=== PATIENT | female | born 1940 | race Caucasian/White ===

== ENCOUNTER 2017-04-02 08:47 | Inpatient (IN) ==
--- NOTE | 2017-04-02 08:55 | Emergency Department Report ---
Medical Clearance HPI - General Stated complaint: generations eval Time Seen by Provider: 04/02/17 08:55 Source: family, RN notes reviewed, old records reviewed Limitations: other - History of Present Illness HPI Narrative: Patient is a 76-year-old female sent to the emergency department for "medical clearance". Patient resident to the detention elsewhere, apparently has been having multiple behavioral disturbances anger with staff. Medication changes been attempted but have been unsuccessful. Patient was screening except generations, however patient has not been evaluated medically by physician in greater than 2 weeks so patient was sent to the emergency room for evaluation. On arrival patient is without complaint MD complaint: medical clearance requested Reason for Medical Clearance: psychiatric condition Home medications: Home Medications Medication Instructions Recorded Confirmed Acetaminophen [Acetaminophen Extra 1,000 mg PO Q4H PRN 04/02/17 04/02/17 Strength] Bisacodyl Supp [Dulcolax] 10 mg RECTALLY DAILY PRN 04/02/17 04/02/17 Cholecalciferol (Vitamin D3) 5,000 unit PO DAILY 04/02/17 04/02/17 [Vitamin D3] Divalproex Sprinkle [Depakote 500 mg PO BID 04/02/17 04/02/17 Sprinkle] Docosanol [Abreva] 1 applicatio TP 5XD 04/02/17 04/02/17 Docusate Sodium [Colace] 100 mg PO BID 04/02/17 04/02/17 Fluvoxamine [Luvox] 100 mg PO TID 04/02/17 04/02/17 Folic Acid [Folate] 1 mg PO DAILY 04/02/17 04/02/17 Ibuprofen 400 mg PO Q4H PRN 04/02/17 04/02/17 Levothyroxine Tab [Synthroid] 137 mcg PO ACB 04/02/17 04/02/17 Mag Hydrox/Aluminum Hyd/Simeth 30 ml PO Q4H PRN 04/02/17 04/02/17 [Maalox Advanced Suspension] Magnesium Hydroxide [Milk of 30 ml PO DAILY PRN 04/02/17 04/02/17 Magnesia] Mirtazapine [Remeron] 45 mg PO HS 04/02/17 04/02/17 Multivitamin [One Daily] 1 tab PO DAILY 04/02/17 04/02/17 Ondansetron HCl [Zofran] 4 mg PO Q6H PRN 04/02/17 04/02/17 Peg 3350 238 G Bottle [Miralax] 17 gm PO DAILY 04/02/17 04/02/17 Potassium Chloride [K-DUR 20 mEq 20 meq PO DAILY 04/02/17 04/02/17 Tablet] Tamsulosin [Flomax] 0.4 mg PO DAILY 04/02/17 04/02/17 Tramadol [Ultram] 50 - 100 mg PO Q4-6HR PRN 04/02/17 04/02/17 Ziprasidone HCl [Geodon] 80 mg PO BID 04/02/17 04/02/17 Ziprasidone [Geodon] 20 mg IM PRN PRN 04/02/17 04/02/17 Allergies/Adverse reactions: Allergies Allergy/AdvReac Type Severity Reaction Status Date / Time No Known Allergies Allergy Verified 04/02/17 09:53 Review of Systems Limitations: ROS unobtainable due to patient's medical condition (patient denies , however due to dementia review of suspect) Constitutional: Denies: fever, chills ENT: Denies: ear pain, throat pain Cardiovascular: Denies: chest pain, palpitations, dyspnea on exertion Respiratory: Denies: cough, dyspnea, wheezes Gastrointestinal: Denies: abdominal pain, nausea, vomiting Genitourinary: Reports: frequency (chronic) Neurological: Denies: headache, weakness, numbness Psychiatric: Reports: depression. Denies: anxiety PFSH Patient Stated Medical History Alzheimer's Disease Yes Dementia Yes Seizures Yes Cardiac Arrhythmia Yes: AFIB Gastroesophageal Reflux Yes Disease Hx Urinary Tract Infection Yes Osteoarthritis Yes Other Musculoskeletal Yes: CHRONIC PAIN Depression Yes Other Behavioral Health Yes: PSYCHOSIS Physical Exam - General General appearance: alert, in no apparent distress - Eye Eye exam: Present: PERRL - ENT ENT exam: Present: normal oropharynx, mucous membranes moist - Neck Neck exam: Present: full ROM, trachea midline - Chest Chest inspection: Present: symmetric chest wall rise. Absent: tenderness - Respiratory Respiratory exam: Present: normal lung sounds bilaterally. Absent: respiratory distress, wheezes, stridor - Cardiovascular Cardiovascular exam: Present: regular rate, normal rhythm, normal heart sounds - Abdominal Exam Abdominal exam: Present: soft, normal bowel sounds. Absent: distention, tenderness - Back Exam Back exam: Present: full ROM. Absent: tenderness, CVA tenderness (R), CVA tenderness (L), muscle spasm, paraspinal tenderness - Skin Skin exam: Present: warm, dry - Neurological Exam Neurological exam: Present: alert - Psychiatric Psychiatric exam: Present: flat affect Course Vital Signs Temperature 97.6 F 04/02/17 08:50 Pulse Rate 73 04/02/17 08:50 Respiratory Rate 18 04/02/17 08:50 Blood Pressure 99/57 04/02/17 08:50 Pulse Oximetry 94 04/02/17 08:50 Temperature 97.6 F 04/02/17 08:50 Pulse Rate 67 04/02/17 10:04 Respiratory Rate 18 04/02/17 08:50 Blood Pressure 116/84 04/02/17 10:04 Pulse Oximetry 93 04/02/17 10:04 Medical Clearance - [facility] Narrative Medical decision making narrative: Discussed with Dr. Scruggs hospitalist, patient laboratories are within defined limits, oxygen saturations 94% on room air blood pressure 116/84, patient having no respiratory symptoms. Despite chest x-ray showing atelectasis versus infiltrate, he and I both agree that this is atelectasis no antibiotics needed no acute admission criteria. Discuss case with generations unit - Differential Diagnosis Likely: urinary tract infection - Medical Records Attestation: I reviewed the patient's medical records. - Lab Data Attestation: I reviewed the patient's lab results. Result diagrams: 04/02/17 09:17 04/02/17 09:17 Lab Results 04/02/17 04/02/17 04/02/17 Range/Units 09:17 09:17 09:40 WBC 8.2 (4.5-11.0) T/MM3 RBC 4.46 (4.00-5.20) M/MM3 Hgb 12.5 (12-16) GM/DL Hct 40.3 (36-46) % MCV 90.4 (80-100) UM3 MCH 28.0 (26-34) UUG MCHC 31.0 (31-37) GM/DL RDW Std Deviation 56.6 H (36.9-50.2) FL Plt Count 306 (130-400) T/MM3 MPV 9.2 L (9.4-12.4) UM3 Immature Gran % (Auto) 0.2 (0.0-0.5) % Neut % (Auto) 59.2 (33-66) % Lymph % (Auto) 27.3 (23-45) % [place] % (Auto) 9.2 H (0-9.0) % Eos % (Auto) 3.1 (0-4) % Baso % (Auto) 1.0 (0-2) % Neut # (Auto) 4.8 (1.8-7.7) T/MM3 Lymph # (Auto) 2.2 (1-4.8) T/MM3 [place] # (Auto) 0.8 (0-0.8) T/MM3 Eos # (Auto) 0.3 (0-0.5) T/MM3 Baso # (Auto) 0.1 (0-0.2) T/MM3 Abs Immat Gran (auto) 0.02 (0.00-0.03) T/MM3 Turbidity < 20 (0-20) Sodium 144 (134-144) MEQ/L Potassium 4.4 (3.6-5) MEQ/L Chloride 107 (98-107) MEQ/L Carbon Dioxide 27 (22-30) MEQ/L Anion Gap 10 (5-15) MEQ/L BUN 26.0 H (7-17) MG/DL Creatinine 0.8 (0.7-1.2) MG/DL GFR Calculation 70 BUN/Creatinine Ratio 33 H (6-26) RATIO Glucose 111 H (65-110) MG/DL Calculated Osmolality 283 H (261-280) MOSM/KG Calcium 9.3 (8.4-10.2) MG/DL Total Bilirubin 0.20 (0.20-1.30) MG/DL Conjugated Bilirubin 0.00 (0.00-0.30) MG/DL Unconjugated Bilirubin 0.10 (0.00-1.1) MG/DL Icterus Index < 2 (0-7) AST 23 (14-36) U/L ALT 36 (9-52) U/L Alkaline Phosphatase 79 (38-126) U/L B-Natriuretic Peptide 350 H (0-175) pg/mL Total Protein 7.4 (6.3-8.2) G/DL Albumin 3.9 (3.5-5.0) G/DL Globulin 3.5 (2.4-3.6) G/DL Albumin/Globulin Ratio 1.1 (1.1-2.2) RATIO TSH 8.11 H (0.47-4.68) MIU/L Specimen Hemolysis < 15 (0-25) Ur Collection Type Urine, void-cc/notcc Urine Color Yellow (YELLOW) Urine Clarity Clear Urine pH 6.0 (5.0-8.0) Ur Specific [place] 1.020 (1.015-1.025) Urine Protein Negative (NEGATIVE) Urine Glucose (UA) Negative (NEGATIVE) Urine Ketones Trace A (NEGATIVE) Urine Occult Blood Negative (NEGATIVE) Urine Nitrate Negative (NEGATIVE) Urine Bilirubin Negative (NEGATIVE) Urine Urobilinogen 0.2 (NORMAL) EU/DL Ur Leukocyte Esterase Negative (NEGATIVE) Urinalysis Comment Microscopic not ind. Valproic Acid 35.3 L (50-120) UG/ML - Radiology Data Attestation: I reviewed the patient's radiology results. Patient with increased markings in the left lower lobe concerning for atelectasis versus infiltrate - EKG Data EKG #1 EKG attestation: Yes: I reviewed and interpreted this EKG. Rate: normal Rhythm: NSR Interpretation: no acute changes, normal EKG Disposition Clinical Impression: Dementia with behavioral disturbance Qualifiers: Dementia type: unspecified type Qualified Code(s): F03.91 - Unspecified dementia with behavioral disturbance Disposition: [address] [facility] Condition: Stable Prescriptions: No Action Ondansetron HCl [Zofran] 4 mg PO Q6H PRN PRN Reason: Nausea &/Or Vomiting Ibuprofen 400 mg PO Q4H PRN PRN Reason: Pain Bisacodyl Supp [Dulcolax] 10 mg RECTALLY DAILY PRN PRN Reason: Constipation Tramadol [Ultram] 50 - 100 mg PO Q4-6HR PRN PRN Reason: Pain Ziprasidone [Geodon] 20 mg IM PRN PRN PRN Reason: Prn Orders Magnesium Hydroxide [Milk of Magnesia] 30 ml PO DAILY PRN PRN Reason: Constipation Mirtazapine [Remeron] 45 mg PO HS Potassium Chloride [K-DUR 20 mEq Tablet] 20 meq PO DAILY Divalproex Sprinkle [Depakote Sprinkle] 500 mg PO BID Folic Acid [Folate] 1 mg PO DAILY Cholecalciferol (Vitamin D3) [Vitamin D3] 5,000 unit PO DAILY Tamsulosin [Flomax] 0.4 mg PO DAILY Multivitamin [One Daily] 1 tab PO DAILY Peg 3350 238 G Bottle [Miralax] 17 gm PO DAILY Levothyroxine Tab [Synthroid] 137 mcg PO ACB Ziprasidone HCl [Geodon] 80 mg PO BID Fluvoxamine [Luvox] 100 mg PO TID Docosanol [Abreva] 1 applicatio TP 5XD Acetaminophen [Acetaminophen Extra Strength] 1,000 mg PO Q4H PRN PRN Reason: Pain Mag Hydrox/Aluminum Hyd/Simeth [Maalox Advanced Suspension] 30 ml PO Q4H PRN PRN Reason: Epigastric Distress Docusate Sodium [Colace] 100 mg PO BID Time of Disposition: 10:12 - Seen By: physician
--- OUTSIDE RECORDS SUMMARY | 2017-04-02 09:05 | External Medical Summary ---
:1940 Author Organization [facility] Summary purpose CCDA Sent to [facility] Chief Complaint and Reason for Visit No authorized Reason for Visit (Admitting Diagnosis) is available for this visit. Problem list No authorized problems tracked for continuity of care are available for this visit. Encounters No authorized problems tracked for encounter diagnoses are available for this visit. Medications No medications recorded for this patient visit Allergies, adverse reactions, alerts No allergy information is available for this patient. Immunizations No immunizations recorded for this patient visit Relevant diagnostic tests and/or laboratory data No authorized results are available for this patient visit History of procedures Procedure Code Code Type Description Date Performed Performing Physician 03851 CPT-4 CHEST X-RAY 11-08-2016 SUSAN FERNANDEZ Functional status No functional or cognitive status observations are available for this visit. Vital signs No authorized vital signs are available for this visit. Social history No Social History or smoking status observations were recorded for this visit. ( Unknown if ever smoked.) Treatment Plan No treatment plan text is available for this visit. Hospital discharge instructions No discharge instruction text is available for this visit.
--- OUTSIDE RECORDS SUMMARY | 2017-04-02 09:05 | External Medical Summary ---
:1940 Author Organization [facility] Summary purpose CCDA Sent to [facility] Chief Complaint and Reason for Visit No authorized Reason for Visit (Admitting Diagnosis) is available for this visit. Problem list No authorized problems tracked for continuity of care are available for this visit. Encounters No authorized problems tracked for encounter diagnoses are available for this visit. Medications No medications recorded for this patient visit Allergies, adverse reactions, alerts Allergen Category Ingredient Status Reaction Severity Onset Tylenol Drug Tylenol Active Tylenol Drug acetaminophen Active Lortab Drug Lortab Active Lortab Drug acetaminophen Active Lortab Drug hydrocodone Active tuberculin,purif.pro Drug tuberculin,purif.prot.lonnie Active t.deriv. iv. Immunizations No immunizations recorded for this patient visit Relevant diagnostic tests and/or laboratory data No authorized results are available for this patient visit History of procedures Procedure Code Code Type Description Date Performed Performing Physician 91103 CPT-4 THER/PROPH/DIAG IV INF, 07-18-2015 [facility] INIT 98168 CPT-4 INSERT PICC CATH 07-18-2015 [facility] 71038 CPT-4 CHEST X-RAY 07-18-2015 [facility] Functional status No functional or cognitive status [...]
--- OUTSIDE RECORDS SUMMARY | 2017-04-02 09:05 | External Medical Summary ---
:1940 Author Organization [facility] Summary purpose CCDA Sent to [facility] Chief Complaint and Reason for Visit No [...] visit Relevant diagnostic tests and/or laboratory data RESULTS Chemistry Group [id number] Result Normal Range Units TSH H 6.603 0.35-3.74 uIU/mL History of procedures Procedure Code Code Type Description Date Performed Performing Physician 58348 CPT-4 ASSAY THYROID STIM 05-03-2016 STEPHANIE CASTANEDA HORMONE Functional status No functional or cognitive status [...]
--- OUTSIDE RECORDS SUMMARY | 2017-04-02 09:05 | External Medical Summary ---
:1940 Author Organization [facility] Summary purpose CCDA Sent to [facility] Chief Complaint and Reason for Visit [...] tests and/or laboratory data RESULTS Chemistry Group [id number] Result Normal Range Units TSH L 0.333 0.35-3.74 uIU/mL History of procedures Procedure Code Code Type Description Date Performed Performing Physician 13603 CPT-4 ASSAY THYROID STIM 03-08-2016 STEPHANIE CASTANEDA HORMONE Functional status No functional [...]
--- OUTSIDE RECORDS SUMMARY | 2017-04-02 09:05 | External Medical Summary ---
:1940 Author Organization [facility] Summary purpose CCDA Sent to [facility] Chief Complaint and Reason for Visit No authorized Reason for Visit (Admitting Diagnosis) is available for this visit. Problem list No authorized problems tracked for continuity of care are available for this visit. Encounters No authorized problems tracked for encounter diagnoses are available for this visit. Medications No home medications recorded for this patient visit Allergies, adverse reactions, alerts Allergen Category Ingredient Status Reaction Severity Onset Tylenol Drug Tylenol Active Tylenol Drug acetaminophen Active Lortab Drug Lortab Active Lortab Drug acetaminophen Active Lortab Drug hydrocodone Active tb serum Drug tb serum Active Immunizations No immunizations recorded for this patient visit Relevant diagnostic tests and/or laboratory data RESULTS Chemistry Group [id number] Result Normal Range Units Glucose 81 74-106 mg/dl Urea Nitrogen (BUN) H 20 7-18 mg/dl Creatinine 0.80 0.55-1.02 mg/dl Bun/Creatinine Ratio 25 7.5-25.0 Ratio EGFR Unable to Calculate eGFR.Patient is not within the defined age range. Osmolality Calculation 296 280-300 mOsm/kg Sodium 142 136-145 mmol/L Potassium 4.0 3.5-5.1 mmol/L Chloride 107 98-107 mmol/L CO2 27.8 21-32 mmol/L Calcium 8.6 8.5-10.1 mg/dl Alkaline Phosphatase 56 46-116 U/L ALT 24 14-59 U/L AST L 12 15-37 U/L Bilirubin Total 0.3 0.2-1.0 mg/dl Protein Total L 6.3 6.4-8.2 g/dl Albumin L 3.0 3.4-5.0 g/dl Globulin 3.3 1.0-4.5 g/dl A/G Ratio L 0.9 1.0-2.3 Ratio History of procedures Procedure Code Code Type Description Date Performed Performing Physician P9604 CPT-4 TRAVEL ALLOWANCE 02-09-2015 STEPHANIE CASTANEDA 39006 CPT-4 COMPREHEN METABOLIC 02-09-2015 STEPHANIE CASTANEDA PANEL 03576 CPT-4 ROUTINE VENIPUNCTURE 02-09-2015 STEPHANIE CASTANEDA Functional status No functional or cognitive status [...]
--- OUTSIDE RECORDS SUMMARY | 2017-04-02 09:05 | External Medical Summary ---
:1940 Author Organization [facility] Summary purpose CCDA Sent to [facility] Chief Complaint and Reason for Visit [...] Relevant diagnostic tests and/or laboratory data RESULTS Urinalysis [id number] Result Normal Range Units Site Voided Urine Color Yellow Yellow Urine Appearance AB Cloudy Clear UA Glucose Negative Negative UA Bili Negative Negative UA SG 1.020 1.005-1.030 UA Blood Negative Negative UA Ph 6.5 4.5-8.0 UA Protein Negative Negative UA Urobilinogen 0.2 0.2-1.0 EU/dL UA Nitrite AB Positive Negative UA Leukocyte AB 1+ Negative Urine RBC AB 0-2 None Seen /hpf Urine WBC AB 21-30 None Seen /hpf Urine Bacteria AB 2+ None Seen UA Ketone Negative Negative Culture Indicated Yes Reference Lab [id number] Result Normal Range Units Culture Urine A SEE NOTE CULTURE, URINE, ROUTINE MICRO NUMBER:[id number] TEST STATUS: FINAL SPECIMEN SOURCE: URINE SPECIMEN QUALITY:ADEQUATE RESULT:Greater than 100,000 CFU/mL of Escherichia coli (ESBL) E.coli (ESBL) INT SAMREEN AMOX/CLAVULANATE S 4 AMPICILLIN S 8 1 AMP/SULBACTAMS 4 CEFAZOLINNR<=4 2 CEFEPIME S <=1 CEFTRIAXONES <=1 CIPROFLOXACINR >=4 ERTAPENEMS <=0.5 GENTAMICIN S <=1 IMIPENEM S <=0.25 LEVOFLOXACIN R >=8 NITROFURANTOIN S <=16 PIP/TAZOBACTAM S <=4 TOBRAMYCIN S <=1 TRIMETHOPRIM/SULFA R >=320 ESBL RESULT: * 3 S=SusceptibleI=Intermediate R=Resistant*=Not Tested NR=Not ReportedNN=See Therapy Comments THERAPY COMMENTS Note 1: Extended spectrum beta-lactamase (ESBL) producing organisms demonstrate decreased activity with penicillins, cephalosporins and aztreonam. Note 2: ORAL therapy: A cefazolin SAMREEN of < 32 predicts susceptibility to the oral agents cefaclor, cefdinir, cefpodoxime, cefprozil, cefuroxime, cephalexin, and loracarbef when used for therapy of uncomplicated UTIs due to E. coli, K. pneumoniae, and P. mirabilis. PARENTERAL therapy: A cefazolin SAMREEN of > 8 indicates resistance to parenteral cefazolin. An alternate test method must be performed to to confirm susceptibility to parenteral cefazolin. 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 TEST PERFORMED AT: [facility] [address] [address] LINO PEREZ DO,MPH History of procedures Procedure Code Code Type Description Date Performed Performing Physician 72423 CPT-4 URINALYSIS, AUTO, W/O 03-06-2016 STEPHANIE CASTANEDA SCOPE 95201 CPT-4 URINE CULTURE/COLONY 03-06-2016 STEPHANIE CASTANEDA COUNT 85791 CPT-4 URINE BACTERIA CULTURE 03-06-2016 STEPHANIE CASTANEDA 54393 CPT-4 CULTURE AEROBIC 03-06-2016 STEPHANIE CASTANEDA IDENTIFY 30931 CPT-4 MICROBE SUSCEPTIBLE, 03-06-2016 STEPHANIE CASTANEDA SAMREEN Functional status No functional or cognitive status [...]
--- OUTSIDE RECORDS SUMMARY | 2017-04-02 09:05 | External Medical Summary ---
:1940 Author Organization [facility] Summary purpose CCDA Sent to [facility] Chief Complaint and Reason for Visit No [...] diagnostic tests and/or laboratory data RESULTS Urinalysis [id number]:00 Result Normal Range Units Site Voided Urine Color Yellow Yellow Urine Appearance AB Slightly cloudy UA Glucose Negative Negative UA Bili Negative Negative UA SG 1.015 1.005-1.030 UA Blood Negative Negative UA Ph 6.5 4.5-8.0 UA Protein Negative Negative UA Urobilinogen 0.2 0.2-1.0 EU/dL UA Nitrite AB Positive Negative UA Leukocyte AB 2+ Negative Urine RBC AB 0-2 None Seen /hpf Urine WBC AB 6-10 None Seen /hpf Urine Bacteria AB 3+ None Seen Urine Mucus AB Trace None Seen Urine Squamous Eps 0-2 UA Ketone Negative Negative Culture Indicated Yes Reference Lab [id number] Result Normal Range Units Culture Urine A SEE NOTE Result Amended on 2016-02-18 at 16:14:33. Previous status was FR. Comment deleted 02/17/2016 12:43 by [employer] : CULTURE, URINE, ROUTINE MICRO NUMBER:[id number] TEST STATUS: PRELIMINARY SPECIMEN SOURCE: URINE SPECIMEN QUALITY:ADEQUATE RESULT:Culture in progress TEST PERFORMED AT: [facility] [address] [place] [address] LINO PEREZ DO,MPH Test Culture Urine with result ofSEE NOTE was originally reported asSEE NOTE and was changed on 02/17/2016 12:43 by [facility] Comment deleted 02/18/2016 16:13 by [facility]ST : CULTURE, URINE, ROUTINE MICRO NUMBER:[id number] TEST STATUS: PRELIMINARY SPECIMEN SOURCE: URINE SPECIMEN QUALITY:ADEQUATE RESULT:Greater than 100,000 CFU/mL of Escherichia coli , susceptibility test report to follow. Culture in progress TEST PERFORMED AT: [employer] [address] [place] [address] LINO PEREZ DO,MPH CULTURE, URINE, ROUTINE MICRO NUMBER:[id number] TEST STATUS: FINAL SPECIMEN SOURCE: URINE SPECIMEN QUALITY:ADEQUATE RESULT:Greater than 100,000 CFU/mL of Escherichia coli E.coli INT SAMREEN AMOX/CLAVULANATE S 4 AMPICILLIN R 16 AMP/SULBACTAMS 4 CEFAZOLINNR<=4 1 CEFEPIME S <=1 CEFTRIAXONES <=1 CIPROFLOXACINR >=4 ERTAPENEMS <=0.5 GENTAMICIN S <=1 IMIPENEM S <=0.25 LEVOFLOXACIN R >=8 NITROFURANTOIN S <=16 PIP/TAZOBACTAM S <=4 TOBRAMYCIN S <=1 TRIMETHOPRIM/SULFA R >=320 S=SusceptibleI=Intermediate R=Resistant*=Not Tested NR=Not ReportedNN=See Therapy Comments THERAPY COMMENTS Note 1: ORAL therapy: A cefazolin SAMREEN of < [...] to to confirm susceptibility to parenteral cefazolin. TEST PERFORMED AT: [employer] [address] [place] [address] LINO PEREZ DO,MPH Test Culture Urine with result ofSEE NOTE was originally reported asSEE NOTE and was changed on 02/18/2016 16:13 by [facility] History of procedures Procedure Code Code Type Description Date Performed Performing Physician 85950 CPT-4 URINALYSIS, AUTO 02-16-2016 STEPHANIE CASTANEDA W/SCOPE 99701 CPT-4 URINE CULTURE/COLONY 02-16-2016 STEPHANIE CASTANEDA COUNT 32462 CPT-4 URINE BACTERIA CULTURE 02-16-2016 STEPHANIE CASTANEDA 14762 CPT-4 CULTURE AEROBIC 02-16-2016 STEPHANIE CASTANEDA IDENTIFY [id number] CPT-4 MICROBE SUSCEPTIBLE, 02-16-2016 STEPHANIE CASTANEDA SAMREEN Functional status No functional [...]
--- OUTSIDE RECORDS SUMMARY | 2017-04-02 09:05 | External Medical Summary ---
:1940 Author Organization [facility] Summary purpose CCDA Sent to [facility] Chief Complaint and Reason for Visit Admit Diagnosis 1 URIN TRACT INFECTION NOS Problem list No authorized problems tracked for [...] tests and/or laboratory data RESULTS Chemistry Group [id number] Result Normal Range Units Glucose 105 74-106 mg/dl Urea Nitrogen (BUN) 18 7-18 mg/dl Creatinine 0.82 0.55-1.02 mg/dl Bun/Creatinine Ratio 22 7.5-25.0 Ratio EGFR Unable to Calculate eGFR.Patient is not within the defined age range. Osmolality Calculation 294 280-300 mOsm/kg Sodium 141 136-145 mmol/L Potassium 4.1 3.5-5.1 mmol/L Chloride 105 98-107 mmol/L CO2 28.7 21-32 mmol/L Calcium 8.6 8.5-10.1 mg/dl Alkaline Phosphatase 77 46-116 U/L ALT 17 14-59 U/L AST L 12 15-37 U/L Bilirubin Total 0.3 0.2-1.0 mg/dl Protein Total 7.4 6.4-8.2 g/dl Albumin L 2.9 3.4-5.0 g/dl Globulin 4.5 1.0-4.5 g/dl A/G Ratio L 0.6 1.0-2.3 Ratio Urinalysis [id number] Result Normal Range Units Urine Color Yellow Yellow Urine Appearance Clear Clear UA Glucose Negative Negative UA Bili Negative Negative UA SG 1.015 1.005-1.030 UA Blood Negative Negative UA Ph 7.0 4.5-8.0 UA Protein Negative Negative UA Urobilinogen 0.2 0.2-1.0 EU/dL UA Nitrite Negative Negative UA Leukocyte AB Trace Negative Urine RBC None Seen None Seen /hpf Urine WBC AB 6-10 None Seen /hpf Urine Bacteria AB 1+ None Seen Urine Squamous Eps 3-5 UA Ketone Negative Negative Culture Indicated Yes The WBC result has been corrected for the presence of NRBCs. Reference Lab [id number] Result Normal Range Units Culture Urine SEE NOTE CULTURE, URINE, ROUTINE MICRO NUMBER:[id number] TEST STATUS: FINAL SPECIMEN SOURCE: URINE SPECIMEN QUALITY:ADEQUATE RESULT:No Growth TEST PERFORMED AT: [facility] [address] [place] [address] LINO PEREZ DO,MPH History of procedures Procedure Code Code Type Description Date Performed Performing Physician P9604 CPT-4 ONE-WAY ALLOW PRORATED 11-10-2014 STEPHANIE CASTANEDA TRIP 38711 CPT-4 URINALYSIS AUTO W/O 11-10-2014 STEPHANIE CASTANEDA SCOPE 39654 CPT-4 URINE CULTURE/COLONY 11-10-2014 STEPHANIE CASTANEDA COUNT 42535 CPT-4 COMPREHEN METABOLIC 11-10-2014 STEPHANIE CASTANEDA PANEL 83001 CPT-4 ROUTINE VENIPUNCTURE 11-10-2014 STEPHANIE CASTANEDA Functional status No functional or [...]
--- OUTSIDE RECORDS SUMMARY | 2017-04-02 09:05 | External Medical Summary ---
:1939 Author Organization [facility] Summary purpose CCDA Sent to [facility] Chief Complaint and Reason for Visit Admit Diagnosis 1 ANXIETY STATE NOS Problem list No authorized problems tracked [...] tests and/or laboratory data RESULTS Chemistry Group [id number]:00 Result Normal Range Units Glucose 79 74-106 mg/dl Urea Nitrogen (BUN) 13 7-18 mg/dl Creatinine 0.55 0.55-1.02 mg/dl Bun/Creatinine Ratio 24 7.5-25.0 Ratio EGFR Unable to Calculate eGFR.Patient is not within the defined age range. Osmolality Calculation 293 280-300 mOsm/kg Sodium 142 136-145 mmol/L Potassium 3.5 3.5-5.1 mmol/L Chloride H 109 98-107 mmol/L CO2 25.2 21-32 mmol/L Calcium L 8.2 8.5-10.1 mg/dl Alkaline Phosphatase 60 46-116 U/L ALT 21 14-59 U/L AST 16 15-37 U/L Bilirubin Total 0.4 0.2-1.0 mg/dl Protein Total L 5.9 6.4-8.2 g/dl Albumin L 2.5 3.4-5.0 g/dl Globulin 3.4 1.0-4.5 g/dl A/G Ratio L 0.7 1.0-2.3 Ratio History of procedures Procedure Code Code Type Description Date Performed Performing Physician 84707 CPT-4 ROUTINE VENIPUNCTURE 08-11-2014 STEPHANIE CASTANEDA P9604 CPT-4 ONE-WAY ALLOW PRORATED 08-11-2014 STEPHANIE CASTANEDA TRIP 66184 CPT-4 COMPREHEN METABOLIC 08-11-2014 [facility] PANEL Functional status No functional or cognitive status [...]
--- OUTSIDE RECORDS SUMMARY | 2017-04-02 09:05 | External Medical Summary ---
:1939 Author Organization [facility] Summary purpose CCDA Sent to [facility] Chief Complaint and Reason for Visit Admit Diagnosis 1 CHF NOS Problem list No authorized problems tracked [...] tests and/or laboratory data RESULTS Chemistry Group [id number]:00 Result Normal Range Units Glucose 86 70-99 mg/dl Urea Nitrogen (BUN) 18 7-18 mg/dl Creatinine L 0.47 0.6-1.3 mg/dl Bun/Creatinine Ratio H 38 7.5-25.0 Ratio EGFR Unable to Calculate eGFR.Patient is not within the defined age range. Osmolality Calculation 293 280-300 mOsm/kg Sodium 141 136-145 mmol/L Potassium 3.9 3.5-5.1 mmol/L Chloride H 109 98-107 mmol/L CO2 26.4 21.0-32.0 mmol/L Calcium L 8.4 8.5-10.5 mg/dl Alkaline Phosphatase L 48 50-136 U/L ALT L 9 30-65 U/L AST 13 0-32 U/L Bilirubin Total L 0.4 0.5-1.4 mg/dl Protein Total L 5.7 6.4-8.2 g/dl Albumin L 3.3 3.4-5.0 g/dl Globulin 2.4 1.0-4.5 g/dl A/G Ratio 1.4 1.0-2.3 Ratio History of procedures Procedure Code Code Type Description Date Performed Performing Physician 52716 CPT-4 ROUTINE VENIPUNCTURE 05-12-2014 STEPHANIE CASTANEDA P9604 CPT-4 ONE-WAY ALLOW PRORATED 05-12-2014 STEPHANIE CASTANEDA TRIP 56642 CPT-4 COMPREHEN METABOLIC 05-12-2014 STEPHANIE CASTANEDA PANEL Functional status No functional or cognitive [...]
--- OUTSIDE RECORDS SUMMARY | 2017-04-02 09:05 | External Medical Summary ---
:1939 Author Organization [facility] Summary purpose CCDA Sent to [facility] Chief Complaint and Reason for Visit No authorized Reason for Visit (Admitting Diagnosis) is available for this visit. Problem list Condition Status Certainty Chronicity Onset .Hypoxia Active Encounters The following conditions tracked for encounter diagnoses were recorded for this visit: Finding or Diagnosis Status Certainty Chronicity Onset .Hypoxia Active Medications Discharge Medications Status Medication Directions Current albuterol sulfate (ALBUTEROL) 2.5 mg /3 2.5 MG inhalation Give INHL FOUR mL (0.083 %): NEBULE TIMES A DAY NEEDED for WHEEZING Current alendronate (FOSAMAX): TABLET 70 MG oral SATURDAY Current bifidobacterium infantis (ALIGN): 4 MG oral ONE TIME A DAY capsule Current bisacodyl (DULCOLAX): Tab DR 5 MG oral ONE TIME A DAY NEEDED for CONSTIPATION Current clonazePAM (KLONOPIN): TABLET 0.5 MG oral THREE TIMES A DAY Current clotrimazole-betamethasone (LOTRISONE) 1 APPLIC topical Give TOP TWO TIMES 1-0.05 %: CREAM A DAY Current cyanocobalamin (vitamin B-12) (VITAMIN 1000 MCG injection Give IM MONTHLY B-12): VIAL Current digoxin (LANOXIN) 125 mcg: TABLET 125 MCG oral ONE TIME A DAY Current enoxaparin (LOVENOX): DISP SYRIN 40 MG subcutaneous Give SUBQ ONE TIME A DAY Current FOLIC ACID: TABLET 1 MG oral ONE TIME A DAY Current ibuprofen (MOTRIN) 200 mg: TABLET 400 MG oral EVERY FOUR HOURS NEEDED for PAIN Current LEVOTHYROXINE 175 MCG oral ONE TIME A DAY Current magnesium hydroxide (MILK OF MAGNESIA): 30 milliliter(s) oral NEEDED for SUSPENSION CONSTIPATION Current mirtazapine (REMERON): TABLET 30 MG oral BEDTIME Current MULTIVITAMIN: TABLET 1 TAB oral ONE TIME A DAY Current OLANZapine (ZYPREXA) 2.5 mg: TABLET 2.5 MG oral ONE TIME A DAY Current ondansetron HCl (PF) (ZOFRAN): VIAL 8 MG injection Give IV EVERY SIX HOURS NEEDED for NAUSEA AND VOMITING Current oxybutynin chloride (DITROPAN) 5 m MG oral ONE TIME A DAY TABLET Current OXYCODONE 5 mg: TABLET 5 MG oral THREE TIMES A DAY NEEDED for PAIN Current PIPERACILLIN-TAZOBACTAM (ZOSYN) 3.375 GM Intravenous Give IV EVERY SIX HOURS Current risperiDONE (RISPERDAL) 0.25 mg: TABLET 1 MG oral DAILY AT 8 PM Current risperiDONE (RISPERDAL) 0.25 mg: TABLET 2 MG oral ONE TIME A DAY Current sertraline (ZOLOFT): TABLET 75 MG oral ONE TIME A DAY Current tamsulosin (FLOMAX): ER 24HR Cap 0.4 MG oral ONE TIME A DAY Current traMADol (ULTRAM): TABLET 50 MG oral TWO TIMES A DAY Current traZODone (DESYREL): TABLET 50 MG oral BEDTIME Current VANCOMYCIN 1 GM Intravenous Give IV ONE TIME A DAY Stopped Align 4 mg capsule 1 capsule(s) oral ONE TIME A DAY Stopped bisacodyl 5 mg tablet 1 tab(s) oral ONE TIME A DAY NEEDED Stopped clonazePAM 0.5 mg tablet 1 tab(s) oral THREE TIMES A DAY at 0800, 1200, 1800 Stopped cyanocobalamin (vit B-12) 1,000 mcg/mL 1000 microgram(s) injection MONTHLY injection solution on Stopped digoxin 125 mcg tablet 1 tab(s) oral ONE TIME A DAY Stopped Ditropan 5 mg tablet 1 tab(s) oral ONE TIME A DAY Stopped Flomax 0.4 mg capsule 1 capsule(s) oral ONE TIME A DAY Stopped folic acid 1 mg tablet 1 miligram(s) oral ONE TIME A DAY Stopped Fosamax 70 mg tablet 1 tab(s) oral SATURDAY Give every Saturday at 0700 Stopped ibuprofen 200 mg capsule 2 capsule(s) oral EVERY FOUR HOURS NEEDED Stopped levothyroxine 175 mcg tablet 175 microgram(s) oral ONE TIME A DAY Stopped Milk of Magnesia 800 mg/5 mL oral 30 milliliter(s) oral NEEDED suspension Stopped mirtazapine 30 mg tablet 1 tab(s) oral BEDTIME Stopped multivitamin tablet 1 tab(s) oral ONE TIME A DAY Stopped oxyCODONE 5 mg tablet 1 tab(s) oral THREE TIMES A DAY NEEDED Stopped Risperdal 1 mg tablet 1 miligram(s) oral DAILY AT 6 PM Stopped Risperdal 1 mg tablet 2 miligram(s) oral ONE TIME A DAY Stopped traMADol 50 mg tablet 1 tab(s) oral TWO TIMES A DAY takes at 0800 and 1800 Stopped traZODone 50 mg tablet 1 tab(s) oral BEDTIME Stopped Zoloft 50 mg tablet 75 miligram(s) oral ONE TIME A DAY Stopped Zyprexa 2.5 mg tablet 2.5 miligram(s) oral ONE TIME A DAY Allergies, adverse reactions, alerts Allergen Category Ingredient Status Reaction Severity Onset Tylenol Drug Tylenol Active Tylenol Drug acetaminophen Active Lortab Drug Lortab Active Lortab Drug acetaminophen Active Lortab Drug hydrocodone Active tuberculin,purif.pro Drug tuberculin,purif.prot.lonnie Active t.deriv. iv. Immunizations No immunizations recorded for this patient visit Relevant diagnostic tests and/or laboratory data RESULTS CBC :20:00 Result Normal Range Units White Blood Count 9.8 3.8-10.8 x 10*3/uL Red Blood Cells 4.01 3.80-5.10 x 10*6/uL Hemoglobin L 10.4 11.70-15.50 g/dl Hematocrit L 34.2 35.00-45.00 % Mean Jose Miguel Volume 85.3 80-100 fL Mean Jose Miguel Hemoglobin L 25.9 27.0-33.0 pg Mean Jose Miguel Hemoglobin Conc L 30.4 32.0-36.0 g/dl RDW - CV 14.9 11.0-15.0 % RDW - SD H 45.3 35.1-43.9 FL Platelet Count 333 140-400 x 10*3/uL Mean Platelet Volume L 9.3 9.4-12.4 fL Segmented Neutrophil 59.0 37-80 % Bands 1.0 0-5 % Lymphocyte 25.0 10-50 % Monocyte 7.0 0-8.0 % Eosinophil H 6.0 0.2-1.0 % Basophil H 2.0 0.2-1.0 % Hypersegmented Neutrophils Present RBC Morphology Essentially Normal Platelet Estimate Platelets Adequate :40:00 Result Normal Range Units White Blood Count 8.3 3.8-10.8 x 10*3/uL Red Blood Cells L 3.66 3.80-5.10 x 10*6/uL Hemoglobin L 9.7 11.70-15.50 g/dl Hematocrit L 32.1 35.00-45.00 % Mean Jose Miguel Volume 87.7 80-100 fL Mean Jose Miguel Hemoglobin L 26.5 27.0-33.0 pg Mean Jose Miguel Hemoglobin Conc L 30.2 32.0-36.0 g/dl RDW - CV H 15.2 11.0-15.0 % RDW - SD H 47.6 35.1-43.9 FL Platelet Count 335 140-400 x 10*3/uL Mean Platelet Volume 10.0 9.4-12.4 fL Neutrophil % 56.7 36.0-78.0 % Lymphocyte% 24.3 13.0-49.0 % Monocyte % 9.2 4.0-12.0 % Eosinophil % 8.6 0-9.0 % Basophil % H 1.2 0-1.0 % Neutrophil # 4.7 1.50-7.80 x 10*3/uL Lymphocyte # 2.0 0.8-3.9 x 10*3/uL Monocyte# 0.8 0.20-0.95 x 10*3/uL Eosinophil # 0.7 0.0-1.0 x 10*3/uL Basophil # 0.1 0.0-1.0 x 10*3/uL Segmented Neutrophil 63.0 37-80 % Bands 2.0 0-5 % Lymphocyte 19.0 10-50 % Monocyte 7.0 0-8.0 % Eosinophil H 8.0 0.2-1.0 % Basophil 1.0 0.2-1.0 % WBC Morphology Essentially Normal RBC Morphology Essentially Normal Platelet Estimate Platelets [facility] 80-00-131325:08:00 Result Normal Range Units White Blood Count H 12.5 3.8-10.8 x 10*3/uL Red Blood Cells 3.96 3.80-5.10 x 10*6/uL Hemoglobin L 10.5 11.70-15.50 g/dl Hematocrit L 34.4 35.00-45.00 % Mean Jose Miguel Volume 86.9 80-100 fL Mean Jose Miguel Hemoglobin L 26.5 27.0-33.0 pg Mean Jose Miguel Hemoglobin Conc L 30.5 32.0-36.0 g/dl RDW - CV H 15.1 11.0-15.0 % RDW - SD H 47.4 35.1-43.9 FL Platelet Count 300 140-400 x 10*3/uL Mean Platelet Volume L 9.3 9.4-12.4 fL Neutrophil % 73.0 36.0-78.0 % Lymphocyte% 14.7 13.0-49.0 % Monocyte % 7.8 4.0-12.0 % Eosinophil % 3.9 0-9.0 % Basophil % 0.6 0-1.0 % Neutrophil # H 9.1 1.50-7.80 x 10*3/uL Lymphocyte # 1.8 0.8-3.9 x 10*3/uL Monocyte# H 1.0 0.20-0.95 x 10*3/uL Eosinophil # 0.5 0.0-1.0 x 10*3/uL Basophil # 0.1 0.0-1.0 x 10*3/uL Chemistry Group :20:00 Result Normal Range Units Glucose 91 74-106 mg/dl Urea Nitrogen (BUN) 10 7-18 mg/dl Creatinine 0.84 0.55-1.30 mg/dl Bun/Creatinine Ratio 12 7.5-25.0 Ratio EGFR Unable to Calculate eGFR.Patient is not within the defined age range. Osmolality Calculation 285 280-300 mOsm/kg Sodium 138 136-145 mmol/L Potassium 3.8 3.5-5.1 mmol/L Chloride 106 98-107 mmol/L CO2 25.5 21-32 mmol/L Calcium L 8.0 8.5-10.1 mg/dl Alkaline Phosphatase 97 46-116 U/L ALT 29 14-59 U/L AST 20 15-37 U/L Bilirubin Total 0.4 0.2-1.0 mg/dl Protein Total 7.4 6.4-8.2 g/dl Albumin L 2.6 3.4-5.0 g/dl Globulin H 4.8 1.0-4.5 g/dl A/G Ratio L 0.5 1.0-2.3 Ratio Vancomycin Trough H 12.2 5.0-10.0 ug/ml Pro-BNP H 456 0-450 pg/ml :40:00 Result Normal Range Units Glucose 88 74-106 mg/dl Urea Nitrogen (BUN) 14 7-18 mg/dl Creatinine 0.81 0.55-1.30 mg/dl Bun/Creatinine Ratio 17 7.5-25.0 Ratio EGFR Unable to Calculate eGFR.Patient is not within the defined age range. Osmolality Calculation 292 280-300 mOsm/kg Sodium 141 136-145 mmol/L Potassium 4.0 3.5-5.1 mmol/L Chloride H 109 98-107 mmol/L CO2 27.5 21-32 mmol/L Calcium L 7.8 8.5-10.1 mg/dl Alkaline Phosphatase 86 46-116 U/L ALT 28 14-59 U/L AST 22 15-37 U/L Bilirubin Total 0.3 0.2-1.0 mg/dl Protein Total 6.6 6.4-8.2 g/dl Albumin L 2.3 3.4-5.0 g/dl Globulin 4.3 1.0-4.5 g/dl A/G Ratio L 0.5 1.0-2.3 Ratio C-Reactive Protein H 1.2 <=0.9 mg/dl :28:00 Result Normal Range Units Glucose H 151 74-106 mg/dl Urea Nitrogen (BUN) H 21 7-18 mg/dl Creatinine 1.04 0.55-1.30 mg/dl Bun/Creatinine Ratio 20 7.5-25.0 Ratio EGFR Unable to Calculate eGFR.Patient is not within the defined age range. Osmolality Calculation 296 280-300 mOsm/kg Sodium 140 136-145 mmol/L Potassium 4.5 3.5-5.1 mmol/L Chloride 105 98-107 mmol/L CO2 29.5 21-32 mmol/L Calcium L 8.4 8.5-10.1 mg/dl Alkaline Phosphatase 102 46-116 U/L ALT 31 14-59 U/L AST 22 15-37 U/L Bilirubin Total 0.3 0.2-1.0 mg/dl Protein Total 7.5 6.4-8.2 g/dl Albumin L 2.8 3.4-5.0 g/dl Globulin H 4.7 1.0-4.5 g/dl A/G Ratio L 0.6 1.0-2.3 Ratio Hematology Group :40:00 Result Normal Range Units Sed Rate (ESR) H 44 0-30 MM/hr. Reference Lab :40:00 Result Normal Range Units C-Reactive Protein H 1.2 <=0.9 mg/dl :32:00 Result Normal Range Units Culture Blood SEE NOTE Result Amended on 2016-01-18 at 16:20:18. Previous status was FR. Comment deleted 01/18/2016 16:19 by [facility] : CULTURE, BLOOD MICRO NUMBER:[id number] TEST STATUS: PRELIMINARY SPECIMEN SOURCE: BLOOD LT HAND SPECIMEN QUALITY:ADEQUATE RESULT:No growth to date. Culture is continuously monitored for a total of 120 hours incubation. A change in status will result in a phone report followed by an updated printed culture report. TRANSPORT MEDIA: Pediatric bottle received TEST PERFORMED AT: [facility] [address] LINO PEREZ DO,MPH CULTURE, BLOOD MICRO NUMBER:[id number] TEST STATUS: FINAL SPECIMEN SOURCE: BLOOD LT HAND SPECIMEN QUALITY:ADEQUATE RESULT:No growth after 5 days TRANSPORT MEDIA: Pediatric bottle received TEST PERFORMED AT: [facility], [place] [address] LINO PEREZ DO,MPH Test Culture Blood with result ofSEE NOTE was originally reported asSEE NOTE and was changed on 01/18/2016 16:19 by [facility] Culture Blood Source LEFT HAND Result Amended on 2016-01-18 at 16:20:18. Previous status was FR. :28:00 Result Normal Range Units Culture Blood SEE NOTE Result Amended on 2016-01-18 at 16:20:18. Previous status was FR. Comment deleted 01/18/2016 16:19 by [facility] : CULTURE, BLOOD MICRO NUMBER:[id number] TEST STATUS: PRELIMINARY SPECIMEN SOURCE: BLOOD, LEFT ARM SPECIMEN QUALITY:ADEQUATE RESULT:No growth to date. Culture is continuously monitored for a total of 120 hours incubation. A change in status will result in a phone report followed by an updated printed culture report. TRANSPORT MEDIA: Aerobic and anaerobic bottle received. TEST PERFORMED AT: [place] [address] LINO PEREZ DO,MPH CULTURE, BLOOD MICRO NUMBER:[id number] TEST STATUS: FINAL SPECIMEN SOURCE: BLOOD, LEFT ARM SPECIMEN QUALITY:ADEQUATE RESULT:No growth after 5 days TRANSPORT MEDIA: Aerobic and anaerobic bottle received. TEST PERFORMED AT: [facility] [address] [place] [address] LINO PEREZ DO,MPH Test Culture Blood with result ofSEE NOTE was originally reported asSEE NOTE and was changed on 01/18/2016 16:19 by [facility] Culture Blood Source LEFT AC Result Amended on 2016-01-18 at 16:20:18. Previous status was FR. History of procedures No procedures recorded for this patient visit. Functional status Functional Status Finding Observation Time Dexterity Right-handed :30 Weight Bearing Statu Full [id number]:00 Transferring/Ambulat Needs Assistance :30 Bathing Needs Assistance :30 Dressing Needs Assistance :30 Eating Needs Assistance : Drinking Needs Assistance : Toileting Needs Assistance : Able to Turn Self in Needs Assistance :30 Stairs Not Done :30 Wheelchair Yes :30 Cognitive Status Finding Observation Time Level of Consciousne Alert :53 Oriented to Person Yes :[address] No :53 Oriented to Time No :53 Eyes - LORENZO Yes :40 Vital signs Type Value Date Respirations 20 :17 Pulse 82 :48 O2 Saturation 91% :17 Systolic Blood Press 133mm/HG :17 Diastolic Blood Pres 82mm/HG :17 Temperature (Fahr) See CommentsDegrees :17 Height 63in :54 Weight 163.4LB :54 Social history Type Value Smoking Status FORMER SMOKER Treatment Plan Treatment Plan at Di Continue with iv medications and strengthening Hospital discharge instructions No discharge instruction text is available for this visit.
--- OUTSIDE RECORDS SUMMARY | 2017-04-02 09:05 | External Medical Summary ---
:1939 Author Organization [facility] Summary purpose CCDA Sent to [facility] Chief Complaint and Reason for Visit No [...] tests and/or laboratory data RESULTS Chemistry Group [id number]:28:00 Result Normal Range Units TSH 3.573 0.35-3.74 uIU/mL History of procedures Procedure Code Code Type Description Date Performed Performing Physician 32908 CPT-4 ASSAY THYROID STIM 07-03-2016 STEPHANIE CASTANEDA HORMONE Functional status No functional [...]
--- OUTSIDE RECORDS SUMMARY | 2017-04-02 09:06 | External Medical Summary ---
:1939 Author Organization [facility] Summary purpose CCDA Sent to [facility] Chief Complaint and Reason for [...] diagnostic tests and/or laboratory data RESULTS Urinalysis [id number]:07:00 Result Normal Range Units Site Catheter Urine Color Yellow Yellow Urine Appearance Clear Clear UA Glucose Negative Negative UA Bili Negative Negative UA SG 1.015 1.005-1.030 UA Blood Negative Negative UA Ph 5.0 4.5-8.0 UA Protein Negative Negative UA Urobilinogen 0.2 0.2-1.0 EU/dL UA Nitrite Negative Negative UA Leukocyte AB Trace Negative Urine RBC None Seen None Seen /hpf Urine WBC AB 21-30 None Seen /hpf Urine Bacteria AB 1+ None Seen UA Ketone Negative Negative Culture Indicated Yes Reference Lab [id number]:00 Result Normal Range Units Culture Urine SEE NOTE CULTURE, URINE, ROUTINE MICRO NUMBER:[id number] TEST STATUS: FINAL SPECIMEN SOURCE: URINE SPECIMEN QUALITY:ADEQUATE RESULT:No Growth TEST PERFORMED AT: [facility] [address] [place] [address] LINO PEREZ DO,MPH History of procedures Procedure Code Code Type Description Date Performed Performing Physician 42737 CPT-4 URINALYSIS, AUTO 03-30-2015 W/SCOPE 50425 CPT-4 URINE CULTURE/COLONY 03-30-2015 COUNT Functional status No functional or cognitive status [...]
--- OUTSIDE RECORDS SUMMARY | 2017-04-02 09:06 | External Medical Summary ---
:1939 Author Organization [facility] Summary purpose CCDA Sent to [facility] Chief Complaint and Reason for Visit [...] diagnostic tests and/or laboratory data RESULTS Urinalysis [id number]:45:00 Result Normal Range Units Site Catheter Urine Color Yellow Yellow Urine Appearance Clear Clear UA Glucose Negative Negative UA Bili Negative Negative UA SG 1.025 1.005-1.030 UA Blood AB Trace Negative UA Ph 6.0 4.5-8.0 UA Protein Negative Negative UA Urobilinogen 0.2 0.2-1.0 EU/dL UA Nitrite AB Positive Negative UA Leukocyte AB Trace Negative Urine WBC AB 6-10 None Seen /hpf Urine Bacteria AB Trace None Seen Calcium Oxalate Crystals 3-5 UA Ketone Negative Negative Reference Lab [id number]:00 Result Normal Range Units Culture Urine A SEE NOTE CULTURE, URINE, ROUTINE MICRO NUMBER:[id number] TEST STATUS: FINAL SPECIMEN SOURCE: URINE SPECIMEN QUALITY:ADEQUATE RESULT:Greater than 100,000 CFU/mL of Escherichia coli E.coli INT SAMREEN AMOX/CLAVULANATE I 16 AMPICILLIN R >=32 1 AMP/SULBACTAMR >=32 CEFAZOLINR >=64 2 CEFEPIME R >=64 CEFTRIAXONER >=64 CIPROFLOXACINR >=4 ERTAPENEMS <=0.5 GENTAMICIN S <=1 IMIPENEM S <=0.25 LEVOFLOXACIN R >=8 NITROFURANTOIN S <=16 PIP/TAZOBACTAM I 64 TOBRAMYCIN S <=1 TRIMETHOPRIM/SULFA S <=20 ESBL RESULT: * 3 S=SusceptibleI=Intermediate R=Resistant*=Not Tested [...] 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 TEST PERFORMED AT: [employer] [facility] [id number] [place] [phone] LINO PEREZ DO,MPH History of procedures Procedure Code Code Type Description Date Performed Performing Physician 27443 CPT-4 URINALYSIS AUTO W/O 06-13-2014 STEPHANIE CASTANEDA SCOPE 09451 CPT-4 URINE CULTURE/COLONY 06-13-2014 STEPHANIE CASTANEDA COUNT 53529 CPT-4 URINE BACTERIA CULTURE 06-13-2014 STEPHANIE CASTANEDA 77225 CPT-4 CULTURE AEROBIC 06-13-2014 STEPHANIE CASTANEDA IDENTIFY 27311 CPT-4 MICROBE SUSCEPTIBLE 06-13-2014 STEPHANIE CASTANEDA SAMREEN Functional status No functional [...]
--- OUTSIDE RECORDS SUMMARY | 2017-04-02 09:06 | External Medical Summary ---
:1939 Author Organization [facility] Summary purpose CCDA Sent to [facility] Chief Complaint and Reason for Visit [...] Code Type Description Date Performed Performing Physician 70225 CPT-4 CHEST X-RAY 01-31-2016 STEPHANIE CASTANEDA 31508 CPT-4 COMPLETE CBC W/AUTO DIFF 01-31-2016 STEPHANIE CASTANEDA WBC 26817 CPT-4 COMPREHEN METABOLIC 01-31-2016 STEPHANIE CASTANEDA PANEL Functional status No functional [...]
--- OUTSIDE RECORDS SUMMARY | 2017-04-02 09:06 | External Medical Summary ---
:1939 Author Organization [facility] Summary purpose CCDA Sent to [facility] Chief Complaint and Reason for Visit [...] diagnostic tests and/or laboratory data RESULTS Urinalysis [id number]:47:00 Result Normal Range Units Site Voided Urine Color Yellow Yellow Urine Appearance AB Slightly cloudy UA Glucose Negative Negative UA Bili Negative Negative UA SG 1.020 1.005-1.030 UA Blood AB Trace Negative UA Ph 7.0 4.5-8.0 UA Protein Negative Negative UA Urobilinogen 0.2 0.2-1.0 EU/dL UA Nitrite AB Positive Negative UA Leukocyte AB 3+ Negative Urine RBC AB 3-5 None Seen /hpf Urine WBC AB 31-50 None Seen /hpf Urine Bacteria AB 1+ None Seen Urine Mucus AB 1+ None Seen Urine Squamous Eps 3-5 UA Ketone Negative Negative Culture Indicated Yes Reference Lab [id number] Result Normal Range Units Culture Urine A SEE NOTE CULTURE, URINE, ROUTINE MICRO NUMBER:[id number] TEST STATUS: FINAL SPECIMEN SOURCE: URINE SPECIMEN QUALITY:ADEQUATE RESULT:Greater than 100,000 CFU/mL of Proteus mirabilis This organism may show imipenem resistance by mechanisms other than a carbapenemase. P.mirabilis INT SAMREEN AMOX/CLAVULANATE S 8 AMPICILLIN R >=32 AMP/SULBACTAMI 16 CEFAZOLINR 8 1 CEFEPIME S <=1 CEFTRIAXONES <=1 CIPROFLOXACINR >=4 ERTAPENEMS <=0.5 GENTAMICIN R >=16 IMIPENEM I 2 LEVOFLOXACIN R >=8 NITROFURANTOIN R 128 PIP/TAZOBACTAM S <=4 TOBRAMYCIN R >=16 TRIMETHOPRIM/SULFA R >=320 S=SusceptibleI=Intermediate R=Resistant*=Not Tested NR=Not [...] susceptibility to parenteral cefazolin. TEST PERFORMED AT: [facility] [address] [place] [address] LINO PEREZ DO,MPH History of procedures Procedure Code Code Type Description Date Performed Performing Physician 72316 CPT-4 URINALYSIS, AUTO, W/O 10-26-2015 [facility] SCOPE 56324 CPT-4 URINE CULTURE/COLONY 10-26-2015 [facility] COUNT 31538 CPT-4 URINE BACTERIA CULTURE 10-26-2015 DAY 68636 CPT-4 CULTURE AEROBIC 10-26-2015 [facility] IDENTIFY 01223 CPT-4 MICROBE SUSCEPTIBLE, 10-26-2015 [facility] SAMREEN Functional status No functional or cognitive [...]
--- OUTSIDE RECORDS SUMMARY | 2017-04-02 09:06 | External Medical Summary ---
:1940 Author Organization [facility] Summary purpose CCDA Sent to [facility] Chief Complaint and Reason for Visit No [...] diagnostic tests and/or laboratory data RESULTS Urinalysis [id number]:00 Result Normal Range Units Site Voided Urine Color Yellow Yellow Urine Appearance AB Cloudy Clear UA Glucose Negative Negative UA Bili Negative Negative UA SG 1.020 1.005-1.030 UA Blood AB Trace Negative UA Ph 7.0 4.5-8.0 UA Protein Negative Negative UA Urobilinogen 0.2 0.2-1.0 EU/dL UA Nitrite Negative Negative UA Leukocyte AB 3+ Negative Urine RBC AB 0-2 None Seen /hpf Urine WBC AB Too Numerous To Count Urine Bacteria AB 4+ None Seen Urine Squamous Eps 3-5 UA Ketone Negative Negative Culture Indicated Yes Reference Lab [id number]:00 Result Normal Range Units Culture Urine A SEE NOTE Result Amended on 2015-01-17 at 11:59:35. Previous status was FR. Comment deleted 01/13/2015 16:39 by Panizon : CULTURE, URINE, ROUTINE MICRO NUMBER:[id number] TEST STATUS: PRELIMINARY SPECIMEN SOURCE: URINE SPECIMEN QUALITY:ADEQUATE RESULT:Culture in progress TEST PERFORMED AT: [facility] [address] [place] [address] LINO PEREZ DO,MPH Test Culture Urine with result ofSEE NOTE was originally reported asSEE NOTE and was changed on 01/13/2015 16:39 by QUEST Comment deleted 01/14/2015 14:06 by QUEST : CULTURE, URINE, ROUTINE MICRO NUMBER:[id number] TEST STATUS: PRELIMINARY SPECIMEN SOURCE: URINE SPECIMEN QUALITY:ADEQUATE RESULT:Greater than 100,000 CFU/mL of Proteus mirabilis , susceptibility test report to follow. TEST PERFORMED AT: [facility] [address] [place] [address] LINO PEREZ DO,MPH Test Culture Urine with result rommelUlysses NOTE was originally reported asSTANIYA ESTEVEZ and was changed on 01/14/2015 14:06 by QUEST Comment deleted 01/16/2015 09:22 by QUEST : CULTURE, URINE, ROUTINE MICRO NUMBER:[id number] TEST STATUS: PRELIMINARY SPECIMEN SOURCE: URINE SPECIMEN QUALITY:ADEQUATE RESULT:Greater than 100,000 CFU/mL of Proteus mirabilis This organism may show imipenem resistance by mechanisms other than a carbapenemase. P.mirabilis INT SAMREEN AMOX/CLAVULANATE S 8 AMPICILLIN R >=32 AMP/SULBACTAMI 16 CEFAZOLINR 16 1 CEFEPIME S <=1 CEFTRIAXONES <=1 CIPROFLOXACINR >=4 ERTAPENEMS <=0.5 GENTAMICIN R >=16 IMIPENEM R 4 LEVOFLOXACIN I 4 NITROFURANTOIN R 128 PIP/TAZOBACTAM S <=4 TOBRAMYCIN [...] susceptibility to parenteral cefazolin. TEST PERFORMED AT: [facility] [address] [facility] [place] [address] LINO PEREZ DO,MPH Test Culture Urine with result ofSEE NOTE was originally reported asSEE NOTE and was changed on 01/16/2015 09:22 by QUEST Comment deleted 01/17/2015 11:57 by QUEST : CULTURE, URINE, ROUTINE MICRO NUMBER:[id number] TEST STATUS: PRELIMINARY SPECIMEN SOURCE: URINE SPECIMEN QUALITY:ADEQUATE RESULT:Greater than 100,000 CFU/mL of Proteus mirabilis This organism may show imipenem resistance by mechanisms other than a carbapenemase. 10,000-50,000 CFU/mL of Enterococcus species , susceptibility test report to follow. P.mirabilis Enterococcus sp. INT SAMREEN INT SAMREEN AMOX/CLAVULANATE S 8 * AMPICILLIN R >=32 *Pending* AMP/SULBACTAMI 16 * CEFAZOLINR 16 1 * CEFEPIME S <=1 * CEFTRIAXONES <=1 * CIPROFLOXACINR >=4 * ERTAPENEMS <=0.5 * GENTAMICIN R >=16 * IMIPENEM R 4 * LEVOFLOXACIN I 4 * NITROFURANTOIN R 128 *Pending* PIP/TAZOBACTAM S <=4 * TOBRAMYCIN R >=16 * TRIMETHOPRIM/SULFA R >=320 * VANCOMYCIN * *Pending* S=SusceptibleI=Intermediate R=Resistant*=Not Tested NR=Not ReportedNN=See Therapy Comments [...] susceptibility to parenteral cefazolin. TEST PERFORMED AT: [facility] [address] [address] [place] [address] LINO PEREZ DO,MPH CULTURE, URINE, ROUTINE MICRO NUMBER:[id number] TEST STATUS: FINAL SPECIMEN SOURCE: URINE SPECIMEN QUALITY:ADEQUATE RESULT:Greater than 100,000 CFU/mL of Proteus mirabilis This organism may show imipenem resistance by mechanisms other than a carbapenemase. 10,000-50,000 CFU/mL of Enterococcus species P.mirabilis Enterococcus sp. INT SAMREEN INT SAMREEN AMOX/CLAVULANATE S 8 * AMPICILLIN R >=32 S <=2 AMP/SULBACTAMI 16 * CEFAZOLINR 16 1 * CEFEPIME S <=1 * CEFTRIAXONES <=1 * CIPROFLOXACINR >=4 * ERTAPENEMS <=0.5 * GENTAMICIN R >=16 * IMIPENEM R 4 * LEVOFLOXACIN I 4 * NITROFURANTOIN R 128 S <=16 PIP/TAZOBACTAM S <=4 * TOBRAMYCIN R >=16 * TRIMETHOPRIM/SULFA R >=320 * VANCOMYCIN * S 1 S=SusceptibleI=Intermediate R=Resistant*=Not Tested NR=Not ReportedNN=See Therapy Comments [...] susceptibility to parenteral cefazolin. TEST PERFORMED AT: [facility] [address] [place] [address] LINO PEREZ DO,MPH Test Culture Urine with result ofE NOTE was originally reported asSEE NOTE and was changed on 01/17/2015 11:57 by Panizon History of procedures No procedures recorded for this patient visit. Functional status No functional or cognitive status [...]
--- OUTSIDE RECORDS SUMMARY | 2017-04-02 09:06 | External Medical Summary ---
:1940 Author Organization [facility] Summary purpose CCDA Sent to [facility] Chief Complaint and Reason for Visit No authorized Reason for Visit (Admitting Diagnosis) is available for this visit. Problem list Condition Status Certainty Chronicity Onset .UTI acute; unresponsive to OP IV antibiotics Active .Altered mental status Active Encounters The following conditions tracked for encounter diagnoses were recorded for this visit: Finding or Diagnosis Status Certainty Chronicity Onset .UTI acute; unresponsive to OP IV antibiotics Active .Altered mental status Active Medications No medications recorded for this patient visit Allergies, adverse reactions, alerts Allergen Category Ingredient Status Reaction Severity Onset Tylenol Drug Tylenol Active Tylenol Drug acetaminophen Active Lortab Drug Lortab Active Lortab Drug acetaminophen Active Lortab Drug hydrocodone Active tuberculin,purif.pro Drug tuberculin,purif.prot.lonnie Active t.deriv. iv. Immunizations No immunizations recorded for this patient visit Relevant diagnostic tests and/or laboratory data RESULTS CBC [id number]:10:00 Result Normal Range Units White Blood Count 8.8 3.8-10.8 x 10*3/uL Red Blood Cells 4.26 3.80-5.10 x 10*6/uL Hemoglobin 12.4 11.70-15.50 g/dl Hematocrit 39.8 35.00-45.00 % Mean Jose Miguel Volume 93.4 80-100 fL Mean Jose Miguel Hemoglobin 29.1 27.0-33.0 pg Mean Jose Miguel Hemoglobin Conc L 31.2 32.0-36.0 g/dl RDW - CV 14.7 11.0-15.0 % RDW - SD H 48.4 35.1-43.9 FL Platelet Count 284 140-400 x 10*3/uL Mean Platelet Volume 9.6 9.4-12.4 fL Neutrophil % 59.5 36.0-78.0 % Lymphocyte% 25.1 13.0-49.0 % Monocyte % 9.3 4.0-12.0 % Eosinophil % 5.3 0-9.0 % Basophil % 0.8 0-1.0 % Neutrophil # 5.3 1.50-7.80 x 10*3/uL Lymphocyte # 2.2 0.8-3.9 x 10*3/uL Monocyte# 0.8 0.20-0.95 x 10*3/uL Eosinophil # 0.5 0.0-1.0 x 10*3/uL Basophil # 0.1 0.0-1.0 x 10*3/uL :15:00 Result Normal Range Units White Blood Count 10.0 3.8-10.8 x 10*3/uL Red Blood Cells 4.23 3.80-5.10 x 10*6/uL Hemoglobin 12.5 11.70-15.50 g/dl Hematocrit 39.8 35.00-45.00 % Mean Jose Miguel Volume 94.1 80-100 fL Mean Jose Miguel Hemoglobin 29.6 27.0-33.0 pg Mean Jose Miguel Hemoglobin Conc L 31.4 32.0-36.0 g/dl RDW - CV 14.9 11.0-15.0 % RDW - SD H 49.0 35.1-43.9 FL Platelet Count 301 140-400 x 10*3/uL Mean Platelet Volume 9.8 9.4-12.4 fL Neutrophil % 58.8 36.0-78.0 % Lymphocyte% 26.9 13.0-49.0 % Monocyte % 8.2 4.0-12.0 % Eosinophil % 5.5 0-9.0 % Basophil % 0.6 0-1.0 % Neutrophil # 5.9 1.50-7.80 x 10*3/uL Lymphocyte # 2.7 0.8-3.9 x 10*3/uL Monocyte# 0.8 0.20-0.95 x 10*3/uL Eosinophil # 0.6 0.0-1.0 x 10*3/uL Basophil # 0.1 0.0-1.0 x 10*3/uL :17:00 Result Normal Range Units White Blood Count 10.8 3.8-10.8 x 10*3/uL Red Blood Cells 4.28 3.80-5.10 x 10*6/uL Hemoglobin 12.6 11.70-15.50 g/dl Hematocrit 40.2 35.00-45.00 % Mean Jose Miguel Volume 93.9 80-100 fL Mean Jose Miguel Hemoglobin 29.4 27.0-33.0 pg Mean Jose Miguel Hemoglobin Conc L 31.3 32.0-36.0 g/dl RDW - CV 14.9 11.0-15.0 % RDW - SD H 49.7 35.1-43.9 FL Platelet Count 296 140-400 x 10*3/uL Mean Platelet Volume L 8.9 9.4-12.4 fL Neutrophil % 66.7 36.0-78.0 % Lymphocyte% 21.2 13.0-49.0 % Monocyte % 8.2 4.0-12.0 % Eosinophil % 3.3 0-9.0 % Basophil % 0.6 0-1.0 % Neutrophil # 7.2 1.50-7.80 x 10*3/uL Lymphocyte # 2.3 0.8-3.9 x 10*3/uL Monocyte# 0.9 0.20-0.95 x 10*3/uL Eosinophil # 0.4 0.0-1.0 x 10*3/uL Basophil # 0.1 0.0-1.0 x 10*3/uL Chemistry Group :10:00 Result Normal Range Units Glucose 89 74-106 mg/dl Urea Nitrogen (BUN) 16 7-18 mg/dl Creatinine 0.78 0.55-1.30 mg/dl Bun/Creatinine Ratio 21 7.5-25.0 Ratio EGFR Unable to Calculate eGFR.Patient is not within the defined age range. Osmolality Calculation 291 280-300 mOsm/kg Sodium 140 136-145 mmol/L Potassium 3.9 3.5-5.1 mmol/L Chloride 107 98-107 mmol/L CO2 27.4 21-32 mmol/L Calcium L 8.0 8.5-10.1 mg/dl Alkaline Phosphatase 64 46-116 U/L ALT 39 14-59 U/L AST 26 15-37 U/L Bilirubin Total 0.3 0.2-1.0 mg/dl Protein Total 6.7 6.4-8.2 g/dl Albumin L 3.1 3.4-5.0 g/dl Globulin 3.6 1.0-4.5 g/dl A/G Ratio L 0.9 1.0-2.3 Ratio :15:00 Result Normal Range Units Glucose 82 74-106 mg/dl Urea Nitrogen (BUN) H 21 7-18 mg/dl Creatinine 0.85 0.55-1.30 mg/dl Bun/Creatinine Ratio 25 7.5-25.0 Ratio EGFR Unable to Calculate eGFR.Patient is not within the defined age range. Osmolality Calculation 294 280-300 mOsm/kg Sodium 141 136-145 mmol/L Potassium 4.2 3.5-5.1 mmol/L Chloride 105 98-107 mmol/L CO2 26.2 21-32 mmol/L Calcium 9.0 8.5-10.1 mg/dl Alkaline Phosphatase 67 46-116 U/L ALT 36 14-59 U/L AST 16 15-37 U/L Bilirubin Total 0.3 0.2-1.0 mg/dl Protein Total 7.0 6.4-8.2 g/dl Albumin L 3.2 3.4-5.0 g/dl Globulin 3.8 1.0-4.5 g/dl A/G Ratio L 0.8 1.0-2.3 Ratio C-Reactive Protein 0.9 <=0.9 mg/dl Pro-BNP H 146 0-125 pg/ml :17:00 Result Normal Range Units Glucose 95 74-106 mg/dl Urea Nitrogen (BUN) H 26 7-18 mg/dl Creatinine 1.19 0.55-1.30 mg/dl Bun/Creatinine Ratio 22 7.5-25.0 Ratio EGFR Unable to Calculate eGFR.Patient is not within the defined age range. Osmolality Calculation 293 280-300 mOsm/kg Sodium 139 136-145 mmol/L Potassium 4.6 3.5-5.1 mmol/L Chloride 105 98-107 mmol/L CO2 26.6 21-32 mmol/L Calcium 9.3 8.5-10.1 mg/dl Alkaline Phosphatase 71 46-116 U/L ALT 31 14-59 U/L AST 16 15-37 U/L Bilirubin Total 0.2 0.2-1.0 mg/dl Protein Total 7.3 6.4-8.2 g/dl Albumin 3.5 3.4-5.0 g/dl Globulin 3.8 1.0-4.5 g/dl A/G Ratio L 0.9 1.0-2.3 Ratio C-Reactive Protein 0.8 <=0.9 mg/dl Lactic Acid < 2.0 0.4-2.0 mmol/L Hematology Group :15:00 Result Normal Range Units Sed Rate (ESR) 13 0-30 MM/hr. Urinalysis :25:00 Result Normal Range Units Site Catheter Urine Color Yellow Yellow Urine Appearance AB Slightly cloudy UA Glucose Negative Negative UA Bili Negative Negative UA SG 1.025 1.005-1.030 UA Blood AB 2+ Negative UA Ph 5.5 4.5-8.0 UA Protein Negative Negative UA Urobilinogen 0.2 0.2-1.0 EU/dL UA Nitrite Negative Negative UA Leukocyte AB 2+ Negative Urine RBC AB 11-15 None Seen /hpf Urine WBC AB 31-50 None Seen /hpf Urine Bacteria AB 2+ None Seen Urine Mucus AB 1+ None Seen Urine Squamous Eps 0-2 Urine Hyaline Casts 0-2 UA Ketone Negative Negative Coagulation Group :17:00 Result Normal Range Units Protime 10.1 9.0-11.0 Sec INR 1.02 0.9-1.1 APTT 23.6 20.0-32.0 Sec Reference Lab :15:00 Result Normal Range Units C-Reactive Protein 0.9 <=0.9 mg/dl [id number]:00:00 Result Normal Range Units Culture Urine SEE NOTE CULTURE, URINE, ROUTINE MICRO NUMBER:[id number] TEST STATUS: FINAL SPECIMEN SOURCE: URINE SPECIMEN QUALITY:ADEQUATE RESULT:No Growth COMMENT: The preferred specimen for urine culture is preserved and shipped in a BD urine transport tube that may be obtained from your [employer] supplier. Culture of unpreserved urine may produce falsely elevated bacterial counts. TEST PERFORMED AT: [facility] [address] [place] [address] LINO PEREZ DO,MPH :17:00 Result Normal Range Units Culture Blood SEE NOTE Result Amended on 2015-07-26 at 13:57:53. Previous status was FR. Comment deleted 07/26/2015 13:57 by QUEST : CULTURE, BLOOD MICRO NUMBER:[id number] TEST STATUS: PRELIMINARY SPECIMEN SOURCE: BLOOD, LEFT ARM SPECIMEN QUALITY:ADEQUATE RESULT:No growth to date. Culture is continuously monitored for a total of 120 hours incubation. A change in status will result in a phone report followed by an updated printed culture report. TRANSPORT MEDIA: Aerobic and anaerobic bottle received. TEST PERFORMED AT: [facility] [facility] [address] LINO PEREZ DO,MPH CULTURE, BLOOD MICRO NUMBER:[id number] TEST STATUS: FINAL SPECIMEN SOURCE: BLOOD, LEFT ARM SPECIMEN QUALITY:ADEQUATE RESULT:No growth after 5 days TRANSPORT MEDIA: Aerobic and anaerobic bottle received. TEST PERFORMED AT: [facility] [address] [address] LINO PEREZ DO,MPH Test Culture Blood with result ofSEE NOTE was originally reported asSEE NOTE and was changed on 07/26/2015 13:57 by [employer] Culture Blood SEE NOTE Result Amended on 2015-07-26 at 13:57:53. Previous status was FR. Comment deleted 07/26/2015 13:57 by QUEST : CULTURE, BLOOD MICRO NUMBER:[id number] TEST STATUS: PRELIMINARY SPECIMEN SOURCE: BLOOD, RIGHT ARM SPECIMEN QUALITY:ADEQUATE RESULT:No growth to date. Culture is continuously monitored for a total of 120 hours incubation. A change in status will result in a phone report followed by an updated printed culture report. TRANSPORT MEDIA: Aerobic and anaerobic bottle received. TEST PERFORMED AT: [facility] [address] [address] LINO PEREZ DO,MPH CULTURE, BLOOD MICRO NUMBER:[id number] TEST STATUS: FINAL SPECIMEN SOURCE: BLOOD, RIGHT ARM SPECIMEN QUALITY:ADEQUATE RESULT:No growth after 5 days TRANSPORT MEDIA: Aerobic and anaerobic bottle received. TEST PERFORMED AT: [email or web address] [address] LINO PEREZ DO,MPH Test Culture Blood with result ofSEE NOTE was originally reported asSEE NOTE and was changed on 07/26/2015 13:57 by [employer] Culture Blood Source BLOOD, LEFT ARM Culture Blood Source BLOOD, RIGHT ARM C-Reactive Protein 0.8 <=0.9 mg/dl History of procedures No procedures recorded for this patient visit. Functional status Functional Status Finding Observation Time Dexterity Right-handed 59-43-705305:35 Weight Bearing Statu Full 51-91-087006:30 Transferring/Ambulat Needs Assistance :35 Bathing Needs Assistance : Dressing Needs Assistance : Eating Needs Assistance : Drinking Needs Assistance : Toileting Needs Assistance : Able to Turn Self in Needs Assistance : Stairs Not Done : Wheelchair Yes : Cognitive Status Finding Observation Time Level of Consciousne Anxious :50 Comment: Worried about it raining on her. Nurse instructed to keep blinds closed. This reduces fear of the rain in pt. Pt repeats phrases over and over about the rain and her parents. Pt sits in bed si de chair with tabs unit on. Pt is covered with 2 blankets. Oriented to Person Yes :[address] No :50 Oriented to Time No :50 Combative Mild :50 Comment: Pt grabs at nurses arms during SQ inj and Picc line flush. "Don't touch me. Leave me alone!" states pt. She repeats this phrase over and over. Eyes - LORENZO :00 Comment: Patient refused to open eyes for pupil check. Right Pupil Reaction Brisk Constriction :00 Left Pupil Reaction Brisk Constriction :00 Vital signs Type Value Date Respirations 18 94-23-178850:08 Pulse 69 :08 O2 Saturation 92% 76-58-524245:08 Systolic Blood Press 98mm/HG :08 Diastolic Blood Pres 64mm/HG 63-17-093247:08 Temperature (Fahr) 97.9Degrees :08 Height 63in :27 Weight 170.0LB :27 Social history Type Value Smoking Status FORMER SMOKER Treatment Plan Treatment Plan at [facility] care of altered mental status, UTI, urinary retention. Hospital discharge instructions No discharge instruction text is available for this visit.
--- OUTSIDE RECORDS SUMMARY | 2017-04-02 09:06 | External Medical Summary ---
:1940 Author Organization [facility] Summary purpose CCDA Sent to [facility] Chief Complaint and Reason for Visit [...] diagnostic tests and/or laboratory data RESULTS CBC [id number]:35:00 Result Normal Range Units White Blood Count H 11.7 3.8-10.8 x 10*3/uL Red Blood Cells 4.13 3.80-5.10 x 10*6/uL Hemoglobin L 10.5 11.70-15.50 g/dl Hematocrit L 34.2 35.00-45.00 % Mean Jose Miguel Volume 82.8 80-100 fL Mean Jose Miguel Hemoglobin L 25.4 27.0-33.0 pg Mean Jose Miguel Hemoglobin Conc L 30.7 32.0-36.0 g/dl RDW - CV H 15.9 11.0-15.0 % RDW - SD H 47.7 35.1-43.9 FL Platelet Count 335 140-400 x 10*3/uL Mean Platelet Volume 10.1 9.4-12.4 fL Neutrophil % 60.9 36.0-78.0 % Lymphocyte% 24.3 13.0-49.0 % Monocyte % 8.4 4.0-12.0 % Eosinophil % 5.5 0-9.0 % Basophil % 0.9 0-1.0 % Neutrophil # 7.1 1.50-7.80 x 10*3/uL Lymphocyte # 2.9 0.8-3.9 x 10*3/uL Monocyte# H 1.0 0.20-0.95 x 10*3/uL Eosinophil # 0.6 0.0-1.0 x 10*3/uL Basophil # 0.1 0.0-1.0 x 10*3/uL Chemistry Group [id number]:35:00 Result Normal Range Units Glucose 85 74-106 mg/dl Urea Nitrogen (BUN) H 29 7-18 mg/dl Creatinine 1.22 0.55-1.30 mg/dl Bun/Creatinine Ratio 24 7.5-25.0 Ratio EGFR Unable to Calculate eGFR.Patient is not within the defined age range. Osmolality Calculation 295 280-300 mOsm/kg Sodium 140 136-145 mmol/L Potassium 4.6 3.5-5.1 mmol/L Chloride 107 98-107 mmol/L CO2 25.9 21-32 mmol/L Calcium 9.1 8.5-10.1 mg/dl Alkaline Phosphatase 64 46-116 U/L ALT 19 14-59 U/L AST 16 15-37 U/L Bilirubin Total 0.2 0.2-1.0 mg/dl Protein Total 6.9 6.4-8.2 g/dl Albumin L 2.7 3.4-5.0 g/dl Globulin 4.2 1.0-4.5 g/dl A/G Ratio L 0.6 1.0-2.3 Ratio History of procedures No procedures recorded for [...]
--- OUTSIDE RECORDS SUMMARY | 2017-04-02 09:06 | External Medical Summary ---
:1940 Author Organization [facility] Summary purpose CCDA Sent to [facility] Chief Complaint and Reason for Visit Admit Diagnosis 1 urinary frequency Problem list No authorized problems tracked for [...] Code Type Description Date Performed Performing Physician 88195 CPT-4 URINE CULTURE/COLONY 02-17-2017 SUSAN FERNANDEZ COUNT 54785 CPT-4 URINALYSIS, AUTO 02-17-2017 SUSAN FERNANDEZ W/SCOPE 81157 CPT-4 URINE BACTERIA CULTURE 02-17-2017 SUSAN FERNANDEZ 22690 CPT-4 CULTURE AEROBIC 02-17-2017 SUSAN FERNANDEZ IDENTIFY 99290 CPT-4 MICROBE SUSCEPTIBLE, 02-17-2017 SUSAN FERNANDEZ SAMREEN Functional status No functional or cognitive [...]
--- OUTSIDE RECORDS SUMMARY | 2017-04-02 09:06 | External Medical Summary ---
:1940 Author Organization [facility] Summary purpose [facility] diagnostic tests and/or laboratory data RESULTS CBC [id number]:18:00 Result Normal Range Units White Blood Count 7.5 3.8-10.8 x 10*3/uL Red Blood Cells 4.41 3.80-5.10 x 10*6/uL Hemoglobin 13.0 11.70-15.50 g/dl Hematocrit 40.9 35.00-45.00 % Mean Jose Miguel Volume 92.7 80-100 fL Mean Jose Miguel Hemoglobin 29.5 27.0-33.0 pg Mean Jose Migeul Hemoglobin Conc L 31.8 32.0-36.0 g/dl RDW - CV 14.5 11.0-15.0 % RDW - SD H 47.5 35.1-43.9 FL Platelet Count 342 140-400 x 10*3/uL Mean Platelet Volume 9.9 9.4-12.4 fL Neutrophil % L 35.2 36.0-78.0 % Lymphocyte% 45.3 13.0-49.0 % Monocyte % 12.0 4.0-12.0 % Eosinophil % 6.4 0-9.0 % Basophil % H 1.1 0-1.0 % Neutrophil # 2.6 1.50-7.80 x 10*3/uL Lymphocyte # 3.4 0.8-3.9 x 10*3/uL Monocyte# 0.9 0.20-0.95 x 10*3/uL Eosinophil # 0.5 0.0-1.0 x 10*3/uL Basophil # 0.1 0.0-1.0 x 10*3/uL History of procedures Procedure Code Code Type Description Date Performed Performing Physician [id number] CPT-4 ONE-WAY ALLOW PRORATED 07-14-2014 STEPHANIE CASTANEDA TRIP 75095 CPT-4 COMPLETE CBC W/AUTO DIFF 07-14-2014 STEPHANIE CASTANEDA WBC 25162 CPT-4 ROUTINE VENIPUNCTURE 07-14-2014 STEPHANIE CASTANEDA Functional status No functional or [...]
--- OUTSIDE RECORDS SUMMARY | 2017-04-02 09:06 | External Medical Summary ---
:1940 Author Organization [facility] Summary purpose CCDA Sent to [facility] Chief Complaint and Reason for Visit Admit Diagnosis 1 PYELONEPHRITIS NOS Problem list No authorized problems tracked [...] diagnostic tests and/or laboratory data RESULTS CBC 38-00-070875:18:00 Result Normal Range Units White Blood Count H 18.3 3.8-10.8 x 10*3/uL Red Blood Cells 4.11 3.80-5.10 x 10*6/uL Hemoglobin 12.3 11.70-15.50 g/dl Hematocrit 38.5 35.00-45.00 % Mean Jose Miguel Volume 93.7 80-100 fL Mean Jose Miguel Hemoglobin 29.9 27.0-33.0 pg Mean Jose Miguel Hemoglobin Conc L 31.9 32.0-36.0 g/dl RDW - CV 14.9 11.0-15.0 % RDW - SD H 49.3 35.1-43.9 FL Platelet Count 242 140-400 x 10*3/uL Mean Platelet Volume L 9.0 9.4-12.4 fL Neutrophil % H 93.0 36.0-78.0 % Lymphocyte% L 3.4 13.0-49.0 % Monocyte % L 3.3 4.0-12.0 % Eosinophil % 0.1 0-9.0 % Basophil % 0.2 0-1.0 % Neutrophil # H 17.0 1.50-7.80 x 10*3/uL Lymphocyte # L 0.6 0.8-3.9 x 10*3/uL Monocyte# 0.6 0.20-0.95 x 10*3/uL Eosinophil # 0.0 0.0-1.0 x 10*3/uL Basophil # 0.0 0.0-1.0 x 10*3/uL Chemistry Group :18:00 Result Normal Range Units Glucose H 148 74-106 mg/dl Urea Nitrogen (BUN) H 35 7-18 mg/dl Creatinine H 1.32 0.55-1.02 mg/dl Bun/Creatinine Ratio H 27 7.5-25.0 Ratio EGFR Unable to Calculate eGFR.Patient is not within the defined age range. Osmolality Calculation H 305 280-300 mOsm/kg Sodium 142 136-145 mmol/L Potassium L 3.4 3.5-5.1 mmol/L Chloride H 108 98-107 mmol/L CO2 23.1 21-32 mmol/L Calcium 8.7 8.5-10.1 mg/dl Alkaline Phosphatase 62 46-116 U/L ALT 21 14-59 U/L AST 20 15-37 U/L Bilirubin Total 0.7 0.2-1.0 mg/dl Protein Total 6.4 6.4-8.2 g/dl Albumin L 2.7 3.4-5.0 g/dl Globulin 3.7 1.0-4.5 g/dl A/G Ratio L 0.7 1.0-2.3 Ratio Troponin I HC 0.152 0.000-0.070 ng/ml GAVE RESULT TO DR. JAMES MENDOZA CPK 80 26-192 U/L CKMB 1.6 0-3.6 ng/ml LDH 157 81-234 U/L Lactic Acid < 2.0 0.4-2.0 mmol/L TSH 2.050 0.35-3.74 uIU/mL Urinalysis [id number]:31:00 Result Normal Range Units Site Catheter Urine Color Yellow Yellow Urine Appearance AB Slightly cloudy UA Glucose Negative Negative UA Bili Negative Negative UA SG 1.020 1.005-1.030 UA Blood AB 3+ Negative UA Ph 5.5 4.5-8.0 UA Protein AB 1+ Negative UA Urobilinogen 0.2 0.2-1.0 EU/dL UA Nitrite Negative Negative UA Leukocyte AB 2+ Negative Urine RBC AB 11-15 None Seen /hpf Urine WBC AB 21-30 None Seen /hpf Urine Bacteria AB 3+ None Seen Urine Yeast 2+ UA Ketone Negative Negative Reference Lab [id number]:31:00 Result Normal Range Units Culture Urine SEE NOTE CULTURE, URINE, ROUTINE MICRO NUMBER:[id number] TEST STATUS: FINAL SPECIMEN SOURCE: URINE SPECIMEN QUALITY:ADEQUATE RESULT:Multiple organisms present, each less than 10,000 CFU/mL. These organisms, commonly found on external and internal genitalia, are considered to be colonizers. No further testing performed. TEST PERFORMED AT: [email or web address] [address] [place] [address] LINO PEREZ DO,MPH [id number]:25:00 Result Normal Range Units Culture Blood SEE NOTE CULTURE, BLOOD MICRO NUMBER:[id number] TEST STATUS: FINAL SPECIMEN SOURCE: BLOOD SPECIMEN QUALITY:ADEQUATE RESULT:No growth after 5 days TRANSPORT MEDIA: Pediatric bottle received TEST PERFORMED AT: [facility] [employer],[facility] [email or web address] [address] [place] [id number] SAM LOWRY MD Culture Blood Source RIGHT HAND Result Amended on 2014-08-04 at 09:41:42. Previous status was NE. [id number]:18:00 Result Normal Range Units Culture Blood A SEE NOTE Result Amended on 2014-08-04 at 11:10:13. Previous status was FR. Comment deleted 08/04/2014 11:08 by [employer] : CULTURE, BLOOD MICRO NUMBER:[id number] TEST STATUS: FINAL SPECIMEN SOURCE: BLOOD SPECIMEN QUALITY:ADEQUATE RESULT:Gram positive bacilli isolated , from anaerobic bottle only , identification and susceptibility results to follow on a separate report. No growth after 5 days TRANSPORT MEDIA: Anaerobic bottle only received. TEST PERFORMED AT: [facility] [email or web address] [facility] [place] [address] SAM LOWRY MD CULTURE, BLOOD MICRO NUMBER:[id number] =>TEST STATUS: REVISED - FINAL SPECIMEN SOURCE: BLOOD SPECIMEN QUALITY:ADEQUATE RESULT:Gram positive bacilli isolated , from anaerobic bottle only , identification and susceptibility results to follow on a separate report. No growth after 5 days =>TRANSPORT MEDIA: Aerobic and anaerobic bottle received. PLEASE DISREGARD PREVIOUSLY REPORTED INFORMATION BELOW: ORDERED TEST:CULTURE, BLOOD (The information below was originally reported on 08/02/2014,2:24 PM) RESULT:Gram positive bacilli isolated , from anaerobic bottle only , identification and susceptibility results to follow on a separate report. No growth after 5 days TRANSPORT MEDIA: Anaerobic bottle only received. TEST PERFORMED AT: [facility] [employer] [facility] [address] [place] [address] SAM LOWRY MD Test Culture Blood with result ofSEE NOTE was originally reported asSEE NOTE and was changed on 08/04/2014 11:08 by [facility] Culture Blood Source LEFT AC Result Amended on 2014-08-04 at 11:10:14. Previous status was FR. History of procedures Procedure Code Code Type Description Date Performed Performing Physician 75725 CPT-4 ROUTINE VENIPUNCTURE 07-26-2014 JAMES MENDOZA 99628 CPT-4 EMERGENCY DEPT VISIT 07-26-2014 JAMES MENDOZA 40458 CPT-4 THER/PROPH/DIAG INJ IV 07-26-2014 JAMES MENDOZA PUSH 37188 CPT-4 TX/PRO/DX INJ NEW DRUG 07-26-2014 JAMES MENDOZA ADDON 33334 CPT-4 ASSAY OF TROPONIN QUANT 07-27-2014 JAMES MENDOZA 69499 CPT-4 ASSAY OF CK (CPK) 07-27-2014 JAMES MENDOZA 72501 CPT-4 CREATINE MB FRACTION 07-27-2014 JAMES MENDOZA 36033 CPT-4 LACTATE (LD) (LDH) 07-27-2014 JAMES MENDOZA ENZYME 44708 CPT-4 COMPLETE CBC W/AUTO DIFF 07-27-2014 JAMES MENDOZA WBC 70589 CPT-4 COMPREHEN METABOLIC 07-27-2014 JAMES MENDOZA PANEL 20371 CPT-4 ASSAY OF LACTIC ACID 07-27-2014 JAMES MENDOZA 01700 CPT-4 URINALYSIS AUTO W/SCOPE 07-27-2014 JAMES MENDOZA 36711 CPT-4 URINE CULTURE/COLONY 07-27-2014 JAMES MENDOZA COUNT 01576 CPT-4 BLOOD CULTURE FOR 07-27-2014 JAMES MENDOZA BACTERIA 20863 CPT-4 BLOOD CULTURE FOR 07-27-2014 JAMES MENDOZA BACTERIA 25576 CPT-4 ASSAY THYROID STIM 07-27-2014 JAMES MENDOZA HORMONE 81880 CPT-4 ELECTROCARDIOGRAM 07-27-2014 JAMES MENDOZA TRACING 04966 CPT-4 ELECTROCARDIOGRAM REPORT 07-26-2014 STEPHANIE CASTANEDA J7050 CPT-4 NORMAL SALINE SOLUTION 07-27-2014 JAMES MENDOZA INFUS J7030 CPT-4 NORMAL SALINE SOLUTION 07-27-2014 JAMES MENDOZA INFUS J1335 CPT-4 ERTAPENEM INJECTION 07-27-2014 JAMES MENDOZA J7050 CPT-4 NORMAL SALINE SOLUTION 07-27-2014 JAMES MENDOZA INFUS J3370 CPT-4 VANCOMYCIN HCL INJECTION 07-27-2014 JAMES MENDOZA J7050 CPT-4 NORMAL SALINE SOLUTION 07-27-2014 JAMES MENDOZA INFUS 46323 CPT-4 URINE BACTERIA CULTURE 07-27-2014 JAMES MENDOZA 87270 CPT-4 CULTURE AEROBIC IDENTIFY 07-27-2014 JAMES MENDOZA Functional status Cognitive Status Finding Observation Time Level of Consciousne Confused 11-84-962797:30 Oriented to Person Yes 62-46-937768:[address] Yes 52-81-490401:30 Oriented to Time Yes 95-58-460126:30 Eyes - LORENZO Yes 98-80-983865:42 Vital signs Type Value Date Respirations 22 77-45-389168:40 Pulse 66 30-78-021838:40 O2 Saturation 92% 55-56-880533:40 Systolic Blood Press 74mm/HG 06-88-087407:40 Diastolic Blood Pres 46mm/HG 98-90-524037:40 Temperature (Fahr) 99.8Degrees 19-31-419865:40 Height 63in 49-36-921710:45 Weight 172.4LB 37-97-329262:45 Social history Type Value Smoking Status UNKNOWN IF EVER SMOKED Treatment Plan No treatment plan text is available for this visit. Hospital discharge instructions No discharge instruction text is available for this visit.
--- OUTSIDE RECORDS SUMMARY | 2017-04-02 09:06 | External Medical Summary ---
:1940 Author Organization [facility] Summary purpose CCDA Sent to [facility] Chief Complaint and Reason for Visit [...] Code Type Description Date Performed Performing Physician 54854 CPT-4 THER/PROPH/DIAG INJ 11-11-2014 STEPHANIE LANG SC/IM J1335 CPT-4 ERTAPENEM INJECTION 11-11-2014 STEPHANIE CASTANEDA J1335 CPT-4 ERTAPENEM INJECTION 11-12-2014 STEPHANIE CASTANEDA J1335 CPT-4 ERTAPENEM INJECTION 11-13-2014 STEPHANIE CASTANEDA 94228 CPT-4 THER/PROPH/DIAG INJ 11-12-2014 STEPHANIE LANG SC/IM 38063 CPT-4 THER/PROPH/DIAG INJ 11-13-2014 STEPHANIE LANG SC/IM J1335 CPT-4 ERTAPENEM INJECTION 11-14-2014 STEPHANIE CASTANEDA J1335 CPT-4 ERTAPENEM INJECTION 11-15-2014 STEPHANIE CASTANEDA 64451 CPT-4 THER/PROPH/DIAG INJ 11-14-2014 STEPHANIE LANG SC/IM 66087 CPT-4 THER/PROPH/DIAG INJ 11-15-2014 STEPHANIE LANG SC/IM Functional status No functional or cognitive status observations are available for this visit. Vital signs Type Value Date Respirations 18 92-24-802290:00 Pulse 81 73-92-495742:00 O2 Saturation 91% 02-83-256656:00 Systolic Blood Press 106mm/HG 83-02-786478:00 Diastolic Blood Pres 74mm/HG : Temperature (Fahr) 98.3Degrees Social history No Social History or smoking status observations were recorded for this visit. ( Unknown if ever smoked.) Treatment Plan No treatment plan text is available for this visit. Hospital discharge instructions No discharge instruction text is available for this visit.
--- OUTSIDE RECORDS SUMMARY | 2017-04-02 09:07 | External Medical Summary ---
:1940 Author Organization [facility] Summary purpose CCDA Sent to [facility] Chief Complaint and Reason for [...] Code Type Description Date Performed Performing Physician 79848 CPT-4 COMPLETE CBC W/AUTO DIFF 12-31-2016 REINA PICKETT WBC 54516 CPT-4 ROUTINE VENIPUNCTURE 12-31-2016 REINA PICKETT Functional status No functional or cognitive status [...]
--- OUTSIDE RECORDS SUMMARY | 2017-04-02 09:07 | External Medical Summary ---
:1940 Author Organization [facility] Summary purpose CCDA Sent to [facility] Chief Complaint and Reason for Visit [...] diagnostic tests and/or laboratory data RESULTS Urinalysis 56-85-420367:20:00 Result Normal Range Units Site Unknown Urine Color Yellow Yellow Urine Appearance AB Cloudy Clear UA Glucose Negative Negative UA Bili Negative Negative UA SG 1.025 1.005-1.030 UA Blood AB Trace Negative UA Ph 5.5 4.5-8.0 UA Protein Negative Negative UA Urobilinogen 0.2 0.2-1.0 EU/dL UA Nitrite AB Positive Negative UA Leukocyte AB 1+ Negative Urine WBC AB 6-10 None Seen /hpf Urine Bacteria AB 4+ None Seen Urine Renal Tubular Eps 0-2 Calcium Oxalate Crystals RARE UA Ketone Negative Negative Reference Lab [id number]:20:00 Result Normal Range Units Culture Urine A SEE NOTE CULTURE, URINE, ROUTINE MICRO NUMBER:[id number] TEST STATUS: FINAL SPECIMEN SOURCE: URINE SPECIMEN QUALITY:ADEQUATE RESULT:Greater than 100,000 CFU/mL of Escherichia coli E.coli INT SAMREEN AMOX/CLAVULANATE I 16 AMPICILLIN R >=32 1 AMP/SULBACTAMR >=32 CEFAZOLINR >=64 2 CEFEPIME R >=64 CEFTRIAXONER >=64 CIPROFLOXACINR >=4 ERTAPENEMS <=0.5 GENTAMICIN S <=1 IMIPENEM S <=0.25 LEVOFLOXACIN R >=8 NITROFURANTOIN S <=16 PIP/TAZOBACTAM S <=4 TOBRAMYCIN S <=1 TRIMETHOPRIM/SULFA S <=20 ESBL [...] organism has been confirmed as an ESBL egg producer. TEST PERFORMED AT: [employer] [address] [address] LINO PEREZ DO,MPH History of procedures Procedure Code Code Type Description Date Performed Performing Physician 95747 CPT-4 URINALYSIS AUTO W/O 07-01-2014 STEPHANIE CASTANEDA SCOPE 58020 CPT-4 URINE CULTURE/COLONY 07-01-2014 STEPHANIE CASTANEDA COUNT 89286 CPT-4 URINE BACTERIA CULTURE 07-01-2014 STEPHANIE CASTANEDA 89517 CPT-4 CULTURE AEROBIC 07-01-2014 STEPHANIE CASTANEDA IDENTIFY 78725 CPT-4 MICROBE SUSCEPTIBLE 07-01-2014 STEPHANIE CASTANEDA SAMREEN Functional status No functional [...]
--- OUTSIDE RECORDS SUMMARY | 2017-04-02 09:07 | External Medical Summary ---
:1940 Author Organization [facility] Summary purpose CCDA Sent to [facility] Chief Complaint and Reason for Visit [...] diagnostic tests and/or laboratory data RESULTS CBC 53-07-829482:03:00 Result Normal Range Units White Blood Count 8.4 3.8-10.8 x 10*3/uL Red Blood Cells 4.23 3.80-5.10 x 10*6/uL Hemoglobin 12.3 11.70-15.50 g/dl Hematocrit 39.6 35.00-45.00 % Mean Jose Miguel Volume 93.6 80-100 fL Mean Jose Miguel Hemoglobin 29.1 27.0-33.0 pg Mean Jose Miguel Hemoglobin Conc L 31.1 32.0-36.0 g/dl RDW - CV H 16.1 11.0-15.0 % RDW - SD H 53.4 35.1-43.9 FL Platelet Count 334 140-400 x 10*3/uL Mean Platelet Volume L 9.1 9.4-12.4 fL Neutrophil % 51.3 36.0-78.0 % Lymphocyte% 30.6 13.0-49.0 % Monocyte % 8.2 4.0-12.0 % Eosinophil % 8.2 0-9.0 % Basophil % H 1.7 0-1.0 % Neutrophil # 4.3 1.50-7.80 x 10*3/uL Lymphocyte # 2.6 0.8-3.9 x 10*3/uL Monocyte# 0.7 0.20-0.95 x 10*3/uL Eosinophil # 0.7 0.0-1.0 x 10*3/uL Basophil # 0.1 0.0-1.0 x 10*3/uL Chemistry Group [id number]:03:00 Result Normal Range Units Glucose H 186 74-106 mg/dl Urea Nitrogen (BUN) 10 7-18 mg/dl Creatinine 0.89 0.55-1.30 mg/dl Bun/Creatinine Ratio 11 7.5-25.0 Ratio EGFR Unable to Calculate eGFR.Patient is not within the defined age range. Osmolality Calculation 292 280-300 mOsm/kg Sodium 139 136-145 mmol/L Potassium 3.7 3.5-5.1 mmol/L Chloride 104 98-107 mmol/L CO2 25.3 21-32 mmol/L Calcium 8.9 8.5-10.1 mg/dl Alkaline Phosphatase 83 46-116 U/L ALT 22 14-59 U/L AST L 14 15-37 U/L Bilirubin Total 0.3 0.2-1.0 mg/dl Protein Total 7.3 6.4-8.2 g/dl Albumin L 2.9 3.4-5.0 g/dl Globulin 4.4 1.0-4.5 g/dl A/G Ratio L 0.7 1.0-2.3 Ratio History of procedures Procedure Code Code Type Description Date Performed Performing Physician 49650 CPT-4 COMPLETE CBC W/AUTO DIFF 05-19-2015 STEPHANIE CASTANEDA WBC 12460 CPT-4 COMPREHEN METABOLIC 05-19-2015 STEPHANIE CASTANEDA PANEL 41978 CPT-4 URINALYSIS, AUTO, W/O 05-19-2015 STEPHANIE CASTANEDA SCOPE 93048 CPT-4 URINE CULTURE/COLONY 05-19-2015 STEPHANIE CASTANEDA COUNT 90103 CPT-4 ROUTINE VENIPUNCTURE 05-19-2015 STEPHANIE CASTANEDA Functional status No functional or [...]
--- OUTSIDE RECORDS SUMMARY | 2017-04-02 09:07 | External Medical Summary ---
:1940 Author Organization [facility] Summary purpose CCDA Sent to [facility] Chief Complaint and Reason for Visit No authorized Reason for Visit (Admitting Diagnosis) is available for this visit. Problem list Condition Status Certainty Chronicity Onset .UTI acute Active .Sepsis; Septicemia Active .Dehydration Active Encounters The following conditions tracked for encounter diagnoses were recorded for this visit: Finding or Diagnosis Status Certainty Chronicity Onset .UTI acute Active .Sepsis; Septicemia Active .Dehydration Active Medications No medications recorded for this patient visit Allergies, adverse reactions, alerts Allergen Category Ingredient Status Reaction Severity Onset Tylenol Drug Tylenol Active Tylenol Drug acetaminophen Active Lortab Drug Lortab Active Lortab Drug acetaminophen Active Lortab Drug hydrocodone Active tuberculin,purif.pro Drug tuberculin,purif.prot.lonnie Active t.deriv. iv. Immunizations No immunizations recorded for this patient visit Relevant diagnostic tests and/or laboratory data RESULTS CBC [id number]:00:00 Result Normal Range Units White Blood Count H 11.9 3.8-10.8 x 10*3/uL Red Blood Cells L 3.78 3.80-5.10 x 10*6/uL Hemoglobin L 10.9 11.70-15.50 g/dl Hematocrit 35.2 35.00-45.00 % Mean Jose Miguel Volume 93.1 80-100 fL Mean Jose Miguel Hemoglobin 28.8 27.0-33.0 pg Mean Jose Miguel Hemoglobin Conc L 31.0 32.0-36.0 g/dl RDW - CV H 16.5 11.0-15.0 % RDW - SD H 54.3 35.1-43.9 FL Platelet Count 155 140-400 x 10*3/uL Mean Platelet Volume 10.3 9.4-12.4 fL Neutrophil % 67.3 36.0-78.0 % Lymphocyte% 17.5 13.0-49.0 % Monocyte % 9.9 4.0-12.0 % Eosinophil % 4.5 0-9.0 % Basophil % 0.8 0-1.0 % Neutrophil # H 8.0 1.50-7.80 x 10*3/uL Lymphocyte # 2.1 0.8-3.9 x 10*3/uL Monocyte# H 1.2 0.20-0.95 x 10*3/uL Eosinophil # 0.5 0.0-1.0 x 10*3/uL Basophil # 0.1 0.0-1.0 x 10*3/uL Segmented Neutrophil 68.0 37-80 % PRO 2.0 Lymphocyte 19.0 10-50 % Monocyte 7.0 0-8.0 % Eosinophil H 4.0 0.2-1.0 % Anisocytosis 1+ Platelet Estimate Platelets Adequate [id number]:18:00 Result Normal Range Units White Blood Count 9.6 3.8-10.8 x 10*3/uL Red Blood Cells L 3.78 3.80-5.10 x 10*6/uL Hemoglobin L 11.0 11.70-15.50 g/dl Hematocrit 35.2 35.00-45.00 % Mean Jose Miguel Volume 93.1 80-100 fL Mean Jose Miguel Hemoglobin 29.1 27.0-33.0 pg Mean Jose Miguel Hemoglobin Conc L 31.3 32.0-36.0 g/dl RDW - CV H 16.8 11.0-15.0 % RDW - SD H 55.0 35.1-43.9 FL Platelet Count L 134 140-400 x 10*3/uL Mean Platelet Volume 10.9 9.4-12.4 fL Neutrophil % 67.0 36.0-78.0 % Lymphocyte% 14.7 13.0-49.0 % Monocyte % H 12.6 4.0-12.0 % Eosinophil % 5.5 0-9.0 % Basophil % 0.2 0-1.0 % Neutrophil # 6.5 1.50-7.80 x 10*3/uL Lymphocyte # 1.4 0.8-3.9 x 10*3/uL Monocyte# H 1.2 0.20-0.95 x 10*3/uL Eosinophil # 0.5 0.0-1.0 x 10*3/uL Basophil # 0.0 0.0-1.0 x 10*3/uL Segmented Neutrophil 73.0 37-80 % Lymphocyte 17.0 10-50 % Monocyte 6.0 0-8.0 % Eosinophil H 4.0 0.2-1.0 % RBC Morphology Essentially Normal Platelet Estimate Platelets Adequate :36:00 Result Normal Range Units White Blood Count H 16.1 3.8-10.8 x 10*3/uL Red Blood Cells 4.06 3.80-5.10 x 10*6/uL Hemoglobin L 11.6 11.70-15.50 g/dl Hematocrit 37.5 35.00-45.00 % Mean Jose Miguel Volume 92.4 80-100 fL Mean Jose Miguel Hemoglobin 28.6 27.0-33.0 pg Mean Jose Miguel Hemoglobin Conc L 30.9 32.0-36.0 g/dl RDW - CV H 17.1 11.0-15.0 % RDW - SD H 56.2 35.1-43.9 FL Platelet Count 149 140-400 x 10*3/uL Mean Platelet Volume 11.2 9.4-12.4 fL Segmented Neutrophil 74.0 37-80 % Bands 3.0 0-5 % Lymphocyte 17.0 10-50 % Monocyte 2.0 0-8.0 % Eosinophil H 4.0 0.2-1.0 % RBC Morphology Essentially Normal Platelet Estimate Platelets Adequate :35:00 Result Normal Range Units White Blood Count H 16.6 3.8-10.8 x 10*3/uL Red Blood Cells 4.36 3.80-5.10 x 10*6/uL Hemoglobin 12.6 11.70-15.50 g/dl Hematocrit 39.5 35.00-45.00 % Mean Jose Miguel Volume 90.6 80-100 fL Mean Jose Miguel Hemoglobin 28.9 27.0-33.0 pg Mean Jose Miguel Hemoglobin Conc L 31.9 32.0-36.0 g/dl RDW - CV H 16.9 11.0-15.0 % RDW - SD H 54.7 35.1-43.9 FL Platelet Count 156 140-400 x 10*3/uL Mean Platelet Volume 11.6 9.4-12.4 fL Neutrophil % H 88.9 36.0-78.0 % Lymphocyte% L 6.6 13.0-49.0 % Monocyte % 4.0 4.0-12.0 % Eosinophil % 0.4 0-9.0 % Basophil % 0.1 0-1.0 % Neutrophil # H 14.8 1.50-7.80 x 10*3/uL Lymphocyte # 1.1 0.8-3.9 x 10*3/uL Monocyte# 0.7 0.20-0.95 x 10*3/uL Eosinophil # 0.1 0.0-1.0 x 10*3/uL Basophil # 0.0 0.0-1.0 x 10*3/uL Chemistry Group :00:00 Result Normal Range Units Glucose 90 74-106 mg/dl Urea Nitrogen (BUN) H 20 7-18 mg/dl Creatinine 0.78 0.55-1.30 mg/dl Bun/Creatinine Ratio H 26 7.5-25.0 Ratio EGFR Unable to Calculate eGFR.Patient is not within the defined age range. Osmolality Calculation H 302 280-300 mOsm/kg Sodium 145 136-145 mmol/L Potassium 3.7 3.5-5.1 mmol/L Chloride H 112 98-107 mmol/L CO2 25.9 21-32 mmol/L Calcium L 7.8 8.5-10.1 mg/dl Alkaline Phosphatase 88 46-116 U/L ALT 36 14-59 U/L AST L 12 15-37 U/L Bilirubin Total 0.6 0.2-1.0 mg/dl Protein Total L 5.5 6.4-8.2 g/dl Albumin L 2.0 3.4-5.0 g/dl Globulin 3.5 1.0-4.5 g/dl A/G Ratio L 0.6 1.0-2.3 Ratio C-Reactive Protein H 6.1 <=0.9 mg/dl Pro-BNP H 1457 0-125 pg/ml [id number]:40:00 Result Normal Range Units Vancomycin Trough 5.7 5.0-10.0 ug/ml :18:00 Result Normal Range Units Glucose 106 74-106 mg/dl Urea Nitrogen (BUN) H 30 7-18 mg/dl Creatinine 0.87 0.55-1.30 mg/dl Bun/Creatinine Ratio H 34 7.5-25.0 Ratio EGFR Unable to Calculate eGFR.Patient is not within the defined age range. Osmolality Calculation H 303 280-300 mOsm/kg Sodium 143 136-145 mmol/L Potassium 3.6 3.5-5.1 mmol/L Chloride H 112 98-107 mmol/L CO2 25.4 21-32 mmol/L Calcium L 8.1 8.5-10.1 mg/dl Alkaline Phosphatase 86 46-116 U/L ALT 42 14-59 U/L AST 22 15-37 U/L Bilirubin Total 0.6 0.2-1.0 mg/dl Protein Total L 5.7 6.4-8.2 g/dl Albumin L 2.1 3.4-5.0 g/dl Globulin 3.6 1.0-4.5 g/dl A/G Ratio L 0.6 1.0-2.3 Ratio Troponin I 0.014 0.000-0.070 ng/ml Pro-BNP H 1495 0-125 pg/ml :36:00 Result Normal Range Units Glucose H 125 74-106 mg/dl Urea Nitrogen (BUN) H 56 7-18 mg/dl Creatinine H 1.46 0.55-1.30 mg/dl Bun/Creatinine Ratio H 38 7.5-25.0 Ratio EGFR Unable to Calculate eGFR.Patient is not within the defined age range. Osmolality Calculation H 309 280-300 mOsm/kg Sodium 141 136-145 mmol/L Potassium 4.2 3.5-5.1 mmol/L Chloride H 110 98-107 mmol/L CO2 22.5 21-32 mmol/L Calcium 8.6 8.5-10.1 mg/dl Alkaline Phosphatase 93 46-116 U/L ALT 42 14-59 U/L AST 22 15-37 U/L Bilirubin Total 0.6 0.2-1.0 mg/dl Protein Total L 6.3 6.4-8.2 g/dl Albumin L 2.3 3.4-5.0 g/dl Globulin 4.0 1.0-4.5 g/dl A/G Ratio L 0.6 1.0-2.3 Ratio C-Reactive Protein H 37.4 <=0.9 mg/dl Digoxin 1.89 0.9-2.0 ng/ml Pro-BNP H 4544 0-125 pg/ml :55:00 Result Normal Range Units TSH H 4.886 0.35-3.74 uIU/mL :35:00 Result Normal Range Units Glucose H 122 74-106 mg/dl Urea Nitrogen (BUN) H 75 7-18 mg/dl Creatinine H 1.80 0.55-1.30 mg/dl Bun/Creatinine Ratio H 42 7.5-25.0 Ratio EGFR Unable to Calculate eGFR.Patient is not within the defined age range. Osmolality Calculation H 316 280-300 mOsm/kg Sodium 141 136-145 mmol/L Potassium 4.2 3.5-5.1 mmol/L Chloride H 109 98-107 mmol/L CO2 23.6 21-32 mmol/L Calcium 9.2 8.5-10.1 mg/dl Alkaline Phosphatase 102 46-116 U/L ALT 53 14-59 U/L AST H 50 15-37 U/L Bilirubin Total 0.8 0.2-1.0 mg/dl Protein Total 7.2 6.4-8.2 g/dl Albumin L 2.8 3.4-5.0 g/dl Globulin 4.4 1.0-4.5 g/dl A/G Ratio L 0.6 1.0-2.3 Ratio C-Reactive Protein H 31.3 <=0.9 mg/dl Troponin I 0.000 0.000-0.070 ng/ml CPK H 526 26-192 U/L CKMB H 16.2 0-3.6 ng/ml LDH H 273 81-234 U/L Lactic Acid < 2.0 0.4-2.0 mmol/L Reference Lab :00:00 Result Normal Range Units C-Reactive Protein H 6.1 <=0.9 mg/dl :36:00 Result Normal Range Units C-Reactive Protein H 37.4 <=0.9 mg/dl :36:00 Result Normal Range Units Culture Blood A SEE NOTE CULTURE, BLOOD MICRO NUMBER:[id number] TEST STATUS: FINAL SPECIMEN SOURCE: BLOOD LT AC SPECIMEN QUALITY:ADEQUATE RESULT:Escherichia coli , from aerobic and anaerobic bottles E.coli INT SAMREEN AMOX/CLAVULANATE S <8/4 AMPICILLIN S <8 AMP/SULBACTAMS <8/4 CEFAZOLINS <2 CEFEPIME S <4 CEFTRIAXONES <1 CEFUROXIME, SODIUM I 16 CIPROFLOXACINR >2 GENTAMICIN S <2 IMIPENEM S <1 LEVOFLOXACIN R >4 MEROPENEMS <1 PIP/TAZOBACTAM S <16 TOBRAMYCIN S <4 TRIMETHOPRIM/SULFA R >2/38 S=SusceptibleI=Intermediate R=Resistant*=Not Tested NR=Not ReportedNN=See Therapy Comments TRANSPORT MEDIA: Aerobic and anaerobic bottle received. TEST PERFORMED AT: [facility] [address] [phone] LINO PEREZ DO,MPH Culture Blood Source LEFT AC Result Amended on 2015-05-02 at 07:16:04. Previous status was CT. [id number]:08:00 Result Normal Range Units Culture Blood A SEE NOTE CULTURE, BLOOD MICRO NUMBER:[id number] TEST STATUS: FINAL SPECIMEN SOURCE: BLOOD SPECIMEN QUALITY:ADEQUATE RESULT:Escherichia coli , from aerobic and anaerobic bottles E.coli INT SAMREEN AMOX/CLAVULANATE S <8/4 AMPICILLIN S <8 AMP/SULBACTAMS <8/4 CEFAZOLINI 4 CEFEPIME S <4 CEFTRIAXONES <1 CEFUROXIME, SODIUM S 8 CIPROFLOXACINR >2 GENTAMICIN S <2 IMIPENEM S <1 LEVOFLOXACIN R >4 MEROPENEMS <1 PIP/TAZOBACTAM S <16 TOBRAMYCIN S <4 TRIMETHOPRIM/SULFA R >2/38 S=SusceptibleI=Intermediate R=Resistant*=Not Tested NR=Not ReportedNN=See Therapy Comments TRANSPORT MEDIA: Aerobic and anaerobic bottle received. TEST PERFORMED AT: [facility] [address] [phone] LINO PEREZ DO,MPH Culture Blood Source LEFT AC Result Amended on 2015-05-02 at 07:16:03. Previous status was CT. [id number]:35:00 Result Normal Range Units C-Reactive Protein H 31.3 <=0.9 mg/dl History of procedures No procedures recorded for this patient visit. Functional status Functional Status Finding Observation Time Dexterity Right-handed :38 Weight Bearing Statu Full 02-35-416691:23 Transferring/Ambulat Needs Assistance :38 Bathing Needs Assistance :38 Dressing Needs Assistance :38 Eating Needs Assistance :38 Drinking Needs Assistance : Toileting Needs Assistance : Able to Turn Self in Needs Assistance :38 Stairs Not Done :38 Wheelchair Yes :38 Comment: w/c since last Saturday Cognitive Status Finding Observation Time Level of Consciousne Alert :00 Oriented to Person Yes :[address] No :00 Oriented to Time No :00 Eyes - LORENZO Yes :00 Vital signs Type Value Date Respirations 20 11-43-817868:31 Pulse 88 71-63-907809:31 O2 Saturation 93% 58-94-191779:31 Systolic Blood Press 113mm/HG 18-61-086563:31 Diastolic Blood Pres 74mm/HG 56-03-906366:31 Temperature (Fahr) 98.3Degrees 75-01-438053:31 Height 63in :19 Weight 185.7LB :19 Social history Type Value Smoking Status FORMER SMOKER Treatment Plan Treatment Plan at [facility] care of sepsis, UTI, dehydration. Hospital discharge instructions No discharge instruction text is available for this visit.
--- OUTSIDE RECORDS SUMMARY | 2017-04-02 09:07 | External Medical Summary ---
:1940 Author Organization [facility] Summary purpose CCDA Sent to [facility] Chief Complaint and Reason for [...] diagnostic tests and/or laboratory data RESULTS Urinalysis [id number]:35:00 Result Normal Range Units Site Voided Urine Color Yellow Yellow Urine Appearance Clear Clear UA Glucose Negative Negative UA Bili Negative Negative UA SG 1.025 1.005-1.030 UA Blood AB Trace Negative UA Ph 5.5 4.5-8.0 UA Protein AB Trace Negative UA Urobilinogen 0.2 0.2-1.0 EU/dL UA Nitrite AB Positive Negative UA Leukocyte AB 3+ Negative Urine RBC AB 3-5 None Seen /hpf Urine WBC AB 51-100 None Seen /hpf Urine Bacteria AB 4+ None Seen Calcium Oxalate Crystals 0-2 UA Ketone Negative Negative Culture Indicated Yes Reference Lab [id number]:35:00 Result Normal Range Units Culture Urine A SEE NOTE CULTURE, URINE, ROUTINE MICRO NUMBER:[id number] TEST STATUS: FINAL SPECIMEN SOURCE: URINE SPECIMEN QUALITY:ADEQUATE RESULT:Greater than 100,000 CFU/mL of Escherichia coli COMMENT: Additional organism(s) less than 10,000 CFU/mL isolated. These organisms, commonly found on external and internal genitalia, are considered colonizers. No further testing performed. E.coli INT SAMREEN AMOX/CLAVULANATE S 4 AMPICILLIN R >=32 AMP/SULBACTAMS 8 CEFAZOLINNR<=4 1 CEFEPIME S <=1 CEFTRIAXONES <=1 [...] susceptibility to parenteral cefazolin. TEST PERFORMED AT: [facility] [id number] [place] [phone] LINO PEREZ DO,MPH History of procedures Procedure Code Code Type Description Date Performed Performing Physician 68385 CPT-4 URINALYSIS, AUTO, W/O 07-14-2015 COLE GUTIERREZ JAIMES SCOPE 52606 CPT-4 URINE CULTURE/COLONY 07-14-2015 [facility]LE MTZ COUNT 83740 CPT-4 URINE BACTERIA CULTURE 07-14-2015 COLE GUTIERREZ JAIMES 82427 CPT-4 CULTURE AEROBIC 07-14-2015 [facility]LE MTZ IDENTIFY [id number] CPT-4 MICROBE SUSCEPTIBLE, 07-14-2015 COLE BRENDA JAIMES SAMREEN Functional status No functional or cognitive [...]
--- OUTSIDE RECORDS SUMMARY | 2017-04-02 09:07 | External Medical Summary ---
:1940 Author Organization [facility] Summary purpose CCDA Sent to [facility] Chief Complaint and Reason for [...] diagnostic tests and/or laboratory data RESULTS CBC [id number]:29:00 Result Normal Range Units White Blood Count 10.8 3.8-10.8 x 10*3/uL Red Blood Cells 4.24 3.80-5.10 x 10*6/uL Hemoglobin 12.3 11.70-15.50 g/dl Hematocrit 38.6 35.00-45.00 % Mean Jose Miguel Volume 91.0 80-100 fL Mean Jose Miguel Hemoglobin 29.0 27.0-33.0 pg Mean Jose Miguel Hemoglobin Conc L 31.9 32.0-36.0 g/dl RDW - CV 14.8 11.0-15.0 % RDW - SD H 48.0 35.1-43.9 FL Platelet Count 290 140-400 x 10*3/uL Mean Platelet Volume 9.4 9.4-12.4 fL Neutrophil % 68.9 36.0-78.0 % Lymphocyte% 19.7 13.0-49.0 % Monocyte % 6.9 4.0-12.0 % Eosinophil % 4.0 0-9.0 % Basophil % 0.5 0-1.0 % Neutrophil # 7.5 1.50-7.80 x 10*3/uL Lymphocyte # 2.1 0.8-3.9 x 10*3/uL Monocyte# 0.8 0.20-0.95 x 10*3/uL Eosinophil # 0.4 0.0-1.0 x 10*3/uL Basophil # 0.1 0.0-1.0 x 10*3/uL Chemistry Group [id number]:00 Result Normal Range Units Glucose H 132 74-106 mg/dl Urea Nitrogen (BUN) H 32 7-18 mg/dl Creatinine H 1.59 0.55-1.30 mg/dl Bun/Creatinine Ratio 20 7.5-25.0 Ratio EGFR Unable to Calculate eGFR.Patient is not within the defined age range. Osmolality Calculation 291 280-300 mOsm/kg Sodium 136 136-145 mmol/L Potassium H 5.3 3.5-5.1 mmol/L Chloride 103 98-107 mmol/L CO2 22.4 21-32 mmol/L Calcium 9.2 8.5-10.1 mg/dl Alkaline Phosphatase 100 46-116 U/L ALT 39 14-59 U/L AST 29 15-37 U/L Bilirubin Total L 0.1 0.2-1.0 mg/dl Protein Total 7.4 6.4-8.2 g/dl Albumin L 3.1 3.4-5.0 g/dl Globulin 4.3 1.0-4.5 g/dl A/G Ratio L 0.7 1.0-2.3 Ratio History of procedures Procedure Code Code Type Description Date Performed Performing Physician 61251 CPT-4 COMPREHEN METABOLIC 09-16-2015 STEPHANIE CASTANEDA PANEL 57943 CPT-4 COMPLETE CBC W/AUTO DIFF 09-16-2015 STEPHANIE CASTANEDA WBC 21543 CPT-4 ROUTINE VENIPUNCTURE 09-16-2015 STEPHANIE CASTANEDA Functional status No functional or [...]
--- OUTSIDE RECORDS SUMMARY | 2017-04-02 09:07 | External Medical Summary ---
:1940 Author Organization [facility] Summary purpose CCDA Sent to [facility] Chief Complaint and Reason for Visit [...] diagnostic tests and/or laboratory data RESULTS Urinalysis [id number]:01:00 Result Normal Range Units Site Voided Urine Color Yellow Yellow Urine Appearance AB Slightly Cloudy UA Glucose Negative Negative UA Bili Negative Negative UA SG L < 1.005 1.005-1.030 UA Blood Negative Negative UA Ph 6.0 4.5-8.0 UA Protein Negative Negative UA Urobilinogen 0.2 0.2-1.0 EU/dL UA Nitrite Negative Negative UA Leukocyte AB 3+ Negative Urine RBC AB 0-2 None Seen /hpf Urine WBC AB 21-30 None Seen /hpf Urine Bacteria AB 2+ None Seen Urine Mucus AB 1+ None Seen Urine Squamous Eps 0-2 UA Ketone Negative Negative Culture Indicated Yes Reference Lab [id number]:00 Result Normal Range Units Culture Urine A SEE NOTE Result Amended on 2015-12-28 at 01:33:28. Previous status was FR. Comment deleted 12/28/2015 01:32 by [employer] : CULTURE, URINE, ROUTINE MICRO NUMBER:[id number] TEST STATUS: PRELIMINARY SPECIMEN SOURCE: URINE SPECIMEN QUALITY:ADEQUATE RESULT:Greater than 100,000 CFU/mL of Gram negative bacilli isolated Identification and susceptibilities to follow. TEST PERFORMED AT: [email or web address] [address] [place] [address] LINO PEREZ DO,MPH CULTURE, URINE, ROUTINE MICRO NUMBER:[id number] TEST STATUS: FINAL SPECIMEN SOURCE: URINE SPECIMEN QUALITY:ADEQUATE RESULT:Greater than 100,000 CFU/mL of Escherichia coli E.coli INT SAMREEN AMOX/CLAVULANATE S 4 AMPICILLIN R >=32 AMP/SULBACTAMS 4 CEFAZOLINNR<=4 1 CEFEPIME S <=1 CEFTRIAXONES <=1 CIPROFLOXACINR >=4 ERTAPENEMS <=0.5 GENTAMICIN S <=1 IMIPENEM S <=0.25 LEVOFLOXACIN R >=8 NITROFURANTOIN S 32 PIP/TAZOBACTAM S <=4 TOBRAMYCIN S <=1 TRIMETHOPRIM/SULFA [...] susceptibility to parenteral cefazolin. TEST PERFORMED AT: [facility] [address] [place] [address] LINO PEREZ DO,MPH Test Culture Urine with result ofSEE NOTE was originally reported asSTANIYA ESTEVEZ and was changed on 12/28/2015 01:32 by [employer] History of procedures Procedure Code Code Type Description Date Performed Performing Physician 04101 CPT-4 URINALYSIS, AUTO, W/O 12-26-2015 STEPHANIE CASTANEDA SCOPE 34750 CPT-4 URINE CULTURE/COLONY 12-26-2015 STEPHANIE CASTANEDA COUNT 11656 CPT-4 URINE BACTERIA CULTURE 12-26-2015 STEPHANIE CASTANEDA 12105 CPT-4 CULTURE AEROBIC 12-26-2015 STEPHANIE CASTANEDA IDENTIFY [id number] CPT-4 MICROBE SUSCEPTIBLE, 12-26-2015 [facility] Functional status No functional or cognitive status [...]
--- OUTSIDE RECORDS SUMMARY | 2017-04-02 09:07 | External Medical Summary ---
:1940 Author Organization [facility] Summary purpose CCDA Sent to [facility] Chief Complaint and Reason for Visit No [...] tests and/or laboratory data RESULTS Chemistry Group [id number]:00 Result Normal Range Units TSH H 11.992 0.35-3.74 uIU/mL History of procedures Procedure Code Code Type Description Date Performed Performing Physician 27439 CPT-4 ASSAY THYROID STIM 06-17-2015 STEPHANIE CASTANEDA HORMONE Functional status No functional [...]
--- OUTSIDE RECORDS SUMMARY | 2017-04-02 09:07 | External Medical Summary ---
:1940 Author Organization [facility] Summary purpose CCDA Sent to [facility] Chief Complaint and Reason for [...] tests and/or laboratory data RESULTS Chemistry Group [id number]:00 Result Normal Range Units Glucose H 126 74-106 mg/dl Urea Nitrogen (BUN) H 25 7-18 mg/dl Creatinine 1.16 0.55-1.30 mg/dl Bun/Creatinine Ratio 22 7.5-25.0 Ratio EGFR Unable to Calculate eGFR.Patient is not within the defined age range. Sodium 139 136-145 mmol/L Potassium 4.8 3.5-5.1 mmol/L Chloride 106 98-107 mmol/L CO2 22.4 21-32 mmol/L Calcium 9.1 8.5-10.1 mg/dl History of procedures Procedure Code Code Type Description Date Performed Performing Physician 53617 CPT-4 METABOLIC PANEL TOTAL 09-26-2015 [place] [address] CPT-4 ROUTINE VENIPUNCTURE 09-26-2015 STEPHANIE CASTANEDA Functional status No functional or [...]
--- OUTSIDE RECORDS SUMMARY | 2017-04-02 09:07 | External Medical Summary ---
:1939 Author Organization [facility] Summary purpose CCDA Sent to [facility] Chief Complaint and Reason for Visit Admit Diagnosis 1 febrile,n/v Problem list No authorized problems tracked for [...] for this patient visit History of procedures No procedures recorded for [...]
--- OUTSIDE RECORDS SUMMARY | 2017-04-02 09:07 | External Medical Summary ---
:1940 Author Organization [facility] Summary purpose CCDA Sent to [facility] [...] diagnostic tests and/or laboratory data RESULTS Urinalysis [id number]:30:00 Result Normal Range Units Urine Color Yellow Yellow Urine Appearance Clear Clear UA Glucose Negative Negative UA Bili Negative Negative UA SG 1.015 1.005-1.030 UA Blood AB 1+ Negative UA Ph 5.5 4.5-8.0 UA Protein Negative Negative UA Urobilinogen 0.2 0.2-1.0 EU/dL UA Nitrite AB Positive Negative UA Leukocyte AB 3+ Negative Urine RBC AB 0-2 None Seen /hpf Urine WBC AB 51-100 None Seen /hpf Urine Bacteria AB 4+ None Seen Urine Squamous Eps Too Numerous To Count Urine Renal Tubular Eps 0-2 Calcium Oxalate Crystals 0-2 UA Ketone Negative Negative Reference Lab [id number]:00 Result Normal Range Units Culture Urine A SEE NOTE CULTURE, URINE, ROUTINE MICRO NUMBER:[id number] TEST STATUS: FINAL SPECIMEN SOURCE: URINE SPECIMEN [...] 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 TEST PERFORMED AT: [facility] [address] [address] LINO PEREZ DO,MPH History of procedures Procedure Code Code Type Description Date Performed Performing Physician 11968 CPT-4 URINALYSIS AUTO 09-20-2014 STEPHANIE CASTANEDA W/SCOPE 30760 CPT-4 URINE CULTURE/COLONY 09-20-2014 STEPHANIE CASTANEDA COUNT 36764 CPT-4 URINE BACTERIA CULTURE 09-20-2014 STEPHANIE CASTANEDA 87489 CPT-4 CULTURE AEROBIC 09-20-2014 STEPHANIE CASTANEDA IDENTIFY [id number] CPT-4 MICROBE SUSCEPTIBLE 09-20-2014 STEPHANIE CASTANEDA SAMREEN Functional status No functional [...]
--- OUTSIDE RECORDS SUMMARY | 2017-04-02 09:07 | External Medical Summary ---
:1940 Author Organization [facility] Summary purpose CCDA Sent to [facility] Chief Complaint and Reason for [...] diagnostic tests and/or laboratory data RESULTS Urinalysis [id number]:45:00 Result Normal Range Units Site Catheter Urine Color Yellow Yellow Urine Appearance AB Slightly cloudy UA Glucose Negative Negative UA Bili Negative Negative UA SG 1.025 1.005-1.030 UA Blood Negative Negative UA Ph 6.0 4.5-8.0 UA Protein Negative Negative UA Urobilinogen 0.2 0.2-1.0 EU/dL UA Nitrite Negative Negative UA Leukocyte AB 1+ Negative Urine RBC None Seen None Seen /hpf Urine WBC AB 16-20 None Seen /hpf Urine Bacteria AB 1+ None Seen Urine Yeast 2+ UA Ketone Negative Negative Culture Indicated Yes Reference Lab [id number] Result Normal Range Units Culture Urine SEE NOTE Result Amended on 2015-05-20 at 16:17:56. Previous status was FR. Comment deleted 05/20/2015 16:16 by [employer] : CULTURE, URINE, ROUTINE MICRO NUMBER:[id number] TEST STATUS: PRELIMINARY SPECIMEN SOURCE: URINE SPECIMEN QUALITY:ADEQUATE RESULT:Culture in progress TEST PERFORMED AT: [facility] [place] [address] [place] [address] LINO PEREZ DO,MPH CULTURE, URINE, ROUTINE MICRO NUMBER:[id number] TEST STATUS: FINAL SPECIMEN SOURCE: URINE SPECIMEN QUALITY:ADEQUATE RESULT:No Growth TEST PERFORMED AT: [facility] [address] [place] [address] LINO PEREZ DO,MPH Test Culture Urine with result ofSEE NOTE was originally reported asSEE NOTE and was changed on 05/20/2015 16:16 by [employer] History of procedures No procedures recorded for [...]
--- OUTSIDE RECORDS SUMMARY | 2017-04-02 09:07 | External Medical Summary ---
:1940 Author Organization [facility] Summary purpose CCDA Sent to [facility] Chief Complaint and Reason for Visit [...] diagnostic tests and/or laboratory data RESULTS CBC [id number]:15:00 Result Normal Range Units White Blood Count 9.5 3.8-10.8 x 10*3/uL Red Blood Cells 4.37 3.80-5.10 x 10*6/uL Hemoglobin 12.4 11.70-15.50 g/dl Hematocrit 41.4 35.00-45.00 % Mean Jose Miguel Volume 94.7 80-100 fL Mean Jose Miguel Hemoglobin 28.4 27.0-33.0 pg Mean Jose Miguel Hemoglobin Conc L 30.0 32.0-36.0 g/dl RDW - CV H 15.2 11.0-15.0 % RDW - SD H 51.2 35.1-43.9 FL Platelet Count 287 140-400 x 10*3/uL Mean Platelet Volume 9.8 9.4-12.4 fL Neutrophil % 48.2 36.0-78.0 % Lymphocyte% 37.3 13.0-49.0 % Monocyte % 9.2 4.0-12.0 % Eosinophil % 4.7 0-9.0 % Basophil % 0.6 0-1.0 % Neutrophil # 4.6 1.50-7.80 x 10*3/uL Lymphocyte # 3.6 0.8-3.9 x 10*3/uL Monocyte# 0.9 0.20-0.95 x 10*3/uL Eosinophil # 0.5 0.0-1.0 x 10*3/uL Basophil # 0.1 0.0-1.0 x 10*3/uL History of procedures Procedure Code Code Type Description Date Performed Performing Physician P9604 CPT-4 TRAVEL ALLOWANCE 04-13-2015 STEPHANIE CASTANEDA 52798 CPT-4 COMPLETE CBC W/AUTO DIFF 04-13-2015 STEPHANIE CASTANEDA WBC 81014 CPT-4 ROUTINE VENIPUNCTURE 04-13-2015 STEPHANIE CASTANEDA Functional status No functional or [...]
--- OUTSIDE RECORDS SUMMARY | 2017-04-02 09:07 | External Medical Summary ---
:1940 Author Organization [facility] Summary purpose CCDA Sent to [facility] Chief Complaint and Reason for Visit [...] Code Type Description Date Performed Performing Physician 81459 CPT-4 THER/PROPH/DIAG IV INF 11-02-2014 STEPHANIE CASTANEDA INIT 65795 CPT-4 THER/PROPH/DIAG IV INF 11-03-2014 STEPHANIE CASTANEDA INJIMMY 76308 CPT-4 THER/PROPH/DIAG IV INF 11-04-2014 STEPHANIE CASTANEDA INIT J1335 CPT-4 ERTAPENEM INJECTION 11-04-2014 STEPHANIE CASTANEDA J7050 CPT-4 NORMAL SALINE SOLUTION 11-04-2014 STEPHANIE CASTANEDA INFUS J1335 CPT-4 ERTAPENEM INJECTION 11-02-2014 STEPHANIE CASTANEDA J7050 CPT-4 NORMAL SALINE SOLUTION 11-02-2014 STEPHANIE CASTANEDA INFUS J1335 CPT-4 ERTAPENEM INJECTION 11-03-2014 STEPHANIE CASTANEDA J7050 CPT-4 NORMAL SALINE SOLUTION 11-03-2014 STEPHANIE CASTANEDA INFUS 94837 CPT-4 THER/PROPH/DIAG IV INF 11-05-2014 STEPHANIE CASTANEDA INIT 94436 CPT-4 THER/PROPH/DIAG IV INF 11-06-2014 STEPHANIE CASTANEDA INIT J1335 CPT-4 ERTAPENEM INJECTION 11-05-2014 STEPHANIE CASTANEDA J7050 CPT-4 NORMAL SALINE SOLUTION 11-05-2014 STEPHANIE CASTANEDA INFUS 96357 CPT-4 THER/PROPH/DIAG IV INF 11-07-2014 STEPHANIE CASTANEDA INIT J1335 CPT-4 ERTAPENEM INJECTION 11-06-2014 STEPHANIE CASTANEDA J7050 CPT-4 NORMAL SALINE SOLUTION 11-06-2014 STEPHANIE LEONEL INFUS J1335 CPT-4 ERTAPENEM INJECTION 11-07-2014 STEPHANIE CASTANEDA J7050 CPT-4 NORMAL SALINE SOLUTION 11-07-2014 STEPHANIE LEONEL INFUS J1335 CPT-4 ERTAPENEM INJECTION 11-08-2014 STEPHANIE CASTANEDA 26538 CPT-4 THER/PROPH/DIAG INJ 11-08-2014 STEPHANIE CASTANEDA SC/IM Functional status No functional or cognitive status observations are available for this visit. Vital signs Type Value Date Respirations 18 76-04-848298:30 Pulse 102 87-49-223664:30 O2 Saturation 93% 55-21-002835:30 Systolic Blood Press 112mm/HG 94-22-746107:30 Diastolic Blood Pres 73mm/HG 72-69-035719:30 Temperature (Fahr) See CommentsDegrees 78-34-111146:10 Social history No Social History or smoking status observations were recorded for this visit. ( Unknown if ever smoked.) Treatment Plan No treatment plan text is available for this visit. Hospital discharge instructions No discharge instruction text is available for this visit.
--- OUTSIDE RECORDS SUMMARY | 2017-04-02 09:07 | External Medical Summary ---
:1940 Author Organization [facility] Summary purpose CCDA Sent to [facility] [...] diagnostic tests and/or laboratory data RESULTS Urinalysis 10-16-517779:00:00 Result Normal Range Units Site Voided Urine [...] 21-30 None Seen /hpf Urine Bacteria AB 4+ None Seen Urine Mucus AB Trace None Seen Urine Squamous Eps 0-2 UA Ketone Negative Negative Culture Indicated Yes Reference Lab [id number]:00 Result Normal Range Units Culture Urine A SEE NOTE CULTURE, URINE, ROUTINE MICRO NUMBER:[id number] TEST STATUS: FINAL SPECIMEN SOURCE: URINE SPECIMEN QUALITY:ADEQUATE RESULT:Greater than 100,000 CFU/mL of Proteus mirabilis This organism may show imipenem resistance by mechanisms other than a carbapenemase. P.mirabilis INT SAMREEN AMPICILLIN R >=32 AMP/SULBACTAMI 16 CEFAZOLINR 16 1 CEFEPIME S <=1 CEFTRIAXONES <=1 CIPROFLOXACINR >=4 ERTAPENEMS <=0.5 GENTAMICIN R >=16 IMIPENEM R >=16 LEVOFLOXACIN I 4 NITROFURANTOIN R 128 PIP/TAZOBACTAM [...] susceptibility to parenteral cefazolin. TEST PERFORMED AT: [facility] [place] [id number] [place] [id number] LINO PEREZ DO,MPH History of procedures Procedure Code Code Type Description Date Performed Performing Physician 44300 CPT-4 URINALYSIS AUTO W/O 12-24-2014 SCOPE 54123 CPT-4 URINE CULTURE/COLONY 12-24-2014 [facility] COUNT 93364 CPT-4 URINE BACTERIA CULTURE 12-24-2014 DAY 80550 CPT-4 CULTURE AEROBIC 12-24-2014 [facility] IDENTIFY 98046 CPT-4 MICROBE SUSCEPTIBLE 12-24-2014 [facility] SAMREEN Functional status No functional or cognitive [...]
--- OUTSIDE RECORDS SUMMARY | 2017-04-02 09:08 | External Medical Summary ---
:1940 Author Organization [facility] Summary purpose CCDA Sent to [facility] Chief Complaint and Reason for Visit [...]
--- OUTSIDE RECORDS SUMMARY | 2017-04-02 09:08 | External Medical Summary ---
:1940 Author Organization [facility] Summary purpose CCDA Sent to [facility] Chief Complaint and Reason for Visit [...] Code Type Description Date Performed Performing Physician 00224 CPT-4 ASSAY OF TROPONIN, QUANT 04-28-2015 52992 CPT-4 ASSAY OF CK (CPK) 04-28-2015 47239 CPT-4 CREATINE, MB FRACTION 04-28-2015 44374 CPT-4 LACTATE (LD) (LDH) 04-28-2015 ENZYME 95951 CPT-4 COMPLETE CBC W/AUTO DIFF 04-28-2015 WBC 05024 CPT-4 COMPREHEN METABOLIC 04-28-2015 PANEL 64547 CPT-4 ASSAY OF LACTIC ACID 04-28-2015 38811 CPT-4 C-REACTIVE PROTEIN 04-28-2015 62918 CPT-4 ASSAY THYROID STIM 04-28-2015 HORMONE 48053 CPT-4 CHEST X-RAY 04-28-2015 03623 CPT-4 BLOOD CULTURE FOR 04-28-2015 BACTERIA 58718 CPT-4 BLOOD CULTURE FOR 04-28-2015 BACTERIA 09506 CPT-4 ELECTROCARDIOGRAM, 04-28-2015 TRACING 99046 CPT-4 ROUTINE VENIPUNCTURE 04-28-2015 35130 CPT-4 EMERGENCY DEPT VISIT 04-28-[address] [place] 89581 CPT-4 PLACE NEEDLE IN VEIN 04-28-2015 NAS[facility]IN 83752 CPT-4 ELECTROCARDIOGRAM REPORT 04-28-2015 [place] [address] CPT-4 CULTURE AEROBIC IDENTIFY 04-28-2015 NASRIN 62091 CPT-4 MICROBE SUSCEPTIBLE, SAMREEN 04-28-2015 NASRIN 47480 CPT-4 CULTURE AEROBIC IDENTIFY 04-28-2015 NASRIN 12514 CPT-4 MICROBE SUSCEPTIBLE, SAMREEN 04-28-2015 Functional status No functional or cognitive status [...]
--- OUTSIDE RECORDS SUMMARY | 2017-04-02 09:08 | External Medical Summary ---
:1940 Author Organization [facility] Summary purpose CCDA Sent to [facility] Chief Complaint and Reason for [...] Code Type Description Date Performed Performing Physician 87736 CPT-4 IRRIG DRUG DELIVERY 09-15-2015 [employer] Functional status No functional or cognitive status [...]
--- OUTSIDE RECORDS SUMMARY | 2017-04-02 09:08 | External Medical Summary ---
:1940 Author Organization [facility] Summary purpose CCDA Sent to [facility] Chief Complaint and Reason for Visit No [...] diagnostic tests and/or laboratory data RESULTS Urinalysis [id number]:00 Result Normal Range Units Site Catheter Urine Color Yellow Yellow Urine Appearance AB Slightly cloudy UA Glucose Negative Negative UA Bili Negative Negative UA SG 1.025 1.005-1.030 UA Blood AB Trace Negative UA Ph 6.5 4.5-8.0 UA Protein AB Trace Negative UA Urobilinogen 0.2 0.2-1.0 EU/dL UA Nitrite Negative Negative UA Leukocyte AB 1+ Negative Urine RBC AB 6-10 None Seen /hpf Urine WBC AB 31-50 None Seen /hpf Urine Bacteria AB 1+ None Seen Urine Mucus None Seen None Seen Urine Squamous Eps 3-5 UA Ketone Negative Negative Culture Indicated Yes Reference Lab [id number] Result Normal Range Units Culture Urine A SEE NOTE Result Amended on 2016-07-25 at 13:27:56. Previous status was FR. Comment deleted 07/25/2016 13:26 by [employer] : CULTURE, URINE, ROUTINE MICRO NUMBER:[id number] TEST STATUS: PRELIMINARY SPECIMEN SOURCE: URINE SPECIMEN QUALITY:ADEQUATE RESULT:Greater than 100,000 CFU/mL of Proteus mirabilis , susceptibility test report to follow. TEST PERFORMED AT: [employer] [address] [place] [address] LINO PEREZ DO,MPH CULTURE, URINE, ROUTINE MICRO NUMBER:[id number] TEST STATUS: FINAL SPECIMEN SOURCE: URINE SPECIMEN QUALITY:ADEQUATE RESULT:Greater than 100,000 CFU/mL of Proteus mirabilis This organism may show imipenem resistance by mechanisms other than a carbapenemase. P.mirabilis INT SAMREEN AMOX/CLAVULANATE S 8 AMPICILLIN R >=32 AMP/SULBACTAMI 16 CEFAZOLINR 8 1 CEFEPIME S <=1 CEFTRIAXONES <=1 CIPROFLOXACINR >=4 ERTAPENEMS <=0.5 GENTAMICIN R >=16 IMIPENEM R 4 LEVOFLOXACIN I 4 NITROFURANTOIN R >=512 PIP/TAZOBACTAM S <=4 TOBRAMYCIN R >=16 TRIMETHOPRIM/SULFA [...] susceptibility to parenteral cefazolin. TEST PERFORMED AT: [employer] [facility] [address] [place] [address] LINO PEREZ DO,MPH Test Culture Urine with result ofSEE NOTE was originally reported asSEE NOTE and was changed on 07/25/2016 13:26 by [employer] History of procedures Procedure Code Code Type Description Date Performed Performing Physician 79747 CPT-4 URINALYSIS, AUTO 07-23-2016 STEPHANIE CASTANEDA W/SCOPE 65857 CPT-4 URINE CULTURE/COLONY 07-23-2016 STEPHANIE CASTANEDA COUNT 39977 CPT-4 URINE BACTERIA CULTURE 07-23-2016 STEPHANIE CASTANEDA 12337 CPT-4 CULTURE AEROBIC 07-23-2016 STEPHANIE CASTANEDA IDENTIFY 14541 CPT-4 MICROBE SUSCEPTIBLE, 07-23-2016 STEPHANIE CASTANEDA [facility] Functional status No functional or cognitive status [...]
--- OUTSIDE RECORDS SUMMARY | 2017-04-02 09:08 | External Medical Summary ---
:1940 Author Organization [facility] Summary purpose CCDA Sent to [facility] Chief Complaint and Reason for Visit No authorized Reason for Visit (Admitting Diagnosis) is available for this visit. Problem list Condition Status Certainty Chronicity Onset .UTI chronic Active .Altered mental status Active .Urine Retention; felix cath place 07/22/15. now Active DC'd. Practical Matters - Inadequate/impractical home Active care resources and support; Admit to Medicare skilled Swingbed Encounters The following conditions tracked for encounter diagnoses were recorded for this visit: Finding or Diagnosis Status Certainty Chronicity Onset .UTI chronic Active .Altered mental status Active .Urine Retention; fleix cath place 07/22/15. now Active DC'd. Medications Discharge Medications Status Medication Directions Current alendronate (FOSAMAX): TABLET 70 MG oral SATURDAY Current bifidobacterium infantis (ALIGN): 4 MG oral ONE TIME A DAY capsule Current bisacodyl (DULCOLAX): Tab DR 5 MG oral ONE TIME A DAY NEEDED for CONSTIPATION Current clonazePAM (KLONOPIN): TABLET 0.5 MG oral THREE TIMES A DAY Current digoxin (LANOXIN) 125 mcg: TABLET 125 MCG oral ONE TIME A DAY Current Ensure Plus oral liquid 120 milliliter(s) oral THREE TIMES A DAY 1000, 1500, 1900 Current ibuprofen (MOTRIN) 200 mg: TABLET 400 MG oral EVERY FOUR HOURS NEEDED for PAIN Current LEVOTHYROXINE 125 MCG oral DAILY AT 7 AM Current Macrodantin 100 mg capsule bid x 10d; then daily x 90d oral oral TWO TIMES A DAY Current magnesium hydroxide (MILK OF MAGNESIA): 30 milliliter(s) oral NEEDED for SUSPENSION CONSTIPATION Current Miralax 17 gram oral powder packet 17 gram(s) oral TWO TIMES A DAY 0800 1800 Current mirtazapine (REMERON): TABLET 30 MG oral BEDTIME Current MULTIVITAMIN: TABLET 1 TAB oral ONE TIME A DAY Current NYSTATIN 100,000 unit/g: POWDER 1 APPLIC topical Give TOP FOUR TIMES A DAY NEEDED for REDNESS Current oxybutynin chloride (DITROPAN) 5 m MG oral ONE TIME A DAY TABLET Current OXYCODONE 5 mg: TABLET 5 MG oral THREE TIMES A DAY NEEDED for PAIN Current risperiDONE (RISPERDAL) 0.25 mg: TABLET 1 MG oral TWO TIMES A DAY Current sertraline (ZOLOFT): TABLET 75 MG oral ONE TIME A DAY Current tamsulosin (FLOMAX): ER 24HR Cap 0.4 MG oral ONE TIME A DAY Current traMADol (ULTRAM): TABLET 50 MG oral TWO TIMES A DAY Current traZODone (DESYREL): TABLET 50 MG oral BEDTIME Stopped Bactrim DS 800 mg-160 mg tablet 1 tab(s) oral ONE TIME A DAY stop date 09-03-15 Stopped bisacodyl 5 mg tablet 5 miligram(s) oral ONE TIME A DAY NEEDED Stopped clonazePAM 0.5 mg tablet 0.5 miligram(s) oral THREE TIMES A DAY at 0800, 1200, 1800 Stopped digoxin 125 mcg tablet 125 microgram(s) oral ONE TIME A DAY Stopped Ditropan 5 mg tablet 5 miligram(s) oral ONE TIME A DAY Stopped docusate sodium 100 mg capsule 100 miligram(s) oral TWO TIMES A DAY 0800 1800 Stopped Flomax 0.4 mg capsule 0.4 miligram(s) oral ONE TIME A DAY Stopped Fosamax 70 mg tablet 70 miligram(s) oral SATURDAY Give every Saturday at 0700 Stopped ibuprofen 200 mg capsule 400 miligram(s) oral EVERY FOUR HOURS NEEDED Stopped levothyroxine 125 mcg tablet 1 tab(s) oral DAILY AT 7 AM Stopped Milk of Magnesia 800 mg/5 mL oral 30 milliliter(s) oral NEEDED suspension Stopped mirtazapine 30 mg tablet 30 miligram(s) oral BEDTIME Stopped multivitamin tablet 1 tab(s) oral ONE TIME A DAY Stopped oxyCODONE 5 mg tablet 5 miligram(s) oral THREE TIMES A DAY NEEDED Stopped Risperdal 1 mg tablet 1 miligram(s) oral TWO TIMES A DAY takes at 0800 and 1800 Stopped traMADol 50 mg tablet 50 miligram(s) oral TWO TIMES A DAY takes at 0800 and 1800 Stopped traZODone 50 mg tablet 50 miligram(s) oral BEDTIME Stopped Zoloft 50 mg tablet 75 miligram(s) oral ONE TIME A DAY Allergies, adverse reactions, alerts Allergen Category Ingredient Status Reaction Severity Onset Tylenol Drug Tylenol Active Tylenol Drug acetaminophen Active Lortab Drug Lortab Active Lortab Drug acetaminophen Active Lortab Drug hydrocodone Active tuberculin,purif.pro Drug tuberculin,purif.prot.lonnie Active t.deriv. iv. Immunizations No immunizations recorded for this patient visit Relevant diagnostic tests and/or laboratory data RESULTS CBC :16:00 Result Normal Range Units White Blood Count 9.6 3.8-10.8 x 10*3/uL Red Blood Cells 4.14 3.80-5.10 x 10*6/uL Hemoglobin 12.2 11.70-15.50 g/dl Hematocrit 38.6 35.00-45.00 % Mean Jose Miguel Volume 93.2 80-100 fL Mean Jose Miguel Hemoglobin 29.5 27.0-33.0 pg Mean Jose Miguel Hemoglobin Conc L 31.6 32.0-36.0 g/dl RDW - CV 14.1 11.0-15.0 % RDW - SD H 46.3 35.1-43.9 FL Platelet Count 319 140-400 x 10*3/uL Mean Platelet Volume 9.9 9.4-12.4 fL Neutrophil % 57.8 36.0-78.0 % Lymphocyte% 25.9 13.0-49.0 % Monocyte % 9.7 4.0-12.0 % Eosinophil % 5.9 0-9.0 % Basophil % 0.7 0-1.0 % Neutrophil # 5.5 1.50-7.80 x 10*3/uL Lymphocyte # 2.5 0.8-3.9 x 10*3/uL Monocyte# 0.9 0.20-0.95 x 10*3/uL Eosinophil # 0.6 0.0-1.0 x 10*3/uL Basophil # 0.1 0.0-1.0 x 10*3/uL :46:00 Result Normal Range Units White Blood Count 8.7 3.8-10.8 x 10*3/uL Red Blood Cells 4.05 3.80-5.10 x 10*6/uL Hemoglobin 11.9 11.70-15.50 g/dl Hematocrit 38.1 35.00-45.00 % Mean Jose Miguel Volume 94.1 80-100 fL Mean Jose Miguel Hemoglobin 29.4 27.0-33.0 pg Mean Jose Miguel Hemoglobin Conc L 31.2 32.0-36.0 g/dl RDW - CV 14.3 11.0-15.0 % RDW - SD H 47.5 35.1-43.9 FL Platelet Count 314 140-400 x 10*3/uL Mean Platelet Volume 10.2 9.4-12.4 fL Neutrophil % 51.8 36.0-78.0 % Lymphocyte% 30.9 13.0-49.0 % Monocyte % 9.7 4.0-12.0 % Eosinophil % 6.8 0-9.0 % Basophil % 0.8 0-1.0 % Neutrophil # 4.5 1.50-7.80 x 10*3/uL Lymphocyte # 2.7 0.8-3.9 x 10*3/uL Monocyte# 0.8 0.20-0.95 x 10*3/uL Eosinophil # 0.6 0.0-1.0 x 10*3/uL Basophil # 0.1 0.0-1.0 x 10*3/uL [id number]:35:00 Result Normal Range Units White Blood Count 9.7 3.8-10.8 x 10*3/uL Red Blood Cells 4.18 3.80-5.10 x 10*6/uL Hemoglobin 12.3 11.70-15.50 g/dl Hematocrit 39.4 35.00-45.00 % Mean Jose Miguel Volume 94.3 80-100 fL Mean Jose Miguel Hemoglobin 29.4 27.0-33.0 pg Mean Jose Miguel Hemoglobin Conc L 31.2 32.0-36.0 g/dl RDW - CV 14.5 11.0-15.0 % RDW - SD H 47.8 35.1-43.9 FL Platelet Count 320 140-400 x 10*3/uL Mean Platelet Volume 10.0 9.4-12.4 fL Neutrophil % 59.7 36.0-78.0 % Lymphocyte% 24.5 13.0-49.0 % Monocyte % 9.3 4.0-12.0 % Eosinophil % 5.9 0-9.0 % Basophil % 0.6 0-1.0 % Neutrophil # 5.8 1.50-7.80 x 10*3/uL Lymphocyte # 2.4 0.8-3.9 x 10*3/uL Monocyte# 0.9 0.20-0.95 x 10*3/uL Eosinophil # 0.6 0.0-1.0 x 10*3/uL Basophil # 0.1 0.0-1.0 x 10*3/uL :40:00 Result Normal Range Units White Blood Count 10.0 3.8-10.8 x 10*3/uL Red Blood Cells 4.10 3.80-5.10 x 10*6/uL Hemoglobin 12.3 11.70-15.50 g/dl Hematocrit 38.4 35.00-45.00 % Mean Jose Miguel Volume 93.7 80-100 fL Mean Jose Miguel Hemoglobin 30.0 27.0-33.0 pg Mean Jose Miguel Hemoglobin Conc 32.0 32.0-36.0 g/dl RDW - CV 14.3 11.0-15.0 % RDW - SD H 46.8 35.1-43.9 FL Platelet Count 296 140-400 x 10*3/uL Mean Platelet Volume 10.2 9.4-12.4 fL Neutrophil % 60.7 36.0-78.0 % Lymphocyte% 24.3 13.0-49.0 % Monocyte % 9.0 4.0-12.0 % Eosinophil % 5.5 0-9.0 % Basophil % 0.5 0-1.0 % Neutrophil # 6.1 1.50-7.80 x 10*3/uL Lymphocyte # 2.4 0.8-3.9 x 10*3/uL Monocyte# 0.9 0.20-0.95 x 10*3/uL Eosinophil # 0.6 0.0-1.0 x 10*3/uL Basophil # 0.1 0.0-1.0 x 10*3/uL :15:00 Result Normal Range Units White Blood Count H 10.9 3.8-10.8 x 10*3/uL Red Blood Cells 4.08 3.80-5.10 x 10*6/uL Hemoglobin 11.9 11.70-15.50 g/dl Hematocrit 38.8 35.00-45.00 % Mean Jose Miguel Volume 95.1 80-100 fL Mean Jose Miguel Hemoglobin 29.2 27.0-33.0 pg Mean Jose Miguel Hemoglobin Conc L 30.7 32.0-36.0 g/dl RDW - CV 14.9 11.0-15.0 % RDW - SD H 49.7 35.1-43.9 FL Platelet Count 296 140-400 x 10*3/uL Mean Platelet Volume 9.7 9.4-12.4 fL Neutrophil % 68.8 36.0-78.0 % Lymphocyte% 18.9 13.0-49.0 % Monocyte % 7.6 4.0-12.0 % Eosinophil % 4.1 0-9.0 % Basophil % 0.6 0-1.0 % Neutrophil # 7.5 1.50-7.80 x 10*3/uL Lymphocyte # 2.1 0.8-3.9 x 10*3/uL Monocyte# 0.8 0.20-0.95 x 10*3/uL Eosinophil # 0.4 0.0-1.0 x 10*3/uL Basophil # 0.1 0.0-1.0 x 10*3/uL Chemistry Group :16:00 Result Normal Range Units Glucose 79 74-106 mg/dl Urea Nitrogen (BUN) 14 7-18 mg/dl Creatinine 0.59 0.55-1.30 mg/dl Bun/Creatinine Ratio 24 7.5-25.0 Ratio EGFR Unable to Calculate eGFR.Patient is not within the defined age range. Osmolality Calculation 297 280-300 mOsm/kg Sodium 144 136-145 mmol/L Potassium 4.1 3.5-5.1 mmol/L Chloride H 108 98-107 mmol/L CO2 28.0 21-32 mmol/L Calcium L 8.0 8.5-10.1 mg/dl Alkaline Phosphatase 73 46-116 U/L ALT H 63 14-59 U/L AST 36 15-37 U/L Bilirubin Total 0.2 0.2-1.0 mg/dl Protein Total 6.7 6.4-8.2 g/dl Albumin L 2.7 3.4-5.0 g/dl Globulin 4.0 1.0-4.5 g/dl A/G Ratio L 0.7 1.0-2.3 Ratio :46:00 Result Normal Range Units Glucose 82 74-106 mg/dl Urea Nitrogen (BUN) H 19 7-18 mg/dl Creatinine 0.70 0.55-1.30 mg/dl Bun/Creatinine Ratio H 27 7.5-25.0 Ratio EGFR Unable to Calculate eGFR.Patient is not within the defined age range. Osmolality Calculation 299 280-300 mOsm/kg Sodium 144 136-145 mmol/L Potassium 3.9 3.5-5.1 mmol/L Chloride H 109 98-107 mmol/L CO2 28.0 21-32 mmol/L Calcium L 8.1 8.5-10.1 mg/dl Alkaline Phosphatase 65 46-116 U/L ALT H 60 14-59 U/L AST 28 15-37 U/L Bilirubin Total 0.2 0.2-1.0 mg/dl Protein Total L 6.3 6.4-8.2 g/dl Albumin L 2.5 3.4-5.0 g/dl Globulin 3.8 1.0-4.5 g/dl A/G Ratio L 0.7 1.0-2.3 Ratio :35:00 Result Normal Range Units Glucose 82 74-106 mg/dl Urea Nitrogen (BUN) 18 7-18 mg/dl Creatinine 0.70 0.55-1.30 mg/dl Bun/Creatinine Ratio H 26 7.5-25.0 Ratio EGFR Unable to Calculate eGFR.Patient is not within the defined age range. Osmolality Calculation 297 280-300 mOsm/kg Sodium 143 136-145 mmol/L Potassium 4.1 3.5-5.1 mmol/L Chloride H 109 98-107 mmol/L CO2 25.8 21-32 mmol/L Calcium L 8.3 8.5-10.1 mg/dl Alkaline Phosphatase 69 46-116 U/L ALT H 64 14-59 U/L AST 35 15-37 U/L Bilirubin Total L 0.1 0.2-1.0 mg/dl Protein Total 6.5 6.4-8.2 g/dl Albumin L 2.6 3.4-5.0 g/dl Globulin 3.9 1.0-4.5 g/dl A/G Ratio L 0.7 1.0-2.3 Ratio C-Reactive Protein H 1.3 <=0.9 mg/dl :40:00 Result Normal Range Units Glucose 84 74-106 mg/dl Urea Nitrogen (BUN) 12 7-18 mg/dl Creatinine 0.65 0.55-1.30 mg/dl Bun/Creatinine Ratio 18 7.5-25.0 Ratio EGFR Unable to Calculate eGFR.Patient is not within the defined age range. Osmolality Calculation 289 280-300 mOsm/kg Sodium 140 136-145 mmol/L Potassium 3.9 3.5-5.1 mmol/L Chloride 106 98-107 mmol/L CO2 28.2 21-32 mmol/L Calcium L 8.4 8.5-10.1 mg/dl Alkaline Phosphatase 76 46-116 U/L ALT 59 14-59 U/L AST 33 15-37 U/L Bilirubin Total 0.4 0.2-1.0 mg/dl Protein Total 6.6 6.4-8.2 g/dl Albumin L 2.7 3.4-5.0 g/dl Globulin 3.9 1.0-4.5 g/dl A/G Ratio L 0.7 1.0-2.3 Ratio C-Reactive Protein H 1.7 <=0.9 mg/dl :15:00 Result Normal Range Units Glucose 90 74-106 mg/dl Urea Nitrogen (BUN) 14 7-18 mg/dl Creatinine 0.81 0.55-1.30 mg/dl Bun/Creatinine Ratio 17 7.5-25.0 Ratio EGFR Unable to Calculate eGFR.Patient is not within the defined age range. Osmolality Calculation 294 280-300 mOsm/kg Sodium 142 136-145 mmol/L Potassium 3.9 3.5-5.1 mmol/L Chloride H 109 98-107 mmol/L CO2 26.1 21-32 mmol/L Calcium L 8.2 8.5-10.1 mg/dl Alkaline Phosphatase 62 46-116 U/L ALT 40 14-59 U/L AST 25 15-37 U/L Bilirubin Total 0.2 0.2-1.0 mg/dl Protein Total 6.7 6.4-8.2 g/dl Albumin L 2.9 3.4-5.0 g/dl Globulin 3.8 1.0-4.5 g/dl A/G Ratio L 0.8 1.0-2.3 Ratio C-Reactive Protein 0.6 <=0.9 mg/dl Pro-BNP H 200 0-125 pg/ml Hematology Group :15:00 Result Normal Range Units Sed Rate (ESR) 14 0-30 MM/hr. Urinalysis :40:00 Result Normal Range Units Site Voided Urine [...] UA Ketone Negative Negative Culture Indicated Yes :49:00 Result Normal Range Units Site Catheter Urine Color Yellow Yellow Urine Appearance Clear Clear UA Glucose Negative Negative UA Bili Negative Negative UA SG 1.025 1.005-1.030 UA Blood Negative Negative UA Ph 5.5 4.5-8.0 UA Protein Negative Negative UA Urobilinogen 0.2 0.2-1.0 EU/dL UA Nitrite Negative Negative UA Leukocyte AB Trace Negative Urine RBC None Seen None Seen /hpf Urine WBC AB 3-5 None Seen /hpf Urine Bacteria AB 1+ None Seen Urine Squamous Eps 0-2 UA Ketone Negative Negative Culture Indicated Yes :44:00 Result Normal Range Units Site Voided Result Amended on 2015-08-01 at 06:59:47. Previous status was MD. Urine Color Yellow Yellow Urine Appearance Clear Clear UA Glucose Negative Negative UA Bili Negative Negative UA SG 1.025 1.005-1.030 UA Blood AB Trace Negative UA Ph 5.5 4.5-8.0 UA Protein Negative Negative UA Urobilinogen 0.2 0.2-1.0 EU/dL UA Nitrite Negative Negative UA Leukocyte Negative Negative Urine RBC AB 3-5 None Seen /hpf Urine WBC AB 0-2 None Seen /hpf Urine Bacteria AB 1+ None Seen Urine Squamous Eps 0-2 UA Ketone Negative Negative :35:00 Result Normal Range Units Site Voided Urine Color Yellow Yellow Urine Appearance AB Slightly cloudy UA Glucose Negative Negative UA Bili Negative Negative UA SG 1.025 1.005-1.030 UA Blood AB 2+ Negative UA Ph 7.0 4.5-8.0 UA Protein AB 2+ Negative UA Urobilinogen 0.2 0.2-1.0 EU/dL UA Nitrite Negative Negative UA Leukocyte AB 1+ Negative Urine RBC AB 6-10 None Seen /hpf Urine WBC AB 16-20 None Seen /hpf Urine Bacteria AB 1+ None Seen Urine Mucus AB Trace None Seen Urine Squamous Eps 3-5 UA Ketone Negative Negative Culture Indicated Yes [id number]:00 Result Normal Range Units Site Voided Urine Color Yellow Yellow Urine Appearance AB Slightly cloudy UA Glucose Negative Negative UA Bili Negative Negative UA SG 1.025 1.005-1.030 UA Blood AB Trace Negative UA Ph 7.0 4.5-8.0 UA Protein AB Trace Negative UA Urobilinogen 0.2 0.2-1.0 EU/dL UA Nitrite Negative Negative UA Leukocyte AB 1+ Negative Urine RBC AB 6-10 None Seen /hpf Urine WBC AB 21-30 None Seen /hpf Urine Bacteria AB 2+ None Seen Urine Mucus AB Trace None Seen Urine Squamous Eps 0-2 Urine Amorphous 3+ UA Ketone Negative Negative Culture Indicated Yes Reference Lab [id number]:00 Result Normal Range Units Culture Urine SEE NOTE CULTURE, URINE, ROUTINE MICRO NUMBER:[id number] TEST STATUS: FINAL SPECIMEN SOURCE: URINE SPECIMEN QUALITY:ADEQUATE RESULT:No Growth TEST PERFORMED AT: [facility] [address] [place] [id number] LINO PEREZ DO,MPH [id number]:00 Result Normal Range Units Culture Urine SEE NOTE Result Amended on 2015-08-05 at 16:05:33. Previous status was FR. Comment deleted 08/05/2015 16:05 by [email or web address] : CULTURE, URINE, ROUTINE MICRO NUMBER:[id number] TEST STATUS: PRELIMINARY SPECIMEN SOURCE: URINE SPECIMEN QUALITY:ADEQUATE RESULT:Culture in progress TEST PERFORMED AT: [facility] [address] [place] [address] LINO PEREZ DO,MPH CULTURE, URINE, ROUTINE MICRO NUMBER:[id number] TEST STATUS: FINAL SPECIMEN SOURCE: URINE SPECIMEN QUALITY:ADEQUATE RESULT:No Growth TEST PERFORMED AT: [facility] [address] [place] [address] LINO PEREZ DO,MPH Test Culture Urine with result ofSEE NOTE was originally reported asSEE NOTE and was changed on 08/05/2015 16:05 by [employer] [id number]:00 Result Normal Range Units C-Reactive Protein H 1.3 <=0.9 mg/dl [id number]:00 Result Normal Range Units C-Reactive Protein H 1.7 <=0.9 mg/dl :35:00 Result Normal Range Units Culture Urine SEE NOTE Result Amended on 2015-07-29 at 23:41:43. Previous status was FR. Comment deleted 07/29/2015 23:41 by [employer] : CULTURE, URINE, ROUTINE MICRO NUMBER:[id number] TEST STATUS: PRELIMINARY SPECIMEN SOURCE: URINE SPECIMEN QUALITY:ADEQUATE RESULT:Culture in progress TEST PERFORMED AT: [facility] [address] [place] [phone] LINO PEREZ DO,MPH CULTURE, URINE, ROUTINE MICRO NUMBER:[id number] TEST STATUS: FINAL SPECIMEN SOURCE: URINE SPECIMEN QUALITY:ADEQUATE RESULT:No Growth COMMENT: The preferred specimen for urine culture is preserved and shipped in a BD urine transport tube that may be obtained from your [employer] supplier. Culture of unpreserved urine may produce falsely elevated bacterial counts. TEST PERFORMED AT: [facility] [address] [place] [address] LINO PEREZ DO,MPH Test Culture Urine with result ofSEE NOTE was originally reported asSEE NOTE and was changed on 07/29/2015 23:41 by [employer] [id number] Result Normal Range Units Culture Urine SEE NOTE CULTURE, URINE, ROUTINE MICRO NUMBER:[id number] TEST STATUS: FINAL SPECIMEN SOURCE: URINE SPECIMEN QUALITY:ADEQUATE RESULT:Single organism less than 10,000 CFU/mL isolated. These organisms, commonly found on external and internal genitalia, are considered colonizers. No further testing performed. TEST PERFORMED AT: [facility] [address] [place] [address] ILNO PEREZ DO,MPH [id number]:00 Result Normal Range Units C-Reactive Protein 0.6 <=0.9 mg/dl History of procedures No procedures recorded for this patient visit. Functional status Functional Status Finding Observation Time Dexterity Right-handed :45 Weight Bearing Statu Full :00 Transferring/Ambulat Needs Assistance :45 Bathing Needs Assistance :45 Dressing Needs Assistance :45 Eating Needs Assistance : Drinking Needs Assistance : Toileting Needs Assistance : Able to Turn Self in Needs Assistance :45 Stairs Not Done :45 Wheelchair Yes :45 Cognitive Status Finding Observation Time Level of Consciousne Confused :45 Oriented to Person Yes :[address] No :45 Oriented to Time No :45 Combative Mild :30 Eyes - LORENZO Yes :00 Vital signs Type Value Date Respirations 20 :30 Pulse 90 :30 O2 Saturation 91% :30 Systolic Blood Press 95mm/HG :30 Diastolic Blood Pres 60mm/HG 66-72-179528:30 Temperature (Fahr) 97.9Degrees :30 Height 63in :00 Weight 173.5LB [id number]:00 Social history Type Value Smoking Status FORMER SMOKER Treatment Plan Treatment Plan at Leave in PICC IV until PCP orders removal. Nurse changes dressing and cap before d/c. Hospital discharge instructions No discharge instruction text is available for this visit.
--- OUTSIDE RECORDS SUMMARY | 2017-04-02 09:08 | External Medical Summary ---
:1940 Author Organization [facility] Summary purpose CCDA Sent to [facility] Chief Complaint and Reason for Visit [...] diagnostic tests and/or laboratory data RESULTS CBC [id number]:00 Result Normal Range Units White Blood Count H 15.6 3.8-10.8 x 10*3/uL Red Blood Cells 3.99 3.80-5.10 x 10*6/uL Hemoglobin L 10.6 11.70-15.50 g/dl Hematocrit L 34.6 35.00-45.00 % Mean Jose Miguel Volume 86.7 80-100 fL Mean Jose Miguel Hemoglobin L 26.6 27.0-33.0 pg Mean Jose Miguel Hemoglobin Conc L 30.6 32.0-36.0 g/dl RDW - CV H 15.2 11.0-15.0 % RDW - SD H 47.7 35.1-43.9 FL Platelet Count 338 140-400 x 10*3/uL Mean Platelet Volume 10.4 9.4-12.4 fL Neutrophil % H 79.3 36.0-78.0 % Lymphocyte% L 10.9 13.0-49.0 % Monocyte % 6.4 4.0-12.0 % Eosinophil % 3.1 0-9.0 % Basophil % 0.3 0-1.0 % Neutrophil # H 12.4 1.50-7.80 x 10*3/uL Lymphocyte # 1.7 0.8-3.9 x 10*3/uL Monocyte# H 1.0 0.20-0.95 x 10*3/uL Eosinophil # 0.5 0.0-1.0 x 10*3/uL Basophil # 0.1 0.0-1.0 x 10*3/uL Chemistry Group [id number]:00 Result Normal Range Units TSH L 0.211 0.35-3.74 uIU/mL History of procedures Procedure Code Code Type Description Date Performed Performing Physician 11203 CPT-4 COMPLETE CBC W/AUTO DIFF 01-11-2016 STEPHANIE CASTANEDA WBC 00594 CPT-4 ASSAY THYROID STIM 01-11-2016 STEPHANIE CASTANEDA HORMONE Functional status No functional [...]
--- OUTSIDE RECORDS SUMMARY | 2017-04-02 09:08 | External Medical Summary ---
:1940 Author Organization [facility] Summary purpose CCDA Sent to [facility] Chief Complaint and Reason for [...] diagnostic tests and/or laboratory data RESULTS CBC [id number]:57:00 Result Normal Range Units White Blood Count 9.1 3.8-10.8 x 10*3/uL Red Blood Cells 4.35 3.80-5.10 x 10*6/uL Hemoglobin 12.5 11.70-15.50 g/dl Hematocrit 40.1 35.00-45.00 % Mean Jose Miguel Volume 92.2 80-100 fL Mean Jose Miguel Hemoglobin 28.7 27.0-33.0 pg Mean Jose Miguel Hemoglobin Conc L 31.2 32.0-36.0 g/dl RDW - CV H 15.4 11.0-15.0 % RDW - SD H 50.3 35.1-43.9 FL Platelet Count 286 140-400 x 10*3/uL Mean Platelet Volume 9.8 9.4-12.4 fL Neutrophil % 55.0 36.0-78.0 % Lymphocyte% 31.9 13.0-49.0 % Monocyte % 8.2 4.0-12.0 % Eosinophil % 4.3 0-9.0 % Basophil % 0.6 0-1.0 % Neutrophil # 5.0 1.50-7.80 x 10*3/uL Lymphocyte # 2.9 0.8-3.9 x 10*3/uL Monocyte# 0.7 0.20-0.95 x 10*3/uL Eosinophil # 0.4 0.0-1.0 x 10*3/uL Basophil # 0.1 0.0-1.0 x 10*3/uL History of procedures Procedure Code Code Type Description Date Performed Performing Physician 73684 CPT-4 ROUTINE VENIPUNCTURE 01-12-2015 STEPHANIE CASTANEDA P9604 CPT-4 ONE-WAY ALLOW PRORATED 01-12-2015 STEPHANIE CASTANEDA TRIP 24772 CPT-4 COMPLETE CBC W/AUTO DIFF 01-12-2015 STEPHANIE CASTANEDA WBC 37092 CPT-4 URINALYSIS AUTO W/O 01-12-2015 STEPHANIE CASTANEDA SCOPE 17809 CPT-4 URINE CULTURE/COLONY 01-12-2015 STEPHANIE CASTANEDA COUNT 14373 CPT-4 URINE BACTERIA CULTURE 01-12-2015 STEPHANIE CASTANEDA 87046 CPT-4 URINE BACTERIA CULTURE 01-12-2015 STEPHANIE CASTANEDA 75329 CPT-4 MICROBE SUSCEPTIBLE 01-12-2015 STEPHANIE CASTANEDA SAMREEN 35896 CPT-4 MICROBE SUSCEPTIBLE 01-12-2015 STEPHANIE CASTANEDA SAMREEN 63451 CPT-4 CULTURE AEROBIC 01-12-2015 STEPHANIE CASTANEDA IDENTIFY 60773 CPT-4 CULTURE AEROBIC 01-12-2015 STEPHANIE CASTANEDA IDENTIFY Functional status No functional or cognitive status [...]
--- OUTSIDE RECORDS SUMMARY | 2017-04-02 09:08 | External Medical Summary ---
:1940 Author Organization [facility] Summary purpose CCDA Sent to [facility] Chief Complaint and Reason for Visit Admit Diagnosis 1 HEAD INJURY UNSPECIFIED Problem list No authorized problems tracked for [...] Code Type Description Date Performed Performing Physician 97244 CPT-4 CT NECK SPINE W/O DYE 05-03-2014 STEPHANIE CASTANEDA 26634 CPT-4 CT HEAD/BRAIN W/O DYE 05-03-2014 STEPHANIE CASTANEDA 52364 CPT-4 URINALYSIS AUTO W/O 05-03-2014 STEPHANIE CASTANEDA SCOPE Functional status No functional or cognitive status [...]
--- OUTSIDE RECORDS SUMMARY | 2017-04-02 09:08 | External Medical Summary ---
:1940 Author Organization [facility] Summary purpose CCDA Sent to [facility] Chief Complaint and Reason for Visit [...] diagnostic tests and/or laboratory data RESULTS Urinalysis [id number]:39:00 Result Normal Range Units Site Voided Urine Color Yellow Yellow Urine Appearance AB Slightly cloudy UA Glucose Negative Negative UA Bili Negative Negative UA SG 1.025 1.005-1.030 UA Blood Negative Negative UA Ph 5.5 4.5-8.0 UA Protein Negative Negative UA Urobilinogen 0.2 0.2-1.0 EU/dL UA Nitrite AB Positive Negative UA Leukocyte Negative Negative Urine RBC AB 0-2 None Seen /hpf Urine WBC AB 0-2 None Seen /hpf Urine Bacteria AB 3+ None Seen Urine Mucus AB 1+ None Seen Urine Squamous Eps 0-2 Urine Hyaline Casts 0-2 UA Ketone Negative Negative Culture Indicated Yes Reference Lab [id number] Result Normal Range Units Culture Urine A SEE NOTE CULTURE, URINE, ROUTINE MICRO NUMBER:[id number] TEST STATUS: FINAL SPECIMEN SOURCE: URINE SPECIMEN QUALITY:ADEQUATE RESULT:Greater than 100,000 CFU/mL of Escherichia coli E.coli INT SAMREEN AMOX/CLAVULANATE S <=2 AMPICILLIN S 8 AMP/SULBACTAMS 4 CEFAZOLINNR<=4 1 CEFEPIME S <=1 [...] susceptibility to parenteral cefazolin. TEST PERFORMED AT: [id number] [place] [address] LINO PEREZ DO,MPH History of procedures Procedure Code Code Type Description Date Performed Performing Physician 45490 CPT-4 URINALYSIS, AUTO 04-05-2016 STEPHANIE CASTANEDA W/SCOPE 53910 CPT-4 URINE CULTURE/COLONY 04-05-2016 STEPHANIE CASTANEDA COUNT 98278 CPT-4 URINE BACTERIA CULTURE 04-05-2016 STEPHANIE CASTANEDA [id number] CPT-4 CULTURE AEROBIC 04-05-2016 STEPHANIE CASTANEDA IDENTIFY 61106 CPT-4 MICROBE SUSCEPTIBLE, 04-05-2016 STEPHANIE CASTANEDA SAMREEN Functional status No functional [...]
--- OUTSIDE RECORDS SUMMARY | 2017-04-02 09:08 | External Medical Summary ---
:1939 Author Organization [facility] Summary purpose CCDA Sent to [facility] Chief Complaint and Reason for Visit [...] diagnostic tests and/or laboratory data RESULTS Urinalysis [id number]:32:00 Result Normal Range Units Site Voided Urine Color Yellow Yellow Urine Appearance AB Slightly cloudy UA Glucose Negative Negative UA Bili Negative Negative UA SG 1.015 1.005-1.030 UA Blood AB Trace Negative UA Ph 7.0 4.5-8.0 UA Protein Negative Negative UA Urobilinogen 0.2 0.2-1.0 EU/dL UA Nitrite Negative Negative UA Leukocyte AB 2+ Negative Urine RBC RARE Urine WBC AB 6-10 None Seen /hpf Urine Bacteria AB 3+ None Seen Urine Squamous Eps 6-10 UA Ketone Negative Negative Culture Indicated Yes Reference Lab [id number] Result Normal Range Units Culture Urine SEE NOTE CULTURE, URINE, ROUTINE MICRO NUMBER:[id number] TEST STATUS: FINAL SPECIMEN SOURCE: URINE SPECIMEN QUALITY:ADEQUATE RESULT:Three or more organisms present, each greater than 10,000 cu/mL. May represent normal geronimo contamination from external genitalia. No further testing is required. TEST PERFORMED AT: [facility] [address] [place] [address] LINO PEREZ DO,MPH History of procedures Procedure Code Code Type Description Date Performed Performing Physician 84663 CPT-4 URINALYSIS, AUTO, W/O 02-17-2015 STEPHANIE LANG SCOPE 00305 CPT-4 URINE CULTURE/COLONY 02-17-2015 STEPHANIE CASTANEDA COUNT 09942 CPT-4 URINE BACTERIA CULTURE 02-17-2015 STEPHANIE CASTANEDA Functional status No functional or [...]
--- OUTSIDE RECORDS SUMMARY | 2017-04-02 09:08 | External Medical Summary ---
:1939 Author Organization [facility] Summary purpose CCDA Sent to [facility] Chief Complaint and Reason for Visit [...] diagnostic tests and/or laboratory data RESULTS Urinalysis [id number]:30:00 Result Normal Range Units Site Voided Urine [...] /hpf Urine Bacteria AB Trace None Seen Urine Yeast 1+ Calcium Oxalate Crystals 0-2 UA Ketone Negative Negative Culture Indicated Yes Reference Lab [id number]:00 Result Normal Range Units Culture Urine SEE NOTE CULTURE, URINE, ROUTINE MICRO NUMBER:[id number] TEST STATUS: FINAL SPECIMEN SOURCE: URINE SPECIMEN QUALITY:ADEQUATE RESULT:10,000-50,000 CFU/mL of Yeast isolated. Please contact the laboratory within 3 days if further identification is desired. TEST PERFORMED AT: [facility] [address] [place] [address] LINO PEREZ DO,MPH History of procedures Procedure Code Code Type Description Date Performed Performing Physician 66531 CPT-4 URINALYSIS, AUTO 02-28-2015 STEPHANIE CASTANEDA W/SCOPE 08616 CPT-4 URINE CULTURE/COLONY 02-28-2015 STEPHANIE LANG Functional status No functional or cognitive status [...]
--- OUTSIDE RECORDS SUMMARY | 2017-04-02 09:08 | External Medical Summary ---
:1939 Author Organization [facility] Summary purpose CCDA Sent to [facility] Chief Complaint and Reason for [...] tests and/or laboratory data RESULTS Chemistry Group [id number]:30:00 Result Normal Range Units Glucose 91 74-106 mg/dl Urea Nitrogen (BUN) H 26 7-18 mg/dl Creatinine 1.30 0.55-1.30 mg/dl Bun/Creatinine Ratio 20 7.5-25.0 Ratio EGFR Unable to Calculate eGFR.Patient is not within the defined age range. Sodium 138 136-145 mmol/L Potassium 4.4 3.5-5.1 mmol/L Chloride 107 98-107 mmol/L CO2 23.0 21-32 mmol/L Calcium 8.8 8.5-10.1 mg/dl History of procedures Procedure Code Code Type Description Date Performed Performing Physician 79700 CPT-4 METABOLIC PANEL TOTAL 09-19-2015 STEPHANIE MANZANO Functional status No functional or cognitive status [...]
--- OUTSIDE RECORDS SUMMARY | 2017-04-02 09:08 | External Medical Summary ---
:1939 Author Organization [facility] Summary purpose CCDA Sent to [facility] Chief Complaint and Reason for Visit Admit Diagnosis 1 DYSURIA Problem list No authorized problems tracked for [...] diagnostic tests and/or laboratory data RESULTS Urinalysis [id number]:45:00 Result Normal Range Units Site Voided Result Amended on 2014-05-27 at 08:26:14. Previous status was FR. Urine Color Yellow Yellow Result Amended on 2014-05-27 at 08:26:13. Previous status was FR. Urine Appearance AB Cloudy Clear Result Amended on 2014-05-27 at 08:26:13. Previous status was FR. UA Glucose Negative Negative Result Amended on 2014-05-27 at 08:26:13. Previous status was FR. UA Bili Negative Negative Result Amended on 2014-05-27 at 08:26:13. Previous status was FR. UA SG 1.020 1.005-1.030 Result Amended on 2014-05-27 at 08:26:13. Previous status was FR. UA Blood AB Trace Negative Result Amended on 2014-05-27 at 08:26:13. Previous status was FR. UA Ph 7.0 4.5-8.0 Result Amended on 2014-05-27 at 08:26:13. Previous status was FR. UA Protein Negative Negative Result Amended on 2014-05-27 at 08:26:13. Previous status was FR. UA Urobilinogen 0.2 0.2-1.0 EU/dL Result Amended on 2014-05-27 at 08:26:13. Previous status was FR. UA Nitrite Negative Negative Result Amended on 2014-05-27 at 08:26:14. Previous status was FR. UA Leukocyte AB 3+ Negative Result Amended on 2014-05-27 at 08:26:14. Previous status was FR. Urine RBC AB 0-2 None Seen /hpf Urine WBC AB Too Numerous To Count Urine Bacteria AB 4+ None Seen Urine Mucus AB 1+ None Seen Triple Phos Crystals 11-15 UA Ketone Negative Negative Result Amended on 2014-05-27 at 08:26:13. Previous status was FR. Reference Lab [id number]:00 Result Normal Range Units Culture Urine A SEE NOTE CULTURE, URINE, ROUTINE MICRO NUMBER:[id number] TEST STATUS: FINAL SPECIMEN SOURCE: URINE SPECIMEN QUALITY:ADEQUATE RESULT:Greater than 100,000 CFU/mL of Proteus mirabilis This organism may show imipenem resistance by mechanisms other than a carbapenemase. P.mirabilis INT SAMREEN AMOX/CLAVULANATE S 8 AMPICILLIN R >=32 AMP/SULBACTAMI 16 CEFEPIME S <=1 CEFTRIAXONES <=1 CIPROFLOXACINR >=4 ERTAPENEMS <=0.5 GENTAMICIN R >=16 IMIPENEM R 8 LEVOFLOXACIN I 4 NITROFURANTOIN R 256 PIP/TAZOBACTAM S <=4 TOBRAMYCIN R >=16 TRIMETHOPRIM/SULFA R >=320 S=SusceptibleI=Intermediate R=Resistant*=Not Tested NR=Not ReportedNN=See Therapy Comments TEST PERFORMED AT: [facility] [address] [place] [address] LINO PEREZ DO,MPH History of procedures Procedure Code Code Type Description Date Performed Performing Physician 50160 CPT-4 URINALYSIS, AUTO 05-26-2014 STEPHANIE CASTANEDA W/SCOPE 91186 CPT-4 URINE CULTURE/COLONY 05-26-2014 STEPHANIE CASTANEDA COUNT 70592 CPT-4 URINE BACTERIA CULTURE 05-26-2014 STEPHANIE CASTANEDA 35469 CPT-4 CULTURE AEROBIC 05-26-2014 STEPHANIE CASTANEDA IDENTIFY 25029 CPT-4 MICROBE SUSCEPTIBLE, 05-26-2014 STEPHANIE CASTANEDA SAMREEN Functional status No functional [...]
--- OUTSIDE RECORDS SUMMARY | 2017-04-02 09:09 | External Medical Summary ---
:1939 Author Organization [facility] Summary purpose CCDA Sent to [facility] Chief Complaint and Reason for Visit [...] diagnostic tests and/or laboratory data RESULTS CBC [id number]:18:00 Result Normal Range Units White Blood Count H 14.0 3.8-10.8 x 10*3/uL Red Blood Cells 4.03 3.80-5.10 x 10*6/uL Hemoglobin 11.9 11.70-15.50 g/dl Hematocrit 38.7 35.00-45.00 % Mean Jose Miguel Volume 96.0 80-100 fL Mean Jose Miguel Hemoglobin 29.5 27.0-33.0 pg Mean Jose Miguel Hemoglobin Conc L 30.7 32.0-36.0 g/dl RDW - CV 14.7 11.0-15.0 % RDW - SD H 49.8 35.1-43.9 FL Platelet Count H 449 140-400 x 10*3/uL Mean Platelet Volume 10.2 9.4-12.4 fL Neutrophil % 71.1 36.0-78.0 % Lymphocyte% 20.4 13.0-49.0 % Monocyte % 5.4 4.0-12.0 % Eosinophil % 2.7 0-9.0 % Basophil % 0.4 0-1.0 % Neutrophil # H 9.9 1.50-7.80 x 10*3/uL Lymphocyte # 2.9 0.8-3.9 x 10*3/uL Monocyte# 0.8 0.20-0.95 x 10*3/uL Eosinophil # 0.4 0.0-1.0 x 10*3/uL Basophil # 0.1 0.0-1.0 x 10*3/uL History of procedures Procedure Code Code Type Description Date Performed Performing Physician 69441 CPT-4 ROUTINE VENIPUNCTURE 10-13-2014 STEPHANIE CASTANEDA P9604 CPT-4 ONE-WAY ALLOW PRORATED 10-13-2014 STEPHANIE CASTANEDA TRIP 98533 CPT-4 COMPLETE CBC W/AUTO DIFF 10-13-2014 STEPHANIE CASTANEDA WBC Functional status No functional or cognitive status [...]
--- OUTSIDE RECORDS SUMMARY | 2017-04-02 09:09 | External Medical Summary ---
:1939 Author Organization [facility] Summary purpose CCDA Sent to [facility] Chief Complaint and Reason for Visit [...] Code Type Description Date Performed Performing Physician 12307 CPT-4 ASSAY THYROID STIM 01-07-2017 SUSAN FERNANDEZ HORMONE 65166 CPT-4 ROUTINE VENIPUNCTURE 01-07-2017 SUSAN FERNANDEZ Functional status No functional or [...]
--- OUTSIDE RECORDS SUMMARY | 2017-04-02 09:09 | External Medical Summary ---
:1939 Author Organization [facility] Summary purpose CCDA Sent to [facility] Chief Complaint and Reason for [...] Code Type Description Date Performed Performing Physician J1335 CPT-4 ERTAPENEM INJECTION 07-16-2015 COLE MTZ 03382 CPT-4 THER/PROPH/DIAG INJ, 07-16-2015 COLE MTZ SC/IM 50006 CPT-4 THER/PROPH/DIAG INJ, 07-17-2015 COLE MTZ SC/IM J1335 CPT-4 ERTAPENEM INJECTION 07-17-2015 COLE MTZ J1335 CPT-4 ERTAPENEM INJECTION 07-18-2015 COLE MTZ J7050 CPT-4 NS SOLUTION 250 CC 07-18-2015 COLE GUTIERREZ JAIMES INFUSION J1335 CPT-4 ERTAPENEM INJECTION 07-19-2015 COLE MTZ J7050 CPT-4 NS SOLUTION 250 CC 07-19-2015 COLE BRENDA JAIMES INFUSION 04913 CPT-4 THER/PROPH/DIAG IV INF, 07-19-2015 COLE MTZ INIT 06651 CPT-4 THER/PROPH/DIAG IV INF, 07-18-2015 COLE MTZ INIT 66178 CPT-4 THER/PROPH/DIAG IV INF 07-18-2015 COLE GREEN Functional status No functional or cognitive status observations are available for this visit. Vital signs Type Value Date Respirations 18 : Pulse 87 : O2 Saturation 92% :05 Systolic Blood Press 113mm/HG :05 Diastolic Blood Pres 61mm/HG :05 Temperature (Fahr) 98.8Degrees :05 Social history No Social History or smoking status observations were recorded for this visit. ( Unknown if ever smoked.) Treatment Plan No treatment plan text is available for this visit. Hospital discharge instructions No discharge instruction text is available for this visit.
--- OUTSIDE RECORDS SUMMARY | 2017-04-02 09:09 | External Medical Summary ---
:1939 Author Organization [facility] Summary purpose CCDA Sent to [facility] Chief Complaint and Reason for Visit [...] diagnostic tests and/or laboratory data RESULTS Urinalysis [id number]:30:00 Result Normal Range Units Site Voided Urine [...] 0-2 None Seen /hpf Urine WBC AB 31-50 None Seen /hpf Urine Bacteria None Seen None Seen UA Ketone Negative Negative Culture Indicated Yes Reference Lab [id number] Result Normal Range Units Culture Urine A SEE NOTE Result Amended on 2015-02-02 at 09:50:07. Previous status was FR. Comment deleted 02/01/2015 10:20 by [employer] : CULTURE, URINE, ROUTINE MICRO NUMBER:[id number] TEST STATUS: PRELIMINARY SPECIMEN SOURCE: URINE SPECIMEN QUALITY:ADEQUATE RESULT:Culture in progress TEST PERFORMED AT: [facility] [address] [address] [place] [address] LINO PEREZ DO,MPH Test Culture Urine with result ofSEE NOTE was originally reported asSEE NOTE and was changed on 02/01/2015 10:20 by QUEST Comment deleted 02/02/2015 09:47 by QUEST : CULTURE, URINE, ROUTINE MICRO NUMBER:[id number] TEST STATUS: PRELIMINARY SPECIMEN SOURCE: URINE SPECIMEN QUALITY:ADEQUATE RESULT:Greater than 100,000 CFU/mL of Gram negative bacilli isolated Identification and susceptibilities to follow. Culture in progress TEST PERFORMED AT: [facility] [address] [place] [address] LINO PEREZ DO,MPH CULTURE, URINE, ROUTINE MICRO NUMBER:[id number] TEST STATUS: FINAL SPECIMEN SOURCE: URINE SPECIMEN QUALITY:ADEQUATE RESULT:Greater than 100,000 CFU/mL of Proteus mirabilis This organism may show imipenem resistance by mechanisms other than a carbapenemase. P.mirabilis INT SAMREEN AMOX/CLAVULANATE S 8 AMPICILLIN R >=32 AMP/SULBACTAMI 16 CEFAZOLINR 8 1 CEFEPIME S <=1 CEFTRIAXONES <=1 CIPROFLOXACINR >=4 ERTAPENEMS <=0.5 GENTAMICIN R >=16 IMIPENEM R 8 LEVOFLOXACIN I 4 NITROFURANTOIN R 128 PIP/TAZOBACTAM [...] susceptibility to parenteral cefazolin. TEST PERFORMED AT: [facility] [address] [place] [address] LINO PEREZ DO,MPH Test Culture Urine with result ofE NOTE was originally reported asSEE NOTE and was changed on 02/02/2015 09:47 by [employer] History of procedures Procedure Code Code Type Description Date Performed Performing Physician 52669 CPT-4 URINALYSIS, AUTO, W/O 01-31-2015 SCOPE 02472 CPT-4 URINE CULTURE/COLONY 01-31-2015 COUNT 79927 CPT-4 URINE BACTERIA CULTURE 01-31-2015 DAY 81625 CPT-4 CULTURE AEROBIC 01-31-2015 IDENTIFY [id number] CPT-4 MICROBE SUSCEPTIBLE, 01-31-2015 SAMREEN Functional status No functional or cognitive [...]
--- OUTSIDE RECORDS SUMMARY | 2017-04-02 09:09 | External Medical Summary ---
:1939 Author Organization [facility] Summary purpose CCDA Sent to [facility] Chief Complaint and Reason for Visit No [...] Code Type Description Date Performed Performing Physician 37241 CPT-4 CT HEAD/BRAIN W/O DYE 10-26-2016 STEPHANIE CASTANEAD Functional status No functional or cognitive status [...]
--- OUTSIDE RECORDS SUMMARY | 2017-04-02 09:09 | External Medical Summary ---
:1939 Author Organization [facility] Summary purpose CCDA Sent to [facility] Chief Complaint and Reason for Visit No [...] diagnostic tests and/or laboratory data RESULTS Urinalysis [id number]:56:00 Result Normal Range Units Site Voided Urine Color Yellow Yellow Urine Appearance Clear Clear UA Glucose Negative Negative UA Bili Negative Negative UA SG 1.025 1.005-1.030 UA Blood Negative Negative UA Ph 5.5 4.5-8.0 UA Protein Negative Negative UA Urobilinogen 0.2 0.2-1.0 EU/dL UA Nitrite AB Positive Negative UA Leukocyte AB Trace Negative Urine RBC AB 0-2 None Seen /hpf Urine WBC AB 6-10 None Seen /hpf Urine Bacteria AB 4+ None Seen Urine Mucus AB Trace None Seen Urine Squamous Eps 0-2 Calcium Oxalate Crystals 3-5 UA Ketone Negative Negative Culture Indicated Yes Reference Lab [id number]:00 Result Normal Range Units Culture Urine A SEE NOTE CULTURE, URINE, ROUTINE MICRO NUMBER:[id number] TEST STATUS: FINAL SPECIMEN SOURCE: URINE SPECIMEN QUALITY:ADEQUATE RESULT:Greater than 100,000 CFU/mL of Escherichia coli E.coli INT SAMREEN AMOX/CLAVULANATE S 4 AMPICILLIN I 16 AMP/SULBACTAMS 8 CEFAZOLINNR<=4 1 CEFEPIME S <=1 [...] susceptibility to parenteral cefazolin. TEST PERFORMED AT: [facility] [id number] [place] [address] LINO PEREZ DO,MPH History of procedures Procedure Code Code Type Description Date Performed Performing Physician 31731 CPT-4 URINALYSIS, AUTO 04-27-2016 STEPHANIE CASTANEDA W/SCOPE 88452 CPT-4 URINE CULTURE/COLONY 04-27-2016 STEPHANIE CASTANEDA COUNT 07183 CPT-4 URINE BACTERIA CULTURE 04-27-2016 STEPHANIE CASTANEDA 67099 CPT-4 CULTURE AEROBIC 04-27-2016 STEPHANIE CASTANEDA IDENTIFY 74606 CPT-4 MICROBE SUSCEPTIBLE, 04-27-2016 STEPHANIE CASTANEDA SAMREEN Functional status No functional [...]
--- OUTSIDE RECORDS SUMMARY | 2017-04-02 09:09 | External Medical Summary ---
:1939 Author Organization [facility] Summary purpose CCDA Sent to [facility] Chief Complaint and Reason for Visit [...]
--- OUTSIDE RECORDS SUMMARY | 2017-04-02 09:09 | External Medical Summary ---
:1939 Author Organization [facility] Summary purpose CCDA Sent to [facility] Chief Complaint and Reason for [...] tests and/or laboratory data RESULTS Chemistry Group [id number]:32:00 Result Normal Range Units Glucose 85 74-106 mg/dl Urea Nitrogen (BUN) H 20 7-18 mg/dl Creatinine 0.77 0.55-1.30 mg/dl Bun/Creatinine Ratio H 26 7.5-25.0 Ratio EGFR Unable to Calculate eGFR.Patient is not within the defined age range. Osmolality Calculation 292 280-300 mOsm/kg Sodium 140 136-145 mmol/L Potassium 4.3 3.5-5.1 mmol/L Chloride 107 98-107 mmol/L CO2 27.1 21-32 mmol/L Calcium L 8.4 8.5-10.1 mg/dl Alkaline Phosphatase 61 46-116 U/L ALT 26 14-59 U/L AST 21 15-37 U/L Bilirubin Total 0.3 0.2-1.0 mg/dl Protein Total 6.9 6.4-8.2 g/dl Albumin L 2.9 3.4-5.0 g/dl Globulin 4.0 1.0-4.5 g/dl A/G Ratio L 0.7 1.0-2.3 Ratio History of procedures Procedure Code Code Type Description Date Performed Performing Physician 06824 CPT-4 COMPREHEN METABOLIC 05-09-2016 [facility] Functional status No functional or cognitive status [...]
--- OUTSIDE RECORDS SUMMARY | 2017-04-02 09:09 | External Medical Summary ---
:1939 Author Organization [facility] Summary purpose CCDA Sent to [facility] Chief Complaint and Reason for Visit [...] tests and/or laboratory data RESULTS Chemistry Group :31:00 Result Normal Range Units Glucose H 154 74-106 mg/dl Urea Nitrogen (BUN) H 23 7-18 mg/dl Creatinine 1.14 0.55-1.30 mg/dl Bun/Creatinine Ratio 20 7.5-25.0 Ratio EGFR Unable to Calculate eGFR.Patient is not within the defined age range. Sodium L 134 136-145 mmol/L Potassium 4.5 3.5-5.1 mmol/L Chloride 103 98-107 mmol/L CO2 21.3 21-32 mmol/L Calcium 9.2 8.5-10.1 mg/dl History of procedures Procedure Code Code Type Description Date Performed Performing Physician 77483 CPT-4 COLLECT BLOOD FROM 09-22-2015 STEPHANIE CASTANEDA [facility] 60043 CPT-4 METABOLIC PANEL TOTAL 09-22-2015 STEPHANIE MANZANO Functional status No functional or cognitive status observations are available for this visit. Vital signs Type Value Date Respirations 18 :56 Pulse 97 :56 O2 Saturation 92% :56 Systolic Blood Press 118mm/HG :56 Diastolic Blood Pres 74mm/HG :56 Temperature (Fahr) 98.9Degrees :56 Social history No Social History or smoking status observations were recorded for this visit. ( Unknown if ever smoked.) Treatment Plan No treatment plan text is available for this visit. Hospital discharge instructions No discharge instruction text is available for this visit.
--- OUTSIDE RECORDS SUMMARY | 2017-04-02 09:09 | External Medical Summary ---
:1939 Author Organization [facility] Summary purpose CCDA Sent to [facility] Chief Complaint and Reason [...] diagnostic tests and/or laboratory data RESULTS Urinalysis [id number]:30:00 Result Normal Range Units Site Catheter Urine Color Yellow Yellow Urine Appearance AB Cloudy Clear UA Glucose Negative Negative UA Bili Negative Negative UA SG 1.025 1.005-1.030 UA Blood AB 3+ Negative UA Ph 5.0 4.5-8.0 UA Protein AB 2+ Negative UA Urobilinogen 0.2 0.2-1.0 EU/dL UA Nitrite Negative Negative UA Leukocyte AB 3+ Negative Urine RBC None Seen None Seen /hpf Urine WBC AB Too Numerous To Count Urine Bacteria AB 2+ None Seen UA Ketone AB Trace Negative Culture Indicated Yes Reference Lab [id number]:00 Result Normal Range Units Culture Urine A SEE NOTE Result Amended on 2015-04-29 at 12:13:51. Previous status was FR. Comment deleted 04/29/2015 12:12 by [employer] : CULTURE, URINE, ROUTINE MICRO NUMBER:[id number] TEST STATUS: PRELIMINARY SPECIMEN SOURCE: URINE SPECIMEN QUALITY:ADEQUATE RESULT:Greater than 100,000 CFU/mL of Escherichia coli , susceptibility test report to follow. Culture in progress TEST PERFORMED AT: [facility] [address] [place] [address] LINO PEREZ DO,MPH CULTURE, URINE, ROUTINE MICRO NUMBER:[id number] TEST STATUS: FINAL SPECIMEN SOURCE: URINE SPECIMEN QUALITY:ADEQUATE RESULT:Greater than 100,000 CFU/mL of Escherichia coli E.coli INT SAMREEN AMOX/CLAVULANATE S 4 AMPICILLIN S 8 AMP/SULBACTAMS 4 CEFAZOLINNR<=4 1 [...] susceptibility to parenteral cefazolin. TEST PERFORMED AT: [facility] [address] [address] LINO PEREZ DO,MPH Test Culture Urine with result ofSEE NOTE was originally reported asSEE NOTE and was changed on 04/29/2015 12:12 by [employer] ([employer] History of procedures Procedure Code Code Type Description Date Performed Performing Physician 08452 CPT-4 URINALYSIS, AUTO 04-27-2015 STEPHANIE CASTANEDA W/SCOPE 48529 CPT-4 URINE CULTURE/COLONY 04-27-2015 STEPHANIE CASTANEDA COUNT 05562 CPT-4 URINE BACTERIA CULTURE 04-27-2015 STEPHANIE CASTANEDA 23986 CPT-4 CULTURE AEROBIC 04-27-2015 STEPHANIE CASTANEDA IDENTIFY 91263 CPT-4 MICROBE SUSCEPTIBLE, 04-27-2015 STEPHAINE CASTANEDA SAMREEN Functional status No functional or [...]
--- OUTSIDE RECORDS SUMMARY | 2017-04-02 09:09 | External Medical Summary ---
:1939 Author Organization [facility] Summary purpose CCDA Sent to [facility] Chief Complaint and Reason for Visit Admit [...] diagnostic tests and/or laboratory data RESULTS Urinalysis [id number]:31:00 Result Normal Range Units Site Voided Result Amended on 2014-10-21 at 16:18:16. Previous status was FR. Urine Color Yellow Yellow Result Amended on 2014-10-21 at 16:18:13. Previous status was FR. Urine Appearance AB Turbid Clear Result Amended on 2014-10-21 at 16:18:13. Previous status was FR. UA Glucose Negative Negative Result Amended on 2014-10-21 at 16:18:13. Previous status was FR. UA Bili Negative Negative Result Amended on 2014-10-21 at 16:18:14. Previous status was FR. UA SG 1.020 1.005-1.030 Result Amended on 2014-10-21 at 16:18:14. Previous status was FR. UA Blood AB 3+ Negative Result Amended on 2014-10-21 at 16:18:14. Previous status was FR. UA Ph 5.0 4.5-8.0 Result Amended on 2014-10-21 at 16:18:14. Previous status was FR. UA Protein AB 1+ Negative Result Amended on 2014-10-21 at 16:18:14. Previous status was FR. UA Urobilinogen 0.2 0.2-1.0 EU/dL Result Amended on 2014-10-21 at 16:18:15. Previous status was FR. UA Nitrite AB Positive Negative Result Amended on 2014-10-21 at 16:18:15. Previous status was FR. UA Leukocyte AB 3+ Negative Result Amended on 2014-10-21 at 16:18:15. Previous status was FR. Urine RBC AB Too Numerous To Count Urine WBC AB Too Numerous To Count UA Ketone Negative Negative Result Amended on 2014-10-21 at 16:18:14. Previous status was FR. Reference Lab :31:00 Result Normal Range Units Culture Urine A SEE NOTE CULTURE, URINE, ROUTINE MICRO NUMBER:[id number] TEST STATUS: FINAL SPECIMEN SOURCE: URINE SPECIMEN QUALITY:ADEQUATE RESULT:Greater than 100,000 CFU/mL of Escherichia coli E.coli INT SAMREEN AMOX/CLAVULANATE S <=2 AMPICILLIN S <=2 AMP/SULBACTAMS <=2 CEFAZOLINNR<=4 1 CEFEPIME S <=1 CEFTRIAXONES <=1 CIPROFLOXACINS <=0.25 ERTAPENEMS <=0.5 GENTAMICIN S <=1 IMIPENEM S <=0.25 LEVOFLOXACIN S <=0.12 NITROFURANTOIN S <=16 PIP/TAZOBACTAM S <=4 TOBRAMYCIN S <=1 TRIMETHOPRIM/SULFA S <=20 S=SusceptibleI=Intermediate R=Resistant*=Not Tested NR=Not ReportedNN=See Therapy Comments [...] susceptibility to parenteral cefazolin. TEST PERFORMED AT: [employer] [address] [place] [address] LINO PEREZ DO,MPH History of procedures Procedure Code Code Type Description Date Performed Performing Physician 27722 CPT-4 URINALYSIS AUTO W/O 10-21-2014 SCOPE 21196 CPT-4 URINE CULTURE/COLONY 10-21-2014 COUNT 30118 CPT-4 URINE BACTERIA CULTURE 10-21-2014 67754 CPT-4 CULTURE AEROBIC 10-21-2014 IDENTIFY 06275 CPT-4 MICROBE SUSCEPTIBLE 10-21-2014 SAMREEN Functional status No functional or cognitive [...]
--- OUTSIDE RECORDS SUMMARY | 2017-04-02 09:09 | External Medical Summary ---
:1939 Author Organization [facility] Summary purpose CCDA Sent to [facility] Chief Complaint and Reason for Visit Admit Diagnosis 1 Laceration Problem list No authorized problems tracked for [...] Code Type Description Date Performed Performing Physician 11288 CPT-4 ROUTINE VENIPUNCTURE 12-25-2016 REINA PICKETT 75604 CPT-4 COMPLETE CBC W/AUTO DIFF 12-25-2016 REINA PICKETT WBC 87609 CPT-4 X-RAY EXAM OF SKULL 12-25-2016 REINA PICKETT 66680 CPT-4 CHEST X-RAY 12-25-2016 REINA PICKETT 15456 CPT-4 EMERGENCY DEPT VISIT 12-24-2016 REINA PICKETT 63897 CPT-4 TD VACCINE NO PRSRV 12-25-2016 REINA PICKETT >/=7 [place] [address] CPT-4 IMMUNIZATION ADMIN 12-25-2016 REINA PICKETT Functional status No functional or [...]
--- OUTSIDE RECORDS SUMMARY | 2017-04-02 09:09 | External Medical Summary ---
:1939 Author Organization [facility] Summary purpose CCDA Sent to [facility] Chief Complaint and Reason [...]
--- OUTSIDE RECORDS SUMMARY | 2017-04-02 09:09 | External Medical Summary ---
:1940 Author Organization [facility] Summary purpose CCDA Sent to [facility] Chief Complaint and Reason for Visit [...] Code Type Description Date Performed Performing Physician 69802 CPT-4 COMPLETE CBC W/AUTO DIFF 10-18-2016 STEPHANIE CASTANEDA WBC 74762 CPT-4 COMPREHEN METABOLIC 10-18-2016 STEPHANIE CASTANEDA PANEL Functional status No functional [...]
--- OUTSIDE RECORDS SUMMARY | 2017-04-02 09:09 | External Medical Summary ---
[...] Code Type Description Date Performed Performing Physician 33932 CPT-4 COMPLETE CBC W/AUTO 08-10-2015 JUSTIN TELLEZ DIFF WBC 78334 CPT-4 COMPREHEN METABOLIC 08-10-2015 JUSTIN TELLEZ PANEL 91447 CPT-4 C-REACTIVE PROTEIN 08-10-2015 JUSTIN TELLEZ 82928 CPT-4 ASSAY OF LACTIC ACID 08-10-2015 JUSTIN TELLEZ 03897 CPT-4 URINALYSIS, AUTO 08-10-2015 JUSTIN TELLEZ W/SCOPE 35105 CPT-4 CHEST X-RAY 08-10-2015 JUSTIN TELLEZ 17811 CPT-4 URINE CULTURE/COLONY 08-10-2015 JUSTIN TELLEZ COUNT 60724 CPT-4 EMERGENCY DEPT VISIT 08-10-2015 JUSTIN TELLEZ Functional status No functional or cognitive status [...]
--- OUTSIDE RECORDS SUMMARY | 2017-04-02 09:09 | External Medical Summary ---
:1940 Author Organization [facility] Summary purpose CCDA Sent to [facility] Chief Complaint and Reason for Visit No [...] diagnostic tests and/or laboratory data RESULTS Urinalysis [id number]:14:00 Result Normal Range Units Site Voided Urine Color Yellow Yellow Urine Appearance AB Slightly Cloudy UA Glucose Negative Negative UA Bili Negative Negative UA SG 1.020 1.005-1.030 UA Blood AB 1+ Negative UA Ph 5.5 4.5-8.0 UA Protein Negative Negative UA Urobilinogen 0.2 0.2-1.0 EU/dL UA Nitrite AB Positive Negative UA Leukocyte AB 3+ Negative Urine RBC AB 3-5 None Seen /hpf Urine WBC AB 21-30 None Seen /hpf Urine Bacteria AB 4+ None Seen Urine Mucus AB 1+ None Seen Urine Squamous Eps 3-5 Calcium Oxalate Crystals 0-2 UA Ketone Negative Negative Culture Indicated Yes Reference Lab [id number] Result Normal Range Units Culture Urine A SEE NOTE CULTURE, URINE, ROUTINE MICRO NUMBER:[id number] TEST STATUS: FINAL SPECIMEN SOURCE: URINE SPECIMEN QUALITY:ADEQUATE RESULT:Greater than 100,000 CFU/mL of Escherichia coli COMMENT: Additional organism(s) less than 10,000 CFU/mL isolated. These organisms, commonly found on external and internal genitalia, are considered colonizers. No further testing performed. E.coli INT SAMREEN AMOX/CLAVULANATE S 4 AMPICILLIN S 8 AMP/SULBACTAMS 8 CEFAZOLINNR<=4 1 CEFEPIME S <=1 [...] susceptibility to parenteral cefazolin. TEST PERFORMED AT: [email or web address] [facility] [id number] [place] [id number] LINO PEREZ DO,MPH History of procedures Procedure Code Code Type Description Date Performed Performing Physician 57868 CPT-4 URINALYSIS, AUTO, W/O 03-24-2015 STEPHANIE CASTANEDA SCOPE 51026 CPT-4 URINE CULTURE/COLONY 03-24-2015 STEPHANIE CASTANEDA COUNT 35112 CPT-4 URINE BACTERIA CULTURE 03-24-2015 STEPHANIE CASTANEDA 77277 CPT-4 CULTURE AEROBIC 03-24-2015 STEPHANIE CASTANEDA IDENTIFY 98707 CPT-4 MICROBE SUSCEPTIBLE, 03-24-2015 STEPHANIE CASTANEDA SAMREEN Functional status No functional [...]
--- OUTSIDE RECORDS SUMMARY | 2017-04-02 09:09 | External Medical Summary ---
:1940 Author Organization [facility] Summary purpose CCDA Sent to [facility] Chief Complaint and Reason for [...] diagnostic tests and/or laboratory data RESULTS CBC [id number]:50:00 Result Normal Range Units White Blood Count H 12.9 3.8-10.8 x 10*3/uL Red Blood Cells 4.21 3.80-5.10 x 10*6/uL Hemoglobin 12.2 11.70-15.50 g/dl Hematocrit 38.2 35.00-45.00 % Mean Jose Miguel Volume 90.7 80-100 fL Mean Jose Miguel Hemoglobin 29.0 27.0-33.0 pg Mean Jose Miguel Hemoglobin Conc L 31.9 32.0-36.0 g/dl RDW - CV 15.0 11.0-15.0 % RDW - SD H 49.0 35.1-43.9 FL Platelet Count 340 140-400 x 10*3/uL Mean Platelet Volume L 9.1 9.4-12.4 fL Neutrophil % 69.6 36.0-78.0 % Lymphocyte% 20.7 13.0-49.0 % Monocyte % 6.2 4.0-12.0 % Eosinophil % 3.0 0-9.0 % Basophil % 0.5 0-1.0 % Neutrophil # H 9.0 1.50-7.80 x 10*3/uL Lymphocyte # 2.7 0.8-3.9 x 10*3/uL Monocyte# 0.8 0.20-0.95 x 10*3/uL Eosinophil # 0.4 0.0-1.0 x 10*3/uL Basophil # 0.1 0.0-1.0 x 10*3/uL History of procedures Procedure Code Code Type Description Date Performed Performing Physician 90169 CPT-4 COMPLETE CBC W/AUTO DIFF 10-19-2015 STEPHANIE CASTANEDA WBC 16392 CPT-4 ROUTINE VENIPUNCTURE 10-19-2015 STEPHANIE CASTANEDA Functional status No functional or [...]
--- OUTSIDE RECORDS SUMMARY | 2017-04-02 09:09 | External Medical Summary ---
:1940 Author Organization [facility] Summary purpose CCDA Sent to [facility] [...] diagnostic tests and/or laboratory data RESULTS Urinalysis :44:00 Result Normal Range Units Site Voided Result Amended on 2014-05-03 at 13:29:05. Previous status was FR. CANCELLED PER EMMIE.THEY WILL RECOLLECT WITH A STRAIGHT CATH. Urine Color Yellow Yellow Result Amended on 2014-05-03 at 13:28:57. Previous status was FR. CANCELLED PER EMMIE.THEY WILL RECOLLECT WITH A STRAIGHT CATH. Urine Appearance AB Slightly cloudy CANCELLED PER EMMIE.THEY WILL RECOLLECT WITH A STRAIGHT CATH. UA Glucose Negative Negative Result Amended on 2014-05-03 at 13:29:00. Previous status was FR. CANCELLED PER EMMIE.THEY WILL RECOLLECT WITH A STRAIGHT CATH. UA Bili Negative Negative Result Amended on 2014-05-03 at 13:29:00. Previous status was FR. CANCELLED PER EMMIE.THEY WILL RECOLLECT WITH A STRAIGHT CATH. UA SG >=1.030 1.005-1.030 Result Amended on 2014-05-03 at 13:29:01. Previous status was FR. CANCELLED PER EMMIE.THEY WILL RECOLLECT WITH A STRAIGHT CATH. UA Blood Negative Negative Result Amended on 2014-05-03 at 13:29:02. Previous status was FR. CANCELLED PER EMMIE.THEY WILL RECOLLECT WITH A STRAIGHT CATH. UA Ph 6.0 4.5-8.0 Result Amended on 2014-05-03 at 13:29:02. Previous status was FR. CANCELLED PER EMMIE.THEY WILL RECOLLECT WITH A STRAIGHT CATH. UA Protein Negative Negative Result Amended on 2014-05-03 at 13:29:02. Previous status was FR. CANCELLED PER EMMIE.THEY WILL RECOLLECT WITH A STRAIGHT CATH. UA Urobilinogen 0.2 0.2-1.0 EU/dL Result Amended on 2014-05-03 at 13:29:03. Previous status was FR. CANCELLED PER EMMIE.THEY WILL RECOLLECT WITH A STRAIGHT CATH. UA Nitrite Negative Negative Result Amended on 2014-05-03 at 13:29:03. Previous status was FR. CANCELLED PER EMMIE.THEY WILL RECOLLECT WITH A STRAIGHT CATH. UA Leukocyte AB 1+ Negative Result Amended on 2014-05-03 at 13:29:04. Previous status was FR. CANCELLED PER EMMIE.THEY WILL RECOLLECT WITH A STRAIGHT CATH. Urine WBC AB 3-5 None Seen /hpf Result Amended on 2014-05-03 at 13:29:05. Previous status was FR. CANCELLED PER EMMIE.THEY WILL RECOLLECT WITH A STRAIGHT CATH. Urine Bacteria AB 2+ None Seen Result Amended on 2014-05-03 at 13:29:04. Previous status was FR. CANCELLED PER EMMIE.THEY WILL RECOLLECT WITH A STRAIGHT CATH. Urine Squamous Eps 21-30 Result Amended on 2014-05-03 at 13:29:04. Previous status was FR. CANCELLED PER EMMIE.THEY WILL RECOLLECT WITH A STRAIGHT CATH. Calcium Oxalate Crystals MANY Result Amended on 2014-05-03 at 13:29:05. Previous status was FR. CANCELLED PER EMMIE.THEY WILL RECOLLECT WITH A STRAIGHT CATH. UA Ketone Negative Negative Result Amended on 2014-05-03 at 13:29:01. Previous status was FR. CANCELLED PER EMMIE.THEY WILL RECOLLECT WITH A STRAIGHT CATH. Reference Lab :44:00 Culture Urine See [facility]. CANCELLED PER EMMIE.THEY WILL RECOLLECT WITH A STRAIGHT CATH. History of procedures No procedures recorded for [...]
--- OUTSIDE RECORDS SUMMARY | 2017-04-02 09:09 | External Medical Summary ---
:1940 Author Organization [facility] Summary purpose CCDA Sent to [facility] Chief Complaint and Reason for Visit No [...] Code Type Description Date Performed Performing Physician 77056 CPT-4 DXA BONE DENSITY, 08-27-2016 STEPHANIE CASTANEDA AXIAL Functional status No functional or cognitive status [...]
--- OUTSIDE RECORDS SUMMARY | 2017-04-02 09:09 | External Medical Summary ---
:1940 Author Organization [facility] Summary purpose CCDA Sent to [facility] Chief Complaint and Reason for Visit [...] Code Type Description Date Performed Performing Physician 03296 CPT-4 IRRIG DRUG DELIVERY 10-06-2015 STEPHANIE LANG DEVICE Functional status No functional or cognitive status observations are available for this visit. Vital signs Type Value Date Respirations 20 42-94-279134:14 Pulse 104 01-21-574616:14 O2 Saturation 93% 57-51-564789:14 Systolic Blood Press 115mm/HG 03-74-265666:14 Diastolic Blood Pres 63mm/HG 93-12-283788:14 Temperature (Fahr) 99.2Degrees :14 Social history No Social History or smoking status observations were recorded for this visit. ( Unknown if ever smoked.) Treatment Plan No treatment plan text is available for this visit. Hospital discharge instructions No discharge instruction text is available for this visit.
--- OUTSIDE RECORDS SUMMARY | 2017-04-02 09:09 | External Medical Summary ---
:1940 Author Organization [facility] Summary purpose CCDA Sent to [facility] Chief Complaint and Reason for Visit No [...] tests and/or laboratory data RESULTS Chemistry Group [id number]:59:00 Result Normal Range Units TSH H 12.213 0.35-3.74 uIU/mL [id number]:11:00 Result Normal Range Units Vitamin B12 H > 1500 193-986 pg/ml Indeterminate Vepoh331-318 pg/mL Deficient<=145 pg/mL Folate L 7.1 8.6-58.9 ng/ml History of procedures Procedure Code Code Type Description Date Performed Performing Physician 37101 CPT-4 COLLECT BLOOD FROM 09-30-2015 [facility] PIC 73303 CPT-4 VITAMIN B-12 09-30-2015 [facility] 62437 CPT-4 BLOOD FOLIC ACID SERUM 09-30-2015 [facility] 43429 CPT-4 ASSAY THYROID STIM 09-30-2015 [facility] HORMONE Functional status No functional or cognitive [...]
--- OUTSIDE RECORDS SUMMARY | 2017-04-02 09:09 | External Medical Summary ---
:1940 Author Organization [facility] Summary purpose CCDA Sent to [facility] Chief Complaint and Reason for Visit Admit Diagnosis 1 ALTERED MENTAL STATUS Problem list No authorized problems tracked for [...] diagnostic tests and/or laboratory data RESULTS Urinalysis [id number]:30:00 Site Voided Urine Color Yellow Urine Appearance Clear UA Glucose Negative UA Bili Negative UA SG 1.015 1.005-1.030 Result Amended on 2014-11-20 at 08:51:01. Previous status was FR. UA Blood Negative UA Ph 5.0 4.5-8.0 Result Amended on 2014-11-20 at 08:51:01. Previous status was FR. UA Protein Negative UA Urobilinogen 0.2 0.2-1.0 EU/dL Result Amended on 2014-11-20 at 08:51:01. Previous status was FR. UA Nitrite Negative UA Leukocyte AB 1+ Urine WBC AB 31-50 Test Urine WBC with result of31-50 was originally reported as3-5 and was changed on 11/20/2014 08:48 by MG Urine Bacteria AB 3+ Urine Mucus AB 2+ Test Mucus with result of2+ was originally reported asTrace and was changed on 11/20/2014 08:48 by MG Urine Squamous Eps 0-2 Urine Renal Tubular Eps 0-2 Urine Amorphous 1+ Urine Hyaline Casts 0-2 UA Ketone Negative Culture Indicated Yes Reference Lab [id number]:00 Result Normal Range Units Culture Urine SEE NOTE Result Amended on 2014-11-23 at 21:12:41. Previous status was FR. Comment deleted 11/23/2014 21:10 by [employer] : CULTURE, URINE, ROUTINE MICRO NUMBER:[id number] TEST STATUS: PRELIMINARY SPECIMEN SOURCE: URINE SPECIMEN QUALITY:ADEQUATE RESULT:Culture in progress TEST PERFORMED AT: [employer] [facility] [address] LINO PEREZ DO,MPH CULTURE, URINE, ROUTINE MICRO NUMBER:[id number] TEST STATUS: FINAL SPECIMEN SOURCE: URINE SPECIMEN QUALITY:ADEQUATE RESULT:Multiple organisms present, each less than 10,000 CFU/mL. These organisms, commonly found on external and internal genitalia, are considered to be colonizers. No further testing performed. TEST PERFORMED AT: [employer] [id number] [facility] [place] [address] LINO PEREZ DO,MPH Test Culture Urine with result ofSEE NOTE was originally reported asSEE NOTE and was changed on 11/23/2014 21:10 by [employer] History of procedures Procedure Code Code Type Description Date Performed Performing Physician 28640 CPT-4 URINALYSIS AUTO W/O 11-20-2014 [facility] SCOPE 27438 CPT-4 URINE CULTURE/COLONY 11-20-2014 [facility] COUNT 31797 CPT-4 URINE BACTERIA CULTURE 11-20-2014 [facility] Functional status No functional or cognitive status [...]
--- OUTSIDE RECORDS SUMMARY | 2017-04-02 09:10 | External Medical Summary ---
:1939 Author Organization [facility] Summary purpose CCDA Sent to [facility] Chief Complaint and Reason for [...] diagnostic tests and/or laboratory data RESULTS Urinalysis [id number]:32:00 Result Normal Range Units Site Voided Urine Color Yellow Yellow Urine Appearance Clear Clear UA Glucose Negative Negative UA Bili Negative Negative UA SG 1.020 1.005-1.030 UA Blood Negative Negative UA Ph 6.0 4.5-8.0 UA Protein Negative Negative UA Urobilinogen 0.2 0.2-1.0 EU/dL UA Nitrite Negative Negative UA Leukocyte Negative Negative Urine RBC None Seen None Seen /hpf Urine WBC None Seen None Seen /hpf Urine Bacteria AB Rare None Seen Urine Mucus None Seen None Seen Urine Squamous Eps 16-20 UA Ketone Negative Negative History of procedures Procedure Code Code Type Description Date Performed Performing Physician 50079 CPT-4 URINALYSIS, AUTO 03-21-2016 STEPHANIE CASTANEDA W/STEVE Functional status No functional or cognitive status [...]
--- OUTSIDE RECORDS SUMMARY | 2017-04-02 09:10 | External Medical Summary ---
:1940 Author Organization [facility] Summary purpose CCDA Sent to [facility] Chief Complaint and Reason for Visit No authorized Reason for Visit (Admitting Diagnosis) is available for this visit. Problem list Condition Status Certainty Chronicity Onset .Pneumonia; Improving Active .Atrial fibrillation Active .Congestive heart failure Active .Hypothyroidism Active .Weakness; Chronic Debility Active Encounters The following conditions tracked for encounter diagnoses were recorded for this visit: Finding or Diagnosis Status Certainty Chronicity Onset .Pneumonia; Improving Active .Atrial fibrillation Active .Congestive heart failure Active .Hypothyroidism Active .Weakness; Chronic Debility Active Cardiovascular - Actual/potential for altered Active Medications Discharge Medications Status Medication Directions Current alendronate (FOSAMAX): TABLET 70 MG oral SATURDAY Current bisacodyl (DULCOLAX): Tab DR 5 MG oral ONE TIME A DAY NEEDED for CONSTIPATION Current FOLIC ACID: TABLET 1 MG oral ONE TIME A DAY Current ibuprofen (MOTRIN) 200 mg: TABLET 400 MG oral EVERY FOUR HOURS NEEDED for PAIN Current Levaquin 500 mg tablet 1 daily x 7d oral oral ONE TIME A DAY Current LEVOTHYROXINE 175 MCG oral BEFORE BREAKFAST Current magnesium hydroxide (MILK OF MAGNESIA): 30 milliliter(s) oral NEEDED for SUSPENSION CONSTIPATION Current mirtazapine (REMERON): TABLET 30 MG oral BEDTIME Current MULTIVITAMIN: TABLET 1 TAB oral ONE TIME A DAY Current OLANZapine (ZYPREXA) 2.5 mg: TABLET 2.5 MG oral ONE TIME A DAY Current oxybutynin chloride (DITROPAN) 5 m MG oral ONE TIME A DAY TABLET Current OXYCODONE 5 mg: TABLET 5 MG oral THREE TIMES A DAY NEEDED for PAIN Current potassium chloride (KLOR-CON) 20 mEq 20 milliequivilant(s) oral THREE TIMES A DAY Current potassium chloride ER 20 mEq 1 daily oral oral DAILY AT 10 AM tablet,extended release Current risperiDONE (RISPERDAL) 0.25 mg: TABLET 1 [...] traZODone (DESYREL): TABLET 50 MG oral BEDTIME Allergies, adverse reactions, alerts Allergen Category Ingredient Status Reaction Severity Onset Tylenol Drug Tylenol Active Tylenol Drug acetaminophen Active Lortab Drug Lortab Active Lortab Drug acetaminophen Active Lortab Drug hydrocodone Active tuberculin,purif.pro Drug tuberculin,purif.prot.lonnie Active t.deriv. iv. Immunizations No immunizations recorded for this patient visit Relevant diagnostic tests and/or laboratory data RESULTS CBC [id number]:30:00 Result Normal Range Units White Blood Count 10.6 3.8-10.8 x 10*3/uL Red Blood Cells 3.97 3.80-5.10 x 10*6/uL Hemoglobin L 10.3 11.70-15.50 g/dl Hematocrit L 34.1 35.00-45.00 % Mean Jose Miguel Volume 85.9 80-100 fL Mean Jose Miguel Hemoglobin L 25.9 27.0-33.0 pg Mean Jose Miguel Hemoglobin Conc L 30.2 32.0-36.0 g/dl RDW - CV H 15.7 11.0-15.0 % RDW - SD H 48.9 35.1-43.9 FL Platelet Count 398 140-400 x 10*3/uL Mean Platelet Volume 10.2 9.4-12.4 fL Neutrophil % 61.9 36.0-78.0 % Lymphocyte% 23.3 13.0-49.0 % Monocyte % 8.8 4.0-12.0 % Eosinophil % 5.2 0-9.0 % Basophil % 0.8 0-1.0 % Neutrophil # 6.6 1.50-7.80 x 10*3/uL Lymphocyte # 2.5 0.8-3.9 x 10*3/uL Monocyte# 0.9 0.20-0.95 x 10*3/uL Eosinophil # 0.6 0.0-1.0 x 10*3/uL Basophil # 0.1 0.0-1.0 x 10*3/uL :21:00 Result Normal Range Units White Blood Count 10.3 3.8-10.8 x 10*3/uL Red Blood Cells 4.03 3.80-5.10 x 10*6/uL Hemoglobin L 10.4 11.70-15.50 g/dl Hematocrit 35.0 35.00-45.00 % Mean Jose Miguel Volume 86.8 80-100 fL Mean Jose Miguel Hemoglobin L 25.8 27.0-33.0 pg Mean Jose Miguel Hemoglobin Conc L 29.7 32.0-36.0 g/dl RDW - CV H 16.1 11.0-15.0 % RDW - SD H 50.4 35.1-43.9 FL Platelet Count 369 140-400 x 10*3/uL Mean Platelet Volume 10.0 9.4-12.4 fL Neutrophil % 62.3 36.0-78.0 % Lymphocyte% 22.0 13.0-49.0 % Monocyte % 10.0 4.0-12.0 % Eosinophil % 4.9 0-9.0 % Basophil % 0.8 0-1.0 % Neutrophil # 6.4 1.50-7.80 x 10*3/uL Lymphocyte # 2.3 0.8-3.9 x 10*3/uL Monocyte# H 1.0 0.20-0.95 x 10*3/uL Eosinophil # 0.5 0.0-1.0 x 10*3/uL Basophil # 0.1 0.0-1.0 x 10*3/uL :27:00 Result Normal Range Units White Blood Count 9.8 3.8-10.8 x 10*3/uL Red Blood Cells 3.95 3.80-5.10 x 10*6/uL Hemoglobin L 10.3 11.70-15.50 g/dl Hematocrit L 33.8 35.00-45.00 % Mean Jose Miguel Volume 85.6 80-100 fL Mean Jose Miguel Hemoglobin L 26.1 27.0-33.0 pg Mean Jose Miguel Hemoglobin Conc L 30.5 32.0-36.0 g/dl RDW - CV H 15.5 11.0-15.0 % RDW - SD H 47.8 35.1-43.9 FL Platelet Count 371 140-400 x 10*3/uL Mean Platelet Volume 10.3 9.4-12.4 fL Neutrophil % 63.9 36.0-78.0 % Lymphocyte% 22.1 13.0-49.0 % Monocyte % 8.3 4.0-12.0 % Eosinophil % 4.7 0-9.0 % Basophil % 1.0 0-1.0 % Neutrophil # 6.3 1.50-7.80 x 10*3/uL Lymphocyte # 2.2 0.8-3.9 x 10*3/uL Monocyte# 0.8 0.20-0.95 x 10*3/uL Eosinophil # 0.5 0.0-1.0 x 10*3/uL Basophil # 0.1 0.0-1.0 x 10*3/uL :29:00 Result Normal Range Units White Blood Count 9.6 3.8-10.8 x 10*3/uL Red Blood Cells 3.94 3.80-5.10 x 10*6/uL Hemoglobin L 10.3 11.70-15.50 g/dl Hematocrit L 33.3 35.00-45.00 % Mean Jose Miguel Volume 84.5 80-100 fL Mean Jose Miguel Hemoglobin L 26.1 27.0-33.0 pg Mean Jose Miguel Hemoglobin Conc L 30.9 32.0-36.0 g/dl RDW - CV H 15.4 11.0-15.0 % RDW - SD H 46.8 35.1-43.9 FL Platelet Count 378 140-400 x 10*3/uL Mean Platelet Volume 10.1 9.4-12.4 fL Neutrophil % 56.1 36.0-78.0 % Lymphocyte% 27.5 13.0-49.0 % Monocyte % 9.5 4.0-12.0 % Eosinophil % 5.6 0-9.0 % Basophil % H 1.3 0-1.0 % Neutrophil # 5.4 1.50-7.80 x 10*3/uL Lymphocyte # 2.6 0.8-3.9 x 10*3/uL Monocyte# 0.9 0.20-0.95 x 10*3/uL Eosinophil # 0.5 0.0-1.0 x 10*3/uL Basophil # 0.1 0.0-1.0 x 10*3/uL [id number]:15:00 Result Normal Range Units White Blood Count 9.1 3.8-10.8 x 10*3/uL Red Blood Cells L 3.69 3.80-5.10 x 10*6/uL Hemoglobin L 9.7 11.70-15.50 g/dl Hematocrit L 31.5 35.00-45.00 % Mean Jose Miguel Volume 85.4 80-100 fL Mean Jose Miguel Hemoglobin L 26.3 27.0-33.0 pg Mean Jose Miguel Hemoglobin Conc L 30.8 32.0-36.0 g/dl RDW - CV H 15.2 11.0-15.0 % RDW - SD H 46.1 35.1-43.9 FL Platelet Count 347 140-400 x 10*3/uL Mean Platelet Volume 10.2 9.4-12.4 fL Neutrophil % 59.0 36.0-78.0 % Lymphocyte% 27.1 13.0-49.0 % Monocyte % 8.6 4.0-12.0 % Eosinophil % 4.2 0-9.0 % Basophil % H 1.1 0-1.0 % Neutrophil # 5.4 1.50-7.80 x 10*3/uL Lymphocyte # 2.5 0.8-3.9 x 10*3/uL Monocyte# 0.8 0.20-0.95 x 10*3/uL Eosinophil # 0.4 0.0-1.0 x 10*3/uL Basophil # 0.1 0.0-1.0 x 10*3/uL :00:00 Result Normal Range Units White Blood Count 8.5 3.8-10.8 x 10*3/uL Red Blood Cells 3.89 3.80-5.10 x 10*6/uL Hemoglobin L 10.0 11.70-15.50 g/dl Hematocrit L 33.1 35.00-45.00 % Mean Jose Miguel Volume 85.1 80-100 fL Mean Jose Miguel Hemoglobin L 25.7 27.0-33.0 pg Mean Jose Miguel Hemoglobin Conc L 30.2 32.0-36.0 g/dl RDW - CV 15.0 11.0-15.0 % RDW - SD H 46.1 35.1-43.9 FL Platelet Count 364 140-400 x 10*3/uL Mean Platelet Volume 9.7 9.4-12.4 fL Neutrophil % 56.5 36.0-78.0 % Lymphocyte% 26.1 13.0-49.0 % Monocyte % 9.4 4.0-12.0 % Eosinophil % 6.9 0-9.0 % Basophil % H 1.1 0-1.0 % Neutrophil # 4.8 1.50-7.80 x 10*3/uL Lymphocyte # 2.2 0.8-3.9 x 10*3/uL Monocyte# 0.8 0.20-0.95 x 10*3/uL Eosinophil # 0.6 0.0-1.0 x 10*3/uL Basophil # 0.1 0.0-1.0 x 10*3/uL Chemistry Group :30:00 Result Normal Range Units Glucose 84 74-106 mg/dl Urea Nitrogen (BUN) 17 7-18 mg/dl Creatinine 0.89 0.55-1.30 mg/dl Bun/Creatinine Ratio 19 7.5-25.0 Ratio EGFR Unable to Calculate eGFR.Patient is not within the defined age range. Osmolality Calculation H 305 280-300 mOsm/kg Sodium H 147 136-145 mmol/L Potassium L 3.1 3.5-5.1 mmol/L Chloride H 113 98-107 mmol/L CO2 26.9 21-32 mmol/L Calcium 8.8 8.5-10.1 mg/dl Alkaline Phosphatase 65 46-116 U/L ALT 22 14-59 U/L AST L 14 15-37 U/L Bilirubin Total 0.3 0.2-1.0 mg/dl Protein Total 7.1 6.4-8.2 g/dl Albumin L 2.6 3.4-5.0 g/dl Globulin 4.5 1.0-4.5 g/dl A/G Ratio L 0.6 1.0-2.3 Ratio :21:00 Result Normal Range Units Glucose 84 74-106 mg/dl Urea Nitrogen (BUN) H 20 7-18 mg/dl Creatinine 1.03 0.55-1.30 mg/dl Bun/Creatinine Ratio 19 7.5-25.0 Ratio EGFR Unable to Calculate eGFR.Patient is not within the defined age range. Osmolality Calculation H 308 280-300 mOsm/kg Sodium H 148 136-145 mmol/L Potassium 3.6 3.5-5.1 mmol/L Chloride H 114 98-107 mmol/L CO2 25.5 21-32 mmol/L Calcium 8.8 8.5-10.1 mg/dl Alkaline Phosphatase 65 46-116 U/L ALT 24 14-59 U/L AST 16 15-37 U/L Bilirubin Total 0.4 0.2-1.0 mg/dl Protein Total 7.1 6.4-8.2 g/dl Albumin L 2.6 3.4-5.0 g/dl Globulin 4.5 1.0-4.5 g/dl A/G Ratio L 0.6 1.0-2.3 Ratio C-Reactive Protein < 0.50 <=0.9 mg/dl Pro-BNP 258 0-450 pg/ml [id number]:47:00 Result Normal Range Units Vancomycin Trough 8.4 5.0-10.0 ug/ml Result Amended on 2016-01-20 at 09:09:58. Previous status was FR. Test Vancomycin Trough with result of 8.4 was originally reported as 17.8 and was changed on 01/20/2016 09:08 by [id number]:27:00 Result Normal Range Units Glucose H 138 74-106 mg/dl Urea Nitrogen (BUN) 12 7-18 mg/dl Creatinine 1.01 0.55-1.30 mg/dl Bun/Creatinine Ratio 12 7.5-25.0 Ratio EGFR Unable to Calculate eGFR.Patient is not within the defined age range. Osmolality Calculation 296 280-300 mOsm/kg Sodium 142 136-145 mmol/L Potassium L 3.4 3.5-5.1 mmol/L Chloride H 109 98-107 mmol/L CO2 23.1 21-32 mmol/L Calcium 8.6 8.5-10.1 mg/dl Alkaline Phosphatase 81 46-116 U/L ALT 30 14-59 U/L AST 24 15-37 U/L Bilirubin Total 0.3 0.2-1.0 mg/dl Protein Total 7.1 6.4-8.2 g/dl Albumin L 2.5 3.4-5.0 g/dl Globulin H 4.6 1.0-4.5 g/dl A/G Ratio L 0.5 1.0-2.3 Ratio [id number]:29:00 Result Normal Range Units Glucose 83 74-106 mg/dl Urea Nitrogen (BUN) 8 7-18 mg/dl Creatinine 0.73 0.55-1.30 mg/dl Bun/Creatinine Ratio 11 7.5-25.0 Ratio EGFR Unable to Calculate eGFR.Patient is not within the defined age range. Osmolality Calculation 291 280-300 mOsm/kg Sodium 142 136-145 mmol/L Potassium 3.6 3.5-5.1 mmol/L Chloride H 110 98-107 mmol/L CO2 25.5 21-32 mmol/L Calcium L 8.3 8.5-10.1 mg/dl Magnesium 1.9 1.8-2.4 mg/dl Alkaline Phosphatase 81 46-116 U/L ALT 32 14-59 U/L AST 22 15-37 U/L Bilirubin Total 0.4 0.2-1.0 mg/dl Protein Total 7.1 6.4-8.2 g/dl Albumin L 2.5 3.4-5.0 g/dl Globulin H 4.6 1.0-4.5 g/dl A/G Ratio L 0.5 1.0-2.3 Ratio C-Reactive Protein < 0.50 <=0.9 mg/dl Pro-BNP H 486 0-450 pg/ml :00:00 Result Normal Range Units Vancomycin Trough 6.4 5.0-10.0 ug/ml [id number]:15:00 Result Normal Range Units Glucose 85 74-106 mg/dl Urea Nitrogen (BUN) 10 7-18 mg/dl Creatinine 0.66 0.55-1.30 mg/dl Bun/Creatinine Ratio 15 7.5-25.0 Ratio EGFR Unable to Calculate eGFR.Patient is not within the defined age range. Osmolality Calculation 292 280-300 mOsm/kg Sodium 142 136-145 mmol/L Potassium L 2.9 3.5-5.1 mmol/L Chloride H 110 98-107 mmol/L CO2 27.1 21-32 mmol/L Calcium 8.5 8.5-10.1 mg/dl Magnesium 1.9 1.8-2.4 mg/dl Alkaline Phosphatase 77 46-116 U/L ALT 32 14-59 U/L AST 25 15-37 U/L Bilirubin Total 0.4 0.2-1.0 mg/dl Protein Total 7.1 6.4-8.2 g/dl Albumin L 2.5 3.4-5.0 g/dl Globulin H 4.6 1.0-4.5 g/dl A/G Ratio L 0.5 1.0-2.3 Ratio C-Reactive Protein < 0.50 <=0.9 mg/dl Pro-BNP H 554 0-450 pg/ml :00:00 Result Normal Range Units Glucose 90 74-106 mg/dl Urea Nitrogen (BUN) 13 7-18 mg/dl Creatinine 0.75 0.55-1.30 mg/dl Bun/Creatinine Ratio 17 7.5-25.0 Ratio EGFR Unable to Calculate eGFR.Patient is not within the defined age range. Osmolality Calculation 290 280-300 mOsm/kg Sodium 140 136-145 mmol/L Potassium 3.6 3.5-5.1 mmol/L Chloride H 109 98-107 mmol/L CO2 26.8 21-32 mmol/L Calcium L 7.9 8.5-10.1 mg/dl Alkaline Phosphatase 84 46-116 U/L ALT 27 14-59 U/L AST 20 15-37 U/L Bilirubin Total 0.3 0.2-1.0 mg/dl Protein Total 7.0 6.4-8.2 g/dl Albumin L 2.4 3.4-5.0 g/dl Globulin H 4.6 1.0-4.5 g/dl A/G Ratio L 0.5 1.0-2.3 Ratio C-Reactive Protein H 1.1 <=0.9 mg/dl Urinalysis :50:00 Result Normal Range Units Site Voided Urine [...] None Seen None Seen /hpf Urine Bacteria None Seen None Seen UA Ketone Negative Negative Reference Lab :21:00 Result Normal Range Units C-Reactive Protein < 0.50 <=0.9 mg/dl :29:00 Result Normal Range Units C-Reactive Protein < 0.50 <=0.9 mg/dl :15:00 Result Normal Range Units C-Reactive Protein < 0.50 <=0.9 mg/dl :00:00 Result Normal Range Units C-Reactive Protein H 1.1 <=0.9 mg/dl History of procedures No procedures recorded for this patient visit. 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 Vital signs Type Value Date Respirations 18 :00 Pulse 73 :00 O2 Saturation 91% :00 Systolic Blood Press 148mm/HG :00 Diastolic Blood Pres 72mm/HG :00 Temperature (Fahr) 97.9Degrees :00 Height 63in :19 Weight 161.4LB :19 Social history Type Value Smoking Status FORMER SMOKER Treatment Plan Treatment Plan at [facility] care for resident at [facility]. Monitor for any sign or symptom of return disease process. Hospital discharge instructions No discharge instruction text is available for this visit.
--- OUTSIDE RECORDS SUMMARY | 2017-04-02 09:10 | External Medical Summary ---
:1940 Author Organization [facility] Summary purpose CCDA Sent to [facility] Chief Complaint and Reason for Visit [...] diagnostic tests and/or laboratory data RESULTS CBC [id number]:54:00 Result Normal Range Units White Blood Count H 11.5 3.8-10.8 x 10*3/uL Red Blood Cells 4.35 3.80-5.10 x 10*6/uL Hemoglobin L 10.4 11.70-15.50 g/dl Hematocrit L 34.3 35.00-45.00 % Mean Jose Miguel Volume L 78.9 80-100 fL Mean Jose Miguel Hemoglobin L 23.9 27.0-33.0 pg Mean Jose Miguel Hemoglobin Conc L 30.3 32.0-36.0 g/dl RDW - CV H 19.2 11.0-15.0 % RDW - SD H 52.6 35.1-43.9 FL Platelet Count 319 140-400 x 10*3/uL Mean Platelet Volume 10.5 9.4-12.4 fL Neutrophil % 65.8 36.0-78.0 % Lymphocyte% 21.1 13.0-49.0 % Monocyte % 8.7 4.0-12.0 % Eosinophil % 3.9 0-9.0 % Basophil % 0.5 0-1.0 % Neutrophil # 7.5 1.50-7.80 x 10*3/uL Lymphocyte # 2.4 0.8-3.9 x 10*3/uL Monocyte# H 1.0 0.20-0.95 x 10*3/uL Eosinophil # 0.5 0.0-1.0 x 10*3/uL Basophil # 0.1 0.0-1.0 x 10*3/uL Chemistry Group [id number]:54:00 Result Normal Range Units Glucose 83 74-106 mg/dl Urea Nitrogen (BUN) H 32 7-18 mg/dl Creatinine 0.85 0.55-1.30 mg/dl Bun/Creatinine Ratio H 38 7.5-25.0 Ratio EGFR Unable to Calculate eGFR.Patient is not within the defined age range. Osmolality Calculation H 306 280-300 mOsm/kg Sodium 145 136-145 mmol/L Potassium 4.1 3.5-5.1 mmol/L Chloride H 110 98-107 mmol/L CO2 28.3 21-32 mmol/L Calcium 8.6 8.5-10.1 mg/dl Alkaline Phosphatase 101 46-116 U/L ALT 46 14-59 U/L AST 23 15-37 U/L Bilirubin Total 0.3 0.2-1.0 mg/dl Protein Total 7.3 6.4-8.2 g/dl Albumin L 2.9 3.4-5.0 g/dl Globulin 4.4 1.0-4.5 g/dl A/G Ratio L 0.7 1.0-2.3 Ratio History of procedures Procedure Code Code Type Description Date Performed Performing Physician 96748 CPT-4 COMPLETE CBC W/AUTO DIFF 07-17-2016 STEPHANIE CASTANEDA WBC 99030 CPT-4 COMPREHEN METABOLIC 07-17-2016 STEPHANIE CASTANEDA PANEL Functional status No functional [...]
--- OUTSIDE RECORDS SUMMARY | 2017-04-02 09:10 | External Medical Summary ---
:1940 Author Organization [facility] Summary purpose CCDA Sent to [facility] Chief Complaint and Reason for Visit No authorized Reason for Visit (Admitting Diagnosis) is available for this visit. Problem list Condition Status Certainty Chronicity Onset .UTI acute Active .Sepsis Active .Dehydration; improved Active Practical Matters - Inadequate/impractical home Active care resources and support; Admit to Medicare Skilled Swingbed Encounters The following conditions tracked for encounter diagnoses were recorded for this visit: Finding or Diagnosis Status Certainty Chronicity Onset .UTI acute Active .Sepsis Active .Dehydration; improved Active Medications Discharge Medications Status Medication Directions Current bisacodyl (DULCOLAX): Tab DR 5 MG oral ONE TIME A DAY NEEDED for CONSTIPATION Current clonazePAM (KLONOPIN): TABLET 0.5 MG oral THREE TIMES A DAY Current digoxin (LANOXIN) 125 mcg: TABLET 125 MCG oral ONE TIME A DAY Current docusate sodium (COLACE) 100 m MG oral TWO TIMES A DAY capsule Current Ensure Plus oral liquid 120 milliliter(s) oral THREE TIMES A DAY 1000, 1500, 1900 Current Fosamax 70 mg tablet 70 miligram(s) oral SATURDAY Give every Saturday at 0700 Current ibuprofen 200 mg capsule 400 miligram(s) oral oral EVERY FOUR HOURS NEEDED for pain Pain Current LACTOSE-REDUCED FOOD (BOOST PLUS) 1 CAN oral THREE TIMES A DAY Current levothyroxine (SYNTHROID): TABLET 100 MCG oral ONE TIME A DAY Current menthol-zinc oxide 1 APPLIC topical Give TOP NEEDED (CALMOSEPTINE/RISAMINE OINTMENT): for ITCHING OINTMENT Current Miralax 17 gram oral powder packet 17 gram(s) oral TWO TIMES A DAY 0800 1800 Current mirtazapine 30 mg tablet 30 miligram(s) oral BEDTIME Current MULTIVITAMIN: TABLET 1 TAB oral ONE TIME A DAY Current NYSTATIN 100,000 unit/g: POWDER 1 APPLIC topical Give TOP FOUR TIMES A DAY NEEDED for REDDNESS SCALDING PIERO AREA Current oxybutynin chloride (DITROPAN) 5 m MG oral ONE TIME A DAY TABLET Current oxyCODONE 5 mg tablet 5 miligram(s) oral oral THREE TIMES A DAY NEEDED for pain Current polyethylene glycol 3350 (MIRALAX): 17 GM oral WITH BREAKFAST AND DINNER POWD PACK Current risperiDONE (RISPERDAL) 0.25 mg: TABLET 1 MG oral TWO TIMES A DAY Current sertraline (ZOLOFT): TABLET 75 MG oral ONE TIME A DAY Current tamsulosin (FLOMAX): ER 24HR Cap 0.4 MG oral ONE TIME A DAY Current traMADol (ULTRAM): TABLET 50 MG oral TWO TIMES A DAY Current traZODone (DESYREL): TABLET 50 MG oral BEDTIME Current trimethoprim 100 mg tablet qd x 90d oral oral ONE TIME A DAY Stopped bisacodyl 5 mg tablet 5 miligram(s) oral ONE TIME A DAY NEEDED Stopped clonazePAM 0.5 mg tablet 0.5 miligram(s) oral THREE TIMES A DAY 0800, 1200, 1800 Stopped Ditropan 5 mg tablet 5 miligram(s) oral ONE TIME A DAY Stopped docusate sodium 100 mg capsule 100 miligram(s) oral TWO TIMES A DAY 0800 1800 Stopped Flomax 0.4 mg capsule 0.4 miligram(s) oral ONE TIME A DAY Stopped multivitamin tablet 1 tab(s) oral ONE TIME A DAY 0800 Stopped Risperdal 1 mg tablet 1 miligram(s) oral TWO TIMES A DAY Stopped Synthroid 100 mcg tablet 100 microgram(s) oral ONE TIME A DAY Stopped traMADol 50 mg tablet 50 miligram(s) oral TWO TIMES A DAY Stopped traZODone 50 mg tablet 50 miligram(s) oral ONE TIME A DAY Stopped Zoloft 50 mg tablet 75 miligram(s) [...] diagnostic tests and/or laboratory data RESULTS CBC [id number]:10:00 Result Normal Range Units White Blood Count 8.6 3.8-10.8 x 10*3/uL Red Blood Cells L 3.65 3.80-5.10 x 10*6/uL Hemoglobin L 10.5 11.70-15.50 g/dl Hematocrit L 34.1 35.00-45.00 % Mean Jose Miguel Volume 93.4 80-100 fL Mean Jose Miguel Hemoglobin 28.8 27.0-33.0 pg Mean Jose Miguel Hemoglobin Conc L 30.8 32.0-36.0 g/dl RDW - CV H 16.5 11.0-15.0 % RDW - SD H 53.5 35.1-43.9 FL Platelet Count H 417 140-400 x 10*3/uL Mean Platelet Volume 9.6 9.4-12.4 fL Neutrophil % 55.5 36.0-78.0 % Lymphocyte% 25.4 13.0-49.0 % Monocyte % 10.2 4.0-12.0 % Eosinophil % 7.0 0-9.0 % Basophil % H 1.9 0-1.0 % Neutrophil # 4.8 1.50-7.80 x 10*3/uL Lymphocyte # 2.2 0.8-3.9 x 10*3/uL Monocyte# 0.9 0.20-0.95 x 10*3/uL Eosinophil # 0.6 0.0-1.0 x 10*3/uL Basophil # 0.2 0.0-1.0 x 10*3/uL [id number]:48:00 Result Normal Range Units White Blood Count H 10.9 3.8-10.8 x 10*3/uL Red Blood Cells L 3.67 3.80-5.10 x 10*6/uL Hemoglobin L 10.5 11.70-15.50 g/dl Hematocrit L 34.1 35.00-45.00 % Mean Jose Miguel Volume 92.9 80-100 fL Mean Jose Miguel Hemoglobin 28.6 27.0-33.0 pg Mean Jose Miguel Hemoglobin Conc L 30.8 32.0-36.0 g/dl RDW - CV H 16.2 11.0-15.0 % RDW - SD H 52.8 35.1-43.9 FL Platelet Count H 447 140-400 x 10*3/uL Mean Platelet Volume 9.5 9.4-12.4 fL Neutrophil % 66.3 36.0-78.0 % Lymphocyte% 20.0 13.0-49.0 % Monocyte % 7.8 4.0-12.0 % Eosinophil % 5.0 0-9.0 % Basophil % 0.9 0-1.0 % Neutrophil # 7.2 1.50-7.80 x 10*3/uL Lymphocyte # 2.2 0.8-3.9 x 10*3/uL Monocyte# 0.9 0.20-0.95 x 10*3/uL Eosinophil # 0.5 0.0-1.0 x 10*3/uL Basophil # 0.1 0.0-1.0 x 10*3/uL :06:00 Result Normal Range Units White Blood Count 9.2 3.8-10.8 x 10*3/uL Red Blood Cells L 3.56 3.80-5.10 x 10*6/uL Hemoglobin L 10.4 11.70-15.50 g/dl Hematocrit L 33.6 35.00-45.00 % Mean Jose Miguel Volume 94.4 80-100 fL Mean Jose Miguel Hemoglobin 29.2 27.0-33.0 pg Mean Jose Miguel Hemoglobin Conc L 31.0 32.0-36.0 g/dl RDW - CV H 16.2 11.0-15.0 % RDW - SD H 52.9 35.1-43.9 FL Platelet Count H 465 140-400 x 10*3/uL Mean Platelet Volume 9.7 9.4-12.4 fL Neutrophil % 61.1 36.0-78.0 % Lymphocyte% 21.7 13.0-49.0 % Monocyte % 8.7 4.0-12.0 % Eosinophil % 6.4 0-9.0 % Basophil % H 2.1 0-1.0 % Neutrophil # 5.6 1.50-7.80 x 10*3/uL Lymphocyte # 2.0 0.8-3.9 x 10*3/uL Monocyte# 0.8 0.20-0.95 x 10*3/uL Eosinophil # 0.6 0.0-1.0 x 10*3/uL Basophil # 0.2 0.0-1.0 x 10*3/uL :04:00 Result Normal Range Units White Blood Count H 11.1 3.8-10.8 x 10*3/uL Red Blood Cells L 3.57 3.80-5.10 x 10*6/uL Hemoglobin L 10.1 11.70-15.50 g/dl Hematocrit L 33.1 35.00-45.00 % Mean Jose Miguel Volume 92.7 80-100 fL Mean Jose Miguel Hemoglobin 28.3 27.0-33.0 pg Mean Jose Miguel Hemoglobin Conc L 30.5 32.0-36.0 g/dl RDW - CV H 16.1 11.0-15.0 % RDW - SD H 52.4 35.1-43.9 FL Platelet Count H 470 140-400 x 10*3/uL Mean Platelet Volume L 9.0 9.4-12.4 fL Neutrophil % 67.3 36.0-78.0 % Lymphocyte% 19.9 13.0-49.0 % Monocyte % 6.5 4.0-12.0 % Eosinophil % 4.6 0-9.0 % Basophil % H 1.7 0-1.0 % Neutrophil # 7.5 1.50-7.80 x 10*3/uL Lymphocyte # 2.2 0.8-3.9 x 10*3/uL Monocyte# 0.7 0.20-0.95 x 10*3/uL Eosinophil # 0.5 0.0-1.0 x 10*3/uL Basophil # 0.2 0.0-1.0 x 10*3/uL [id number]:16:00 Result Normal Range Units White Blood Count H 11.4 3.8-10.8 x 10*3/uL Red Blood Cells L 3.61 3.80-5.10 x 10*6/uL Hemoglobin L 10.2 11.70-15.50 g/dl Hematocrit L 33.8 35.00-45.00 % Mean Jose Miguel Volume 93.6 80-100 fL Mean Jose Miguel Hemoglobin 28.3 27.0-33.0 pg Mean Jose Miguel Hemoglobin Conc L 30.2 32.0-36.0 g/dl RDW - CV H 16.2 11.0-15.0 % RDW - SD H 53.5 35.1-43.9 FL Platelet Count 339 140-400 x 10*3/uL Mean Platelet Volume 10.5 9.4-12.4 fL Segmented Neutrophil 63.0 37-80 % Lymphocyte 22.0 10-50 % Monocyte 6.0 0-8.0 % Eosinophil H 7.0 0.2-1.0 % Basophil H 2.0 0.2-1.0 % Platelet Estimate Platelets Adequate 67-15-210019:17:00 Result Normal Range Units White Blood Count H 12.6 3.8-10.8 x 10*3/uL Red Blood Cells L 3.79 3.80-5.10 x 10*6/uL Hemoglobin L 11.0 11.70-15.50 g/dl Hematocrit 35.2 35.00-45.00 % Mean Jose Miguel Volume 92.9 80-100 fL Mean Jose Miguel Hemoglobin 29.0 27.0-33.0 pg Mean Jose Miguel Hemoglobin Conc L 31.3 32.0-36.0 g/dl RDW - CV H 16.3 11.0-15.0 % RDW - SD H 53.3 35.1-43.9 FL Platelet Count 322 140-400 x 10*3/uL Mean Platelet Volume 10.1 9.4-12.4 fL Segmented Neutrophil 80.0 37-80 % Bands 2.0 0-5 % Metamyelocyte 1.0 % Lymphocyte 13.0 10-50 % Monocyte 2.0 0-8.0 % Eosinophil H 2.0 0.2-1.0 % Toxic Granulation 2+ RBC Morphology Essentially Normal Platelet Estimate Platelets Adequate Platelet Morphology Large Platlets :00:00 Result Normal Range Units White Blood Count H 13.8 3.8-10.8 x 10*3/uL Red Blood Cells L 3.66 3.80-5.10 x 10*6/uL Hemoglobin L 10.6 11.70-15.50 g/dl Hematocrit L 34.3 35.00-45.00 % Mean Jose Miguel Volume 93.7 80-100 fL Mean Jose Miguel Hemoglobin 29.0 27.0-33.0 pg Mean Jose Miguel Hemoglobin Conc L 30.9 32.0-36.0 g/dl RDW - CV H 16.6 11.0-15.0 % RDW - SD H 54.5 35.1-43.9 FL Platelet Count 260 140-400 x 10*3/uL Mean Platelet Volume 10.7 9.4-12.4 fL Lymphocyte% 16.3 13.0-49.0 % Monocyte % 4.9 4.0-12.0 % Eosinophil % 4.2 0-9.0 % Lymphocyte # 2.2 0.8-3.9 x 10*3/uL Monocyte# 0.7 0.20-0.95 x 10*3/uL Eosinophil # 0.6 0.0-1.0 x 10*3/uL Segmented Neutrophil 69.0 37-80 % Lymphocyte 22.0 10-50 % Monocyte 5.0 0-8.0 % Eosinophil H 3.0 0.2-1.0 % Basophil 1.0 0.2-1.0 % Anisocytosis 1+ Platelet Estimate Platelets Adequate :05:00 Result Normal Range Units White Blood Count H 13.4 3.8-10.8 x 10*3/uL Red Blood Cells L 3.75 3.80-5.10 x 10*6/uL Hemoglobin L 10.7 11.70-15.50 g/dl Hematocrit 35.2 35.00-45.00 % Mean Jose Miguel Volume 93.9 80-100 fL Mean Jose Miguel Hemoglobin 28.5 27.0-33.0 pg Mean Jose Miguel Hemoglobin Conc L 30.4 32.0-36.0 g/dl RDW - CV H 16.8 11.0-15.0 % RDW - SD H 55.4 35.1-43.9 FL Platelet Count 189 140-400 x 10*3/uL Mean Platelet Volume 10.9 9.4-12.4 fL Segmented Neutrophil 73.0 37-80 % Lymphocyte 21.0 10-50 % Monocyte 4.0 0-8.0 % Eosinophil H 2.0 0.2-1.0 % Platelet Estimate Platelets Adequate Chemistry Group :10:00 Result Normal Range Units Glucose L 71 74-106 mg/dl Urea Nitrogen (BUN) L 6 7-18 mg/dl Creatinine 0.82 0.55-1.30 mg/dl Bun/Creatinine Ratio L 7 7.5-25.0 Ratio EGFR Unable to Calculate eGFR.Patient is not within the defined age range. Osmolality Calculation 290 280-300 mOsm/kg Sodium 142 136-145 mmol/L Potassium L 3.3 3.5-5.1 mmol/L Chloride H 108 98-107 mmol/L CO2 26.7 21-32 mmol/L Calcium L 8.0 8.5-10.1 mg/dl Alkaline Phosphatase 68 46-116 U/L ALT 23 14-59 U/L AST L 5 15-37 U/L Bilirubin Total 0.3 0.2-1.0 mg/dl Protein Total L 6.1 6.4-8.2 g/dl Albumin L 2.1 3.4-5.0 g/dl Globulin 4.0 1.0-4.5 g/dl A/G Ratio L 0.5 1.0-2.3 Ratio [id number]:48:00 Result Normal Range Units Glucose 80 74-106 mg/dl Urea Nitrogen (BUN) L 6 7-18 mg/dl Creatinine 0.76 0.55-1.30 mg/dl Bun/Creatinine Ratio 8 7.5-25.0 Ratio EGFR Unable to Calculate eGFR.Patient is not within the defined age range. Osmolality Calculation 287 280-300 mOsm/kg Sodium 140 136-145 mmol/L Potassium L 3.1 3.5-5.1 mmol/L Chloride H 108 98-107 mmol/L CO2 26.1 21-32 mmol/L Calcium L 7.9 8.5-10.1 mg/dl Alkaline Phosphatase 70 46-116 U/L ALT L 12 14-59 U/L AST L 12 15-37 U/L Bilirubin Total 0.3 0.2-1.0 mg/dl Protein Total L 6.1 6.4-8.2 g/dl Albumin L 2.1 3.4-5.0 g/dl Globulin 4.0 1.0-4.5 g/dl A/G Ratio L 0.5 1.0-2.3 Ratio C-Reactive Protein H 3.5 <=0.9 mg/dl :06:00 Result Normal Range Units Glucose 74 74-106 mg/dl Urea Nitrogen (BUN) 9 7-18 mg/dl Creatinine 0.73 0.55-1.30 mg/dl Bun/Creatinine Ratio 12 7.5-25.0 Ratio EGFR Unable to Calculate eGFR.Patient is not within the defined age range. Osmolality Calculation 293 280-300 mOsm/kg Sodium 143 136-145 mmol/L Potassium L 3.2 3.5-5.1 mmol/L Chloride H 110 98-107 mmol/L CO2 26.0 21-32 mmol/L Calcium L 7.8 8.5-10.1 mg/dl Alkaline Phosphatase 65 46-116 U/L ALT 17 14-59 U/L AST L 9 15-37 U/L Bilirubin Total 0.3 0.2-1.0 mg/dl Protein Total L 5.8 6.4-8.2 g/dl Albumin L 2.0 3.4-5.0 g/dl Globulin 3.8 1.0-4.5 g/dl A/G Ratio L 0.5 1.0-2.3 Ratio [id number]:04:00 Result Normal Range Units Glucose 86 74-106 mg/dl Urea Nitrogen (BUN) 9 7-18 mg/dl Creatinine 0.84 0.55-1.30 mg/dl Bun/Creatinine Ratio 11 7.5-25.0 Ratio EGFR Unable to Calculate eGFR.Patient is not within the defined age range. Osmolality Calculation 294 280-300 mOsm/kg Sodium 143 136-145 mmol/L Potassium L 2.8 3.5-5.1 mmol/L Chloride H 108 98-107 mmol/L CO2 28.3 21-32 mmol/L Calcium L 8.0 8.5-10.1 mg/dl Alkaline Phosphatase 65 46-116 U/L ALT 15 14-59 U/L AST L 5 15-37 U/L Bilirubin Total 0.4 0.2-1.0 mg/dl Protein Total L 5.9 6.4-8.2 g/dl Albumin L 2.1 3.4-5.0 g/dl Globulin 3.8 1.0-4.5 g/dl A/G Ratio L 0.6 1.0-2.3 Ratio [id number]:16:00 Result Normal Range Units Glucose 76 74-106 mg/dl Urea Nitrogen (BUN) 12 7-18 mg/dl Creatinine 0.74 0.55-1.30 mg/dl Bun/Creatinine Ratio 16 7.5-25.0 Ratio EGFR Unable to Calculate eGFR.Patient is not within the defined age range. Osmolality Calculation 295 280-300 mOsm/kg Sodium 143 136-145 mmol/L Potassium L 3.2 3.5-5.1 mmol/L Chloride H 109 98-107 mmol/L CO2 27.4 21-32 mmol/L Calcium L 7.8 8.5-10.1 mg/dl Alkaline Phosphatase 69 46-116 U/L ALT 20 14-59 U/L AST L 7 15-37 U/L Bilirubin Total 0.4 0.2-1.0 mg/dl Protein Total L 5.6 6.4-8.2 g/dl Albumin L 2.0 3.4-5.0 g/dl Globulin 3.6 1.0-4.5 g/dl A/G Ratio L 0.6 1.0-2.3 Ratio [id number]:17:00 Result Normal Range Units Glucose 81 74-106 mg/dl Urea Nitrogen (BUN) 12 7-18 mg/dl Creatinine 0.74 0.55-1.30 mg/dl Bun/Creatinine Ratio 16 7.5-25.0 Ratio EGFR Unable to Calculate eGFR.Patient is not within the defined age range. Osmolality Calculation 289 280-300 mOsm/kg Sodium 140 136-145 mmol/L Potassium 3.7 3.5-5.1 mmol/L Chloride H 108 98-107 mmol/L CO2 24.8 21-32 mmol/L Calcium L 7.8 8.5-10.1 mg/dl Alkaline Phosphatase 79 46-116 U/L ALT 23 14-59 U/L AST 16 15-37 U/L Bilirubin Total 0.5 0.2-1.0 mg/dl Protein Total L 6.1 6.4-8.2 g/dl Albumin L 2.0 3.4-5.0 g/dl Globulin 4.1 1.0-4.5 g/dl A/G Ratio L 0.5 1.0-2.3 Ratio C-Reactive Protein H 5.8 <=0.9 mg/dl :00:00 Result Normal Range Units Glucose 82 74-106 mg/dl Urea Nitrogen (BUN) 14 7-18 mg/dl Creatinine 0.92 0.55-1.30 mg/dl Bun/Creatinine Ratio 15 7.5-25.0 Ratio EGFR Unable to Calculate eGFR.Patient is not within the defined age range. Osmolality Calculation 296 280-300 mOsm/kg Sodium 143 136-145 mmol/L Potassium 3.5 3.5-5.1 mmol/L Chloride H 110 98-107 mmol/L CO2 24.9 21-32 mmol/L Calcium L 7.8 8.5-10.1 mg/dl Alkaline Phosphatase 76 46-116 U/L ALT 26 14-59 U/L AST L 8 15-37 U/L Bilirubin Total 0.4 0.2-1.0 mg/dl Protein Total L 5.5 6.4-8.2 g/dl Albumin L 1.9 3.4-5.0 g/dl Globulin 3.6 1.0-4.5 g/dl A/G Ratio L 0.5 1.0-2.3 Ratio C-Reactive Protein H 5.2 <=0.9 mg/dl :05:00 Result Normal Range Units Glucose 86 74-106 mg/dl Urea Nitrogen (BUN) 17 7-18 mg/dl Creatinine 0.83 0.55-1.30 mg/dl Bun/Creatinine Ratio 20 7.5-25.0 Ratio EGFR Unable to Calculate eGFR.Patient is not within the defined age range. Osmolality Calculation 299 280-300 mOsm/kg Sodium 144 136-145 mmol/L Potassium 3.9 3.5-5.1 mmol/L Chloride H 112 98-107 mmol/L CO2 25.0 21-32 mmol/L Calcium L 7.8 8.5-10.1 mg/dl Alkaline Phosphatase 79 46-116 U/L ALT 30 14-59 U/L AST L 8 15-37 U/L Bilirubin Total 0.5 0.2-1.0 mg/dl Protein Total L 5.3 6.4-8.2 g/dl Albumin L 1.8 3.4-5.0 g/dl Globulin 3.5 1.0-4.5 g/dl A/G Ratio L 0.5 1.0-2.3 Ratio C-Reactive Protein H 4.8 <=0.9 mg/dl Pro-BNP H 1096 0-125 pg/ml Hematology Group :48:00 Result Normal Range Units Sed Rate (ESR) H 36 0-30 MM/hr. :00:00 Result Normal Range Units Sed Rate (ESR) H 38 0-30 MM/hr. Urinalysis :50:00 Result Normal Range Units Site Voided Urine Color Yellow Yellow Urine Appearance Clear Clear UA Glucose Negative Negative UA Bili Negative Negative UA SG 1.020 1.005-1.030 UA Blood Negative Negative UA Ph 7.0 4.5-8.0 UA Protein Negative Negative UA Urobilinogen 0.2 0.2-1.0 EU/dL UA Nitrite Negative Negative UA Leukocyte Negative Negative UA Ketone Negative Negative :22:00 Result Normal Range Units Site Voided Urine Color Yellow Yellow Urine Appearance Clear Clear UA Glucose Negative Negative UA Bili Negative Negative UA SG 1.020 1.005-1.030 UA Blood Negative Negative UA Ph 5.5 4.5-8.0 UA Protein Negative Negative UA Urobilinogen 0.2 0.2-1.0 EU/dL UA Nitrite Negative Negative UA Leukocyte Negative Negative UA Ketone Negative Negative Reference Lab :48:00 Result Normal Range Units C-Reactive Protein H 3.5 <=0.9 mg/dl :17:00 Result Normal Range Units C-Reactive Protein H 5.8 <=0.9 mg/dl :00:00 Result Normal Range Units C-Reactive Protein H 5.2 <=0.9 mg/dl :05:00 Result Normal Range Units C-Reactive Protein H 4.8 <=0.9 mg/dl History of procedures No procedures recorded for this patient visit. Functional status Functional Status Finding Observation Time Dexterity Right-handed 43-46-759487:15 Weight Bearing Statu Full 26-16-484013:00 Transferring/Ambulat Needs Assistance 15-71-405044:15 Bathing Needs Assistance 82-85-216123:15 Dressing Needs Assistance 70-76-143838:15 Eating Needs Assistance 26-87-420405:15 Drinking Needs Assistance 33-75-994745:15 Toileting Needs Assistance 54-52-037431:15 Able to Turn Self in Needs Assistance 57-50-807601:15 Stairs Not Done 90-64-958269:15 Wheelchair Yes 25-13-593141:15 Cognitive Status Finding Observation Time Level of Consciousne Alert :55 Oriented to Person Yes :[address] No :55 Oriented to Time No 26-07-553730:55 Combative Moderate 72-60-534331:00 Eyes - LORENZO Yes :15 Right Pupil Reaction Brisk Constriction :15 Left Pupil Reaction Brisk Constriction :15 Vital signs Type Value Date Respirations 20 :00 Pulse 76 :43 O2 Saturation 91% :00 Systolic Blood Press 163mm/HG :00 Diastolic Blood Pres 96mm/HG :00 Temperature (Fahr) 98.2Degrees :00 Height 63in :00 Weight 179.1LB :00 Social history Type Value Smoking Status FORMER SMOKER Treatment Plan Treatment Plan at Continue with pre admit orders Hospital discharge instructions No discharge instruction text is available for this visit.
--- OUTSIDE RECORDS SUMMARY | 2017-04-02 09:10 | External Medical Summary ---
:1940 Author Organization [facility] Summary purpose CCDA Sent to [facility] Chief Complaint and Reason for Visit Admit Diagnosis 1 Fell Problem list No authorized problems tracked for [...] Code Type Description Date Performed Performing Physician 75973 CPT-4 CT HEAD/BRAIN W/O DYE 10-23-2016 RUDY PHILLIPS 20598 CPT-4 EMERGENCY DEPT VISIT 10-23-2016 RUDY PHILLIPS 38487 CPT-4 REPAIR SUPERFICIAL 10-23-2016 RUDY PHILLIPS WOUND(S) Functional status No functional or cognitive status [...]
--- OUTSIDE RECORDS SUMMARY | 2017-04-02 09:10 | External Medical Summary ---
:1940 Author Organization [facility] Summary purpose CCDA Sent to [facility] Chief Complaint and Reason for [...] Code Type Description Date Performed Performing Physician 41984 CPT-4 ROUTINE VENIPUNCTURE 02-28-2017 ELY MYERS 46190 CPT-4 ASSAY THYROID STIM 02-28-2017 ELY MYERS HORMONE 16274 CPT-4 COMPREHEN METABOLIC 02-28-2017 ELY L[place]IS PANEL Functional status No functional or cognitive [...]
--- OUTSIDE RECORDS SUMMARY | 2017-04-02 09:11 | External Medical Summary ---
:1940 Author Organization [facility] Summary purpose CCDA Sent to [facility] Chief Complaint and Reason for Visit [...] tests and/or laboratory data RESULTS Chemistry Group [id number]:25:00 Result Normal Range Units TSH H 5.115 0.35-3.74 uIU/mL History of procedures Procedure Code Code Type Description Date Performed Performing Physician 94126 CPT-4 ASSAY THYROID STIM 11-29-2015 COLE MTZ HORMONE 34518 CPT-4 ROUTINE VENIPUNCTURE 11-29-2015 COLE MTZ Functional status No functional or [...]
--- OUTSIDE RECORDS SUMMARY | 2017-04-02 09:11 | External Medical Summary ---
:1940 Author Organization [facility] Summary purpose CCDA Sent to [facility] Chief Complaint and Reason for [...] diagnostic tests and/or laboratory data RESULTS Urinalysis 85-07-083524:01:00 Result Normal Range Units Site Voided MISLABELD SPECIMEN. PLEASE DISREGARD PREVIOUS RESULTS Test Site with result of* was originally reported asVoided and was changed on 04/19/2016 14:52 by AD1 Urine Color * Result Amended on 2016-04-19 at 14:55:15. Previous status was FR. MISLABELD SPECIMEN. PLEASE DISREGARD PREVIOUS RESULTS Test Color with result of* was originally reported asYellow and was changed on 04/19/2016 14:52 by AD1 Urine Appearance * Result Amended on 2016-04-19 at 14:55:15. Previous status was FR. MISLABELD SPECIMEN. PLEASE DISREGARD PREVIOUS RESULTS Test Urine Appearance with result of * was originally reported asClear and was changed on 04/19/2016 14:52 by AD1 UA Glucose * Result Amended on 2016-04-19 at 14:55:15. Previous status was FR. MISLABELD SPECIMEN. PLEASE DISREGARD PREVIOUS RESULTS Test Glucose with result of* was originally reported asNegative and was changed on 04/19/2016 14:52 by AD1 UA Bili * Result Amended on 2016-04-19 at 14:55:15. Previous status was FR. MISLABELD SPECIMEN. PLEASE DISREGARD PREVIOUS RESULTS Test Bilirubin with result of* was originally reported asNegative and was changed on 04/19/2016 14:52 by AD1 UA SG * Result Amended on 2016-04-19 at 14:55:15. Previous status was FR. MISLABELD SPECIMEN. PLEASE DISREGARD PREVIOUS RESULTS Test Specific [place] with result of * was originally reported as 1.020 and was changed on 04/19/2016 14:52 by AD1 UA Blood * Result Amended on 2016-04-19 at 14:55:15. Previous status was FR. MISLABELD SPECIMEN. PLEASE DISREGARD PREVIOUS RESULTS Test Blood with result of* was originally reported asNegative and was changed on 04/19/2016 14:52 by AD1 UA Ph * Result Amended on 2016-04-19 at 14:55:16. Previous status was FR. MISLABELD SPECIMEN. PLEASE DISREGARD PREVIOUS RESULTS Test pH with result of* was originally reported as 5.0 and was changed on 04/19/2016 14:52 by AD1 UA Protein * Result Amended on 2016-04-19 at 14:55:16. Previous status was FR. MISLABELD SPECIMEN. PLEASE DISREGARD PREVIOUS RESULTS Test Protein with result of* was originally reported asNegative and was changed on 04/19/2016 14:52 by AD1 UA Urobilinogen * Result Amended on 2016-04-19 at 14:55:16. Previous status was FR. MISLABELD SPECIMEN. PLEASE DISREGARD PREVIOUS RESULTS Test Urobilinogen with result of* was originally reported as 0.2 and was changed on 04/19/2016 14:52 by AD1 UA Nitrite * Result Amended on 2016-04-19 at 14:55:16. Previous status was FR. MISLABELD SPECIMEN. PLEASE DISREGARD PREVIOUS RESULTS Test Nitrite with result of* was originally reported asNegative and was changed on 04/19/2016 14:52 by AD1 UA Leukocyte * Result Amended on 2016-04-19 at 14:55:16. Previous status was FR. MISLABELD SPECIMEN. PLEASE DISREGARD PREVIOUS RESULTS Test Leukocyte with result of* was originally reported asNegative and was changed on 04/19/2016 14:52 by AD1 UA Ketone * Result Amended on 2016-04-19 at 14:55:15. Previous status was FR. MISLABELD SPECIMEN. PLEASE DISREGARD PREVIOUS RESULTS Test Ketones with result of* was originally reported asNegative and was changed on 04/19/2016 14:52 by AD1 History of procedures Procedure Code Code Type Description Date Performed Performing Physician 48035 CPT-4 URINALYSIS, AUTO, W/O 04-18-2016 STEPHANIE WILSON Functional status No functional or cognitive status [...]
--- OUTSIDE RECORDS SUMMARY | 2017-04-02 09:11 | External Medical Summary ---
:1940 Author Organization [facility] Summary purpose CCDA Sent to [facility] Chief Complaint and Reason for Visit No authorized Reason for Visit (Admitting Diagnosis) is available for this visit. Problem list Condition Status Certainty Chronicity Onset .UTI chronic; recurrent Active .Hypoxia; R/O aspiration Active .Dementia; severe Active .Dehydration Active Encounters The following conditions tracked for encounter diagnoses were recorded for this visit: Finding or Diagnosis Status Certainty Chronicity Onset .UTI chronic; recurrent Active .Hypoxia; R/O aspiration Active .Dementia; severe Active .Dehydration Active Medications No medications recorded [...] diagnostic tests and/or laboratory data RESULTS CBC [id number]:19:00 Result Normal Range Units White Blood Count 10.0 3.8-10.8 x 10*3/uL Red Blood Cells 3.98 3.80-5.10 x 10*6/uL Hemoglobin L 11.6 11.70-15.50 g/dl Hematocrit 36.7 35.00-45.00 % Mean Jose Miguel Volume 92.2 80-100 fL Mean Jose Miguel Hemoglobin 29.1 27.0-33.0 pg Mean Jose Miguel Hemoglobin Conc L 31.6 32.0-36.0 g/dl RDW - CV 14.0 11.0-15.0 % RDW - SD H 45.9 35.1-43.9 FL Platelet Count 310 140-400 x 10*3/uL Mean Platelet Volume 9.5 9.4-12.4 fL Neutrophil % 57.3 36.0-78.0 % Lymphocyte% 25.9 13.0-49.0 % Monocyte % 9.2 4.0-12.0 % Eosinophil % 6.8 0-9.0 % Basophil % 0.8 0-1.0 % Neutrophil # 5.7 1.50-7.80 x 10*3/uL Lymphocyte # 2.6 0.8-3.9 x 10*3/uL Monocyte# 0.9 0.20-0.95 x 10*3/uL Eosinophil # 0.7 0.0-1.0 x 10*3/uL Basophil # 0.1 0.0-1.0 x 10*3/uL :41:00 Result Normal Range Units White Blood Count 9.7 3.8-10.8 x 10*3/uL Red Blood Cells L 3.63 3.80-5.10 x 10*6/uL Hemoglobin L 10.8 11.70-15.50 g/dl Hematocrit L 34.1 35.00-45.00 % Mean Jos Emiguel Volume 93.9 80-100 fL Mean Jose Miguel Hemoglobin 29.8 27.0-33.0 pg Mean Jose Miguel Hemoglobin Conc L 31.7 32.0-36.0 g/dl RDW - CV 14.0 11.0-15.0 % RDW - SD H 46.1 35.1-43.9 FL Platelet Count 289 140-400 x 10*3/uL Mean Platelet Volume 10.4 9.4-12.4 fL Neutrophil % 60.6 36.0-78.0 % Lymphocyte% 23.5 13.0-49.0 % Monocyte % 7.4 4.0-12.0 % Eosinophil % 7.9 0-9.0 % Basophil % 0.6 0-1.0 % Neutrophil # 5.9 1.50-7.80 x 10*3/uL Lymphocyte # 2.3 0.8-3.9 x 10*3/uL Monocyte# 0.7 0.20-0.95 x 10*3/uL Eosinophil # 0.8 0.0-1.0 x 10*3/uL Basophil # 0.1 0.0-1.0 x 10*3/uL Segmented Neutrophil 66.0 37-80 % Lymphocyte 20.0 10-50 % Monocyte 6.0 0-8.0 % Eosinophil H 8.0 0.2-1.0 % Platelet Estimate Platelets Adequate :50:00 Result Normal Range Units White Blood Count 9.0 3.8-10.8 x 10*3/uL Red Blood Cells L 3.77 3.80-5.10 x 10*6/uL Hemoglobin L 11.1 11.70-15.50 g/dl Hematocrit 35.5 35.00-45.00 % Mean Jose Miguel Volume 94.2 80-100 fL Mean Jose Miguel Hemoglobin 29.4 27.0-33.0 pg Mean Jose Miguel Hemoglobin Conc L 31.3 32.0-36.0 g/dl RDW - CV 14.5 11.0-15.0 % RDW - SD H 47.5 35.1-43.9 FL Platelet Count 285 140-400 x 10*3/uL Mean Platelet Volume 10.1 9.4-12.4 fL Neutrophil % 61.0 36.0-78.0 % Lymphocyte% 21.1 13.0-49.0 % Monocyte % 9.7 4.0-12.0 % Eosinophil % 7.5 0-9.0 % Basophil % 0.7 0-1.0 % Neutrophil # 5.5 1.50-7.80 x 10*3/uL Lymphocyte # 1.9 0.8-3.9 x 10*3/uL Monocyte# 0.9 0.20-0.95 x 10*3/uL Eosinophil # 0.7 0.0-1.0 x 10*3/uL Basophil # 0.1 0.0-1.0 x 10*3/uL [id number]:30:00 Result Normal Range Units White Blood Count H 11.1 3.8-10.8 x 10*3/uL Red Blood Cells 4.15 3.80-5.10 x 10*6/uL Hemoglobin 12.2 11.70-15.50 g/dl Hematocrit 38.7 35.00-45.00 % Mean Jose Miguel Volume 93.3 80-100 fL Mean Jose Miguel Hemoglobin 29.4 27.0-33.0 pg Mean Jose Miguel Hemoglobin Conc L 31.5 32.0-36.0 g/dl RDW - CV 14.4 11.0-15.0 % RDW - SD H 47.2 35.1-43.9 FL Platelet Count 297 140-400 x 10*3/uL Mean Platelet Volume 9.6 9.4-12.4 fL Neutrophil % 66.7 36.0-78.0 % Lymphocyte% 18.5 13.0-49.0 % Monocyte % 7.5 4.0-12.0 % Eosinophil % 6.8 0-9.0 % Basophil % 0.5 0-1.0 % Neutrophil # 7.4 1.50-7.80 x 10*3/uL Lymphocyte # 2.1 0.8-3.9 x 10*3/uL Monocyte# 0.8 0.20-0.95 x 10*3/uL Eosinophil # 0.8 0.0-1.0 x 10*3/uL Basophil # 0.1 0.0-1.0 x 10*3/uL Chemistry Group :39:00 Result Normal Range Units Vancomycin Trough 8.9 5.0-10.0 ug/ml :19:00 Result Normal Range Units Glucose 85 74-106 mg/dl Urea Nitrogen (BUN) 10 7-18 mg/dl Creatinine 0.87 0.55-1.30 mg/dl Bun/Creatinine Ratio 11 7.5-25.0 Ratio EGFR Unable to Calculate eGFR.Patient is not within the defined age range. Osmolality Calculation 292 280-300 mOsm/kg Sodium 142 136-145 mmol/L Potassium 3.6 3.5-5.1 mmol/L Chloride 106 98-107 mmol/L CO2 28.7 21-32 mmol/L Calcium L 8.1 8.5-10.1 mg/dl Alkaline Phosphatase 85 46-116 U/L ALT 54 14-59 U/L AST 28 15-37 U/L Bilirubin Total 0.4 0.2-1.0 mg/dl Protein Total 6.8 6.4-8.2 g/dl Albumin L 2.6 3.4-5.0 g/dl Globulin 4.2 1.0-4.5 g/dl A/G Ratio L 0.6 1.0-2.3 Ratio :41:00 Result Normal Range Units Glucose 95 74-106 mg/dl Urea Nitrogen (BUN) 11 7-18 mg/dl Creatinine 0.79 0.55-1.30 mg/dl Bun/Creatinine Ratio 14 7.5-25.0 Ratio EGFR Unable to Calculate eGFR.Patient is not within the defined age range. Osmolality Calculation 291 280-300 mOsm/kg Sodium 141 136-145 mmol/L Potassium 3.8 3.5-5.1 mmol/L Chloride 107 98-107 mmol/L CO2 26.6 21-32 mmol/L Calcium L 8.0 8.5-10.1 mg/dl Alkaline Phosphatase 76 46-116 U/L ALT 49 14-59 U/L AST 26 15-37 U/L Bilirubin Total 0.3 0.2-1.0 mg/dl Protein Total L 6.2 6.4-8.2 g/dl Albumin L 2.4 3.4-5.0 g/dl Globulin 3.8 1.0-4.5 g/dl A/G Ratio L 0.6 1.0-2.3 Ratio C-Reactive Protein H 2.5 <=0.9 mg/dl [id number]:50:00 Result Normal Range Units Glucose H 109 74-106 mg/dl Urea Nitrogen (BUN) 17 7-18 mg/dl Creatinine 0.72 0.55-1.30 mg/dl Bun/Creatinine Ratio 24 7.5-25.0 Ratio EGFR Unable to Calculate eGFR.Patient is not within the defined age range. Osmolality Calculation 294 280-300 mOsm/kg Sodium 141 136-145 mmol/L Potassium 4.3 3.5-5.1 mmol/L Chloride 107 98-107 mmol/L CO2 25.2 21-32 mmol/L Calcium L 8.4 8.5-10.1 mg/dl Alkaline Phosphatase 73 46-116 U/L ALT 46 14-59 U/L AST 18 15-37 U/L Bilirubin Total 0.3 0.2-1.0 mg/dl Protein Total L 6.2 6.4-8.2 g/dl Albumin L 2.4 3.4-5.0 g/dl Globulin 3.8 1.0-4.5 g/dl A/G Ratio L 0.6 1.0-2.3 Ratio C-Reactive Protein H 3.9 <=0.9 mg/dl [id number]:30:00 Result Normal Range Units Glucose H 136 74-106 mg/dl Urea Nitrogen (BUN) 18 7-18 mg/dl Creatinine 0.76 0.55-1.30 mg/dl Bun/Creatinine Ratio 24 7.5-25.0 Ratio EGFR Unable to Calculate eGFR.Patient is not within the defined age range. Osmolality Calculation 298 280-300 mOsm/kg Sodium 142 136-145 mmol/L Potassium 4.5 3.5-5.1 mmol/L Chloride 106 98-107 mmol/L CO2 26.8 21-32 mmol/L Calcium 9.0 8.5-10.1 mg/dl Alkaline Phosphatase 89 46-116 U/L ALT H 69 14-59 U/L AST 19 15-37 U/L Bilirubin Total 0.2 0.2-1.0 mg/dl Protein Total 7.1 6.4-8.2 g/dl Albumin L 2.6 3.4-5.0 g/dl Globulin 4.5 1.0-4.5 g/dl A/G Ratio L 0.6 1.0-2.3 Ratio C-Reactive Protein H 2.9 <=0.9 mg/dl Lactic Acid < 2.0 0.4-2.0 mmol/L Hematology Group :41:00 Result Normal Range Units Sed Rate (ESR) 29 0-30 MM/hr. Urinalysis :00:00 Result Normal Range Units Site Catheter Result Amended on 2015-08-10 at 16:35:12. Previous status was [facility]. Urine Color Yellow Yellow Urine Appearance Clear Clear UA Glucose Negative Negative UA Bili Negative Negative UA SG 1.020 1.005-1.030 UA Blood Negative Negative UA Ph 6.5 4.5-8.0 UA Protein Negative Negative UA Urobilinogen 0.2 0.2-1.0 EU/dL UA Nitrite Negative Negative UA Leukocyte AB 1+ Negative Urine RBC AB 0-2 None Seen /hpf Urine WBC AB 11-15 None Seen /hpf Urine Bacteria AB 1+ None Seen Urine Squamous Eps 6-10 UA Ketone Negative Negative Culture Indicated Yes Coagulation Group :24:00 Result Normal Range Units D-Dimer Quant H 4.40 0.19-0.50 mg/l Patients suspected of thromboembolism demonstrate significantly elevated levels of D-Dimer. Despite its high sensitivity, D-Dimer is a non-specific marker for DVT1,2,3 as it cannot distinguish thrombus related to spontaneous venous thromboembolism and other causes of clot formation.1 Apart from thromboembolism, elevated levels of D-Dimer may be indicative of non-thromboembolic conditions such as: - Major surgery - Trauma - Sepsis - Malignancy - Postoperative state - Posttraumatic state - Infection - Autoimmune disease - Inflammatory disease Reference Lab :41:00 Result Normal Range Units C-Reactive Protein H 2.5 <=0.9 mg/dl :50:00 Result Normal Range Units C-Reactive Protein H 3.9 <=0.9 mg/dl :00:00 Result Normal Range Units Culture Urine SEE NOTE CULTURE, URINE, ROUTINE MICRO NUMBER:[id number] TEST STATUS: FINAL SPECIMEN SOURCE: URINE SPECIMEN QUALITY:ADEQUATE RESULT:No Growth TEST PERFORMED AT: [facility] [address] [facility] [place] [address] LINO PEREZ DO,MPH :30:00 Result Normal Range Units C-Reactive Protein H 2.9 <=0.9 mg/dl History of procedures No procedures recorded for this patient visit. Functional status Functional Status Finding Observation Time Dexterity Right-handed :23 Weight Bearing Statu Full :00 Transferring/Ambulat Needs Assistance :23 Bathing Needs Assistance :23 Dressing Needs Assistance :23 Eating Needs Assistance :23 Drinking Needs Assistance [id number] Toileting Needs Assistance :23 Able to Turn Self in Needs Assistance :23 Stairs Not Done :23 Wheelchair Yes :23 Cognitive Status Finding Observation Time Level of Consciousne Confused :50 Oriented to Person Yes :[address] No :50 Oriented to Time No :50 Eyes - LORENZO Yes :15 Vital signs Type Value Date Respirations 18 :00 Pulse 70 [id number]:13 O2 Saturation 91% :00 Systolic Blood Press 110mm/HG :00 Diastolic Blood Pres 64mm/HG :00 Temperature (Fahr) 97.5Degrees [id number]:00 Height 63in :15 Weight 170.1LB :15 Social history Type Value Smoking Status FORMER SMOKER Treatment Plan Treatment Plan at Cont care of dehydration, dementia, hypoxia, UTI Hospital discharge instructions No discharge instruction text is available for this visit.
--- OUTSIDE RECORDS SUMMARY | 2017-04-02 09:11 | External Medical Summary ---
:1940 Author Organization [facility] Summary purpose CCDA Sent to [facility] Chief Complaint and Reason for Visit No [...] diagnostic tests and/or laboratory data RESULTS Urinalysis [id number]:19:00 Result Normal Range Units Urine Color Yellow [...] Seen None Seen UA Ketone Negative Negative History of procedures Procedure Code Code Type Description Date Performed Performing Physician [id number] CPT-4 URINALYSIS, AUTO 08-06-2016 STEPHANIE CASTANEDA W/STEVE Functional status No functional [...]
--- OUTSIDE RECORDS SUMMARY | 2017-04-02 09:11 | External Medical Summary | Continuity of Care Document ---
:1940 Author Organization [facility] Address [address] [place] [address] Care Team Providers Name Role Phone Physician, No Family Unavailable Unavailable Insurance Providers Payer Name Policy Number Subscriber Name Relationship Medicare [id number] Lyndsey Sevilla Self / Same As Patient Medicaid [employer] [id number] Lyndsey Sevilla Self / Same As Patient Advance Directives Directive Response Recorded Date/Time Do You Have A Living Will? No 03/27/03 6:41pm Do You Have a DPOA? Yes 03/27/03 8:03pm Chief Complaint and Reason for Visit Chief Complaint HYPOTENSION Reason for Visit Septic shock Urinary tract infection Problems Medical Problems Problem Onset Date Status Personal Hx, Breast Cancer 10/09/2010 Active Dementia 02/19/2011 Active Septic shock 07/27/2014 Active Urinary tract infection 07/27/2014 Active Medications Medication Dose Route Sig Days/Qty Instructions Order Discontinued Status Date Date [Vitamin B12 1,000 IM Monthly 02/10/ Active Inj] Mcg 10 Memantine 10 Mg PO TWICE A 60 Qty 07/27/14 Discontinue (Namenda 10MG) DAY 10 d Lorazepam 0.5 PO DAILY 02/19/11 Discontinue Mg 10 d Aripiprazole 15 Mg PO DAILY 07/27/14 Discontinue 10 d Citalopram 40 Mg PO DAILY 30 Qty 02/19/11 Discontinue Hydrobromide 10 d (Celexa 40 Mg) Tramadol HCl 50 Mg PO TWICE A 60 Qty 02/10/ Active (Ultram 50 Mg) DAY 10 Docusate 100 PO TWICE A 60 Qty 02/10/ Active Sodium Mg DAY 10 (Colace) Tamoxifen 20 Mg PO DAILY 30 Qty 07/27/14 Discontinue Citrate 10 d Multivitamin 1 PO DAILY 02/10/ Active Each 10 Alendronate 70 Mg PO WEEKLY 02/10/ Active Sodium 10 Levothyroxine 112 PO DAILY 02/10/ 02/19/11 Discontinue Sodium Mcg 10 d Vitamin E 400 PO DAILY 02/10/ 02/19/11 Discontinue Unit 10 d Citalopram 20 Mg PO DAILY 07/27/14 Discontinue Hydrobromide 11 d Levothyroxine 100 PO DAILY 30 Qty 02/19/ Active Sodium Mcg 11 Vitamin E 400 PO TWICE A 07/27/14 Discontinue Unit DAY 11 d Mag Hydrox/Al 30 Ml PO EVERY 4 07/27/14 Discontinue Hydrox/Simeth HOURS 11 d NEEDED Ibuprofen 2 Cap PO EVERY 4 02/19/ Active HOURS 11 NEEDED Magnesium 30 Ml PO 02/19/ Active Hydroxide NEEDED 11 Lorazepam 1 Mg PO TWICE A 07/27/14 Discontinue DAY 11 d Lorazepam 0.5 PO EVERY 12 07/27/14 Discontinue Mg HOURS 11 d PRN Quetiapine 12.5 PO TWICE A 90 Days 12.5MG=ONE 07/27/14 Discontinue Fumarate Mg DAY HALF TABLET 11 d (Seroquel 25 Mg) Risperidone 0.5 PO TWICE A 07/27/ Active (Risperdal) Mg DAY For 15 Dementia Oxycodone HCl 5 Mg PO THREE 07/27/ Active TIMES 15 DAILY NEEDED For Pain Sertraline Hcl 50 Mg PO DAILY 07/27/ Active For 15 Anxiety Mirtazapine 30 Mg PO BEDTIME 30 Qty 07/27/ Active For 15 Antipsyc hotic Fentanyl 25 TL EVERY 72 07/27/ 07/27/14 Discontinue Mcg HOURS 15 d For Pain Clonazepam 0.5 PO THREE 30 Qty 07/27/ Active Mg TIMES A 15 DAY For Anxiety Polyethylene 17 Gm PO TWICE A 07/27/ Active Glycol DAY For 15 Constipa tion Oxybutynin 5 Mg PO DAILY 60 Qty 07/27/ Active Chloride For 15 (Ditropan) Spasms Bisacodyl 5 Mg PO 07/27/ Active NEEDED 15 For Constipa tion Cefpodoxime 200 PO TWICE A 24 Qty 08/03/ Active Proxetil Mg DAY 15 Social History Social History Problem Response Recorded Date/Time History of Street Drugs? No 07/27/2014 5:13am Hx Alcohol Use No 07/27/2014 5:13am Query Response Start Date Stop Date Smoking status: Unknown if ever smoked Hospital Discharge Instructions No hospital discharge instructions. Plan of Care Discharge Date 08/03/14 1:05pm Disposition XFER [facility]) Instructions/Education Provided CORE MEASURES FOR D/C - [facility] Cefpodoxime Proxetil (By mouth) Sepsis (DC) Hypotension (DC) Prescriptions See Medications Section Follow-up Orders Mammogram Bilat Diag Mammogram Bilat Diag Functional Status No functional status results. Allergies, Adverse Reactions, Alerts Allergen Type Severity Reaction Status Last Updated Acetaminophen Allergy Unknown Active 05/20/08 Immunizations No immunization records. Vital Signs Acute Vital Signs Vital Response Date/Time Height (Feet) 0 ft Height (Inches) 0.00 inches Weight (Pounds w/decimal) 0 lbs Temperature (Fahrenheit) 98.7 degrees F (97.6 - 99.5) Temperature (Celsius) 36.60 degrees C (36.4 - 37.5) Pulse Pulse Rate 87 bpm (60 - 100) Respiratory Rate 18 bpm (10 - 24) Oxygen Saturation O2 Sat by Pulse Oximetry 92 % (93 - 100) Blood Pressure 110/72 mm Hg Blood Pressure Mean 81 mm Hg Height 5 ft 5 in Weight 166 lb Body Mass Index 27.0 kg/m^2 Ambulatory Vital Signs Vital Response Date/Time Height 5 ft 3 in 02/19/2011 10:45am Weight 171 lbs 02/19/2011 10:45am Blood Pressure, Sitting, Left Arm 116/76 mm Hg 02/19/2011 10:45am Pulse Rate 68 bpm 02/19/2011 10:45am Respiration Rate 16 bpm 02/19/2011 10:45am Body Surface Area 1.88 m2 02/19/2011 10:45am Body Mass Index 30.3 kg/m2 02/19/2011 10:45am Results Test Source Date Result Interp. Ref. Range Comments AST/ALT Ratio August 03, 1.200 N 0.10-40.00 2014 7:15am Alanine August 03, 30 U/L H 6-29 Aminotransferase 2014 (ALT/SGPT) 7:15am Albumin August 03, 2.7 g/dL L 3.6-5.1 2014 7:15am Alkaline August 03, 69 U/L N 33-130 Phosphatase 2014 7:15am Amylase Level July 27, 48 IU/L N 21-101 2014 2:40am Anion Gap August 03 N 7-17 2014 7:15am Arterial Blood HCO3 July 28, 20.3 mmol/L L 22.0-26.0 2014 4:41am Arterial Blood July 28, 88.6 % L 95-97 Oxygen Saturation 2014 4:41am Arterial Blood July 28, 30.6 mm/Hg L 35.0-45.0 Partial Pressure 2014 CO2 4:41am Arterial Blood July 28, 51.2 mm/Hg L 80.0-95.0 Partial Pressure O2 2014 4:41am Arterial Blood pH July 28, 7.436 N 7.350-7.45 2014 0 4:41am Aspartate Amino August 03, 36 U/L H 10-35 Transf (AST/SGOT) 2014 7:15am BUN/Creatinine August 03 N 7-25 Ratio 2014 7:15am Band Neutrophils August 01, 0 % N 0-5 2014 6:15am Basophils August 01, 0 % N 0-2 2014 6:15am Basophils # August 03, 0.05 1000/uL N 0.00-0.20 2014 4:50am Basophils # (Auto) September 24, 0.1 1000/cmm N <0.2 2006 2:33pm Basophils % August 03, 0.6 % 2014 4:50am Basophils (%) September 24, 0.6 % N 0-2 (Auto) 2006 2:33pm Blood Gas Inspired July 28, 2l N/A Oxygen 2014 4:41am Blood Gas Standard July 28, -2.7 mmol/L N -3.0-3.0 Base Excess 2014 4:41am Blood Urea Nitrogen August 03, 8 mg/dL N 7-2014 7:15am C-Reactive Protein July 27, 14.7 mg/dL H <0.8 2014 2:40am Calcium Level August 03, 8.3 mg/dL L 8.6-10.2 2014 7:15am Calculated August 03, 297 mOSM/kg N 280-300 Osmolality 2014 7:15am Carbon Dioxide August 03, 24.3 mmol/L N 19.0-30.0 Level 2014 7:15am Chloride Level August 03, 105 mmol/L N 98-110 2014 7:15am Corrected Calcium August 03, 9.5 mg/dL N 8.6-10.2-c 2014 alc 7:15am Cortisol July 27, 48.10 ug/dL NO REF ROSEMARY AM ROSEMARY PM ROSEMARY AM Cortisol PM Cortisol Random Cortisol 2014 RANGES (7-9 AM) (3-5 PM) 2:40am ug/dL ug/dL ug/dL AGE MALE/FEMALE MALE/FEMALE MALE/FEMALE 0-3 days <=14 <=14 Not Est 4D- 1M Not Est Not Est Not Est 2-11M 3.0-23.0 Not Est Not Est 1-17 3.0-25.0 3.0-17.0 Not Est >17 4.0-22.0 3.0-17.0 Not Est Creatine Kinase July 27, 90 U/L N 29-143 2014 1:00pm Creatine Kinase MB July 27, 2.5 ng/mL N <=5.0 2014 1:00pm Creatine Kinase MB July 26, 3 % N <6 Relative Index 2014 1:00pm Creatinine August 03, 0.39 mg/dL L 0.60-0.93 2014 7:15am Direct Bilirubin July 27, < 0.2 <=0.2 2014 mg/dL 2:40am Eosinophils July 31, 1 % N 0-4 2014 6:15am Eosinophils # August 03, 0.35 1000/uL N 0.01-0.50 2014 4:50am Eosinophils # September 24, 0.3 1000/cmm N <0.7 (Auto) 2006 2:33pm Eosinophils % August 03, 4.5 % 2014 4:50am Eosinophils (%) September 24, 2.9 % N 0-5 (Auto) 2006 2:33pm Estimated GFR August 03, 120 N >60 Units: () 2014 mL/min/1.73m2) 7:15am Estimated GFR August 03 50.15 ml/min >30 Adjusted body (Cockcroft-Gault) 2014 weight used for 7:15am calculation. Estimated GFR August 03 N >60 Units: (Non- 2014 mL/min/1.73m2) Swazi 7:15am Fibrin Degradation July 27, 2.78 mcg/mL H <0.50 The D-Dimer test is used frequently to exclude an acute PEor DVT. In patients with a low to moderate clinical risk Products, Quant 2015 assessment and a D-Dimer result <0.50 mcg/mL FEU, the 2:40am likelihood of a PE or DVT is very low. However, a thromboembolic event should not be excluded solely on the basis of the D-Dimer level. Increased levels of D-Dimer are associated with a PE, DVT, DIC, malignancies, inflammation, sepsis, surgery, trauma, , and advancing patient age. [LINDSEY 2006 11:295 (2):199-207] Globulin August 03, 3.4 g/dL N 1.9-3.7 2014 7:15am Glucose Level August 03, 151 mg/dL H 65-99 2014 7:15am Granulocytes # August 03, 4.69 1000/uL N 1.50-7.80 2014 4:50am Granulocytes (%) August 03, 59.8 % 2014 4:50am Hematocrit August 03, 36.9 % N 35.0-45.0 2014 4:50am Hematology Comments April COMPLETE BLOOD COUNT Testing completed and faxed by [facility] 2006 Laboratories. Results are available on patient's chart 3:20pm Hemoglobin August 03, 11.8 g/dL N 11.7-15.5 2014 4:50am Indirect Bilirubin July 27, 0.2 mg/dL N 0.2-1.2 2014 2:40am L-Lactate July 27, 1.3 mmol/L N 0.4-1.8 2014 2:40am Lab Scanned Report March LABORATORY 2003 REPORTS/RESU 12:08am LT [id number] Lipase July 26, 9 IU/L N 7-60 2014 2:40am Lymphocytes July 31, 34 % N 20-44 2014 6:15am Lymphocytes # August 03, 2.16 1000/uL N 0.85-3.90 2014 4:50am Lymphocytes # September 24, 2.0 1000/cmm N 0.96-4.32 (Auto) 2006 2:33pm Lymphocytes % August 03, 27.6 % 2014 4:50am Lymphocytes (%) September 24, 20.2 % N 15-43 (Auto) 2006 2:33pm Magnesium Level August 03, 1.8 mg/dL N 1.5-2.5 2014 7:15am Mean Corpuscular August 03, 29 pg N 27-33 Hemoglobin 2014 4:50am Mean Corpuscular August 03, 32 g/dL N 32-36 Hemoglobin Concent 2014 4:50am Mean Corpuscular August 03, 91 fL N 80-100 Volume 2014 4:50am Mean Platelet August 03, 10.3 fL N 8.7-11.9 Volume 2014 4:50am Monocytes August 01, 5 % N 2-9 2014 6:15am Monocytes # August 03, 0.59 1000/uL N 0.20-0.95 2014 4:50am Monocytes # (Auto) September 24, 0.6 1000/cmm N 0.19-0.86 2006 2:33pm Monocytes % August 03, 7.5 % 2014 4:50am Monocytes (%) September 24, 6.2 % N 4-13 (Auto) 2006 2:33pm Phosphorus Level August 03, 2.6 mg/dL N 2.1-4.3 2014 7:15am Platelet Count August 03, 300 1000/cmm N 660-673 5572 4:50am Platelet Morphology August 01, Normal NORMAL 2014 6:15am Potassium Level August 03, 3.3 mmol/L L 3.5-5.0 2014 7:15am Prothromb Time September 24, 1.0 N 0.9-1.2 The INR is a calculated value and is used to guide oral anticoagulation therapy. International Ratio 2007 Recommended INR Range 2:33pm Conventional anticoagulation 2.0-3.0 Intensive anticoagulation 2.5-3.5 Prothrombin Time September 24, 9.8 seconds N 9.0-11.0 2006 2:33pm Red Blood Cell August 01, Normal NORMAL Morphology 2014 6:15am Red Blood Count August 03, 4.05 MIL/uL N 3.80-5.10 2014 4:50am Red Cell August 03, 15.3 % H 11.0-15.0 Distribution Width 2014 4:50am Segmented August 01, 60 % N 50-70 Neutrophils 2014 6:15am Sodium Level August 03, 143 mmol/L N 333-771 2996 7:15am Total Bilirubin August 03, 0.3 mg/dL N 0.2-1.2 2014 7:15am Total Protein August 03, 6.1 g/dL N 6.1-8.1 2014 7:15am Troponin T July 27, < 0.01 <0.10 Based on WHO criteria for the definition of AMI, the cutoff(clinical discriminator) value for troponin T is 0.1 ng/mL. 2015 ng/mL Due to the release of kinetics of troponin T, a negative 1:00pm result within the first hours of the onset of symptoms does not rule out myocardial infarction with certainty. If suspected, repeat the test at appropriate intervals. Urine Amorphous July 27, None seen NONE SEEN Specimen Sediment 2014 /HPF available? Y 3:00am Urine Appearance July 27, Cloudy H CLEAR Specimen 2014 available? Y 3:00am Urine Bacteria July 27, Many /HPF H NONE SEEN Specimen 2014 available? Y 3:00am Urine Bilirubin July 27, Negative NEGATIVE Specimen 2014 available? Y 3:00am Urine Blood July 27, 3+ H NEGATIVE Specimen 2014 available? Y 3:00am Urine Color July 27, Yellow YELLOW Specimen 2014 available? Y 3:00am Urine Crystals July 27, None seen NONE SEEN Specimen 2014 available? Y 3:00am Urine Epithelial July 27, 0-5 /HPF NONE-<= Specimen Cells 2014 5/HP available? Y 3:00am Urine Glucose July 27, Negative NEGATIVE Specimen 2014 mg/dL available? Y 3:00am Urine Glucose (UA) September 25, Negative NEGATIVE 2006 mg/dL 8:33am Urine Granular July 27, None seen NONE SEEN Specimen Casts 2014 /LPF available? Y 3:00am Urine Hyaline Casts July 27, 10-20 /LPF H NONE-0-1 Specimen 2014 available? Y 3:00am Urine Ketones July 27, Negative NEGATIVE Specimen 2015 mg/dL available? Y 3:00am Urine Leukocyte July 27, 3+ H NEGATIVE Specimen Esterase 2014 available? Y 3:00am Urine Mucus July 27, Many /LPF NONE Specimen 2014 available? Y 3:00am Urine Nitrite July 27, Negative NEGATIVE Specimen 2014 available? Y 3:00am Urine Occult Blood September 25, Negative NEGATIVE 2006 8:33am Urine Protein July 27, Trace mg/dL H NEGATIVE Specimen 2014 available? Y 3:00am Urine RBC July 27, 20-40 /HPF H NONE-<= Specimen 2015 2 available? Y 3:00am Urine Red Blood July 27, None seen NONE SEEN Specimen Cell Casts 2014 /LPF available? Y 3:00am Urine Specific July 27, 1.020 Reference Range [place] 2014 <=1.005-1.035 3:00am Urine Trichomonas July 27, None seen NONE SEEN Specimen 2014 /HPF available? Y 3:00am Urine Urobilinogen July 27, 0.2 mg/dL 0.2-1.0 Specimen 2014 available? Y 3:00am Urine WBC July 27, >60 /HPF H NONE-<= MOD WBC CLUMPS 2014 07 3:00am Urine Waxy Casts July 27, None seen NONE SEEN Specimen 2015 /LPF available? Y 3:00am Urine White Blood July 27, None seen NONE SEEN Specimen Cell Casts 2014 /LPF available? Y 3:00am Urine Yeast July 27, Many /HPF H NONE SEEN Specimen 2014 available? Y 3:00am Urine pH July 27, 5.0 5.0-8.0 Specimen 2014 available? Y 3:00am White Blood Cell August 01, Normal NORMAL Morphology 2014 6:15am White Blood Count August 03, 7.8 1000/cmm N 3.8-10.8 2014 4:50am Blood Culture Blood-Per July 27, ipheral 2015 2:40am Urine Culture Urine-Uri July 272014 3:00am Transition of Care Document Created on: 02/11/2014 LYNDSEY SEVILLA : 1940 Sex: Female Author Author [facility] Organization [facility] Address [address] [place], [place] [address] Phone [phone] Summary purpose CCDA Sent to [facility] Chief Complaint and Reason for Visit No [...] tests and/or laboratory data RESULTS Chemistry Group [id number]:00 Result Normal Range Units Glucose H 151 70-99 mg/dl Urea Nitrogen (BUN) H 24 7-18 mg/dl Creatinine L 0.56 0.6-1.3 mg/dl Bun/Creatinine Ratio H 43 7.5-25.0 Ratio EGFR Unable to Calculate eGFR.Patient is not within the defined age range. Osmolality Calculation 297 280-300 mOsm/kg Sodium 140 136-145 mmol/L Potassium 4.5 3.5-5.1 mmol/L Chloride 107 98-107 mmol/L CO2 23.3 21.0-32.0 mmol/L Calcium 9.0 8.5-10.5 mg/dl Alkaline Phosphatase 63 50-136 U/L ALT L 13 30-65 U/L AST 15 0-32 U/L Bilirubin Total 0.5 0.5-1.4 mg/dl Protein Total 6.7 6.4-8.2 g/dl Albumin 3.8 3.4-5.0 g/dl Globulin 2.9 1.0-4.5 g/dl A/G Ratio 1.3 1.0-2.3 Ratio History of procedures No procedures [...] instruction text is available for this visit. Procedures Procedure Status Date Provider(s) X-ray of chest, single view completed 07/27/14 Javon,Beronica K DO 12-lead electrocardiogram completed 07/27/14 Javon,Beronica K DO X-ray of chest, single view completed 07/29/14 Javon,Beronica K DO X-ray of chest, single view completed 07/30/14 Javon,Beronica K DO X-ray of chest, single view completed 07/31/14 Javon,Beronica K DO X-ray of chest, single view completed 08/01/14 Javon,Beronica K DO X-ray of chest, single view completed 08/02/14 Javon,Beronica K DO X-ray of chest, single view completed 08/03/14 Beronica Alejandro K DO Encounters Encounter Location Date/Time Discharged Inpatient [facility] 07/27/14 3:12am Recent Diagnosis Septic shock Urinary tract infection
--- OUTSIDE RECORDS SUMMARY | 2017-04-02 09:11 | External Medical Summary ---
:1940 Author Organization [facility] Summary purpose CCDA Sent to [facility] Chief Complaint and Reason for Visit [...] Code Type Description Date Performed Performing Physician 32390 CPT-4 COMPLETE CBC W/AUTO DIFF 09-25-2016 STEPHANIE CASTANEDA WBC 03128 CPT-4 COMPREHEN METABOLIC 09-25-2016 STEPHANIE CASTANEDA PANEL 13097 CPT-4 URINALYSIS, AUTO 09-25-2016 STEPHANIE CASTANEDA W/SCOPE 77963 CPT-4 URINE CULTURE/COLONY 09-25-2016 STEPHANIE CASTANEDA COUNT Functional status No functional or cognitive [...]
--- OUTSIDE RECORDS SUMMARY | 2017-04-02 09:12 | External Medical Summary ---
:1940 Author Organization [facility] Summary purpose CCDA Sent to [facility] Chief Complaint and Reason for Visit [...] Code Type Description Date Performed Performing Physician 41340 CPT-4 REMOVAL TUNNELED CV 05-13-2015 [facility] Functional status No functional or cognitive status observations are available for this visit. Vital signs Type Value Date Respirations 22 62-44-592756:15 Pulse 87 66-45-825747:15 O2 Saturation 96% 82-48-115842:15 Systolic Blood Press 111mm/HG 44-05-912158:15 Diastolic Blood Pres 74mm/HG 53-46-105669:15 Temperature (Fahr) 98.9Degrees 04-42-126894:15 Social history No Social History or smoking status observations were recorded for this visit. ( Unknown if ever smoked.) Treatment Plan No treatment plan text is available for this visit. Hospital discharge instructions No discharge instruction text is available for this visit.
--- OUTSIDE RECORDS SUMMARY | 2017-04-02 09:13 | External Medical Summary ---
:1940 Author Organization [facility] Summary purpose CCDA Sent to [facility] Chief Complaint and Reason for Visit [...] diagnostic tests and/or laboratory data RESULTS Urinalysis [id number]:50:00 Result Normal Range Units Site Catheter Urine Color Yellow Yellow Urine Appearance AB Slightly cloudy UA Glucose Negative Negative UA Bili Negative Negative UA SG 1.020 1.005-1.030 UA Blood AB Trace Negative UA Ph 7.0 4.5-8.0 UA Protein Negative Negative UA Urobilinogen 0.2 0.2-1.0 EU/dL UA Nitrite AB Positive Negative UA Leukocyte AB 3+ Negative Urine RBC AB 6-10 None Seen /hpf Urine WBC AB 31-50 None Seen /hpf Urine Bacteria AB 1+ None Seen Urine Mucus AB Trace None Seen Urine Squamous Eps 6-10 UA Ketone Negative Negative Culture Indicated Yes Reference Lab [id number] Result Normal Range Units Culture Urine A SEE NOTE Result Amended on 2015-10-07 at 01:42:07. Previous status was FR. Comment deleted 10/06/2015 12:59 by [employer]oir[employer] : CULTURE, URINE, ROUTINE MICRO NUMBER:[id number] TEST STATUS: PRELIMINARY SPECIMEN SOURCE: URINE SPECIMEN QUALITY:ADEQUATE RESULT:Greater than 100,000 CFU/mL of Proteus mirabilis , susceptibility test report to follow. TEST PERFORMED AT: [facility] [address] [place] [address] LINO PEREZ DO,MPH Test Culture Urine with result ofE NOTE was originally reported asSEE NOTE and was changed on 10/06/2015 12:59 by QUEST Comment deleted 10/07/2015 01:40 by Memeoirs : CULTURE, URINE, ROUTINE MICRO NUMBER:[id number] TEST STATUS: PRELIMINARY SPECIMEN SOURCE: URINE SPECIMEN QUALITY:ADEQUATE RESULT:Greater than 100,000 CFU/mL of Proteus mirabilis This organism may show imipenem resistance by mechanisms other than a carbapenemase. P.mirabilis INT SAMREEN AMOX/CLAVULANATE S 8 AMPICILLIN R >=32 AMP/SULBACTAMI 16 CEFAZOLINR 8 1 CEFEPIME S <=1 CEFTRIAXONES <=1 CIPROFLOXACINR >=4 ERTAPENEMS <=0.5 GENTAMICIN R >=16 IMIPENEM I 2 LEVOFLOXACIN I 4 NITROFURANTOIN R 128 PIP/TAZOBACTAM [...] susceptibility to parenteral cefazolin. TEST PERFORMED AT: [facility] [address] [email or web address] [address] LINO PEREZ DO,MPH CULTURE, URINE, ROUTINE MICRO NUMBER:[id number] TEST STATUS: FINAL SPECIMEN SOURCE: URINE SPECIMEN QUALITY:ADEQUATE RESULT:Greater than 100,000 CFU/mL of Proteus mirabilis This organism may show imipenem resistance by mechanisms other than a carbapenemase. P.mirabilis INT SAMREEN AMOX/CLAVULANATE S 8 AMPICILLIN R >=32 AMP/SULBACTAMI 16 CEFAZOLINR 8 1 CEFEPIME S <=1 CEFTRIAXONES <=1 CIPROFLOXACINR >=4 ERTAPENEMS <=0.5 GENTAMICIN R >=16 IMIPENEM I 2 LEVOFLOXACIN I 4 NITROFURANTOIN R 128 PIP/TAZOBACTAM [...] susceptibility to parenteral cefazolin. TEST PERFORMED AT: [facility] [facility] [address] [address] LINO PEREZ DO,MPH Test Culture Urine with result ofSEE NOTE was originally reported asSEE NOTE and was changed on 10/07/2015 01:40 by Memeoirs History of procedures Procedure Code Code Type Description Date Performed Performing Physician 68824 CPT-4 URINALYSIS, AUTO, W/O 10-03-2015 STEPHANIE CASTANEDA SCOPE 86978 CPT-4 URINE CULTURE/COLONY 10-03-2015 STEPHANIE CASTANEDA COUNT 32546 CPT-4 URINE BACTERIA CULTURE 10-03-2015 STEPHANIE CASTANEDA 20737 CPT-4 CULTURE AEROBIC 10-03-2015 STEPHANIE CASTANEDA IDENTIFY 50068 CPT-4 MICROBE SUSCEPTIBLE, 10-03-2015 STEPHANIE CASTANEDA SAMREEN Functional status No functional [...]
--- OUTSIDE RECORDS SUMMARY | 2017-04-02 09:13 | External Medical Summary ---
:1940 Author Organization [facility] Summary purpose CCDA Sent to [facility] Chief Complaint and Reason for Visit [...] diagnostic tests and/or laboratory data RESULTS Urinalysis [id number]:15:00 Result Normal Range Units Site Voided Urine Color Yellow Yellow Urine Appearance AB Slightly cloudy UA Glucose Negative Negative UA Bili Negative Negative UA SG 1.015 1.005-1.030 UA Blood Negative Negative UA Ph 6.0 4.5-8.0 UA Protein Negative Negative UA Urobilinogen 0.2 0.2-1.0 EU/dL UA Nitrite AB Positive Negative UA Leukocyte AB 2+ Negative Urine RBC None Seen None Seen /hpf Urine WBC AB 16-20 None Seen /hpf Urine Bacteria AB 3+ None Seen Urine Squamous Eps 11-15 UA Ketone Negative Negative Culture Indicated Yes Reference Lab [id number] Result Normal Range Units Culture Urine A SEE NOTE Result Amended on 2016-07-07 at 13:06:05. Previous status was FR. Comment deleted 07/06/2016 17:20 by DPSI : CULTURE, URINE, ROUTINE MICRO NUMBER:[id number] TEST STATUS: PRELIMINARY SPECIMEN SOURCE: URINE SPECIMEN QUALITY:ADEQUATE RESULT:Culture in progress TEST PERFORMED AT: [facility] [address] [place] [address] LINO PEREZ DO,MPH Test Culture Urine with result ofSEE NOTE was originally reported asSEE NOTE and was changed on 07/06/2016 17:20 by QUEST Comment deleted 07/07/2016 13:04 by DPSI : CULTURE, URINE, ROUTINE MICRO NUMBER:[id number] TEST STATUS: PRELIMINARY SPECIMEN SOURCE: URINE SPECIMEN QUALITY:ADEQUATE RESULT:Greater than 100,000 CFU/mL of Escherichia coli , susceptibility test report to follow. Culture in progress TEST PERFORMED AT: [employer] [address] [place] [address] LINO PEREZ DO,MPH CULTURE, URINE, ROUTINE MICRO NUMBER:[id number] TEST STATUS: FINAL SPECIMEN SOURCE: URINE SPECIMEN QUALITY:ADEQUATE RESULT:Greater than 100,000 CFU/mL of Escherichia coli E.coli INT SAMREEN AMOX/CLAVULANATE S 4 AMPICILLIN S 8 AMP/SULBACTAMS 4 CEFAZOLINR 8 1 CEFEPIME S <=1 CEFTRIAXONES <=1 CIPROFLOXACINR >=4 ERTAPENEMS <=0.5 GENTAMICIN S <=1 IMIPENEM S <=0.25 LEVOFLOXACIN R >=8 NITROFURANTOIN S <=16 PIP/TAZOBACTAM S <=4 TOBRAMYCIN S <=1 TRIMETHOPRIM/SULFA R >=320 S=SusceptibleI=Intermediate R=Resistant*=Not Tested NR=Not ReportedNN=See Therapy Comments THERAPY COMMENTS Note 1:ORAL therapy: A cefazolin SAMREEN of < 32 [...] susceptibility to parenteral cefazolin. TEST PERFORMED AT: [employer] [address] [place] [address] LINO PEREZ DO,MPH Test Culture Urine with result ofSHAKIR NOTE was originally reported asSEE NOTE and was changed on 07/07/2016 13:04 by DPSI History of procedures Procedure Code Code Type Description Date Performed Performing Physician 56476 CPT-4 URINALYSIS, AUTO 07-05-2016 STEPHANIE CASTANEDA W/SCOPE 07987 CPT-4 URINE CULTURE/COLONY 07-05-2016 STEPHANIE CASTANEDA COUNT 01676 CPT-4 URINE BACTERIA CULTURE 07-05-2016 STEPHANIE CASTANEDA 03968 CPT-4 CULTURE AEROBIC 07-05-2016 STEPHANIE CASTANEDA IDENTIFY 28291 CPT-4 MICROBE SUSCEPTIBLE, 07-05-2016 STEPHANIE CASTANEDA SAMREEN Functional status No functional [...]
--- OUTSIDE RECORDS SUMMARY | 2017-04-02 09:13 | External Medical Summary ---
:1940 Author Organization [facility] Summary purpose CCDA Sent to [facility] Chief Complaint and Reason for [...] diagnostic tests and/or laboratory data RESULTS CBC [id number]:00 Result Normal Range Units White Blood Count H 13.2 3.8-10.8 x 10*3/uL Red Blood Cells 4.06 3.80-5.10 x 10*6/uL Hemoglobin 11.8 11.70-15.50 g/dl Hematocrit 38.0 35.00-45.00 % Mean Jose Miguel Volume 93.6 80-100 fL Mean Jose Miguel Hemoglobin 29.1 27.0-33.0 pg Mean Jose Miguel Hemoglobin Conc L 31.1 32.0-36.0 g/dl RDW - CV 14.5 11.0-15.0 % RDW - SD H 47.6 35.1-43.9 FL Platelet Count 289 140-400 x 10*3/uL Mean Platelet Volume 10.2 9.4-12.4 fL Neutrophil % 74.1 36.0-78.0 % Lymphocyte% L 11.9 13.0-49.0 % Monocyte % 7.4 4.0-12.0 % Eosinophil % 6.2 0-9.0 % Basophil % 0.4 0-1.0 % Neutrophil # H 9.8 1.50-7.80 x 10*3/uL Lymphocyte # 1.6 0.8-3.9 x 10*3/uL Monocyte# H 1.0 0.20-0.95 x 10*3/uL Eosinophil # 0.8 0.0-1.0 x 10*3/uL Basophil # 0.1 0.0-1.0 x 10*3/uL Chemistry Group [id number]:00 Result Normal Range Units Glucose 91 74-106 mg/dl Urea Nitrogen (BUN) H 21 7-18 mg/dl Creatinine 0.67 0.55-1.30 mg/dl Bun/Creatinine Ratio H 31 7.5-25.0 Ratio EGFR Unable to Calculate eGFR.Patient is not within the defined age range. Osmolality Calculation 297 280-300 mOsm/kg Sodium 142 136-145 mmol/L Potassium 4.2 3.5-5.1 mmol/L Chloride H 108 98-107 mmol/L CO2 26.5 21-32 mmol/L Calcium 9.1 8.5-10.1 mg/dl Alkaline Phosphatase 79 46-116 U/L ALT 43 14-59 U/L AST 16 15-37 U/L Bilirubin Total 0.3 0.2-1.0 mg/dl Protein Total 6.5 6.4-8.2 g/dl Albumin L 2.5 3.4-5.0 g/dl Globulin 4.0 1.0-4.5 g/dl A/G [...]
--- OUTSIDE RECORDS SUMMARY | 2017-04-02 09:13 | External Medical Summary ---
:1940 Author Organization [facility] Summary purpose CCDA Sent to [facility] Chief Complaint and Reason for [...] Code Type Description Date Performed Performing Physician 30284 CPT-4 COMPLETE CBC W/AUTO DIFF 11-29-2016 SUSAN FERNANDEZ WBC 63252 CPT-4 COMPREHEN METABOLIC 11-29-2016 SUSAN FERNANDEZ PANEL 97959 CPT-4 ASSAY THYROID STIM 11-29-2016 SUSAN FERNANDEZ HORMONE 90283 CPT-4 ROUTINE VENIPUNCTURE 11-29-2016 SUSAN FERNANDEZ Functional status No functional or [...]
--- OUTSIDE RECORDS SUMMARY | 2017-04-02 09:13 | External Medical Summary ---
:1940 Author Organization [facility] Summary purpose CCDA Sent to [facility] Chief Complaint and Reason for Visit Admit Diagnosis 1 COLD SYMPTOMS Problem list No authorized problems tracked for [...] Code Type Description Date Performed Performing Physician 96758 CPT-4 COMPLETE CBC W/AUTO DIFF 01-12-2016 HEBERT LEVINE WBC 26641 CPT-4 CHEST X-RAY 01-12-2016 HEBERT LEVINE 40975 CPT-4 ROUTINE VENIPUNCTURE 01-12-2016 HEBERT LEVINE 79335 CPT-4 EMERGENCY DEPT VISIT 01-12-2016 HEBERT LEVINE 72455 CPT-4 PLACE NEEDLE IN VEIN 01-12-2016 HEBERT LEVINE Functional status No functional or cognitive status [...]
--- OUTSIDE RECORDS SUMMARY | 2017-04-02 09:13 | External Medical Summary ---
:1940 Author Organization [facility] Summary purpose CCDA Sent to [facility] Chief Complaint and Reason for Visit [...] diagnostic tests and/or laboratory data RESULTS Urinalysis [id number]:00 Result Normal Range Units Site Catheter Result Amended on 2014-05-04 at 08:29:40. Previous status was [place]. Urine Color Yellow Yellow Urine Appearance Clear Clear UA Glucose Negative Negative UA Bili Negative Negative UA SG 1.020 1.005-1.030 UA Blood Negative Negative UA Ph 6.0 4.5-8.0 UA Protein Negative Negative UA Urobilinogen 0.2 0.2-1.0 EU/dL UA Nitrite Negative Negative UA Leukocyte AB Trace Negative Urine RBC AB 0-2 None Seen /hpf Urine WBC AB 3-5 None Seen /hpf Urine Bacteria AB 1+ None Seen Urine Mucus AB Trace None Seen Urine Squamous Eps 3-5 UA Ketone Negative Negative Reference Lab [id number] Result Normal Range Units Culture Urine SEE NOTE CULTURE, URINE, ROUTINE MICRO NUMBER:[id number] TEST STATUS: FINAL SPECIMEN SOURCE: URINE SPECIMEN QUALITY:ADEQUATE RESULT:No Growth TEST PERFORMED AT: [facility] [address] [place] [address] LINO PEREZ DO,MPH History of procedures Procedure Code Code Type Description Date Performed Performing Physician 88936 CPT-4 URINALYSIS AUTO 05-04-2014 STEPHANIE CASTANEDA W/SCOPE 20065 CPT-4 URINE CULTURE/COLONY 05-04-2014 STEPHANIE CASTANEDA COUNT Functional status No functional [...]
--- OUTSIDE RECORDS SUMMARY | 2017-04-02 09:13 | External Medical Summary ---
:1940 Author Organization [facility] Summary purpose CCDA Sent to [facility] Chief Complaint and Reason for Visit [...] tests and/or laboratory data RESULTS Chemistry Group [id number]:00 Result Normal Range Units Glucose H 126 74-106 mg/dl Urea Nitrogen (BUN) H 28 7-18 mg/dl Creatinine 1.14 0.55-1.30 mg/dl Bun/Creatinine Ratio 25 7.5-25.0 Ratio EGFR Unable to Calculate eGFR.Patient is not within the defined age range. Sodium 137 136-145 mmol/L Potassium 4.3 3.5-5.1 mmol/L Chloride 104 98-107 mmol/L CO2 24.9 21-32 mmol/L Calcium 8.8 8.5-10.1 mg/dl History of procedures Procedure Code Code Type Description Date Performed Performing Physician 77044 CPT-4 COLLECT BLOOD FROM 09-29-2015 STEPHANIE CASTANEDA [facility] [address] CPT-4 METABOLIC PANEL TOTAL 09-29-2015 STEPHANIE CASTANEDA [place] Functional status No functional or cognitive status observations are available for this visit. Vital signs Type Value Date Respirations 18 [id number] Social history No Social History or smoking status observations were recorded for this visit. ( Unknown if ever smoked.) Treatment Plan No treatment plan text is available for this visit. Hospital discharge instructions No discharge instruction text is available for this visit.
--- OUTSIDE RECORDS SUMMARY | 2017-04-02 09:13 | External Medical Summary ---
:1940 Author Organization [facility] Summary purpose CCDA Sent to [facility] Chief Complaint and Reason for Visit [...] diagnostic tests and/or laboratory data RESULTS Urinalysis [id number]:00 Result Normal Range Units Site Voided Urine [...] 11-15 None Seen /hpf Urine Bacteria AB Trace None Seen Urine Yeast 1+ Urine Squamous Eps 0-2 UA Ketone Negative Negative Culture Indicated Yes Reference Lab [id number] Result Normal Range Units Culture Urine SEE NOTE CULTURE, URINE, ROUTINE MICRO NUMBER:[id number] TEST STATUS: FINAL SPECIMEN SOURCE: URINE SPECIMEN QUALITY:ADEQUATE RESULT:No Growth TEST PERFORMED AT: [facility] [address] [place] [address] LINO PEREZ DO,MPH History of procedures Procedure Code Code Type Description Date Performed Performing Physician 50287 CPT-4 URINALYSIS, AUTO 12-05-2015 STEPHANIE CASTANEDA W/SCOPE 23991 CPT-4 URINE CULTURE/COLONY 12-05-2015 STEPHANIE LANG COUNT Functional status No functional or cognitive [...]
--- OUTSIDE RECORDS SUMMARY | 2017-04-02 09:13 | External Medical Summary ---
:1940 Author Organization [facility] Summary purpose CCDA Sent to [facility] Chief Complaint and Reason for [...] diagnostic tests and/or laboratory data RESULTS CBC [id number]:00 Result Normal Range Units White Blood Count 7.7 3.8-10.8 x 10*3/uL Red Blood Cells 4.43 3.80-5.10 x 10*6/uL Hemoglobin L 10.3 11.70-15.50 g/dl Hematocrit L 33.9 35.00-45.00 % Mean Joes Miguel Volume L 76.5 80-100 fL Mean Jose Miguel Hemoglobin L 23.3 27.0-33.0 pg Mean Jose Miguel Hemoglobin Conc L 30.4 32.0-36.0 g/dl RDW - CV H 17.8 11.0-15.0 % RDW - SD H 47.0 35.1-43.9 FL Platelet Count 346 140-400 x 10*3/uL Mean Platelet Volume 10.0 9.4-12.4 fL Neutrophil % 47.1 36.0-78.0 % Lymphocyte% 34.2 13.0-49.0 % Monocyte % H 13.3 4.0-12.0 % Eosinophil % 5.0 0-9.0 % Basophil % 0.4 0-1.0 % Neutrophil # 3.6 1.50-7.80 x 10*3/uL Lymphocyte # 2.6 0.8-3.9 x 10*3/uL Monocyte# H 1.0 0.20-0.95 x 10*3/uL Eosinophil # 0.4 0.0-1.0 x 10*3/uL Basophil # 0.0 0.0-1.0 x 10*3/uL History of procedures Procedure Code Code Type Description Date Performed Performing Physician 97043 CPT-4 COMPLETE CBC W/AUTO DIFF 04-20-2016 STEPHANIE CASTANEDA WBC Functional status No functional [...]
--- OUTSIDE RECORDS SUMMARY | 2017-04-02 09:13 | External Medical Summary ---
:1940 Author Organization [facility] Summary purpose CCDA Sent to [facility] Chief Complaint and Reason for Visit No [...] tests and/or laboratory data RESULTS Chemistry Group [id number]:00 Result Normal Range Units Glucose 83 74-106 mg/dl Urea Nitrogen (BUN) H 26 7-18 mg/dl Creatinine 0.81 0.55-1.30 mg/dl Bun/Creatinine Ratio H 32 7.5-25.0 Ratio EGFR Unable to Calculate eGFR.Patient is not within the defined age range. Osmolality Calculation 294 280-300 mOsm/kg Sodium 140 136-145 mmol/L Potassium 4.5 3.5-5.1 mmol/L Chloride 107 98-107 mmol/L CO2 29.0 21-32 mmol/L Calcium 8.8 8.5-10.1 mg/dl Alkaline Phosphatase 74 46-116 U/L ALT 21 14-59 U/L AST 17 15-37 U/L Bilirubin Total 0.2 0.2-1.0 mg/dl Protein Total 6.6 6.4-8.2 g/dl Albumin L 2.7 3.4-5.0 g/dl Globulin 3.9 1.0-4.5 g/dl A/G Ratio L 0.7 1.0-2.3 Ratio History of procedures Procedure Code Code Type Description Date Performed Performing Physician 68031 CPT-4 COMPREHEN METABOLIC 02-15-2016 [facility] Functional status No functional or cognitive status [...]
--- OUTSIDE RECORDS SUMMARY | 2017-04-02 09:13 | External Medical Summary ---
:1940 Author Organization [facility] Summary purpose CCDA Sent to [facility] Chief Complaint and Reason for Visit [...] diagnostic tests and/or laboratory data RESULTS CBC [id number]:00 Result Normal Range Units White Blood Count H 17.2 3.8-10.8 x 10*3/uL Red Blood Cells L 3.69 3.80-5.10 x 10*6/uL Hemoglobin L 10.3 11.70-15.50 g/dl Hematocrit L 32.3 35.00-45.00 % Mean Jose Miguel Volume 87.5 80-100 fL Mean Jose Miguel Hemoglobin 27.9 27.0-33.0 pg Mean Jose Miguel Hemoglobin Conc L 31.9 32.0-36.0 g/dl RDW - CV H 15.3 11.0-15.0 % RDW - SD H 48.1 35.1-43.9 FL Platelet Count 302 140-400 x 10*3/uL Mean Platelet Volume 10.2 9.4-12.4 fL Neutrophil % H 82.3 36.0-78.0 % Lymphocyte% L 10.1 13.0-49.0 % Monocyte % 7.2 4.0-12.0 % Eosinophil % 0.3 0-9.0 % Basophil % 0.1 0-1.0 % Neutrophil # H 14.1 1.50-7.80 x 10*3/uL Lymphocyte # 1.7 0.8-3.9 x 10*3/uL Monocyte# H 1.2 0.20-0.95 x 10*3/uL Eosinophil # 0.1 0.0-1.0 x 10*3/uL Basophil # 0.0 0.0-1.0 x 10*3/uL Segmented Neutrophil 80.0 37-80 % Bands 1.0 0-5 % Lymphocyte 14.0 10-50 % Monocyte 5.0 0-8.0 % RBC Morphology Essentially Normal Platelet Estimate Platelets Adequate Chemistry Group :20:00 Result Normal Range Units Glucose H 150 74-106 mg/dl Urea Nitrogen (BUN) H 27 7-18 mg/dl Creatinine 1.08 0.55-1.30 mg/dl Bun/Creatinine Ratio 25 7.5-25.0 Ratio EGFR Unable to Calculate eGFR.Patient is not within the defined age range. Osmolality Calculation 284 280-300 mOsm/kg Sodium L 133 136-145 mmol/L Potassium 4.7 3.5-5.1 mmol/L Chloride 103 98-107 mmol/L CO2 21.5 21-32 mmol/L Calcium 8.6 8.5-10.1 mg/dl Alkaline Phosphatase 89 46-116 U/L ALT 26 14-59 U/L AST 16 15-37 U/L Bilirubin Total 0.3 0.2-1.0 mg/dl Protein Total 6.8 6.4-8.2 g/dl Albumin L 2.6 3.4-5.0 g/dl Globulin 4.2 1.0-4.5 g/dl A/G Ratio L 0.6 1.0-2.3 Ratio Urinalysis :47:00 Result Normal Range Units Site Voided Urine Color Yellow Yellow Urine Appearance AB Slightly cloudy UA Glucose Negative Negative UA Bili AB 1+ Negative UA SG 1.025 1.005-1.030 UA Blood AB 1+ Negative UA Ph 6.5 4.5-8.0 UA Protein AB 1+ Negative UA Urobilinogen 0.2 0.2-1.0 EU/dL UA Nitrite Negative Negative UA Leukocyte AB 2+ Negative Urine RBC AB 6-10 None Seen /hpf Urine WBC AB 31-50 None Seen /hpf Urine Bacteria AB 1+ None Seen Urine Mucus AB Trace None Seen Urine Squamous Eps 3-5 UA Ketone Negative Negative Culture Indicated Yes Reference Lab [id number] Result Normal Range Units Culture Urine A SEE NOTE Result Amended on 2015-11-20 at 08:29:54. Previous status was [place]. Comment deleted 11/20/2015 08:28 by QUEST : CULTURE, URINE, ROUTINE MICRO NUMBER:[id number] TEST STATUS: PRELIMINARY SPECIMEN SOURCE: URINE SPECIMEN QUALITY:ADEQUATE RESULT:10,000-50,000 CFU/mL of Gram negative bacilli isolated Identification and susceptibilities to follow. TEST PERFORMED AT: [place] [address] LINO PEREZ DO,MPH CULTURE, URINE, ROUTINE MICRO NUMBER:[id number] TEST STATUS: FINAL SPECIMEN SOURCE: URINE SPECIMEN QUALITY:ADEQUATE RESULT:10,000-50,000 CFU/mL of Proteus mirabilis This organism may show imipenem resistance by mechanisms other than a carbapenemase. P.mirabilis INT SAMREEN AMOX/CLAVULANATE S 8 AMPICILLIN R >=32 AMP/SULBACTAMI 16 CEFAZOLINR 8 1 CEFEPIME S <=1 CEFTRIAXONES <=1 CIPROFLOXACINR >=4 ERTAPENEMS <=0.5 GENTAMICIN R >=16 IMIPENEM R 4 LEVOFLOXACIN I 4 NITROFURANTOIN R 64 PIP/TAZOBACTAM S <=4 TOBRAMYCIN R >=16 TRIMETHOPRIM/SULFA [...] susceptibility to parenteral cefazolin. TEST PERFORMED AT: [place] [address] LINO PEREZ DO,MPH Test Culture Urine with result ofSEE NOTE was originally reported asSEE NOTE and was changed on 11/20/2015 08:28 by QUEST History of procedures Procedure Code Code Type Description Date Performed Performing Physician 45670 CPT-4 COMPLETE CBC W/AUTO DIFF 11-18-2015 STEPHANIE CASTANEDA WBC 75207 CPT-4 COMPREHEN METABOLIC 11-18-2015 STEPHANIE CASTANEDA PANEL 16507 CPT-4 URINALYSIS, AUTO 11-18-2015 STEPHANIE CASTANEDA W/SCOPE 25861 CPT-4 URINE CULTURE/COLONY 11-18-2015 STEPHANIE CASTANEDA COUNT Functional status No functional [...]
--- NOTE | 2017-04-02 09:21 | XRay Report ---
Indication: history of atrial fibrillation cardiac eval PROCEDURE: XR chest 1V: Encounter: Initial Comparison: None Findings: Airspace consolidation in the left lower lobe with obscuration of the left hemidiaphragm. There may be some hazy opacity in the right lower lobe as well. No pneumothorax. Cardiac silhouette is mildly enlarged. Mediastinal contours are within normal limits. Pulmonary vascularity is normal. Impression: Left lower lobe atelectasis or pneumonia. .
[2017-04-02] MEDS ORDERED: HALOPERIDOL 5 MG/ML INJECTION IM PRN (10:34)
[2017-04-02] MEDS ORDERED: ALUMINUM HYD PO PRN (10:34)
[2017-04-02] MEDS ORDERED: SIMETH PO PRN (10:34)
[2017-04-02] MEDS ORDERED: MAG HYDROX PO PRN (10:34)
[2017-04-02] MEDS ORDERED: BISACODYL 10 MG SUPPOSITORY RECTALLY PRN (10:34)
[2017-04-02] MEDS ORDERED: ONDANSETRON 4 MG TABLET PO PRN (10:34)
[2017-04-02] MEDS ORDERED: [UNRECOGNIZED DRUG - OTHER] PO PRN (10:34)
[2017-04-02 11:02] VITALS: BMI 29.8
--- NOTE | 2017-04-02 13:00 | History & Physical Report ---
History of Present Illness Date: 04/02/17 Chief complaint: dementia with behavioral disturbance HPI: Lyndsey Sevilla is a 76-year-old female patient of Dr. Ronni Sherwood who was transferred from [facility] today, 04/02/17, for psychiatric evaluation. She has a history of Alzheimer's disease and dementia making her a very poor historian. Extensive review of her past medical records, records from previous facilities and nursing notes were reviewed and contributed to her history. She was brought to [facility] ED today, 04/02/17, for evaluation of escalating agitation and behaviors towards other residents and staff as well as sleep disturbances and possible sundowners. Nursing reports that her behaviors have gradually worsened over the past month with increased aggression exhibited by striking out at staff and other residents over the past week. Her behaviors do not appear to be targeted at specific individuals. Due to her behaviors, her Luvox was increased to 100mg TID on 03/28/17 without improvement. It was recommended that she be screened for possible admission to [facility] for evaluation and treatment of her behaviors as well as medication review. Upon arrival to the ED, labs were obtained and were unremarkable. UA revealed trace ketones. Prior nursing records indicated that she was recently treated for an UTI with a course of Macrobid from 03/20/17-03/27/17. TSH was noted to be elevated at 8.11. She has a history of hypothyroidism and is currently on Synthroid 137mcg daily. Prior labs from 01/2017 revealed TSH around 18. It is unclear if her synthroid dosage was adjusted at that time or compliance was improved. CXR revealed left lower lobe atelectasis or pneumonia. She is noted to be afebrile and without respiratory difficulty. No recent illnesses, cough, congestion, chest pain, shortness of breath, abdominal pain, nausea, vomiting, diarrhea or dysuria. She was found to be medically stable and was accepted into [facility] for further psychiatric evaluation and treatment. The hospitalist service was consulted for medical management as she has a history of seizure disorder, GERD, constipation, hypothyroidism, depression, chronic pain, hypokalemia, CHF and a-fib. Review of Systems All systems PM: 10-point ROS was reviewed, no additional remarkable complaints except Review of systems: limited due to dementia and patient refusing to participate in exam. - Constitutional Constitutional: Absent: fever(s), weakness - EENMT Eyes: Absent: photophobia Balance: Absent: falling to one side Nose: Absent: nosebleeds Mouth/Throat: Absent: sore throat, changes in swallowing - Cardiovascular Cardiovascular: Present: heart murmur. Absent: syncope, dyspnea on exertion, edema Rhythm: Present: regular rhythm Vascular: Absent: pedal edema - Respiratory Respiratory: Absent: cough, dyspnea, dyspnea on exertion - Gastrointestinal Gastrointestinal: Present: constipation. Absent: diarrhea, vomiting - Genitourinary Menstruation: post menopausal - Musculoskeletal Musculoskeletal: Absent: back pain, deformity, muscle weakness - Integumentary/Breasts Integumentary: Absent: rash - Neurological Neurological: Present: confusion. Absent: convulsions, focal weakness, weakness - Psychiatric Psychiatric: Present: abnormal sleep pattern, behavioral changes, depression Psychiatric Comments: insomnia, restless, elopement risk. - Endocrine Endocrine: Absent: flushing, polydipsia - Hematologic/Lymphatic Hematologic/Lymphatic: Absent: easy bruising - Allergic/Immunologic Allergic/Immunologic: Absent: seasonal rhinorrhea Past Medical History Patient Stated Medical History Alzheimer's disease. Dementia.. Chronic a-fib. CHF. GERD. Hypothyroidism. Osteoarthritis. Chronic pain. Depression. Overweight, BMI 29.8. Constipation. Herpes simplex. Self care deficit. Osteoporosis. History of seizure disorder. History of breast cancer. Insomnia. History of hypokalemia. History of vitamin deficiency. History of UTI - treated on 03/20/17-03/27/17 with Macrobid. Surgical History: Unable to obtain due to patient's dementia and poor historian. Family History Updates: Patient has 4 children, all reportedly alive. She is to Johnny, "Marvin". Unable to obtain additional information given patient's dementia and being a poor historian. - Social History Smoking status: Unknown if ever smoked Substance use type: does not use Alcohol intake frequency: does not drink Housing: [facility] Household members: none Current occupational status: retired (Nurses aid) Current residence: [facility] Social history: PCP - Dr. Ronni Sherwood. Medications Home Medications Medication Instructions Recorded Confirmed Type Acetaminophen [Acetaminophen Extra 1,000 mg PO Q4H PRN 04/02/17 04/02/17 History Strength] Bisacodyl Supp [Dulcolax] 10 mg RECTALLY DAILY PRN 04/02/17 04/02/17 History Cholecalciferol (Vitamin D3) 5,000 unit PO DAILY 04/02/17 04/02/17 History [Vitamin D3] Divalproex Sprinkle [Depakote 500 mg PO BID 04/02/17 04/02/17 History Sprinkle] Docosanol [Abreva] 1 applicatio TP 5XD 04/02/17 04/02/17 History Docusate Sodium [Colace] 100 mg PO BID 04/02/17 04/02/17 History Fluvoxamine [Luvox] 100 mg PO TID 04/02/17 04/02/17 History Folic Acid [Folate] 1 mg PO DAILY 04/02/17 04/02/17 History Ibuprofen 400 mg PO Q4H PRN 04/02/17 04/02/17 History Levothyroxine Tab [Synthroid] 137 mcg PO ACB 04/02/17 04/02/17 History Mag Hydrox/Aluminum Hyd/Simeth 30 ml PO Q4H PRN 04/02/17 04/02/17 History [Maalox Advanced Suspension] Magnesium Hydroxide [Milk of 30 ml PO DAILY PRN 04/02/17 04/02/17 History Magnesia] Mirtazapine [Remeron] 45 mg PO HS 04/02/17 04/02/17 History Multivitamin [One Daily] 1 tab PO DAILY 04/02/17 04/02/17 History Ondansetron HCl [Zofran] 4 mg PO Q6H PRN 04/02/17 04/02/17 History Peg 3350 238 G Bottle [Miralax] 17 gm PO DAILY 04/02/17 04/02/17 History Potassium Chloride [K-DUR 20 mEq 20 meq PO DAILY 04/02/17 04/02/17 History Tablet] Tamsulosin [Flomax] 0.4 mg PO DAILY 04/02/17 04/02/17 History Tramadol [Ultram] 50 - 100 mg PO Q4-6HR PRN 04/02/17 04/02/17 History Ziprasidone HCl [Geodon] 80 mg PO BID 04/02/17 04/02/17 History Ziprasidone [Geodon] 20 mg IM PRN PRN 04/02/17 04/02/17 History Allergies Allergy/AdvReac Type Severity Reaction Status Date / Time No Known Allergies Allergy Verified 04/02/17 09:53 Exam Vital Signs: Temperature 98.0 F 04/02/17 10:34 Pulse Rate 60 04/02/17 10:34 Respiratory Rate 18 04/02/17 10:34 Blood Pressure 125/71 04/02/17 10:34 Pulse Oximetry 95 04/02/17 10:34 Height/Weight/BMI: Height 5 ft 4 in Weight 173 lb 11.588 oz Body Mass Index 29.8 Comments: Patient is seen while sitting in the day room, coloring a picture of the [facility]. She is cooperative with exam but does not contribute or answer questions. Asks where her mother is. - Constitutional Present: no acute distress, well nourished, well developed, cooperative - Routine HEENT Exam Head: Present: normocephalic, atraumatic. Absent: abrasion, laceration, hematoma Eye: Present: proptosis (left eye). Absent: conjunctival icterus ENT: Present: mucous membranes moist, oropharynx clear Comments: poor dentition - Routine Neck Exam Present: supple, full ROM, trachea midline. Absent: tenderness - Routine Chest/Breast/Axilla Exam Chest wall: Absent: tenderness - Routine Respiratory Exam Present: CTA bilaterally. Absent: respiratory distress, stridor, wheezes Comments: limited exam due to patient's poor inspiratory effort; no cough or conversational dyspnea noted when patient speaks; breathing easily on room air. - Routine Cardiovascular Exam Present: RRR, S1, S2, murmur - Routine Abdominal Exam Present: soft, normoactive bowel sounds, non distended, non tender - Routine Extremities Exam Present: no edema, non tender, full ROM, pulses intact - Routine Back/Spine/Pelvis Exam Back/Spine: Present: full ROM. Absent: vertebral tenderness - Routine Skin Exam Present: intact, dry, warm. Absent: jaundice Comments: afebrile - Routine Neurological Exam Present: alert (orientated to person only.), moving all extremities, hearing grossly intact. Absent: hemineglect - Routine Psychiatric Exam Present: cooperative. Absent: good insight, good judgment Comments: refuses to participate in exam; asks where her mother is; confused. Results - Labs CBC & Chem 7: 04/02/17 09:17 04/02/17 09:17 - Imaging and Cardiology Chest x-ray Status: image reviewed by me Additional comments: Date of Exam: 04/02/17 Type of Exam(s): XR chest 1V Reason for Exam(s): history of atrial fibrillation cardiac eval Findings: Airspace consolidation in the left lower lobe with obscuration of the left hemidiaphragm. There may be some hazy opacity in the right lower lobe as well. No pneumothorax. Cardiac silhouette is mildly enlarged. Mediastinal contours are within normal limits. Pulmonary vascularity is normal. Impression: Left lower lobe atelectasis or pneumonia. Assessment and Plan (1) Dementia with behavioral disturbance Current visit: Yes Status: Acute Assessment and Plan: Assessment Dementia with behavioral disturbance. Alzheimer's disease. Chronic a-fib. CHF. GERD. Hypothyroidism. Osteoarthritis. Chronic pain. Depression. Overweight, BMI 29.8. Constipation. Herpes simplex. Insomnia. Osteoporosis. History of seizure disorder. History of hypokalemia. History of vitamin deficiency. History of UTI - treated on 03/20/17-03/27/17 with Macrobid. Plan - 04/02/17 (Admission) Alzheimer's disease and dementia with behavioral disturbance. - Agree with admission to [facility] under the care of Dr. Mcgrath for psychiatric evaluation and treatment. Hospitalist service consulted for medical management. - CBC, CMP and UA obtained in ED and unremarkable. Will monitor periodically throughout admission. - Prior records indicated an unwitnessed fall on 03/28/17. Would recommend obtaining CT head given behavioral changes and unwitnessed fall. - CXR in ED revealed RLL atelectasis or pneumonia. WBC stable and patient remains afebrile without symptoms. Will hold off on antibiotic treatment at this time given patient is clinically stable without symptoms. - Monitor respiratory function closely. Notify hospitalist service if fever > 100.4, HR >100, RR > 22, systolic blood pressure <90 or >180, new cough or any symptoms that are concerning. Chronic a-fib. - EKG in ED revealed normal sinus rhythm at a rate of 67. Review of medication list does not reveal current treatment of a-fib. Monitor vital signs closely. Chronic CHF. - No current medications. Monitor closely for signs of fluid over load with increasing peripheral edema (none on admission) and daily weight. GERD. - Continue home medications - Maalox PRN. If needing Maalox frequently, consider addition of Prilosec daily for GI protection and GERD. Hypothyroidism. - TSH on admission was elevated at 8.11. Review of prior medical records indicated TSH ~18 in January 2017. Patient currently on Synthryoid 137mcg daily. Unknown if dose was increased/adjusted in 01/2017 or if elevated TSH was secondary to poor medication compliance. - Will continue home Synthroid at 137mcg daily and recommend recheck TSH in 6 weeks. Osteoarthritis and chronic pain. - Tylenol as needed for fever/pain. Home pain medications included Ibuprofen, Ultram and tylenol. May consider addition of Ibuprofen for additional pain control if needed. Depression. - To be managed by Dr. Mcgrath. Provide safe and supportive environment. Constipation. - Continue home medications for bowel motivation - miralax, MOM PRN, colace BID and dulcolax PRN. Herpes simplex. - No apparent acute lesions. Abreva as needed. Insomnia. - Elopement risk due to restlessness and insomnia. PRN Ativan and Haldol per Dr. Mcgrath as indicated. History of seizure disorder. - Monitor closely for signs of seizure. May consider neurology consult to Dr. Shah if seizure occurs. History of hypokalemia. - Continue home KCl 20 mEq daily. Will monitor electrolytes periodically throughout admission. History of vitamin deficiency. - Continue home supplements. History of UTI. - Recent UTI treated on 03/20/17-03/27/17 with Macrobid. UA in ED was unremarkable with trace ketones. Monitor for symptoms. Resuscitation Status: Full Code - Time spent with patient Time with patient PN: 70 minutes - Physician Narrative Physician: Jae Pool MD Narrative: Date: 04/02/17 Time: 1950 Have independently interviewed and examined pt. Chart reviewed. Case discussed with ED physician and my PA. Care plan developed with my supervision; agree with above. Admitted to [facility] for treatment of her dementia with behavioral disturbances. Sitting in day room at my evaluation. Limited verbal interaction from patient, but not restless or agitated. Lungs: Clear bilaterally, no distress CV: regular with IV/ PATRICK AB: soft nt/ nd Plan: Agree with admission to [facility] for geropsychiatric evaluation and treatment. Psychiatry to manage and adjust psychoactive medications. Provide safe, supportive environment. Continue with home medications. Check on T3/T4 secondary to elevated TSH. Patient is medically stable for [facility] floor activities. Hospital Course Summary Disclaimer: The visit summary below is not to be considered part of the above Progress Note. Hospital Course: Plan - 04/02/17 (Admission) Alzheimer's disease and dementia with behavioral disturbance. - Agree with admission to [facility] under the care of Dr. Mcgrath for psychiatric evaluation and treatment. Hospitalist service consulted for medical management. - CBC, CMP and UA obtained in ED and unremarkable. Will monitor periodically throughout admission. - Prior records indicated an unwitnessed fall on 03/28/17. Would recommend obtaining CT head given behavioral changes and unwitnessed fall. - CXR in ED revealed RLL atelectasis or pneumonia. WBC stable and patient remains afebrile without symptoms. Will hold off on antibiotic treatment at this time given patient is clinically stable without symptoms. - Monitor respiratory function closely. Notify hospitalist service if fever > 100.4, HR >100, RR > 22, systolic blood pressure <90 or >180, new cough or any symptoms that are concerning. Chronic a-fib. - EKG in ED revealed normal sinus rhythm at a rate of 67. Review of medication list does not reveal current treatment of a-fib. Monitor vital signs closely. Chronic CHF. - No current medications. Monitor closely for signs of fluid over load with increasing peripheral edema (none on admission) and daily weight. GERD. - Continue home medications - Maalox PRN. If needing Maalox frequently, consider addition of Prilosec daily for GI protection and GERD. Hypothyroidism. - TSH on admission was elevated at 8.11. Review of prior medical records indicated TSH ~18 in January 2017. Patient currently on Synthryoid 137mcg daily. Unknown if dose was increased/adjusted in 01/2017 or if elevated TSH was secondary to poor medication compliance. - Will continue home Synthroid at 137mcg daily and recommend recheck TSH in 6 weeks. Osteoarthritis and chronic pain. - Tylenol as needed for fever/pain. Home pain medications included Ibuprofen, Ultram and tylenol. May consider addition of Ibuprofen for additional pain control if needed. Depression. - To be managed by Dr. Mcgrath. Provide safe and supportive environment. Constipation. - Continue home medications for bowel motivation - miralax, MOM PRN, colace BID and dulcolax PRN. Herpes simplex. - No apparent acute lesions. Abreva as needed. Insomnia. - Elopement risk due to restlessness and insomnia. PRN Ativan and Haldol per Dr. Mcgrath as indicated. History of seizure disorder. - Monitor closely for signs of seizure. May consider neurology consult to Dr. Shah if seizure occurs. History of hypokalemia. - Continue home KCl 20 mEq daily. Will monitor electrolytes periodically throughout admission. History of vitamin deficiency. - Continue home supplements. History of UTI. - Recent UTI treated on 03/20/17-03/27/17 with Macrobid. UA in ED was unremarkable with trace ketones. Monitor for symptoms.
--- NOTE | 2017-04-02 16:05 | CT Scan Report ---
Indication: AMS, unwitnessed fall 03/28/17 PROCEDURE: CT head/brain wo con: Encounter: Initial Comparison: None Technique: Axial CT images through the head were performed without contrast. Iterative Reconstruction dose reducing technique was utilized. FINDINGS: Mild generalized atrophy. The ventricles are of normal size, shape, and configuration for the patient's age. There is no evidence of acute intracranial hemorrhage, midline displacement, or mass effect. There are numerous areas of low attenuation in the white matter which most likely represent changes of chronic microvascular ischemia. The CT attenuation of the brain parenchyma is otherwise normal within the cerebellum, brain stem, and cerebral hemispheres. The tympanic cavities and mastoid air cells are free of appreciable disease. There are no definite fractures of the skull base, calvarium, or visualized portion of the midface. IMPRESSION: No CT evidence of acute traumatic intracranial injury. .
[2017-04-02] MEDS ORDERED: ZIPRASIDONE HCL 40 MG PO SCH (17:30)
[2017-04-02] MEDS: ZIPRASIDONE 40 MG CAPSULE PO SCH (17:41)
[2017-04-02] MEDS: DIVALPROEX SPRINKLE 125 MG CAPSULE PO SCH (20:01)
[2017-04-02] MEDS: FLUVOXAMINE 100 MG PO SCH (20:01)
[2017-04-02] MEDS: MIRTAZAPINE 30 MG TABLET PO SCH (20:02)
[2017-04-02] MEDS: DOCUSATE SODIUM 100 MG CAPSULE PO SCH (20:02)
[2017-04-03] MEDS: LEVOTHYROXINE 137 MCG TABLET PO SCH (06:06)
[2017-04-03] MEDS: ZIPRASIDONE 40 MG CAPSULE PO SCH ×2 (11:56→17:19)
[2017-04-03] MEDS: FLUVOXAMINE 100 MG PO SCH ×2 (11:57→20:04)
[2017-04-03] MEDS: DIVALPROEX SPRINKLE 125 MG CAPSULE PO SCH ×2 (11:57→20:04)
[2017-04-03] MEDS: TAMSULOSIN 0.4 MG CAPSULE PO SCH (11:57)
[2017-04-03] MEDS: POLYETHYL GLYCOL 3350 17gm PACKET PO SCH (11:57)
[2017-04-03] MEDS: DOCUSATE SODIUM 100 MG CAPSULE PO SCH ×2 (11:57→20:04)
[2017-04-03] MEDS: DOCOSANOL PO SCH ×4 (14:43→20:03)
--- NOTE | 2017-04-03 17:23 | Progress Note ---
- Date 04/03/17 Subjective: Lyndsey is seen while sitting in the recliner in the day room and appears agitated on exam. She immediately withdrawals and refuses to participate or allow physical exam. Nursing reports that she has been striking out at nursing and has been agitated all day. Extensive review of her medical records as well as nursing notes was conducted. Pulse oximetry appears to be trending down. On admission, CXR revealed left lower lobe atelectasis vs. pneumonia and was felt to more likely be atelectasis. Nursing denies cough or congestion but patient noted to have an occasional weak cough on exam. Appetite is stable and urinary output is good. Objective Vital signs: Temperature 98.4 F 04/03/17 16:00 Pulse Rate 78 04/03/17 16:00 Respiratory Rate 22 04/03/17 16:00 Blood Pressure 124/73 04/03/17 16:00 Pulse Oximetry 92 04/03/17 16:00 Height/Weight/BMI: Height 5 ft 4 in Weight 175 lb 11.335 oz Body Mass Index 29.8 Comments: sitting in recliner - refuses exam. - Constitutional Present: no acute distress, well nourished, well developed, combative, agitated. Absent: cooperative - Routine HEENT Exam Head: Present: normocephalic, atraumatic Eye: Present: proptosis - Routine Respiratory Exam Absent: accessory muscle use, dyspnea Comments: occasional weak cough - Routine Extremities Exam Present: full ROM (patient actively moving all extremities on exam) - Routine Back/Spine/Pelvis Exam Back/Spine: Present: full ROM - Routine Musculoskeletal Exam Musculoskeletal: Present: moving extremities well - Routine Skin Exam Absent: jaundice - Routine Neurological Exam Present: alert, moving all extremities, hearing grossly intact - Routine Psychiatric Exam Present: agitated. Absent: cooperative Results - Labs CBC & Chem 7: 04/02/17 09:17 04/02/17 09:17 Assessment and Plan (1) Dementia with behavioral disturbance Current visit: Yes Status: Acute Assessment and Plan: Assessment Dementia with behavioral disturbance. Alzheimer's disease. Chronic a-fib. CHF. GERD. Hypothyroidism. Osteoarthritis. Chronic pain. Depression. Overweight, BMI 29.8. Constipation. Herpes simplex. Insomnia. Osteoporosis. History of seizure disorder. History of hypokalemia. History of vitamin deficiency. History of UTI - treated on 03/20/17-03/27/17 with Macrobid. Plan - 04/03/17 Alzheimer's disease and dementia with behavioral disturbance. - Patient remains agitated and actively striking out at staff. Continue psychiatric care per Dr. Mcgrath. - CXR in ED revealed RLL atelectasis or pneumonia. WBC stable and patient remains afebrile without symptoms. Pulse ox noted to be trending down. Will discuss treatment recommendations with Dr. Pool. Unable to clinically assess due to patient's agitation. - Monitor respiratory function closely. Notify hospitalist service if fever > 100.4, HR >100, RR > 22, systolic blood pressure <90 or >180, new cough or any symptoms that are concerning. - Physician Narrative Narrative: Date: 04/03/17 Time: 1719 Hospital Course Summary Disclaimer: The visit summary below is not to be considered part of the above Progress Note. Hospital Course: Plan - 04/02/17 (Admission) Alzheimer's disease and dementia with behavioral disturbance. - Agree with admission to [facility] under the care of Dr. Mcgrath for psychiatric evaluation and treatment. Hospitalist service consulted for medical management. - CBC, CMP and UA obtained in ED and unremarkable. Will monitor periodically throughout admission. - Prior records indicated an unwitnessed fall on 03/28/17. Would recommend obtaining CT head given behavioral changes and unwitnessed fall. - CXR in ED revealed RLL atelectasis or pneumonia. WBC stable and patient remains afebrile without symptoms. Will hold off on antibiotic treatment at this time given patient is clinically stable without symptoms. - Monitor respiratory function closely. Notify hospitalist service if fever > 100.4, HR >100, RR > 22, systolic blood pressure <90 or >180, new cough or any symptoms that are concerning. Chronic a-fib. - EKG in ED revealed normal sinus rhythm at a rate of 67. Review of medication list does not reveal current treatment of a-fib. Monitor vital signs closely. Chronic CHF. - No current medications. Monitor closely for signs of fluid over load with increasing peripheral edema (none on admission) and daily weight. GERD. - Continue home medications - Maalox PRN. If needing Maalox frequently, consider addition of Prilosec daily for GI protection and GERD. Hypothyroidism. - TSH on admission was elevated at 8.11. Review of prior medical records indicated TSH ~18 in January 2017. Patient currently on Synthryoid 137mcg daily. Unknown if dose was increased/adjusted in 01/2017 or if elevated TSH was secondary to poor medication compliance. - Will continue home Synthroid at 137mcg daily and recommend recheck TSH in 6 weeks. Osteoarthritis and chronic pain. - Tylenol as needed for fever/pain. Home pain medications included Ibuprofen, Ultram and tylenol. May consider addition of Ibuprofen for additional pain control if needed. Depression. - To be managed by Dr. Mcgrath. Provide safe and supportive environment. Constipation. - Continue home medications for bowel motivation - miralax, MOM PRN, colace BID and dulcolax PRN. Herpes simplex. - No apparent acute lesions. Abreva as needed. Insomnia. - Elopement risk due to restlessness and insomnia. PRN Ativan and Haldol per Dr. Mcgrath as indicated. History of seizure disorder. - Monitor closely for signs of seizure. May consider neurology consult to Dr. Shah if seizure occurs. History of hypokalemia. - Continue home KCl 20 mEq daily. Will monitor electrolytes periodically throughout admission. History of vitamin deficiency. - Continue home supplements. History of UTI. - Recent UTI treated on 03/20/17-03/27/17 with Macrobid. UA in ED was unremarkable with trace ketones. Monitor for symptoms. Plan - 04/03/17 Alzheimer's disease and dementia with behavioral disturbance. - Patient remains agitated and actively striking out at staff. Continue psychiatric care per Dr. Mcgrath. - CXR in ED revealed RLL atelectasis or pneumonia. WBC stable and patient remains afebrile without symptoms. Pulse ox noted to be trending down. Will discuss treatment recommendations with Dr. Pool. Unable to clinically assess due to patient's agitation. - Monitor respiratory function closely. Notify hospitalist service if fever > 100.4, HR >100, RR > 22, systolic blood pressure <90 or >180, new cough or any symptoms that are concerning.
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
[2017-04-03] MEDS: MIRTAZAPINE 30 MG TABLET PO SCH (20:05)
[2017-04-04] MEDS: LEVOTHYROXINE 137 MCG TABLET PO SCH (06:33)
[2017-04-04] MEDS ORDERED: INFLUENZA VAC High Dose 2017-18 (Fluzone HD*) (>=65yo) 0.5ml IM ONE (09:00)
[2017-04-04] MEDS ORDERED: PNEUMOCOCCAL 13 VACCINE 0.5ml INJECTION IM ONE (09:00)
[2017-04-04] MEDS: DOCUSATE SODIUM 100 MG CAPSULE PO SCH ×3 (10:21→20:05)
[2017-04-04] MEDS: DOCOSANOL PO SCH ×4 (10:21→19:07)
[2017-04-04] MEDS: ZIPRASIDONE 40 MG CAPSULE PO SCH ×3 (10:21→19:07)
[2017-04-04] MEDS: DIVALPROEX SPRINKLE 125 MG CAPSULE PO SCH ×3 (10:21→20:04)
[2017-04-04] MEDS: POLYETHYL GLYCOL 3350 17gm PACKET PO SCH ×2 (10:38→12:31)
[2017-04-04] MEDS: TAMSULOSIN 0.4 MG CAPSULE PO SCH ×2 (10:38→12:31)
[2017-04-04] MEDS: FLUVOXAMINE 100 MG PO SCH (10:38)
[2017-04-04] MEDS: FLUVOXAMINE 50 MG TABLET PO SCH (20:05)
[2017-04-04] MEDS: MIRTAZAPINE 30 MG TABLET PO SCH (20:06)
--- NOTE | 2017-04-04 22:16 | Neuropsych Progress Note ---
[facility] Subjective Date: 04/04/17 - Sujective/Severity of Illness Medications: Acetaminophen (Tylenol) 1,000 mg PO Q4H PRN PRN Reason: Pain Al Hydrox/Mg Hydrox/Simethicone (Maalox Plus "Xs") 30 ml PO Q4H PRN PRN Reason: Epigastric distress Bisacodyl (Dulcolax) 10 mg RECTALLY DAILY PRN PRN Reason: Constipation Divalproex Sodium (Depakote Sprinkle) 500 mg PO BID [facility] Last Admin: 04/04/17 20:04 Dose: 500 mg Docusate Sodium (Colace) 100 mg PO BID [facility] Last Admin: 04/04/17 20:05 Dose: 100 mg Fluvoxamine Maleate (Luvox) 75 mg PO BID [facility] Last Admin: 04/04/17 20:05 Dose: 75 mg Haloperidol (Haldol) 0.5 mg PO Q6H PRN PRN Reason: Extreme agitation Haloperidol Lactate (Haldol) 0.5 mg IM Q6H PRN PRN Reason: Extreme agitation Ibuprofen (Motrin) 600 mg PO Q8H PRN PRN Reason: Pain Levothyroxine Sodium (Synthroid) 137 mcg PO ACB [facility] Last Admin: 04/04/17 06:33 Dose: 137 mcg Lorazepam (Ativan) 0.5 mg PO Q6H PRN PRN Reason: Extreme agitation Lorazepam (Ativan Inj) 0.5 mg IM Q6H PRN PRN Reason: Extreme agitation Magnesium Hydroxide (Mom) 30 ml PO DAILY PRN PRN Reason: Constipation Last Admin: 04/04/17 16:29 Dose: 30 ml Mirtazapine (Remeron) 30 mg PO [facility] Last Admin: 04/04/17 20:06 Dose: 30 mg Non-Formulary Medication (Docosanol [Abreva]) 1 applicatio PO 5XD [facility] Last Admin: 04/04/17 19:07 Dose: Not Given Ondansetron HCl (Zofran Po) 4 mg PO Q6H PRN PRN Reason: Nausea &/or vomiting Polyethylene Glycol (Miralax) 17 gm PO DAILY [facility] Last Admin: 04/04/17 12:31 Dose: 17 gm Potassium Chloride (K-Dur 20 Meq Tablet) 20 meq PO WB [facility] Last Admin: 02/01/18 12:30 Dose: Not Given Tamsulosin HCl (Flomax) 0.4 mg PO DAILY [facility] Last Admin: 04/04/17 12:31 Dose: Not Given Ziprasidone (Geodon) 40 mg PO BIDWM [facility] Last Admin: 04/04/17 19:07 Dose: Not Given Subjective: Patient seen and chart reviewed. Case discussed with treatment team. On interview, patient is lying in be and chanting "I don't want to go out" over and over. She does not appear in emotional distress but doesn't answer any other questions and turns away from me when I make repeated attempts at interview. Nursing staff report patient can become demanding and yell out needs at times. She has complained of not feeling well today and feeling hot. She was combative with cares and verbally resistant to meds. She can become agitated if hurried. Patient slept 6.75 hours overnight. VSS. Patient is eating well. Psychotropic PRNs required in the past 24 hours: none. Start Time: 11:00 Stop Time: 11:20 Mental Status Exam Vitals: Last Vital Signs Temp 98.6 F 04/04/17 20:00 Pulse 70 04/04/17 20:00 Resp 18 04/04/17 20:00 BP 139/83 04/04/17 20:00 Pulse Ox 92 04/04/17 20:00 Height: 1.63 m Weight: 79.7 kg - Mental Status Exam Muscle Strength/Tone: Normal Dressing: Casual Grooming: Poor Attitude: Uncooperative, Combative (at times) Motor Activity: Akathisia (possible), Restless Eye Contact: Poor Speech: Slowed Volume: Soft Rhythm: Mumbled, Paucity of Language, Perseveration (chanting today) Orientation: Disoriented to time, Disoriented to place, Disoriented to situation , Oriented to person Mood: Neutral Affect: Blunted Rate of Thoughts: Delayed Thought Organization: Perseverations (on rain, where her mother is), [place], Confused Associations: Illogical Abstract Reasoning: Impaired, concrete Thought Content: Other (Repeatedly asks if it is raining, where her mother is ( see HPI)) Perception/Psychotic: Other (Unable to assess currently - will observe) Language: Naming Impaired Fund of Knowledge: Poor fund of knowledge Memory: Poor-immediate, Poor-recent, Poor-remote Suicidal Ideation: Other (Does not answer) Homicidal Ideation: Other (Does not answer - is physically aggressive with staff , unprovoked) Insight: Impaired Judgement: Impaired Impulse Control: Poor - Laboratory Result Diagrams: 04/02/17 09:17 04/02/17 09:17 Assessment and Plan (1) Major neurocognitive disorder Problem details: with behavioral disturbance, moderate to severe Hx of Alzheimer's R/O OCD Current visit: Yes Status: Acute On admission: Continued Depakote 500mg PO BID. Plan to continue for time being, repeating VPA level once adherence has been ensured x 3 days. Luvox decreased from 100mg TID to 100mg BID. Geodon decreased from 80mg PO BID to 40mg PO BID. Mirtazapine decreased from 45mg PO q HS to 30mg PO q HS. 04/04/17: Decreased Luvox to 75mg PO BID. Continue to monitor symptoms - I am hesitant to make further changes as she has complained of not feeling well and may be some w/d symptoms due to changes in medications - however, I suspect polypharmacy was initially contributing to presentation, possibly akathisia. Would like to taper antidepressants, Geodon as much as possible and evaluate how patient does with Depakote. Monitor mood, behavior and response to treatment. Hospital Course Summary Disclaimer: The visit summary below is not to be considered part of the above Progress Note. Hospital Course: Plan - 04/02/17 (Admission) Alzheimer's disease and dementia with behavioral disturbance. - Agree with admission to [facility] under the care of Dr. Mcgrath for psychiatric evaluation and treatment. Hospitalist service consulted for medical management. - CBC, CMP and UA obtained in ED and unremarkable. Will monitor periodically throughout admission. - Prior records indicated an unwitnessed fall on 03/28/17. Would recommend obtaining CT head given behavioral changes and unwitnessed fall. - CXR in ED revealed RLL atelectasis or pneumonia. WBC stable and patient remains afebrile without symptoms. Will hold off on antibiotic treatment at this time given patient is clinically stable without symptoms. - Monitor respiratory function closely. Notify hospitalist service if fever > 100.4, HR >100, RR > 22, systolic blood pressure <90 or >180, new cough or any symptoms that are concerning. Chronic a-fib. - EKG in ED revealed normal sinus rhythm at a rate of 67. Review of medication list does not reveal current treatment of a-fib. Monitor vital signs closely. Chronic CHF. - No current medications. Monitor closely for signs of fluid over load with increasing peripheral edema (none on admission) and daily weight. GERD. - Continue home medications - Maalox PRN. If needing Maalox frequently, consider addition of Prilosec daily for GI protection and GERD. Hypothyroidism. - TSH on admission was elevated at 8.11. Review of prior medical records indicated TSH ~18 in January 2017. Patient currently on Synthryoid 137mcg daily. Unknown if dose was increased/adjusted in 01/2017 or if elevated TSH was secondary to poor medication compliance. - Will continue home Synthroid at 137mcg daily and recommend recheck TSH in 6 weeks. Osteoarthritis and chronic pain. - Tylenol as needed for fever/pain. Home pain medications included Ibuprofen, Ultram and tylenol. May consider addition of Ibuprofen for additional pain control if needed. Depression. - To be managed by Dr. Mcgrath. Provide safe and supportive environment. Constipation. - Continue home medications for bowel motivation - miralax, MOM PRN, colace BID and dulcolax PRN. Herpes simplex. - No apparent acute lesions. Abreva as needed. Insomnia. - Elopement risk due to restlessness and insomnia. PRN Ativan and Haldol per Dr. Mcgrath as indicated. History of seizure disorder. - Monitor closely for signs of seizure. May consider neurology consult to Dr. Shah if seizure occurs. History of hypokalemia. - Continue home KCl 20 mEq daily. Will monitor electrolytes periodically throughout admission. History of vitamin deficiency. - Continue home supplements. History of UTI. - Recent UTI treated on 03/20/17-03/27/17 with Macrobid. UA in ED was unremarkable with trace ketones. Monitor for symptoms. Plan - 04/03/17 Alzheimer's disease and dementia with behavioral disturbance. - Patient remains agitated and actively striking out at staff. Continue psychiatric care per Dr. Mcgrath. - CXR in ED revealed RLL atelectasis or pneumonia. WBC stable and patient remains afebrile without symptoms. Pulse ox noted to be trending down. Will discuss treatment recommendations with Dr. Pool. Unable to clinically assess due to patient's agitation. - Monitor respiratory function closely. Notify hospitalist service if fever > 100.4, HR >100, RR > 22, systolic blood pressure <90 or >180, new cough or any symptoms that are concerning. Psych On admission: Continued Depakote 500mg PO BID. Plan to continue for time being, repeating VPA level once adherence has been ensured x 3 days. Luvox decreased from 100mg TID to 100mg BID. Geodon decreased from 80mg PO BID to 40mg PO BID. Mirtazapine decreased from 45mg PO q HS to 30mg PO q HS. 04/04/17 Psych: Decreased Luvox to 75mg PO BID. Continue to monitor symptoms - I am hesitant to make further changes as she has complained of not feeling well and may be some w/d symptoms due to changes in medications - however, I suspect polypharmacy was initially contributing to presentation, possibly akathisia. Would like to taper antidepressants, Geodon as much as possible and evaluate how patient does with Depakote. Monitor mood, behavior and response to treatment.
[2017-04-04] MEDS: LORazepam 0.5 MG TABLET PO PRN (22:55)
[2017-04-05] MEDS: DOCOSANOL PO SCH ×5 (02:58→21:06)
[2017-04-05] MEDS: LEVOTHYROXINE 137 MCG TABLET PO SCH (06:25)
[2017-04-05] MEDS: FLUVOXAMINE 50 MG TABLET PO SCH ×2 (08:32→20:59)
[2017-04-05] MEDS: DOCUSATE SODIUM 100 MG CAPSULE PO SCH ×2 (08:32→21:00)
[2017-04-05] MEDS: POLYETHYL GLYCOL 3350 17gm PACKET PO SCH (08:32)
[2017-04-05] MEDS: DIVALPROEX SPRINKLE 125 MG CAPSULE PO SCH ×2 (08:32→20:59)
[2017-04-05] MEDS: TAMSULOSIN 0.4 MG CAPSULE PO SCH (08:33)
[2017-04-05] MEDS: ZIPRASIDONE 40 MG CAPSULE PO SCH ×2 (08:33→17:15)
[2017-04-05] MEDS: MIRTAZAPINE 30 MG TABLET PO SCH (21:00)
--- NOTE | 2017-04-05 21:01 | Neuropsych Progress Note ---
[facility] Subjective Date: 04/06/17 - Sujective/Severity of Illness Medications: Acetaminophen (Tylenol) 1,000 mg PO Q4H PRN PRN Reason: Pain Al Hydrox/Mg Hydrox/Simethicone (Maalox Plus "Xs") 30 ml PO Q4H PRN PRN Reason: Epigastric distress Bisacodyl (Dulcolax) 10 mg RECTALLY DAILY PRN PRN Reason: Constipation Divalproex Sodium (Depakote Sprinkle) 500 mg PO BID [facility] Last Admin: 04/05/17 08:32 Dose: 500 mg Docusate Sodium (Colace) 100 mg PO BID [facility] Last Admin: 04/05/17 08:32 Dose: 100 mg Fluvoxamine Maleate (Luvox) 75 mg PO BID [facility] Last Admin: 04/05/17 08:32 Dose: 75 mg Haloperidol (Haldol) 0.5 mg PO Q6H PRN PRN Reason: Extreme agitation Haloperidol Lactate (Haldol) 0.5 mg IM Q6H PRN PRN Reason: Extreme agitation Ibuprofen (Motrin) 600 mg PO Q8H PRN PRN Reason: Pain Levothyroxine Sodium (Synthroid) 137 mcg PO ACB [facility] Last Admin: 04/05/17 06:25 Dose: 137 mcg Lorazepam (Ativan) 0.5 mg PO Q6H PRN PRN Reason: Extreme agitation Last Admin: 04/04/17 22:55 Dose: 0.5 mg Lorazepam (Ativan Inj) 0.5 mg IM Q6H PRN PRN Reason: Extreme agitation Magnesium Hydroxide (Mom) 30 ml PO DAILY PRN PRN Reason: Constipation Last Admin: 04/04/17 16:29 Dose: 30 ml Mirtazapine (Remeron) 30 mg PO HS [facility] Last Admin: 04/04/17 20:06 Dose: 30 mg Non-Formulary Medication (Docosanol [Abreva]) 1 applicatio PO 5XD [facility] Last Admin: 04/05/17 17:11 Dose: Not Given Ondansetron HCl (Zofran Po) 4 mg PO Q6H PRN PRN Reason: Nausea &/or vomiting Polyethylene Glycol (Miralax) 17 gm PO DAILY [facility] Last Admin: 04/05/17 08:32 Dose: 17 gm Potassium Chloride (K-Dur 20 Meq Tablet) 20 meq PO WB [facility] Last Admin: 04/05/17 08:33 Dose: 20 meq Tamsulosin HCl (Flomax) 0.4 mg PO DAILY [facility] Last Admin: 04/05/17 08:33 Dose: 0.4 mg Ziprasidone (Geodon) 40 mg PO BIDWM [facility] Last Admin: 04/05/17 17:15 Dose: 40 mg Subjective: Patient seen and chart reviewed. Case discussed with treatment team. On interview, patient is coloring in dayroom and talks about not wanting to go outside, but otherwise doesn't answer any questions. She then says she wants to go back to her room but continues coloring. Nursing staff report patient has been restless at times, fearul at times, has very poor safety awareness, worries about raining, can be impulsive and was aggressive with cares (swatting). She has been adherent with medications. Patient slept 8 hours overnight. VSS. Patient is eating well. Psychotropic PRNs required in the past 24 hours: Ativan 0.5mg PO x1 at 2255. Start Time: 12:20 Stop Time: 12:40 Mental Status Exam Vitals: Last Vital Signs Temp 99.1 F 04/05/17 16:00 Pulse 79 04/05/17 16:00 Resp 16 04/05/17 16:00 BP 89/56 04/05/17 16:00 Pulse Ox 91 04/05/17 16:00 Height: 1.63 m Weight: 77.1 kg - Mental Status Exam Muscle Strength/Tone: Normal Dressing: Casual Grooming: Poor Attitude: Uncooperative, Combative (at times) Motor Activity: Akathisia (possible), Restless Eye Contact: Poor Speech: Slowed Volume: Soft Rhythm: Mumbled, Paucity of Language, Perseveration (chanting today) Orientation: Disoriented to time, Disoriented to place, Disoriented to situation , Oriented to person Mood: Neutral Affect: Anxious (at times), Blunted Rate of Thoughts: Delayed Thought Organization: Perseverations (on rain, where her mother is), [place], Confused Associations: Illogical Abstract Reasoning: Impaired, concrete Thought Content: Other (Repeatedly asks if it is raining, where her mother is ( see HPI)) Perception/Psychotic: Other (Unable to assess currently - will observe) Language: Naming Impaired Fund of Knowledge: Poor fund of knowledge Memory: Poor-immediate, Poor-recent, Poor-remote Suicidal Ideation: Other (Does not answer) Homicidal Ideation: Other (Does not answer - is physically aggressive with staff , unprovoked) Insight: Impaired Judgement: Impaired Impulse Control: Poor - Laboratory Result Diagrams: 04/02/17 09:17 04/02/17 09:17 Laboratory Results - last 24 hr 04/02/17 04/05/17 16:23 07:10 Hemoglobin A1c 5.1 Triglycerides 98 Cholesterol 188 LDL Cholesterol, Calc 120.4 VLDL Cholesterol 19.6 HDL Cholesterol 48 Cholesterol/HDL Ratio 3.9 Free T3 2.79 Assessment and Plan (1) Major neurocognitive disorder Problem details: with behavioral disturbance, moderate to severe Hx of Alzheimer's R/O OCD Current visit: Yes Status: Acute Decrease Geodon to 20mg PO BID; monitor response. Plan to check VPA level on 2 4 in AM. Hospital Course Summary Disclaimer: The visit summary below is not to be considered part of the above Progress Note. Hospital Course: Plan - 04/02/17 (Admission) Alzheimer's disease and dementia with behavioral disturbance. - Agree with admission to [facility] under the care of Dr. Mcgrath for psychiatric evaluation and treatment. Hospitalist service consulted for medical management. - CBC, CMP and UA obtained in ED and unremarkable. Will monitor periodically throughout admission. - Prior records indicated an unwitnessed fall on 03/28/17. Would recommend obtaining CT head given behavioral changes and unwitnessed fall. - CXR in ED revealed RLL atelectasis or pneumonia. WBC stable and patient remains afebrile without symptoms. Will hold off on antibiotic treatment at this time given patient is clinically stable without symptoms. - Monitor respiratory function closely. Notify hospitalist service if fever > 100.4, HR >100, RR > 22, systolic blood pressure <90 or >180, new cough or any symptoms that are concerning. Chronic a-fib. - EKG in ED revealed normal sinus rhythm at a rate of 67. Review of medication list does not reveal current treatment of a-fib. Monitor vital signs closely. Chronic CHF. - No current medications. Monitor closely for signs of fluid over load with increasing peripheral edema (none on admission) and daily weight. GERD. - Continue home medications - Maalox PRN. If needing Maalox frequently, consider addition of Prilosec daily for GI protection and GERD. Hypothyroidism. - TSH on admission was elevated at 8.11. Review of prior medical records indicated TSH ~18 in January 2017. Patient currently on Synthryoid 137mcg daily. Unknown if dose was increased/adjusted in 01/2017 or if elevated TSH was secondary to poor medication compliance. - Will continue home Synthroid at 137mcg daily and recommend recheck TSH in 6 weeks. Osteoarthritis and chronic pain. - Tylenol as needed for fever/pain. Home pain medications included Ibuprofen, Ultram and tylenol. May consider addition of Ibuprofen for additional pain control if needed. Depression. - To be managed by Dr. Mcgrath. Provide safe and supportive environment. Constipation. - Continue home medications for bowel motivation - miralax, MOM PRN, colace BID and dulcolax PRN. Herpes simplex. - No apparent acute lesions. Abreva as needed. Insomnia. - Elopement risk due to restlessness and insomnia. PRN Ativan and Haldol per Dr. Mcgrath as indicated. History of seizure disorder. - Monitor closely for signs of seizure. May consider neurology consult to Dr. Shah if seizure occurs. History of hypokalemia. - Continue home KCl 20 mEq daily. Will monitor electrolytes periodically throughout admission. History of vitamin deficiency. - Continue home supplements. History of UTI. - Recent UTI treated on 03/20/17-03/27/17 with Macrobid. UA in ED was unremarkable with trace ketones. Monitor for symptoms. Plan - 04/03/17 Alzheimer's disease and dementia with behavioral disturbance. - Patient remains agitated and actively striking out at staff. Continue psychiatric care per Dr. Mcgrath. - CXR in ED revealed RLL atelectasis or pneumonia. WBC stable and patient remains afebrile without symptoms. Pulse ox noted to be trending down. Will discuss treatment recommendations with Dr. Pool. Unable to clinically assess due to patient's agitation. - Monitor respiratory function closely. Notify hospitalist service if fever > 100.4, HR >100, RR > 22, systolic blood pressure <90 or >180, new cough or any symptoms that are concerning. Psych On admission: Continued Depakote 500mg PO BID. Plan to continue for time being, repeating VPA level once adherence has been ensured x 3 days. Luvox decreased from 100mg TID to 100mg BID. Geodon decreased from 80mg PO BID to 40mg PO BID. Mirtazapine decreased from 45mg PO q HS to 30mg PO q HS. 04/04/17 Psych: Decreased Luvox to 75mg PO BID. Continue to monitor symptoms - I am hesitant to make further changes as she has complained of not feeling well and may be some w/d symptoms due to changes in medications - however, I suspect polypharmacy was initially contributing to presentation, possibly akathisia. Would like to taper antidepressants, Geodon as much as possible and evaluate how patient does with Depakote. Monitor mood, behavior and response to treatment. 04/05/17 Psych: Decrease Geodon to 20mg PO BID; monitor response. Plan to check VPA level on 04/07 in AM.
[2017-04-05] MEDS ORDERED: ZIPRASIDONE 40 MG CAPSULE PO SCH (21:02)
[2017-04-05] MEDS: ACETAMINOPHEN 500 MG TABLET PO PRN (21:02)
[2017-04-05] MEDS: LORazepam 0.5 MG TABLET PO PRN (22:58)
[2017-04-06] MEDS: LEVOTHYROXINE 137 MCG TABLET PO SCH (06:58)
[2017-04-06] MEDS: DIVALPROEX SPRINKLE 125 MG CAPSULE PO SCH ×2 (08:20→20:27)
[2017-04-06] MEDS: ZIPRASIDONE 20 MG CAPSULE PO SCH ×2 (08:20→17:33)
[2017-04-06] MEDS: FLUVOXAMINE 50 MG TABLET PO SCH ×2 (08:21→22:39)
[2017-04-06] MEDS: DOCUSATE SODIUM 100 MG CAPSULE PO SCH ×2 (08:21→20:28)
[2017-04-06] MEDS: IBUPROFEN 600 MG TABLET PO PRN ×2 (08:21→17:33)
[2017-04-06] MEDS: TAMSULOSIN 0.4 MG CAPSULE PO SCH (08:22)
[2017-04-06] MEDS: DOCOSANOL PO SCH ×5 (08:23→22:28)
[2017-04-06] MEDS: POLYETHYL GLYCOL 3350 17gm PACKET PO SCH (08:23)
--- NOTE | 2017-04-06 11:13 | Neuropsych Progress Note ---
[facility] Subjective Date: 04/06/17 - Sujective/Severity of Illness Medications: Acetaminophen (Tylenol) 1,000 mg PO Q4H PRN PRN Reason: Pain Last Admin: 04/05/17 21:02 Dose: 1,000 mg Al Hydrox/Mg Hydrox/Simethicone (Maalox Plus "Xs") 30 ml PO Q4H PRN PRN Reason: Epigastric distress Bisacodyl (Dulcolax) 10 mg RECTALLY DAILY PRN PRN Reason: Constipation Divalproex Sodium (Depakote Sprinkle) 500 mg PO BID [facility] Last Admin: 04/06/17 08:20 Dose: 500 mg Docusate Sodium (Colace) 100 mg PO BID [facility] Last Admin: 04/06/17 08:21 Dose: 100 mg Fluvoxamine Maleate (Luvox) 75 mg PO BID [facility] Last Admin: 04/06/17 08:21 Dose: 75 mg Haloperidol (Haldol) 0.5 mg PO Q6H PRN PRN Reason: Extreme agitation Haloperidol Lactate (Haldol) 0.5 mg IM Q6H PRN PRN Reason: Extreme agitation Ibuprofen (Motrin) 600 mg PO Q8H PRN PRN Reason: Pain Last Admin: 04/06/17 08:21 Dose: 600 mg Levothyroxine Sodium (Synthroid) 137 mcg PO ACB [facility] Last Admin: 04/06/17 06:58 Dose: 137 mcg Lorazepam (Ativan) 0.5 mg PO Q6H PRN PRN Reason: Extreme agitation Last Admin: 04/05/17 22:58 Dose: 0.5 mg Lorazepam (Ativan Inj) 0.5 mg IM Q6H PRN PRN Reason: Extreme agitation Magnesium Hydroxide (Mom) 30 ml PO DAILY PRN PRN Reason: Constipation Last Admin: 04/04/17 16:29 Dose: 30 ml Mirtazapine (Remeron) [address] [facility] Last Admin: 04/05/17 21:00 Dose: 30 mg Non-Formulary Medication (Docosanol [Abreva]) 1 applicatio PO 5XD [facility] Last Admin: 04/06/17 08:23 Dose: Not Given Ondansetron HCl (Zofran Po) 4 mg PO Q6H PRN PRN Reason: Nausea &/or vomiting Polyethylene Glycol (Miralax) 17 gm PO DAILY [facility] Last Admin: 04/06/17 08:23 Dose: Not Given Potassium Chloride (K-Dur 20 Meq Tablet) 20 meq PO WB [facility] Last Admin: 04/06/17 08:20 Dose: 20 meq Tamsulosin HCl (Flomax) 0.4 mg PO DAILY [facility] Last Admin: 04/06/17 08:22 Dose: 0.4 mg Ziprasidone (Geodon) 20 mg PO BIDWM [facility] Last Admin: 04/06/17 08:20 Dose: 20 mg Subjective: Patient seen and chart reviewed. Nursing reports pt is doing a little better. She remains confused and impulsive. She received Ativan at 2258 for aggression and striking at staff. Slept well. On face to face the pt is seen lying in bed. She thinks she is 11 years old and asks where her mom is. She repeats "Where am I going" no matter what is asked. She denies any pain. Tolerating meds Start Time: 10:30 Stop Time: 10:45 Mental Status Exam Vitals: Last Vital Signs Temp 98.4 F 04/06/17 08:00 Pulse 71 04/06/17 08:00 Resp 20 04/06/17 08:00 BP 121/75 04/06/17 08:00 Pulse Ox 95 04/06/17 08:00 Height: 1.63 m Weight: 77.1 kg - Mental Status Exam Muscle Strength/Tone: Normal Dressing: Casual Grooming: Poor Attitude: Uncooperative, Combative (at times) Motor Activity: Akathisia (possible), Restless Eye Contact: Poor Speech: Slowed Volume: Soft Rhythm: Mumbled, Paucity of Language, Perseveration (chanting today) Orientation: Disoriented to time, Disoriented to place, Disoriented to situation , Oriented to person Mood: Neutral Rate of Thoughts: Delayed Thought Organization: Perseverations (on rain, where her mother is), [place], Confused Associations: Illogical Abstract Reasoning: Impaired, concrete Thought Content: Other (Repeatedly asks if it is raining, where her mother is ( see HPI)) Perception/Psychotic: Other (Unable to assess currently - will observe) Language: Naming Impaired Fund of Knowledge: Poor fund of knowledge Memory: Poor-immediate, Poor-recent, Poor-remote Suicidal Ideation: Other (Does not answer) Homicidal Ideation: Other (Does not answer - is physically aggressive with staff , unprovoked) Insight: Impaired Judgement: Impaired Impulse Control: Poor - Laboratory Result Diagrams: 04/02/17 09:17 04/02/17 09:17 Laboratory Results - last 24 hr 04/06/17 07:06 Valproic Acid 45.6 L Assessment and Plan (1) Major neurocognitive disorder Problem details: with behavioral disturbance, moderate to severe Hx of Alzheimer's R/O OCD Current visit: Yes Status: Acute Hospital Course Summary Disclaimer: The visit summary below is not to be considered part of the above Progress Note. Hospital Course: Plan - 04/02/17 (Admission) Alzheimer's disease and dementia with behavioral disturbance. - Agree with admission to [facility] under the care of Dr. Mcgrath for psychiatric evaluation and treatment. Hospitalist service consulted for medical management. - CBC, CMP and UA obtained in ED and unremarkable. Will monitor periodically throughout admission. - Prior records indicated an unwitnessed fall on 03/28/17. Would recommend obtaining CT head given behavioral changes and unwitnessed fall. - CXR in ED revealed RLL atelectasis or pneumonia. WBC stable and patient remains afebrile without symptoms. Will hold off on antibiotic treatment at this time given patient is clinically stable without symptoms. - Monitor respiratory function closely. Notify hospitalist service if fever > 100.4, HR >100, RR > 22, systolic blood pressure <90 or >180, new cough or any symptoms that are concerning. Chronic a-fib. - EKG in ED revealed normal sinus rhythm at a rate of 67. Review of medication list does not reveal current treatment of a-fib. Monitor vital signs closely. Chronic CHF. - No current medications. Monitor closely for signs of fluid over load with increasing peripheral edema (none on admission) and daily weight. GERD. - Continue home medications - Maalox PRN. If needing Maalox frequently, consider addition of Prilosec daily for GI protection and GERD. Hypothyroidism. - TSH on admission was elevated at 8.11. Review of prior medical records indicated TSH ~18 in January 2017. Patient currently on Synthryoid 137mcg daily. Unknown if dose was increased/adjusted in 01/2017 or if elevated TSH was secondary to poor medication compliance. - Will continue home Synthroid at 137mcg daily and recommend recheck TSH in 6 weeks. Osteoarthritis and chronic pain. - Tylenol as needed for fever/pain. Home pain medications included Ibuprofen, Ultram and tylenol. May consider addition of Ibuprofen for additional pain control if needed. Depression. - To be managed by Dr. Mcgrath. Provide safe and supportive environment. Constipation. - Continue home medications for bowel motivation - miralax, MOM PRN, colace BID and dulcolax PRN. Herpes simplex. - No apparent acute lesions. Abreva as needed. Insomnia. - Elopement risk due to restlessness and insomnia. PRN Ativan and Haldol per Dr. Mcgrath as indicated. History of seizure disorder. - Monitor closely for signs of seizure. May consider neurology consult to Dr. Shah if seizure occurs. History of hypokalemia. - Continue home KCl 20 mEq daily. Will monitor electrolytes periodically throughout admission. History of vitamin deficiency. - Continue home supplements. History of UTI. - Recent UTI treated on 03/20/17-03/27/17 with Macrobid. UA in ED was unremarkable with trace ketones. Monitor for symptoms. Plan - 04/03/17 Alzheimer's disease and dementia with behavioral disturbance. - Patient remains agitated and actively striking out at staff. Continue psychiatric care per Dr. Mcgrath. - CXR in ED revealed RLL atelectasis or pneumonia. WBC stable and patient remains afebrile without symptoms. Pulse ox noted to be trending down. Will discuss treatment recommendations with Dr. Pool. Unable to clinically assess due to patient's agitation. - Monitor respiratory function closely. Notify hospitalist service if fever > 100.4, HR >100, RR > 22, systolic blood pressure <90 or >180, new cough or any symptoms that are concerning. Psych On admission: Continued Depakote 500mg PO BID. Plan to continue for time being, repeating VPA level once adherence has been ensured x 3 days. Luvox decreased from 100mg TID to 100mg BID. Geodon decreased from 80mg PO BID to 40mg PO BID. Mirtazapine decreased from 45mg PO q HS to 30mg PO q HS. 04/04/17 Psych: Decreased Luvox to 75mg PO BID. Continue to monitor symptoms - I am hesitant to make further changes as she has complained of not feeling well and may be some w/d symptoms due to changes in medications - however, I suspect polypharmacy was initially contributing to presentation, possibly akathisia. Would like to taper antidepressants, Geodon as much as possible and evaluate how patient does with Depakote. Monitor mood, behavior and response to treatment. 04/06/17 Pt remains confused and agitated at times. Will continue current care for now
[2017-04-06] MEDS: ACETAMINOPHEN 500 MG TABLET PO PRN ×2 (12:38→20:26)
[2017-04-06] MEDS: LORazepam 0.5 MG TABLET PO PRN (20:26)
[2017-04-06] MEDS: MIRTAZAPINE 30 MG TABLET PO SCH (20:27)
[2017-04-06] MEDS: HALOPERIDOL 0.5 MG TABLET PO PRN (22:50)
[2017-04-07] MEDS: DIVALPROEX SPRINKLE 125 MG CAPSULE PO SCH ×2 (08:16→20:28)
[2017-04-07] MEDS: DOCUSATE SODIUM 100 MG CAPSULE PO SCH ×2 (08:17→20:27)
[2017-04-07] MEDS: LEVOTHYROXINE 137 MCG TABLET PO SCH (08:17)
[2017-04-07] MEDS: TAMSULOSIN 0.4 MG CAPSULE PO SCH (08:17)
[2017-04-07] MEDS: FLUVOXAMINE 50 MG TABLET PO SCH ×2 (08:17→20:27)
[2017-04-07] MEDS: ZIPRASIDONE 20 MG CAPSULE PO SCH ×2 (08:17→17:11)
[2017-04-07] MEDS: DOCOSANOL PO SCH ×5 (08:20→20:28)
[2017-04-07] MEDS: POLYETHYL GLYCOL 3350 17gm PACKET PO SCH (08:21)
[2017-04-07] MEDS: HALOPERIDOL 0.5 MG TABLET PO PRN (08:34)
[2017-04-07] MEDS: LORazepam 0.5 MG TABLET PO PRN ×2 (08:34→20:28)
--- NOTE | 2017-04-07 13:44 | Neuropsych Progress Note ---
Huong Subjective Date: 04/07/17 - Sujective/Severity of Illness Medications: Acetaminophen (Tylenol) 1,000 mg PO Q4H PRN PRN Reason: Pain Last Admin: 04/06/17 20:26 Dose: 1,000 mg Al Hydrox/Mg Hydrox/Simethicone (Maalox Plus "Xs") 30 ml PO Q4H PRN PRN Reason: Epigastric distress Bisacodyl (Dulcolax) 10 mg RECTALLY DAILY PRN PRN Reason: Constipation Divalproex Sodium (Depakote Sprinkle) 500 mg PO BID [facility] Last Admin: 04/07/17 08:16 Dose: 500 mg Docusate Sodium (Colace) 100 mg PO BID [facility] Last Admin: 04/07/17 08:17 Dose: 100 mg Fluvoxamine Maleate (Luvox) 75 mg PO BID [facility] Last Admin: 04/07/17 08:17 Dose: 75 mg Haloperidol (Haldol) 0.5 mg PO Q6H PRN PRN Reason: Extreme agitation Last Admin: 04/07/17 08:34 Dose: 0.5 mg Haloperidol Lactate (Haldol) 0.5 mg IM Q6H PRN PRN Reason: Extreme agitation Ibuprofen (Motrin) 600 mg PO Q8H PRN PRN Reason: Pain Last Admin: 04/06/17 17:33 Dose: 600 mg Levothyroxine Sodium (Synthroid) 137 mcg PO ACB [facility] Last Admin: 04/07/17 08:17 Dose: 137 mcg Lorazepam (Ativan) 0.5 mg PO Q6H PRN PRN Reason: Extreme agitation Last Admin: 04/07/17 08:34 Dose: 0.5 mg Lorazepam (Ativan Inj) 0.5 mg IM Q6H PRN PRN Reason: Extreme agitation Magnesium Hydroxide (Mom) 30 ml PO DAILY PRN PRN Reason: Constipation Last Admin: 04/04/17 16:29 Dose: 30 ml Mirtazapine (Remeron) 30 mg PO [facility] Last Admin: 04/06/17 20:27 Dose: 30 mg Non-Formulary Medication (Docosanol [Abreva]) 1 applicatio PO 5XD [facility] Last Admin: 04/07/17 12:54 Dose: Not Given Ondansetron HCl (Zofran Po) 4 mg PO Q6H PRN PRN Reason: Nausea &/or vomiting Polyethylene Glycol (Miralax) 17 gm PO DAILY [facility] Last Admin: 04/07/17 08:21 Dose: 17 gm Potassium Chloride (K-Dur 20 Meq Tablet) 20 meq PO WB [facility] Last Admin: 04/07/17 08:17 Dose: 20 meq Tamsulosin HCl (Flomax) 0.4 mg PO DAILY [facility] Last Admin: 04/07/17 08:17 Dose: 0.4 mg Ziprasidone (Geodon) 20 mg PO BIDWM [facility] Last Admin: 04/07/17 08:17 Dose: 20 mg Subjective: Patient seen and chart reviewed. Nursing reports pt received Ativan and Haldol this AM for agitation. Pt is sleeping well and has a good appetite. On face to face the pt is pleasant butt confused. She repeats "where are we going" and is not able to respond appropriately to questions. She does not appear to be in distress. Tolerating meds Start Time: 11:00 Stop Time: 11:15 Mental Status Exam Vitals: Last Vital Signs Temp 97.1 F 04/07/17 08:00 Pulse 82 04/07/17 08:00 Resp 22 04/07/17 08:00 BP 134/93 H 04/07/17 08:00 Pulse Ox 94 04/07/17 08:00 Height: 1.63 m Weight: 77.1 kg - Mental Status Exam Muscle Strength/Tone: Normal Dressing: Casual Grooming: Poor Attitude: Uncooperative, Combative (at times) Motor Activity: Akathisia (possible), Restless Eye Contact: Poor Speech: Slowed Volume: Soft Rhythm: Mumbled, Paucity of Language, Perseveration (chanting today) Orientation: Disoriented to time, Disoriented to place, Disoriented to situation , Oriented to person Mood: Neutral Rate of Thoughts: Delayed Thought Organization: Perseverations (on rain, where her mother is), [place], Confused Associations: Illogical Abstract Reasoning: Impaired, concrete Thought Content: Other (Repeatedly asks if it is raining, where her mother is ( see HPI)) Perception/Psychotic: Other (Unable to assess currently - will observe) Language: Naming Impaired Fund of Knowledge: Poor fund of knowledge Memory: Poor-immediate, Poor-recent, Poor-remote Suicidal Ideation: Other (Does not answer) Homicidal Ideation: Other (Does not answer - is physically aggressive with staff , unprovoked) Insight: Impaired Judgement: Impaired Impulse Control: Poor - Laboratory Result Diagrams: 04/02/17 09:17 04/02/17 09:17 Assessment and Plan (1) Major neurocognitive disorder Problem details: with behavioral disturbance, moderate to severe Hx of Alzheimer's R/O OCD Current visit: Yes Status: Acute Hospital Course Summary Disclaimer: The visit summary below is not to be considered part of the above Progress Note. Hospital Course: Plan - 04/02/17 (Admission) Alzheimer's disease and dementia with behavioral disturbance. - Agree with admission to [facility] under the care of Dr. Mcgrath for psychiatric evaluation and treatment. Hospitalist service consulted for medical management. - CBC, CMP and UA obtained in ED and unremarkable. Will monitor periodically throughout admission. - Prior records indicated an unwitnessed fall on 03/28/17. Would recommend obtaining CT head given behavioral changes and unwitnessed fall. - CXR in ED revealed RLL atelectasis or pneumonia. WBC stable and patient remains afebrile without symptoms. Will hold off on antibiotic treatment at this time given patient is clinically stable without symptoms. - Monitor respiratory function closely. Notify hospitalist service if fever > 100.4, HR >100, RR > 22, systolic blood pressure <90 or >180, new cough or any symptoms that are concerning. Chronic a-fib. - EKG in ED revealed normal sinus rhythm at a rate of 67. Review of medication list does not reveal current treatment of a-fib. Monitor vital signs closely. Chronic CHF. - No current medications. Monitor closely for signs of fluid over load with increasing peripheral edema (none on admission) and daily weight. GERD. - Continue home medications - Maalox PRN. If needing Maalox frequently, consider addition of Prilosec daily for GI protection and GERD. Hypothyroidism. - TSH on admission was elevated at 8.11. Review of prior medical records indicated TSH ~18 in January 2017. Patient currently on Synthryoid 137mcg daily. Unknown if dose was increased/adjusted in 01/2017 or if elevated TSH was secondary to poor medication compliance. - Will continue home Synthroid at 137mcg daily and recommend recheck TSH in 6 weeks. Osteoarthritis and chronic pain. - Tylenol as needed for fever/pain. Home pain medications included Ibuprofen, Ultram and tylenol. May consider addition of Ibuprofen for additional pain control if needed. Depression. - To be managed by Dr. Mcgrath. Provide safe and supportive environment. Constipation. - Continue home medications for bowel motivation - miralax, MOM PRN, colace BID and dulcolax PRN. Herpes simplex. - No apparent acute lesions. Abreva as needed. Insomnia. - Elopement risk due to restlessness and insomnia. PRN Ativan and Haldol per Dr. Mcgrath as indicated. History of seizure disorder. - Monitor closely for signs of seizure. May consider neurology consult to Dr. Shah if seizure occurs. History of hypokalemia. - Continue home KCl 20 mEq daily. Will monitor electrolytes periodically throughout admission. History of vitamin deficiency. - Continue home supplements. History of UTI. - Recent UTI treated on 03/20/17-03/27/17 with Macrobid. UA in ED was unremarkable with trace ketones. Monitor for symptoms. Plan - 04/03/17 Alzheimer's disease and dementia with behavioral disturbance. - Patient remains agitated and actively striking out at staff. Continue psychiatric care per Dr. Mcgrath. - CXR in ED revealed RLL atelectasis or pneumonia. WBC stable and patient remains afebrile without symptoms. Pulse ox noted to be trending down. Will discuss treatment recommendations with Dr. Pool. Unable to clinically assess due to patient's agitation. - Monitor respiratory function closely. Notify hospitalist service if fever > 100.4, HR >100, RR > 22, systolic blood pressure <90 or >180, new cough or any symptoms that are concerning. Psych On admission: Continued Depakote 500mg PO BID. Plan to continue for time being, repeating VPA level once adherence has been ensured x 3 days. Luvox decreased from 100mg TID to 100mg BID. Geodon decreased from 80mg PO BID to 40mg PO BID. Mirtazapine decreased from 45mg PO q HS to 30mg PO q HS. 04/04/17 Psych: Decreased Luvox to 75mg PO BID. Continue to monitor symptoms - I am hesitant to make further changes as she has complained of not feeling well and may be some w/d symptoms due to changes in medications - however, I suspect polypharmacy was initially contributing to presentation, possibly akathisia. Would like to taper antidepressants, Geodon as much as possible and evaluate how patient does with Depakote. Monitor mood, behavior and response to treatment. 04/05/17 Psych: Decrease Geodon to 20mg PO BID; monitor response. Plan to check VPA level on 04/07 in AM. 04/07/17 Remains impulsive at times. Continue current care
[2017-04-07] MEDS ORDERED: HALOPERIDOL 5 MG/ML INJECTION IM ONE (15:36)
[2017-04-07] MEDS: MIRTAZAPINE 30 MG TABLET PO SCH (20:27)
[2017-04-07] MEDS ORDERED: OLANZapine ODT 5 MG TABLET PO ONE (22:13)
[2017-04-08] MEDS: TAMSULOSIN 0.4 MG CAPSULE PO SCH (10:41)
[2017-04-08] MEDS: LEVOTHYROXINE 137 MCG TABLET PO SCH (10:41)
[2017-04-08] MEDS: FLUVOXAMINE 50 MG TABLET PO SCH ×3 (10:42→22:07)
[2017-04-08] MEDS: DIVALPROEX SPRINKLE 125 MG CAPSULE PO SCH ×3 (10:42→22:07)
[2017-04-08] MEDS: ZIPRASIDONE 20 MG CAPSULE PO SCH (10:43)
[2017-04-08] MEDS: POLYETHYL GLYCOL 3350 17gm PACKET PO SCH (10:43)
[2017-04-08] MEDS: DOCUSATE SODIUM 100 MG CAPSULE PO SCH ×2 (10:43→22:07)
--- NOTE | 2017-04-08 14:04 | Neuropsych Progress Note ---
Huong Subjective Date: 04/08/17 - Sujective/Severity of Illness Medications: Acetaminophen (Tylenol) 1,000 mg PO Q4H PRN PRN Reason: Pain Last Admin: 04/06/17 20:26 Dose: 1,000 mg Al Hydrox/Mg Hydrox/Simethicone (Maalox Plus "Xs") 30 ml PO Q4H PRN PRN Reason: Epigastric distress Bisacodyl (Dulcolax) 10 mg RECTALLY DAILY PRN PRN Reason: Constipation Divalproex Sodium (Depakote Sprinkle) 500 mg PO BID [facility] Last Admin: 04/08/17 10:42 Dose: 500 mg Docusate Sodium (Colace) 100 mg PO BID [facility] Last Admin: 04/08/17 10:43 Dose: 100 mg Fluvoxamine Maleate (Luvox) 75 mg PO BID [facility] Last Admin: 04/08/17 10:42 Dose: 75 mg Haloperidol (Haldol) 0.5 mg PO Q6H PRN PRN Reason: Extreme agitation Last Admin: 04/07/17 08:34 Dose: 0.5 mg Haloperidol Lactate (Haldol) 0.5 mg IM Q6H PRN PRN Reason: Extreme agitation Last Admin: 04/07/17 15:18 Dose: 0.5 mg Ibuprofen (Motrin) 600 mg PO Q8H PRN PRN Reason: Pain Last Admin: 04/06/17 17:33 Dose: 600 mg Levothyroxine Sodium (Synthroid) 137 mcg PO ACB [facility] Last Admin: 04/08/17 10:41 Dose: 137 mcg Lorazepam (Ativan) 0.5 mg PO Q6H PRN PRN Reason: Extreme agitation Last Admin: 04/07/17 20:28 Dose: 0.5 mg Lorazepam (Ativan Inj) 0.5 mg IM Q6H PRN PRN Reason: Extreme agitation Magnesium Hydroxide (Mom) 30 ml PO DAILY PRN PRN Reason: Constipation Last Admin: 04/04/17 16:29 Dose: 30 ml Mirtazapine (Remeron) 30 mg PO HS [facility] Last Admin: 04/07/17 20:27 Dose: 30 mg Ondansetron HCl (Zofran Po) 4 mg PO Q6H PRN PRN Reason: Nausea &/or vomiting Polyethylene Glycol (Miralax) 17 gm PO DAILY [facility] Last Admin: 04/08/17 10:43 Dose: 17 gm Potassium Chloride (K-Dur 20 Meq Tablet) 20 meq PO WB [facility] Last Admin: 04/08/17 10:43 Dose: 20 meq Tamsulosin HCl (Flomax) 0.4 mg PO DAILY [facility] Last Admin: 04/08/17 10:41 Dose: 0.4 mg Ziprasidone (Geodon) 20 mg PO BIDWM [facility] Last Admin: 04/08/17 10:43 Dose: 20 mg Subjective: Patient seen and chart reviewed. Case discussed with treatment team. On interview, patient is returning to bed after breakfast. She states, "I don't like to be cold" repeatedly and doesn't answer other questions directly. Nursing staff report patient was aggressive with staff on 04/07, requiring multiple PRNs. Zyprexa Zydis 5mg PO was helpful in decreasing aggression. Patient has been adherent with medications. Patient slept 7.5 hours overnight. VSS. Patient is eating well. Start Time: 09:20 Stop Time: 09:40 Mental Status Exam Vitals: Last Vital Signs Temp 97.2 F 04/08/17 09:09 Pulse 87 04/08/17 08:46 Resp 16 04/07/17 20:29 BP 110/79 04/08/17 08:46 Pulse Ox 96 04/07/17 20:29 Height: 1.63 m Weight: 77.1 kg - Mental Status Exam Muscle Strength/Tone: Normal Dressing: Casual Grooming: Poor Attitude: Uncooperative, Combative (at times) Motor Activity: Akathisia (possible), Restless Eye Contact: Poor Speech: Slowed Volume: Soft Rhythm: Mumbled, Paucity of Language Orientation: Disoriented to time, Disoriented to place, Disoriented to situation , Oriented to person Mood: Neutral Affect: Blunted (can be labile) Rate of Thoughts: Delayed Thought Organization: Disorganized, [place], Confused Associations: Illogical Abstract Reasoning: Impaired, concrete Thought Content: Other (Repeatedly asks if it is raining, where her mother is ( see HPI)) Perception/Psychotic: Perception Normal Language: Naming Impaired Fund of Knowledge: Poor fund of knowledge Memory: Poor-immediate, Poor-recent, Poor-remote Suicidal Ideation: None Homicidal Ideation: None Insight: Impaired Judgement: Impaired Impulse Control: Poor - Laboratory Result Diagrams: 04/02/17 09:17 04/02/17 09:17 Assessment and Plan (1) Major neurocognitive disorder Problem details: with behavioral disturbance, moderate to severe Hx of Alzheimer's R/O OCD Current visit: Yes Status: Acute Will discuss the following with family: Switching antipsychotic from Geodon to Zyprexa (5mg at HS) as it was helpful clinically. Willl also increase Depakote DR to 250mg PO q AM and 500mg PO q HS. Hospital Course Summary Disclaimer: The visit summary below is not to be considered part of the above Progress Note. Hospital Course: Plan - 04/02/17 (Admission) Alzheimer's disease and dementia with behavioral disturbance. - Agree with admission to [facility] under the care of Dr. Mcgrath for psychiatric evaluation and treatment. Hospitalist service consulted for medical management. - CBC, CMP and UA obtained in ED and unremarkable. Will monitor periodically throughout admission. - Prior records indicated an unwitnessed fall on 03/28/17. Would recommend obtaining CT head given behavioral changes and unwitnessed fall. - CXR in ED revealed RLL atelectasis or pneumonia. WBC stable and patient remains afebrile without symptoms. Will hold off on antibiotic treatment at this time given patient is clinically stable without symptoms. - Monitor respiratory function closely. Notify hospitalist service if fever > 100.4, HR >100, RR > 22, systolic blood pressure <90 or >180, new cough or any symptoms that are concerning. Chronic a-fib. - EKG in ED revealed normal sinus rhythm at a rate of 67. Review of medication list does not reveal current treatment of a-fib. Monitor vital signs closely. Chronic CHF. - No current medications. Monitor closely for signs of fluid over load with increasing peripheral edema (none on admission) and daily weight. GERD. - Continue home medications - Maalox PRN. If needing Maalox frequently, consider addition of Prilosec daily for GI protection and GERD. Hypothyroidism. - TSH on admission was elevated at 8.11. Review of prior medical records indicated TSH ~18 in January 2017. Patient currently on Synthryoid 137mcg daily. Unknown if dose was increased/adjusted in 01/2017 or if elevated TSH was secondary to poor medication compliance. - Will continue home Synthroid at 137mcg daily and recommend recheck TSH in 6 weeks. Osteoarthritis and chronic pain. - Tylenol as needed for fever/pain. Home pain medications included Ibuprofen, Ultram and tylenol. May consider addition of Ibuprofen for additional pain control if needed. Depression. - To be managed by Dr. Mcgrath. Provide safe and supportive environment. Constipation. - Continue home medications for bowel motivation - miralax, MOM PRN, colace BID and dulcolax PRN. Herpes simplex. - No apparent acute lesions. Abreva as needed. Insomnia. - Elopement risk due to restlessness and insomnia. PRN Ativan and Haldol per Dr. Mcgrath as indicated. History of seizure disorder. - Monitor closely for signs of seizure. May consider neurology consult to Dr. Shah if seizure occurs. History of hypokalemia. - Continue home KCl 20 mEq daily. Will monitor electrolytes periodically throughout admission. History of vitamin deficiency. - Continue home supplements. History of UTI. - Recent UTI treated on 03/20/17-03/27/17 with Macrobid. UA in ED was unremarkable with trace ketones. Monitor for symptoms. Plan - 04/03/17 Alzheimer's disease and dementia with behavioral disturbance. - Patient remains agitated and actively striking out at staff. Continue psychiatric care per Dr. Mcgrath. - CXR in ED revealed RLL atelectasis or pneumonia. WBC stable and patient remains afebrile without symptoms. Pulse ox noted to be trending down. Will discuss treatment recommendations with Dr. Pool. Unable to clinically assess due to patient's agitation. - Monitor respiratory function closely. Notify hospitalist service if fever > 100.4, HR >100, RR > 22, systolic blood pressure <90 or >180, new cough or any symptoms that are concerning. Psych On admission: Continued Depakote 500mg PO BID. Plan to continue for time being, repeating VPA level once adherence has been ensured x 3 days. Luvox decreased from 100mg TID to 100mg BID. Geodon decreased from 80mg PO BID to 40mg PO BID. Mirtazapine decreased from 45mg PO q HS to 30mg PO q HS. 04/04/17 Psych: Decreased Luvox to 75mg PO BID. Continue to monitor symptoms - I am hesitant to make further changes as she has complained of not feeling well and may be some w/d symptoms due to changes in medications - however, I suspect polypharmacy was initially contributing to presentation, possibly akathisia. Would like to taper antidepressants, Geodon as much as possible and evaluate how patient does with Depakote. Monitor mood, behavior and response to treatment. 04/05/17 Psych: Decrease Geodon to 20mg PO BID; monitor response. Plan to check VPA level on 04/07 in AM. 04/07/17 Remains impulsive at times. Continue current care. 04/08/17 Psych: Will discuss the following with family: Switching antipsychotic from Geodon to Zyprexa (5mg at HS) as it was helpful clinically. Willl also increase Depakote DR to 250mg PO q AM and 500mg PO q HS.
--- NOTE | 2017-04-08 16:21 | Progress Note ---
- Date 04/08/17 Subjective: Patient is seen today eating breakfast. When trying to talk to her or examine her she screams "leave me alone!" She then got up from the table and walked off. Nursing staff called later this afternoon stating that she had a blood pressure of 80/50 and pulse 103. She is completely asymptomatic. Objective Vital signs: Temperature 96.9 F 04/08/17 15:19 Pulse Rate 103 H 04/08/17 15:19 Respiratory Rate 18 04/08/17 15:19 Blood Pressure 80/50 04/08/17 15:19 Pulse Oximetry 95 04/08/17 15:19 Height/Weight/BMI: Height 1.63 m Weight 77.1 kg Body Mass Index 29.8 - Constitutional Present: well nourished, well developed, agitated - Routine HEENT Exam Head: Present: normocephalic, atraumatic - Routine Respiratory Exam Present: CTA bilaterally. Absent: wheezes - Routine Extremities Exam Present: no edema - Routine Skin Exam Present: dry, warm - Routine Neurological Exam Present: alert. Absent: oriented X3 - Routine Lymphatic Exam Lymphatic: Absent: adenopathy - Routine Psychiatric Exam Present: agitated. Absent: cooperative Results - Labs CBC & Chem 7: 04/02/17 09:17 04/02/17 09:17 Assessment and Plan (1) Dementia with behavioral disturbance Current visit: Yes Status: Acute Assessment and Plan: Assessment Dementia with behavioral disturbance. Alzheimer's disease. Chronic a-fib. CHF. GERD. Hypothyroidism. Osteoarthritis. Chronic pain. Depression. Overweight, BMI 29.8. Constipation. Herpes simplex. Insomnia. Osteoporosis. History of seizure disorder. History of hypokalemia. History of vitamin deficiency. History of UTI - treated on 03/20/17-03/27/17 with Macrobid. Plan Reviewed vital signs, lab, nurse's notes, and psychiatric note. Repeat vitals were 109/65 and pulse 97. Will continue to monitor. Her TSH was elevated, plan is to continue her current dosage and follow-up with repeat TSH in 4-6 weeks per previous note. - Physician Narrative Narrative: Date: 04/08/17 Time: 1618 Hospital Course Summary Disclaimer: The visit summary below is not to be considered part of the above Progress Note. Hospital Course: Plan - 04/02/17 (Admission) Alzheimer's disease and dementia with behavioral disturbance. - Agree with admission to [facility] under the care of Dr. Mcgrath for psychiatric evaluation and treatment. Hospitalist service consulted for medical management. - CBC, CMP and UA obtained in ED and unremarkable. Will monitor periodically throughout admission. - Prior records indicated an unwitnessed fall on 03/28/17. Would recommend obtaining CT head given behavioral changes and unwitnessed fall. - CXR in ED revealed RLL atelectasis or pneumonia. WBC stable and patient remains afebrile without symptoms. Will hold off on antibiotic treatment at this time given patient is clinically stable without symptoms. - Monitor respiratory function closely. Notify hospitalist service if fever > 100.4, HR >100, RR > 22, systolic blood pressure <90 or >180, new cough or any symptoms that are concerning. Chronic a-fib. - EKG in ED revealed normal sinus rhythm at a rate of 67. Review of medication list does not reveal current treatment of a-fib. Monitor vital signs closely. Chronic CHF. - No current medications. Monitor closely for signs of fluid over load with increasing peripheral edema (none on admission) and daily weight. GERD. - Continue home medications - Maalox PRN. If needing Maalox frequently, consider addition of Prilosec daily for GI protection and GERD. Hypothyroidism. - TSH on admission was elevated at 8.11. Review of prior medical records indicated TSH ~18 in January 2017. Patient currently on Synthryoid 137mcg daily. Unknown if dose was increased/adjusted in 01/2017 or if elevated TSH was secondary to poor medication compliance. - Will continue home Synthroid at 137mcg daily and recommend recheck TSH in 6 weeks. Osteoarthritis and chronic pain. - Tylenol as needed for fever/pain. Home pain medications included Ibuprofen, Ultram and tylenol. May consider addition of Ibuprofen for additional pain control if needed. Depression. - To be managed by Dr. Mcgrath. Provide safe and supportive environment. Constipation. - Continue home medications for bowel motivation - miralax, MOM PRN, colace BID and dulcolax PRN. Herpes simplex. - No apparent acute lesions. Abreva as needed. Insomnia. - Elopement risk due to restlessness and insomnia. PRN Ativan and Haldol per Dr. Mcgrath as indicated. History of seizure disorder. - Monitor closely for signs of seizure. May consider neurology consult to Dr. Shah if seizure occurs. History of hypokalemia. - Continue home KCl 20 mEq daily. Will monitor electrolytes periodically throughout admission. History of vitamin deficiency. - Continue home supplements. History of UTI. - Recent UTI treated on 03/20/17-03/27/17 with Macrobid. UA in ED was unremarkable with trace ketones. Monitor for symptoms. Plan - 04/03/17 Alzheimer's disease and dementia with behavioral disturbance. - Patient remains agitated and actively striking out at staff. Continue psychiatric care per Dr. Mcgrath. - CXR in ED revealed RLL atelectasis or pneumonia. WBC stable and patient remains afebrile without symptoms. Pulse ox noted to be trending down. Will discuss treatment recommendations with Dr. Pool. Unable to clinically assess due to patient's agitation. - Monitor respiratory function closely. Notify hospitalist service if fever > 100.4, HR >100, RR > 22, systolic blood pressure <90 or >180, new cough or any symptoms that are concerning. Psych On admission: Continued Depakote 500mg PO BID. Plan to continue for time being, repeating VPA level once adherence has been ensured x 3 days. Luvox decreased from 100mg TID to 100mg BID. Geodon decreased from 80mg PO BID to 40mg PO BID. Mirtazapine decreased from 45mg PO q HS to 30mg PO q HS. 04/04/17 Psych: Decreased Luvox to 75mg PO BID. Continue to monitor symptoms - I am hesitant to make further changes as she has complained of not feeling well and may be some w/d symptoms due to changes in medications - however, I suspect polypharmacy was initially contributing to presentation, possibly akathisia. Would like to taper antidepressants, Geodon as much as possible and evaluate how patient does with Depakote. Monitor mood, behavior and response to treatment. 04/05/17 Psych: Decrease Geodon to 20mg PO BID; monitor response. Plan to check VPA level on 04/07 in AM. 04/07/17 Remains impulsive at times. Continue current care. 04/08/17 Psych: Will discuss the following with family: Switching antipsychotic from Geodon to Zyprexa (5mg at HS) as it was helpful clinically. Willl also increase Depakote DR to 250mg PO q AM and 500mg PO q HS. 04/08/17 hospitalist: Reviewed vital signs, lab, nurse's notes, and psychiatric note. Repeat vitals were 109/65 and pulse 97. Will continue to monitor. Her TSH was elevated, plan is to continue her current dosage and follow-up with repeat TSH in 4-6 weeks per previous note.
[2017-04-08] MEDS: MIRTAZAPINE 30 MG TABLET PO SCH ×2 (19:35→22:08)
[2017-04-08] MEDS: OLANZapine ODT 5 MG TABLET PO SCH ×2 (19:36→22:08)
[2017-04-09] MEDS: DIVALPROEX SPRINKLE 125 MG CAPSULE PO SCH ×2 (09:27→21:22)
[2017-04-09] MEDS: LEVOTHYROXINE 137 MCG TABLET PO SCH (09:27)
[2017-04-09] MEDS: POLYETHYL GLYCOL 3350 17gm PACKET PO SCH (09:28)
[2017-04-09] MEDS: TAMSULOSIN 0.4 MG CAPSULE PO SCH (09:28)
[2017-04-09] MEDS: FLUVOXAMINE 50 MG TABLET PO SCH ×2 (09:28→21:24)
[2017-04-09] MEDS: DOCUSATE SODIUM 100 MG CAPSULE PO SCH ×2 (09:28→21:25)
--- NOTE | 2017-04-09 14:49 | Neuropsych Progress Note ---
Huong Subjective Date: 04/09/17 - Sujective/Severity of Illness Medications: Acetaminophen (Tylenol) 1,000 mg PO Q4H PRN PRN Reason: Pain Last Admin: 04/06/17 20:26 Dose: 1,000 mg Al Hydrox/Mg Hydrox/Simethicone (Maalox Plus "Xs") 30 ml PO Q4H PRN PRN Reason: Epigastric distress Bisacodyl (Dulcolax) 10 mg RECTALLY DAILY PRN PRN Reason: Constipation Divalproex Sodium (Depakote Sprinkle) 500 mg PO DAILY [facility] Last Admin: 04/09/17 09:27 Dose: 500 mg Divalproex Sodium (Depakote Sprinkle) 1,000 mg PO HS [facility] Last Admin: 04/08/17 22:07 Dose: Not Given Docusate Sodium (Colace) 100 mg PO BID [facility] Last Admin: 04/09/17 09:28 Dose: 100 mg Fluvoxamine Maleate (Luvox) 50 mg PO BID [facility] Haloperidol (Haldol) 0.5 mg PO Q6H PRN PRN Reason: Extreme agitation Last Admin: 04/07/17 08:34 Dose: 0.5 mg Haloperidol Lactate (Haldol) 0.5 mg IM Q6H PRN PRN Reason: Extreme agitation Last Admin: 04/07/17 15:18 Dose: 0.5 mg Ibuprofen (Motrin) 600 mg PO Q8H PRN PRN Reason: Pain Last Admin: 04/06/17 17:33 Dose: 600 mg Levothyroxine Sodium (Synthroid) 137 mcg PO ACB [facility] Last Admin: 04/09/17 09:27 Dose: 137 mcg Lorazepam (Ativan) 0.5 mg PO Q6H PRN PRN Reason: Extreme agitation Last Admin: 04/07/17 20:28 Dose: 0.5 mg Lorazepam (Ativan Inj) 0.5 mg IM Q6H PRN PRN Reason: Extreme agitation Magnesium Hydroxide (Mom) 30 ml PO DAILY PRN PRN Reason: Constipation Last Admin: 04/04/17 16:29 Dose: 30 ml Mirtazapine (Remeron) 15 mg PO HS [facility] Olanzapine (Zyprexa Zydis) 5 mg PO HS [facility] Last Admin: 04/08/17 22:08 Dose: Not Given Ondansetron HCl (Zofran Po) 4 mg PO Q6H PRN PRN Reason: Nausea &/or vomiting Polyethylene Glycol (Miralax) 17 gm PO DAILY [facility] Last Admin: 04/09/17 09:28 Dose: Not Given Potassium Chloride (K-Dur 20 Meq Tablet) 20 meq PO WB [facility] Last Admin: 04/09/17 09:27 Dose: 20 meq Tamsulosin HCl (Flomax) 0.4 mg PO DAILY [facility] Last Admin: 04/09/17 09:28 Dose: 0.4 mg Subjective: Patient seen and chart reviewed. Case discussed with treatment team. On interview, patient is eating lunch with staff member and female peer. She appears euthymic, relaxed but does not answer any questions I ask of her. Nursing staff report patient has been restless at times, but has not had any aggression since med changes yesterday. Patient has been adherent with medications. Patient slept well overnight. VSS. Patient is eating well. Start Time: 12:00 Stop Time: 12:20 Mental Status Exam Vitals: Last Vital Signs Temp 97.3 F 04/09/17 08:00 Pulse 83 04/09/17 08:00 Resp 16 04/09/17 08:00 BP 115/69 04/09/17 08:00 Pulse Ox 96 04/09/17 08:00 Height: 1.63 m Weight: 77.1 kg - Mental Status Exam Muscle Strength/Tone: Normal Dressing: Casual Grooming: Poor Attitude: Cooperative Motor Activity: Restless (intermittent) Eye Contact: Poor Speech: Slowed Volume: Soft Rhythm: Mumbled, Paucity of Language Orientation: Disoriented to time, Disoriented to place, Disoriented to situation , Oriented to person Mood: Neutral Affect: Blunted Rate of Thoughts: Delayed Thought Organization: Disorganized, [place], Confused Associations: Illogical Abstract Reasoning: Impaired, concrete Thought Content: Other (Poverty of thought) Perception/Psychotic: Perception Normal Language: Naming Impaired Fund of Knowledge: Poor fund of knowledge Memory: Poor-immediate, Poor-recent, Poor-remote Suicidal Ideation: None Homicidal Ideation: None Insight: Impaired Judgement: Impaired Impulse Control: Other (Limited though improved from admission) - Laboratory Result Diagrams: 04/02/17 09:17 04/02/17 09:17 Assessment and Plan (1) Major neurocognitive disorder Problem details: with behavioral disturbance, moderate to severe Hx of Alzheimer's R/O OCD Current visit: Yes Status: Acute Decrease Luvox to 50mg PO BID, decrease mirtazapine to 15mg PO q HS as I believe some of patient's initial presentation due to polypharmacy. Seems to do well with Zyprexa, recent increase in Depakote. Plan to recheck VPA level once reaches steady state. Hospital Course Summary Disclaimer: The visit summary below is not to be considered part of the above Progress Note. Hospital Course: Plan - 04/02/17 (Admission) Alzheimer's disease and dementia with behavioral disturbance. - Agree with admission to [facility] under the care of Dr. Mcgrath for psychiatric evaluation and treatment. Hospitalist service consulted for medical management. - CBC, CMP and UA obtained in ED and unremarkable. Will monitor periodically throughout admission. - Prior records indicated an unwitnessed fall on 03/28/17. Would recommend obtaining CT head given behavioral changes and unwitnessed fall. - CXR in ED revealed RLL atelectasis or pneumonia. WBC stable and patient remains afebrile without symptoms. Will hold off on antibiotic treatment at this time given patient is clinically stable without symptoms. - Monitor respiratory function closely. Notify hospitalist service if fever > 100.4, HR >100, RR > 22, systolic blood pressure <90 or >180, new cough or any symptoms that are concerning. Chronic a-fib. - EKG in ED revealed normal sinus rhythm at a rate of 67. Review of medication list does not reveal current treatment of a-fib. Monitor vital signs closely. Chronic CHF. - No current medications. Monitor closely for signs of fluid over load with increasing peripheral edema (none on admission) and daily weight. GERD. - Continue home medications - Maalox PRN. If needing Maalox frequently, consider addition of Prilosec daily for GI protection and GERD. Hypothyroidism. - TSH on admission was elevated at 8.11. Review of prior medical records indicated TSH ~18 in January 2017. Patient currently on Synthryoid 137mcg daily. Unknown if dose was increased/adjusted in 01/2017 or if elevated TSH was secondary to poor medication compliance. - Will continue home Synthroid at 137mcg daily and recommend recheck TSH in 6 weeks. Osteoarthritis and chronic pain. - Tylenol as needed for fever/pain. Home pain medications included Ibuprofen, Ultram and tylenol. May consider addition of Ibuprofen for additional pain control if needed. Depression. - To be managed by Dr. Mcgrath. Provide safe and supportive environment. Constipation. - Continue home medications for bowel motivation - miralax, MOM PRN, colace BID and dulcolax PRN. Herpes simplex. - No apparent acute lesions. Abreva as needed. Insomnia. - Elopement risk due to restlessness and insomnia. PRN Ativan and Haldol per Dr. Mcgrath as indicated. History of seizure disorder. - Monitor closely for signs of seizure. May consider neurology consult to Dr. Shah if seizure occurs. History of hypokalemia. - Continue home KCl 20 mEq daily. Will monitor electrolytes periodically throughout admission. History of vitamin deficiency. - Continue home supplements. History of UTI. - Recent UTI treated on 03/20/17-03/27/17 with Macrobid. UA in ED was unremarkable with trace ketones. Monitor for symptoms. Plan - 04/03/17 Alzheimer's disease and dementia with behavioral disturbance. - Patient remains agitated and actively striking out at staff. Continue psychiatric care per Dr. Mcgrath. - CXR in ED revealed RLL atelectasis or pneumonia. WBC stable and patient remains afebrile without symptoms. Pulse ox noted to be trending down. Will discuss treatment recommendations with Dr. Pool. Unable to clinically assess due to patient's agitation. - Monitor respiratory function closely. Notify hospitalist service if fever > 100.4, HR >100, RR > 22, systolic blood pressure <90 or >180, new cough or any symptoms that are concerning. Psych On admission: Continued Depakote 500mg PO BID. Plan to continue for time being, repeating VPA level once adherence has been ensured x 3 days. Luvox decreased from 100mg TID to 100mg BID. Geodon decreased from 80mg PO BID to 40mg PO BID. Mirtazapine decreased from 45mg PO q HS to 30mg PO q HS. 04/04/17 Psych: Decreased Luvox to 75mg PO BID. Continue to monitor symptoms - I am hesitant to make further changes as she has complained of not feeling well and may be some w/d symptoms due to changes in medications - however, I suspect polypharmacy was initially contributing to presentation, possibly akathisia. Would like to taper antidepressants, Geodon as much as possible and evaluate how patient does with Depakote. Monitor mood, behavior and response to treatment. 04/05/17 Psych: Decrease Geodon to 20mg PO BID; monitor response. Plan to check VPA level on 04/07 in AM. 04/07/17 Remains impulsive at times. Continue current care. 04/08/17 Psych: Will discuss the following with family: Switching antipsychotic from Geodon to Zyprexa (5mg at HS) as it was helpful clinically. Willl also increase Depakote DR to 250mg PO q AM and 500mg PO q HS. 04/08/17 hospitalist: Reviewed vital signs, lab, nurse's notes, and psychiatric note. Repeat vitals were 109/65 and pulse 97. Will continue to monitor. Her TSH was elevated, plan is to continue her current dosage and follow-up with repeat TSH in 4-6 weeks per previous note. 04/09/17 Psych: Decrease Luvox to 50mg PO BID, decrease mirtazapine to 15mg PO q HS as I believe some of patient's initial presentation due to polypharmacy. Seems to do well with Zyprexa, recent increase in Depakote. Plan to recheck VPA level once reaches steady state.
[2017-04-09] MEDS: LORazepam 0.5 MG TABLET PO PRN (15:04)
[2017-04-09] MEDS: HALOPERIDOL 0.5 MG TABLET PO PRN (15:04)
[2017-04-09] MEDS ORDERED: MIRTAZAPINE 15 MG TABLET PO SCH (21:00)
[2017-04-09] MEDS: OLANZapine ODT 5 MG TABLET PO SCH (21:24)
[2017-04-10] MEDS: LEVOTHYROXINE 137 MCG TABLET PO SCH (06:20)
[2017-04-10] MEDS: DIVALPROEX SPRINKLE 125 MG CAPSULE PO SCH ×2 (11:04→20:56)
[2017-04-10] MEDS: DOCUSATE SODIUM 100 MG CAPSULE PO SCH ×2 (11:05→20:57)
[2017-04-10] MEDS: TAMSULOSIN 0.4 MG CAPSULE PO SCH (11:05)
[2017-04-10] MEDS: FLUVOXAMINE 50 MG TABLET PO SCH ×2 (11:05→20:57)
[2017-04-10] MEDS: POLYETHYL GLYCOL 3350 17gm PACKET PO SCH (11:05)
--- NOTE | 2017-04-10 19:30 | Neuropsych Progress Note ---
Huong Subjective Date: 04/10/17 - Sujective/Severity of Illness Medications: Acetaminophen (Tylenol) 1,000 mg PO Q4H PRN PRN Reason: Pain Last Admin: 04/06/17 20:26 Dose: 1,000 mg Al Hydrox/Mg Hydrox/Simethicone (Maalox Plus "Xs") 30 ml PO Q4H PRN PRN Reason: Epigastric distress Bisacodyl (Dulcolax) 10 mg RECTALLY DAILY PRN PRN Reason: Constipation Divalproex Sodium (Depakote Sprinkle) 500 mg PO DAILY [facility] Last Admin: 04/10/17 11:04 Dose: 500 mg Divalproex Sodium (Depakote Sprinkle) 1,000 mg PO [facility] Last Admin: 04/09/17 21:22 Dose: 1,000 mg Docusate Sodium (Colace) 100 mg PO BID [facility] Last Admin: 04/10/17 11:05 Dose: 100 mg Fluvoxamine Maleate (Luvox) 50 mg PO BID [facility] Last Admin: 04/10/17 11:05 Dose: 50 mg Haloperidol (Haldol) 0.5 mg PO Q6H PRN PRN Reason: Extreme agitation Last Admin: 04/09/17 15:04 Dose: 0.5 mg Haloperidol Lactate (Haldol) 0.5 mg IM Q6H PRN PRN Reason: Extreme agitation Last Admin: 04/07/17 15:18 Dose: 0.5 mg Ibuprofen (Motrin) 600 mg PO Q8H PRN PRN Reason: Pain Last Admin: 04/06/17 17:33 Dose: 600 mg Levothyroxine Sodium (Synthroid) 137 mcg PO ACB [facility] Last Admin: 04/10/17 06:20 Dose: 137 mcg Lorazepam (Ativan) 0.5 mg PO Q6H PRN PRN Reason: Extreme agitation Last Admin: 04/09/17 15:04 Dose: 0.5 mg Lorazepam (Ativan Inj) 0.5 mg IM Q6H PRN PRN Reason: Extreme agitation Magnesium Hydroxide (Mom) 30 ml PO DAILY PRN PRN Reason: Constipation Last Admin: 04/04/17 16:29 Dose: 30 ml Mirtazapine (Remeron) 15 mg PO [facility] Last Admin: 04/09/17 21:24 Dose: 15 mg Olanzapine (Zyprexa Zydis) 5 mg PO HS [facility] Last Admin: 04/09/17 21:24 Dose: 5 mg Ondansetron HCl (Zofran Po) 4 mg PO Q6H PRN PRN Reason: Nausea &/or vomiting Polyethylene Glycol (Miralax) 17 gm PO DAILY [facility] Last Admin: 04/10/17 11:05 Dose: 17 gm Potassium Chloride (K-Dur 20 Meq Tablet) 20 meq PO WB [facility] Last Admin: 04/10/17 11:04 Dose: 20 meq Tamsulosin HCl (Flomax) 0.4 mg PO DAILY [facility] Last Admin: 04/10/17 11:05 Dose: 0.4 mg Subjective: Patient seen and chart reviewed. Case discussed with treatment team. On interview, patient is sitting in franchesca-chair in dayroom with staff member. She appears calm and staff reported that hand-holding helps calm her. She is chanting something repetitively but is so quiet I cannot distinguish what it is. Nursing staff report patient has been irritable and restless at times. Patient has been adherent with medications. Patient slept well (8.25 hours) overnight. VSS. Patient is eating well. Patient was given Haldol 0.5mg PO and Ativan 0.5mg PO this afternoon for restlessness. Start Time: 14:20 Stop Time: 14:40 Mental Status Exam Vitals: Last Vital Signs Temp 98.5 F 04/10/17 15:25 Pulse 87 04/10/17 15:25 Resp 22 04/10/17 15:25 BP 106/75 04/10/17 15:25 Pulse Ox 96 04/10/17 15:25 Height: 1.63 m Weight: 77.4 kg - Mental Status Exam Muscle Strength/Tone: Normal Dressing: Casual Grooming: Poor Attitude: Cooperative Motor Activity: Restless (intermittent) Eye Contact: Poor Speech: Slowed Volume: Soft Rhythm: Mumbled, Paucity of Language Orientation: Disoriented to time, Disoriented to place, Disoriented to situation , Oriented to person Mood: Neutral Affect: Relaxed (during interview), Blunted Rate of Thoughts: Delayed Thought Organization: Disorganized, Gamaliel, Confused Associations: Illogical Abstract Reasoning: Impaired, concrete Thought Content: Other (Poverty of thought) Perception/Psychotic: Perception Normal Language: Naming Impaired Fund of Knowledge: Poor fund of knowledge Memory: Poor-immediate, Poor-recent, Poor-remote Suicidal Ideation: None Homicidal Ideation: None Insight: Impaired Judgement: Impaired Impulse Control: Other (Limited though improved from admission) - Laboratory Result Diagrams: 04/02/17 09:17 04/02/17 09:17 Assessment and Plan (1) Major neurocognitive disorder Problem details: with behavioral disturbance, moderate to severe Hx of Alzheimer's R/O OCD Current visit: Yes Status: Acute Will decrease mirtazapine to 7.5mg PO q HS in an effort to minimize polypharmacy ; monitor sleep. Hospital Course Summary Disclaimer: The visit summary below is not to be considered part of the above Progress Note. Hospital Course: Plan - 04/02/17 (Admission) Alzheimer's disease and dementia with behavioral disturbance. - Agree with admission to [facility] under the care of Dr. Mcgrath for psychiatric evaluation and treatment. Hospitalist service consulted for medical management. - CBC, CMP and UA obtained in ED and unremarkable. Will monitor periodically throughout admission. - Prior records indicated an unwitnessed fall on 03/28/17. Would recommend obtaining CT head given behavioral changes and unwitnessed fall. - CXR in ED revealed RLL atelectasis or pneumonia. WBC stable and patient remains afebrile without symptoms. Will hold off on antibiotic treatment at this time given patient is clinically stable without symptoms. - Monitor respiratory function closely. Notify hospitalist service if fever > 100.4, HR >100, RR > 22, systolic blood pressure <90 or >180, new cough or any symptoms that are concerning. Chronic a-fib. - EKG in ED revealed normal sinus rhythm at a rate of 67. Review of medication list does not reveal current treatment of a-fib. Monitor vital signs closely. Chronic CHF. - No current medications. Monitor closely for signs of fluid over load with increasing peripheral edema (none on admission) and daily weight. GERD. - Continue home medications - Maalox PRN. If needing Maalox frequently, consider addition of Prilosec daily for GI protection and GERD. Hypothyroidism. - TSH on admission was elevated at 8.11. Review of prior medical records indicated TSH ~18 in January 2017. Patient currently on Synthryoid 137mcg daily. Unknown if dose was increased/adjusted in 01/2017 or if elevated TSH was secondary to poor medication compliance. - Will continue home Synthroid at 137mcg daily and recommend recheck TSH in 6 weeks. Osteoarthritis and chronic pain. - Tylenol as needed for fever/pain. Home pain medications included Ibuprofen, Ultram and tylenol. May consider addition of Ibuprofen for additional pain control if needed. Depression. - To be managed by Dr. Mcgrath. Provide safe and supportive environment. Constipation. - Continue home medications for bowel motivation - miralax, MOM PRN, colace BID and dulcolax PRN. Herpes simplex. - No apparent acute lesions. Abreva as needed. Insomnia. - Elopement risk due to restlessness and insomnia. PRN Ativan and Haldol per Dr. Mcgrath as indicated. History of seizure disorder. - Monitor closely for signs of seizure. May consider neurology consult to Dr. Shah if seizure occurs. History of hypokalemia. - Continue home KCl 20 mEq daily. Will monitor electrolytes periodically throughout admission. History of vitamin deficiency. - Continue home supplements. History of UTI. - Recent UTI treated on 03/20/17-03/27/17 with Macrobid. UA in ED was unremarkable with trace ketones. Monitor for symptoms. Plan - 04/03/17 Alzheimer's disease and dementia with behavioral disturbance. - Patient remains agitated and actively striking out at staff. Continue psychiatric care per Dr. Mcgarth. - CXR in ED revealed RLL atelectasis or pneumonia. WBC stable and patient remains afebrile without symptoms. Pulse ox noted to be trending down. Will discuss treatment recommendations with Dr. Pool. Unable to clinically assess due to patient's agitation. - Monitor respiratory function closely. Notify hospitalist service if fever > 100.4, HR >100, RR > 22, systolic blood pressure <90 or >180, new cough or any symptoms that are concerning. Psych On admission: Continued Depakote 500mg PO BID. Plan to continue for time being, repeating VPA level once adherence has been ensured x 3 days. Luvox decreased from 100mg TID to 100mg BID. Geodon decreased from 80mg PO BID to 40mg PO BID. Mirtazapine decreased from 45mg PO q HS to 30mg PO q HS. 04/04/17 Psych: Decreased Luvox to 75mg PO BID. Continue to monitor symptoms - I am hesitant to make further changes as she has complained of not feeling well and may be some w/d symptoms due to changes in medications - however, I suspect polypharmacy was initially contributing to presentation, possibly akathisia. Would like to taper antidepressants, Geodon as much as possible and evaluate how patient does with Depakote. Monitor mood, behavior and response to treatment. 04/05/17 Psych: Decrease Geodon to 20mg PO BID; monitor response. Plan to check VPA level on 04/07 in AM. 04/07/17 Remains impulsive at times. Continue current care. 04/08/17 Psych: Will discuss the following with family: Switching antipsychotic from Geodon to Zyprexa (5mg at HS) as it was helpful clinically. Willl also increase Depakote DR to 250mg PO q AM and 500mg PO q HS. 04/08/17 hospitalist: Reviewed vital signs, lab, nurse's notes, and psychiatric note. Repeat vitals were 109/65 and pulse 97. Will continue to monitor. Her TSH was elevated, plan is to continue her current dosage and follow-up with repeat TSH in 4-6 weeks per previous note. 04/09/17 Psych: Decrease Luvox to 50mg PO BID, decrease mirtazapine to 15mg PO q HS as I believe some of patient's initial presentation due to polypharmacy. Seems to do well with Zyprexa, recent increase in Depakote. Plan to recheck VPA level once reaches steady state. 04/10/17 Psych: Will decrease mirtazapine to 7.5mg PO q HS in an effort to minimize polypharmacy; monitor sleep.
[2017-04-10] MEDS: OLANZapine ODT 5 MG TABLET PO SCH (20:58)
[2017-04-10] MEDS ORDERED: MIRTAZAPINE 15 MG TABLET PO SCH (21:00)
[2017-04-10] MEDS: ACETAMINOPHEN 500 MG TABLET PO PRN (23:19)
[2017-04-11] MEDS: LEVOTHYROXINE 137 MCG TABLET PO SCH (06:31)
[2017-04-11] MEDS: DOCUSATE SODIUM 100 MG CAPSULE PO SCH ×2 (08:10→20:04)
[2017-04-11] MEDS: TAMSULOSIN 0.4 MG CAPSULE PO SCH (08:11)
[2017-04-11] MEDS: DIVALPROEX SPRINKLE 125 MG CAPSULE PO SCH ×2 (08:12→20:04)
[2017-04-11] MEDS: FLUVOXAMINE 50 MG TABLET PO SCH ×2 (08:12→20:05)
[2017-04-11] MEDS: POLYETHYL GLYCOL 3350 17gm PACKET PO SCH (08:16)
[2017-04-11] MEDS: LORazepam 0.5 MG TABLET PO PRN ×2 (11:11→21:15)
--- NOTE | 2017-04-11 14:46 | Progress Note ---
- Date 04/11/17 Subjective: Patient is seen today lying in her bed. She is sleeping, but wakes to soft touch and calling her name. She asks "Is my mom here? Is my mom here?" She is cooperative with exam and falls back asleep during exam. Patient did not sleep much over night. Has had BM today. Objective Vital signs: Temperature 97.8 F 04/11/17 08:00 Pulse Rate 73 04/11/17 08:00 Respiratory Rate 18 04/11/17 08:00 Blood Pressure 131/77 04/11/17 08:00 Pulse Oximetry 93 04/11/17 08:00 Height/Weight/BMI: Height 1.63 m Weight 77.4 kg Body Mass Index 29.8 - Constitutional Present: no acute distress, well nourished, well developed - Routine HEENT Exam Head: Present: normocephalic, atraumatic - Routine Respiratory Exam Present: CTA bilaterally. Absent: wheezes - Routine Cardiovascular Exam Present: RRR, no murmur - Routine Abdominal Exam Present: soft, non distended, non tender - Routine Extremities Exam Present: no edema, normal capillary refill - Routine Skin Exam Present: dry, warm - Routine Neurological Exam Present: altered mental status. Absent: oriented X3 - Routine Lymphatic Exam Lymphatic: Absent: adenopathy - Routine Psychiatric Exam Present: cooperative. Absent: normal thought process Results - Labs CBC & Chem 7: 04/02/17 09:17 04/02/17 09:17 Assessment and Plan (1) Dementia with behavioral disturbance Current visit: Yes Status: Acute Assessment and Plan: Assessment Dementia with behavioral disturbance. Alzheimer's disease. Chronic a-fib. CHF. GERD. Hypothyroidism. Osteoarthritis. Chronic pain. Depression. Overweight, BMI 29.8. Constipation. Herpes simplex. Insomnia. Osteoporosis. History of seizure disorder. History of hypokalemia. History of vitamin deficiency. History of UTI - treated on 03/20/17-03/27/17 with Macrobid. Plan Appears medically stable. Reviewed vital signs, lab, nurse's notes, and psychiatric note. - Physician Narrative Narrative: Date: 04/11/17 Time: 1443 Hospital Course Summary Disclaimer: The visit summary below is not to be considered part of the above Progress Note. Hospital Course: Plan - 04/02/17 (Admission) Alzheimer's disease and dementia with behavioral disturbance. - Agree with admission to [facility] under the care of Dr. Mcgrath for psychiatric evaluation and treatment. Hospitalist service consulted for medical management. - CBC, CMP and UA obtained in ED and unremarkable. Will monitor periodically throughout admission. - Prior records indicated an unwitnessed fall on 03/28/17. Would recommend obtaining CT head given behavioral changes and unwitnessed fall. - CXR in ED revealed RLL atelectasis or pneumonia. WBC stable and patient remains afebrile without symptoms. Will hold off on antibiotic treatment at this time given patient is clinically stable without symptoms. - Monitor respiratory function closely. Notify hospitalist service if fever > 100.4, HR >100, RR > 22, systolic blood pressure <90 or >180, new cough or any symptoms that are concerning. Chronic a-fib. - EKG in ED revealed normal sinus rhythm at a rate of 67. Review of medication list does not reveal current treatment of a-fib. Monitor vital signs closely. Chronic CHF. - No current medications. Monitor closely for signs of fluid over load with increasing peripheral edema (none on admission) and daily weight. GERD. - Continue home medications - Maalox PRN. If needing Maalox frequently, consider addition of Prilosec daily for GI protection and GERD. Hypothyroidism. - TSH on admission was elevated at 8.11. Review of prior medical records indicated TSH ~18 in January 2017. Patient currently on Synthryoid 137mcg daily. Unknown if dose was increased/adjusted in 01/2017 or if elevated TSH was secondary to poor medication compliance. - Will continue home Synthroid at 137mcg daily and recommend recheck TSH in 6 weeks. Osteoarthritis and chronic pain. - Tylenol as needed for fever/pain. Home pain medications included Ibuprofen, Ultram and tylenol. May consider addition of Ibuprofen for additional pain control if needed. Depression. - To be managed by Dr. Mcgrath. Provide safe and supportive environment. Constipation. - Continue home medications for bowel motivation - miralax, MOM PRN, colace BID and dulcolax PRN. Herpes simplex. - No apparent acute lesions. Abreva as needed. Insomnia. - Elopement risk due to restlessness and insomnia. PRN Ativan and Haldol per Dr. Mcgrath as indicated. History of seizure disorder. - Monitor closely for signs of seizure. May consider neurology consult to Dr. Shah if seizure occurs. History of hypokalemia. - Continue home KCl 20 mEq daily. Will monitor electrolytes periodically throughout admission. History of vitamin deficiency. - Continue home supplements. History of UTI. - Recent UTI treated on 03/20/17-03/27/17 with Macrobid. UA in ED was unremarkable with trace ketones. Monitor for symptoms. Plan - 04/03/17 Alzheimer's disease and dementia with behavioral disturbance. - Patient remains agitated and actively striking out at staff. Continue psychiatric care per Dr. Mcgrath. - CXR in ED revealed RLL atelectasis or pneumonia. WBC stable and patient remains afebrile without symptoms. Pulse ox noted to be trending down. Will discuss treatment recommendations with Dr. Pool. Unable to clinically assess due to patient's agitation. - Monitor respiratory function closely. Notify hospitalist service if fever > 100.4, HR >100, RR > 22, systolic blood pressure <90 or >180, new cough or any symptoms that are concerning. Psych On admission: Continued Depakote 500mg PO BID. Plan to continue for time being, repeating VPA level once adherence has been ensured x 3 days. Luvox decreased from 100mg TID to 100mg BID. Geodon decreased from 80mg PO BID to 40mg PO BID. Mirtazapine decreased from 45mg PO q HS to 30mg PO q HS. 04/04/17 Psych: Decreased Luvox to 75mg PO BID. Continue to monitor symptoms - I am hesitant to make further changes as she has complained of not feeling well and may be some w/d symptoms due to changes in medications - however, I suspect polypharmacy was initially contributing to presentation, possibly akathisia. Would like to taper antidepressants, Geodon as much as possible and evaluate how patient does with Depakote. Monitor mood, behavior and response to treatment. 04/05/17 Psych: Decrease Geodon to 20mg PO BID; monitor response. Plan to check VPA level on 04/07 in AM. 04/07/17 Remains impulsive at times. Continue current care. 04/08/17 Psych: Will discuss the following with family: Switching antipsychotic from Geodon to Zyprexa (5mg at HS) as it was helpful clinically. Willl also increase Depakote DR to 250mg PO q AM and 500mg PO q HS. 04/08/17 hospitalist: Reviewed vital signs, lab, nurse's notes, and psychiatric note. Repeat vitals were 109/65 and pulse 97. Will continue to monitor. Her TSH was elevated, plan is to continue her current dosage and follow-up with repeat TSH in 4-6 weeks per previous note. 04/09/17 Psych: Decrease Luvox to 50mg PO BID, decrease mirtazapine to 15mg PO q HS as I believe some of patient's initial presentation due to polypharmacy. Seems to do well with Zyprexa, recent increase in Depakote. Plan to recheck VPA level once reaches steady state. 04/11/17 Hospitalist Appears medically stable. Reviewed vital signs, lab, nurse's notes, and psychiatric note.
[2017-04-11] MEDS ORDERED: OLANZapine ODT 5 MG TABLET PO PRN (16:23)
--- NOTE | 2017-04-11 16:30 | Neuropsych Progress Note ---
Huong Subjective Date: 04/11/17 - Sujective/Severity of Illness Medications: Acetaminophen (Tylenol) 1,000 mg PO Q4H PRN PRN Reason: Pain Last Admin: 04/10/17 23:19 Dose: 1,000 mg Al Hydrox/Mg Hydrox/Simethicone (Maalox Plus "Xs") 30 ml PO Q4H PRN PRN Reason: Epigastric distress Bisacodyl (Dulcolax) 10 mg RECTALLY DAILY PRN PRN Reason: Constipation Divalproex Sodium (Depakote Sprinkle) 500 mg PO DAILY [facility] Last Admin: 04/11/17 08:12 Dose: 500 mg Divalproex Sodium (Depakote Sprinkle) 1,000 mg PO HS [facility] Last Admin: 04/10/17 20:56 Dose: 1,000 mg Docusate Sodium (Colace) 100 mg PO BID [facility] Last Admin: 04/11/17 08:10 Dose: 100 mg Fluvoxamine Maleate (Luvox) 50 mg PO BID [facility] Last Admin: 04/11/17 08:12 Dose: 50 mg Ibuprofen (Motrin) 600 mg PO Q8H PRN PRN Reason: Pain Last Admin: 04/06/17 17:33 Dose: 600 mg Levothyroxine Sodium (Synthroid) 137 mcg PO ACB [facility] Last Admin: 04/11/17 06:31 Dose: 137 mcg Lorazepam (Ativan) 0.5 mg PO Q6H PRN PRN Reason: Extreme agitation Last Admin: 04/11/17 11:11 Dose: 0.5 mg Lorazepam (Ativan Inj) 0.5 mg IM Q6H PRN PRN Reason: Extreme agitation Magnesium Hydroxide (Mom) 30 ml PO DAILY PRN PRN Reason: Constipation Last Admin: 04/04/17 16:29 Dose: 30 ml Mirtazapine (Remeron) 15 mg PO HS [facility] Olanzapine (Zyprexa Zydis) 5 mg PO HS [facility] Last Admin: 04/10/17 20:58 Dose: 5 mg Olanzapine (Zyprexa Zydis) 2.5 mg PO Q6HR PRN PRN Reason: Agitation Ondansetron HCl (Zofran Po) 4 mg PO Q6H PRN PRN Reason: Nausea &/or vomiting Polyethylene Glycol (Miralax) 17 gm PO DAILY [facility] Last Admin: 04/11/17 08:16 Dose: 17 gm Potassium Chloride (K-Dur 20 Meq Tablet) 20 meq PO WB [facility] Last Admin: 04/11/17 08:11 Dose: 20 meq Tamsulosin HCl (Flomax) 0.4 mg PO DAILY [facility] Last Admin: 04/11/17 08:11 Dose: 0.4 mg Subjective: Patient seen and chart reviewed. Case discussed with treatment team. On interview, patient is lying in bed and repetitively says, "I want my crayons " but appears calm, not in any distress otherwise. When I ask how she is feeling , she says, "good" but lozoya snot answer any of my other questions. Nursing staff report patient slept only 2.25 hours overnight and wants to go between room/dayroom frequently, but otherwise has not had significant behavioral difficulties. Patient has been adherent with medications. VSS. Patient is eating well. No further PRNs since last being seen by this provider. Start Time: 14:20 Stop Time: 14:40 Mental Status Exam Vitals: Last Vital Signs Temp 98.5 F 04/11/17 16:00 Pulse 82 04/11/17 16:00 Resp 18 04/11/17 16:00 BP 88/64 04/11/17 16:00 Pulse Ox 95 04/11/17 16:00 Height: 1.63 m Weight: 77.4 kg - Mental Status Exam Muscle Strength/Tone: Normal Dressing: Casual Grooming: Poor Attitude: Cooperative Motor Activity: Restless (intermittent) Eye Contact: Poor Speech: Slowed Volume: Soft Rhythm: Mumbled, Paucity of Language Orientation: Disoriented to time, Disoriented to place, Disoriented to situation , Oriented to person Mood: Neutral Affect: Blunted Rate of Thoughts: Delayed Thought Organization: Disorganized, [place], Confused Associations: Illogical Abstract Reasoning: Impaired, concrete Thought Content: Other (Poverty of thought) Perception/Psychotic: Perception Normal Language: Naming Impaired Fund of Knowledge: Poor fund of knowledge Memory: Poor-immediate, Poor-recent, Poor-remote Suicidal Ideation: None Homicidal Ideation: None Insight: Impaired Judgement: Impaired Impulse Control: Fair - Laboratory Result Diagrams: 04/02/17 09:17 04/02/17 09:17 Assessment and Plan (1) Major neurocognitive disorder Problem details: with behavioral disturbance, moderate to severe Hx of Alzheimer's R/O OCD Current visit: Yes Status: Acute Will use PRN Zyprexa rather than PRN Haldol in case typical antipsychotic is responsible for restlessness/akathisia. Plan to check VPA level, CBC, CMP, ammonia level in AM. Increase mirtazapine back to 15mg PO q HS due to insomnia last night. Hospital Course Summary Disclaimer: The visit summary below is not to be considered part of the above Progress Note. Hospital Course: Plan - 04/02/17 (Admission) Alzheimer's disease and dementia with behavioral disturbance. - Agree with admission to [facility] under the care of Dr. Mcgrath for psychiatric evaluation and treatment. Hospitalist service consulted for medical management. - CBC, CMP and UA obtained in ED and unremarkable. Will monitor periodically throughout admission. - Prior records indicated an unwitnessed fall on 03/28/17. Would recommend obtaining CT head given behavioral changes and unwitnessed fall. - CXR in ED revealed RLL atelectasis or pneumonia. WBC stable and patient remains afebrile without symptoms. Will hold off on antibiotic treatment at this time given patient is clinically stable without symptoms. - Monitor respiratory function closely. Notify hospitalist service if fever > 100.4, HR >100, RR > 22, systolic blood pressure <90 or >180, new cough or any symptoms that are concerning. Chronic a-fib. - EKG in ED revealed normal sinus rhythm at a rate of 67. Review of medication list does not reveal current treatment of a-fib. Monitor vital signs closely. Chronic CHF. - No current medications. Monitor closely for signs of fluid over load with increasing peripheral edema (none on admission) and daily weight. GERD. - Continue home medications - Maalox PRN. If needing Maalox frequently, consider addition of Prilosec daily for GI protection and GERD. Hypothyroidism. - TSH on admission was elevated at 8.11. Review of prior medical records indicated TSH ~18 in January 2017. Patient currently on Synthryoid 137mcg daily. Unknown if dose was increased/adjusted in 01/2017 or if elevated TSH was secondary to poor medication compliance. - Will continue home Synthroid at 137mcg daily and recommend recheck TSH in 6 weeks. Osteoarthritis and chronic pain. - Tylenol as needed for fever/pain. Home pain medications included Ibuprofen, Ultram and tylenol. May consider addition of Ibuprofen for additional pain control if needed. Depression. - To be managed by Dr. Mcgrath. Provide safe and supportive environment. Constipation. - Continue home medications for bowel motivation - miralax, MOM PRN, colace BID and dulcolax PRN. Herpes simplex. - No apparent acute lesions. Abreva as needed. Insomnia. - Elopement risk due to restlessness and insomnia. PRN Ativan and Haldol per Dr. Mcgrath as indicated. History of seizure disorder. - Monitor closely for signs of seizure. May consider neurology consult to Dr. Shah if seizure occurs. History of hypokalemia. - Continue home KCl 20 mEq daily. Will monitor electrolytes periodically throughout admission. History of vitamin deficiency. - Continue home supplements. History of UTI. - Recent UTI treated on 03/20/17-03/27/17 with Macrobid. UA in ED was unremarkable with trace ketones. Monitor for symptoms. Plan - 04/03/17 Alzheimer's disease and dementia with behavioral disturbance. - Patient remains agitated and actively striking out at staff. Continue psychiatric care per Dr. Mcgrath. - CXR in ED revealed RLL atelectasis or pneumonia. WBC stable and patient remains afebrile without symptoms. Pulse ox noted to be trending down. Will discuss treatment recommendations with Dr. Pool. Unable to clinically assess due to patient's agitation. - Monitor respiratory function closely. Notify hospitalist service if fever > 100.4, HR >100, RR > 22, systolic blood pressure <90 or >180, new cough or any symptoms that are concerning. Psych On admission: Continued Depakote 500mg PO BID. Plan to continue for time being, repeating VPA level once adherence has been ensured x 3 days. Luvox decreased from 100mg TID to 100mg BID. Geodon decreased from 80mg PO BID to 40mg PO BID. Mirtazapine decreased from 45mg PO q HS to 30mg PO q HS. 04/04/17 Psych: Decreased Luvox to 75mg PO BID. Continue to monitor symptoms - I am hesitant to make further changes as she has complained of not feeling well and may be some w/d symptoms due to changes in medications - however, I suspect polypharmacy was initially contributing to presentation, possibly akathisia. Would like to taper antidepressants, Geodon as much as possible and evaluate how patient does with Depakote. Monitor mood, behavior and response to treatment. 04/05/17 Psych: Decrease Geodon to 20mg PO BID; monitor response. Plan to check VPA level on 04/07 in AM. 04/07/17 Remains impulsive at times. Continue current care. 04/08/17 Psych: Will discuss the following with family: Switching antipsychotic from Geodon to Zyprexa (5mg at HS) as it was helpful clinically. Willl also increase Depakote DR to 250mg PO q AM and 500mg PO q HS. 04/08/17 hospitalist: Reviewed vital signs, lab, nurse's notes, and psychiatric note. Repeat vitals were 109/65 and pulse 97. Will continue to monitor. Her TSH was elevated, plan is to continue her current dosage and follow-up with repeat TSH in 4-6 weeks per previous note. 04/09/17 Psych: Decrease Luvox to 50mg PO BID, decrease mirtazapine to 15mg PO q HS as I believe some of patient's initial presentation due to polypharmacy. Seems to do well with Zyprexa, recent increase in Depakote. Plan to recheck VPA level once reaches steady state. 04/10/17 Psych: Will decrease mirtazapine to 7.5mg PO q HS in an effort to minimize polypharmacy; monitor sleep. 04/11/17 Psych: Will use PRN Zyprexa rather than PRN Haldol in case typical antipsychotic is responsible for restlessness/akathisia. Plan to check VPA level , CBC, CMP, ammonia level in AM. Increase mirtazapine back to 15mg PO q HS due to insomnia last night.
[2017-04-11] MEDS: ACETAMINOPHEN 500 MG TABLET PO PRN (16:51)
[2017-04-11] MEDS: MIRTAZAPINE 15 MG TABLET PO SCH (20:04)
[2017-04-11] MEDS: OLANZapine ODT 5 MG TABLET PO SCH (20:04)
[2017-04-12] MEDS: LEVOTHYROXINE 137 MCG TABLET PO SCH (11:05)
[2017-04-12] MEDS: TAMSULOSIN 0.4 MG CAPSULE PO SCH (11:05)
[2017-04-12] MEDS: DOCUSATE SODIUM 100 MG CAPSULE PO SCH ×2 (11:05→20:03)
[2017-04-12] MEDS: DIVALPROEX SPRINKLE 125 MG CAPSULE PO SCH ×2 (11:05→20:02)
[2017-04-12] MEDS: FLUVOXAMINE 50 MG TABLET PO SCH ×2 (11:05→20:02)
[2017-04-12] MEDS: POLYETHYL GLYCOL 3350 17gm PACKET PO SCH (11:06)
--- NOTE | 2017-04-12 13:56 | Neuropsych Progress Note ---
Huong Subjective Date: 04/12/17 - Sujective/Severity of Illness Medications: Acetaminophen (Tylenol) 1,000 mg PO Q4H PRN PRN Reason: Pain Last Admin: 04/11/17 16:51 Dose: 1,000 mg Al Hydrox/Mg Hydrox/Simethicone (Maalox Plus "Xs") 30 ml PO Q4H PRN PRN Reason: Epigastric distress Bisacodyl (Dulcolax) 10 mg RECTALLY DAILY PRN PRN Reason: Constipation Divalproex Sodium (Depakote Sprinkle) 500 mg PO DAILY [facility] Last Admin: 04/12/17 11:05 Dose: 500 mg Divalproex Sodium (Depakote Sprinkle) 1,000 mg PO HS [facility] Last Admin: 04/11/17 20:04 Dose: 1,000 mg Docusate Sodium (Colace) 100 mg PO BID [facility] Last Admin: 04/12/17 11:05 Dose: 100 mg Fluvoxamine Maleate (Luvox) 50 mg PO BID [facility] Last Admin: 04/12/17 11:05 Dose: 50 mg Ibuprofen (Motrin) 600 mg PO Q8H PRN PRN Reason: Pain Last Admin: 04/06/17 17:33 Dose: 600 mg Levothyroxine Sodium (Synthroid) 137 mcg PO ACB [facility] Last Admin: 04/12/17 11:05 Dose: 137 mcg Lorazepam (Ativan) 0.5 mg PO Q6H PRN PRN Reason: Extreme agitation Last Admin: 04/11/17 21:15 Dose: 0.5 mg Lorazepam (Ativan Inj) 0.5 mg IM Q6H PRN PRN Reason: Extreme agitation Magnesium Hydroxide (Mom) 30 ml PO DAILY PRN PRN Reason: Constipation Last Admin: 04/04/17 16:29 Dose: 30 ml Mirtazapine (Remeron) 15 mg PO HS [facility] Last Admin: 04/11/17 20:04 Dose: 15 mg Olanzapine (Zyprexa Zydis) 5 mg PO HS [facility] Last Admin: 04/11/17 20:04 Dose: 5 mg Olanzapine (Zyprexa Zydis) 2.5 mg PO Q6HR PRN PRN Reason: Agitation Ondansetron HCl (Zofran Po) 4 mg PO Q6H PRN PRN Reason: Nausea &/or vomiting Polyethylene Glycol (Miralax) 17 gm PO DAILY [facility] Last Admin: 04/12/17 11:06 Dose: 17 gm Potassium Chloride (K-Dur 20 Meq Tablet) 20 meq PO WB [facility] Last Admin: 04/12/17 11:05 Dose: 20 meq Tamsulosin HCl (Flomax) 0.4 mg PO DAILY [facility] Last Admin: 04/12/17 11:05 Dose: 0.4 mg Subjective: Patient seen and chart reviewed. Case discussed with treatment team. Patient sleeping at time of rounds; she slept 5.75 hours as of 0600. MSE below based in part on my last interaction with her and staff report. Yesterday during the day, patient sat at a table with peers, was calmer and more redirectable but still seems to be ing. Nursing staff report patient was combative and agitated last evening, thus was given PRN Ativan (0.5mg PO and 1mg IM) last evening. She then calmed and slept well. Patient has been adherent with medications. VSS. Patient is eating well. Start Time: 08:40 Stop Time: 09:00 Mental Status Exam Vitals: Last Vital Signs Temp 98.2 F 04/12/17 08:00 Pulse 68 04/12/17 08:00 Resp 16 04/12/17 08:00 BP 100/64 04/12/17 08:00 Pulse Ox 93 04/12/17 08:00 Height: 1.63 m Weight: 77.6 kg - Mental Status Exam Muscle Strength/Tone: Normal Dressing: Casual Grooming: Poor Attitude: Cooperative Motor Activity: Restless (intermittent) Eye Contact: Poor Speech: Slowed Volume: Soft Rhythm: Mumbled, Paucity of Language Orientation: Disoriented to time, Disoriented to place, Disoriented to situation , Oriented to person Mood: Neutral (affect labile in evenings, calm during day) Rate of Thoughts: Delayed Thought Organization: Disorganized, [place], Confused Associations: Illogical Abstract Reasoning: Impaired, concrete Thought Content: Other (Poverty of thought) Perception/Psychotic: Perception Normal Language: Naming Impaired Fund of Knowledge: Poor fund of knowledge Memory: Poor-immediate, Poor-recent, Poor-remote Suicidal Ideation: None Homicidal Ideation: None Insight: Impaired Judgement: Impaired Impulse Control: Fair - Laboratory Result Diagrams: 04/12/17 10:59 04/12/17 10:59 Laboratory Results - last 24 hr 04/12/17 04/12/17 10:59 10:59 WBC 7.4 RBC 4.64 Hgb 13.1 Hct 42.2 MCV 90.9 MCH 28.2 MCHC 31.0 RDW Std Deviation 53.4 H Plt Count 238 MPV 9.6 Immature Gran % (Auto) 0.3 Neut % (Auto) 63.7 Lymph % (Auto) 24.1 [place] % (Auto) 7.7 Eos % (Auto) 3.5 Baso % (Auto) 0.7 Neut # (Auto) 4.7 Lymph # (Auto) 1.8 [place] # (Auto) 0.6 Eos # (Auto) 0.3 Baso # (Auto) 0.1 Abs Immat Gran (auto) 0.02 Turbidity < 20 Sodium 141 Potassium 4.5 Chloride 105 Carbon Dioxide 29 Anion Gap 7 BUN 22.0 H Creatinine 0.8 GFR Calculation 70 BUN/Creatinine Ratio 28 H Glucose 74 Calculated Osmolality 273 Calcium 8.6 Total Bilirubin 0.30 Conjugated Bilirubin 0.00 Unconjugated Bilirubin 0.00 Icterus Index < 2 AST 21 ALT 33 Alkaline Phosphatase 53 Ammonia 13 Total Protein 6.5 Albumin 3.3 L Globulin 3.2 Albumin/Globulin Ratio 1.0 L Specimen Hemolysis < 15 Valproic Acid 46.9 L Assessment and Plan (1) Major neurocognitive disorder Problem details: with behavioral disturbance, moderate to severe Hx of Alzheimer's Other medical conditions: Chronic a-fib. CHF. GERD. Hypothyroidism. Osteoarthritis. Chronic pain. Depression. Overweight, BMI 29.8. Constipation. Herpes simplex. Osteoporosis. History of seizure disorder. History of hypokalemia. History of vitamin deficiency. History of UTI - treated on 03/20/17-03/27/17 with Macrobid. Current visit: Yes Status: Acute Will add lorazepam 1mg PO q HS; monitor insomnia. Patient does well during the day but then still is . May also consider increasing Zyprexa to 7.5mg PO q HS. Hospital Course Summary Disclaimer: The visit summary below is not to be considered part of the above Progress Note. Hospital Course: Plan - 04/02/17 (Admission) Alzheimer's disease and dementia with behavioral disturbance. - Agree with [facility] under the care of Dr. Mcgrath for psychiatric evaluation and treatment. Hospitalist service consulted for medical management. - CBC, CMP and UA obtained in ED and unremarkable. Will monitor periodically throughout admission. - Prior records indicated an unwitnessed fall on 03/28/17. Would recommend obtaining CT head given behavioral changes and unwitnessed fall. - CXR in ED revealed RLL atelectasis or pneumonia. WBC stable and patient remains afebrile without symptoms. Will hold off on antibiotic treatment at this time given patient is clinically stable without symptoms. - Monitor respiratory function closely. Notify hospitalist service if fever > 100.4, HR >100, RR > 22, systolic blood pressure <90 or >180, new cough or any symptoms that are concerning. Chronic a-fib. - EKG in ED revealed normal sinus rhythm at a rate of 67. Review of medication list does not reveal current treatment of a-fib. Monitor vital signs closely. Chronic CHF. - No current medications. Monitor closely for signs of fluid over load with increasing peripheral edema (none on admission) and daily weight. GERD. - Continue home medications - Maalox PRN. If needing Maalox frequently, consider addition of Prilosec daily for GI protection and GERD. Hypothyroidism. - TSH on admission was elevated at 8.11. Review of prior medical records indicated TSH ~18 in January 2017. Patient currently on Synthryoid 137mcg daily. Unknown if dose was increased/adjusted in 01/2017 or if elevated TSH was secondary to poor medication compliance. - Will continue home Synthroid at 137mcg daily and recommend recheck TSH in 6 weeks. Osteoarthritis and chronic pain. - Tylenol as needed for fever/pain. Home pain medications included Ibuprofen, Ultram and tylenol. May consider addition of Ibuprofen for additional pain control if needed. Depression. - To be managed by Dr. Mcgrath. Provide safe and supportive environment. Constipation. - Continue home medications for bowel motivation - miralax, MOM PRN, colace BID and dulcolax PRN. Herpes simplex. - No apparent acute lesions. Abreva as needed. Insomnia. - Elopement risk due to restlessness and insomnia. PRN Ativan and Haldol per Dr. Mcgrath as indicated. History of seizure disorder. - Monitor closely for signs of seizure. May consider neurology consult to Dr. Shah if seizure occurs. History of hypokalemia. - Continue home KCl 20 mEq daily. Will monitor electrolytes periodically throughout admission. History of vitamin deficiency. - Continue home supplements. History of UTI. - Recent UTI treated on 03/20/17-03/27/17 with Macrobid. UA in ED was unremarkable with trace ketones. Monitor for symptoms. Plan - 04/03/17 Alzheimer's disease and dementia with behavioral disturbance. - Patient remains agitated and actively striking out at staff. Continue psychiatric care per Dr. Mcgrath. - CXR in ED revealed RLL atelectasis or pneumonia. WBC stable and patient remains afebrile without symptoms. Pulse ox noted to be trending down. Will discuss treatment recommendations with Dr. Pool. Unable to clinically assess due to patient's agitation. - Monitor respiratory function closely. Notify hospitalist service if fever > 100.4, HR >100, RR > 22, systolic blood pressure <90 or >180, new cough or any symptoms that are concerning. Psych On admission: Continued Depakote 500mg PO BID. Plan to continue for time being, repeating VPA level once adherence has been ensured x 3 days. Luvox decreased from 100mg TID to 100mg BID. Geodon decreased from 80mg PO BID to 40mg PO BID. Mirtazapine decreased from 45mg PO q HS to 30mg PO q HS. 04/04/17 Psych: Decreased Luvox to 75mg PO BID. Continue to monitor symptoms - I am hesitant to make further changes as she has complained of not feeling well and may be some w/d symptoms due to changes in medications - however, I suspect polypharmacy was initially contributing to presentation, possibly akathisia. Would like to taper antidepressants, Geodon as much as possible and evaluate how patient does with Depakote. Monitor mood, behavior and response to treatment. 04/05/17 Psych: Decrease Geodon to 20mg PO BID; monitor response. Plan to check VPA level on 04/07 in AM. 04/07/17 Remains impulsive at times. Continue current care. 04/08/17 Psych: Will discuss the following with family: Switching antipsychotic from Geodon to Zyprexa (5mg at HS) as it was helpful clinically. Willl also increase Depakote DR to 250mg PO q AM and 500mg PO q HS. 04/08/17 hospitalist: Reviewed vital signs, lab, nurse's notes, and psychiatric note. Repeat vitals were 109/65 and pulse 97. Will continue to monitor. Her TSH was elevated, plan is to continue her current dosage and follow-up with repeat TSH in 4-6 weeks per previous note. 04/09/17 Psych: Decrease Luvox to 50mg PO BID, decrease mirtazapine to 15mg PO q HS as I believe some of patient's initial presentation due to polypharmacy. Seems to do well with Zyprexa, recent increase in Depakote. Plan to recheck VPA level once reaches steady state. 04/10/17 Psych: Will decrease mirtazapine to 7.5mg PO q HS in an effort to minimize polypharmacy; monitor sleep. 04/11/17 Psych: Will use PRN Zyprexa rather than PRN Haldol in case typical antipsychotic is responsible for restlessness/akathisia. Plan to check VPA level , CBC, CMP, ammonia level in AM. Increase mirtazapine back to 15mg PO q HS due to insomnia last night. 04/12/17 Psych: Will add lorazepam 1mg PO q HS; monitor insomnia. Patient does well during the day but then still is . May also consider increasing Zyprexa to 7.5mg PO q HS.
--- NOTE | 2017-04-12 17:29 | Progress Note ---
- Date 04/12/17 Subjective: Lyndsey is seen while pacing around the day room, initially requesting to go to bed and then requesting to have supper. She does not answer questions on exam but appears in no acute distress. Nursing reports that she continues to have behavioral issues, often believing that she is a young child and requesting her mommy. Her appetite remains stable and bowels are moving. Blood pressure remains borderline low. Repeat labs today were unremarkable with B12 and folate pending. Objective Vital signs: Temperature 98.8 F 04/12/17 15:33 Pulse Rate 95 04/12/17 15:33 Respiratory Rate 16 04/12/17 15:33 Blood Pressure 115/81 04/12/17 15:33 Pulse Oximetry 93 04/12/17 15:33 Height/Weight/BMI: Height 5 ft 4 in Weight 171 lb 1.259 oz Body Mass Index 29.8 Comments: pacing around day room. - Constitutional Present: no acute distress, well nourished, well developed, cooperative Comments: patient refuses to answer questions but allows physical exam. - Routine HEENT Exam Head: Present: normocephalic, atraumatic Eye: Present: PERRL. Absent: conjunctival icterus ENT: Present: mucous membranes moist Comments: left eye ptosis. - Routine Respiratory Exam Present: CTA bilaterally. Absent: stridor, wheezes, crackles - Routine Cardiovascular Exam Present: RRR, S1, S2, murmur - Routine Abdominal Exam Present: soft, normoactive bowel sounds, non distended, non tender - Routine Extremities Exam Present: no edema, non tender, full ROM Comments: shuffled gait. - Routine Back/Spine/Pelvis Exam Back/Spine: Present: full ROM. Absent: vertebral tenderness - Routine Musculoskeletal Exam Musculoskeletal: Present: moving extremities well - Routine Skin Exam Present: dry, warm. Absent: jaundice Comments: afebrile. - Routine Neurological Exam Present: alert, moving all extremities - Routine Lymphatic Exam Lymphatic: Absent: lymphedema - Routine Psychiatric Exam Present: cooperative Results - Labs CBC & Chem 7: 04/12/17 10:59 04/12/17 10:59 Assessment and Plan (1) Dementia with behavioral disturbance Current visit: Yes Status: Acute Assessment and Plan: Assessment Dementia with behavioral disturbance. Alzheimer's disease. Chronic a-fib. CHF. GERD. Hypothyroidism. Osteoarthritis. Chronic pain. Depression. Overweight, BMI 29.8. Constipation. Herpes simplex. Insomnia. Osteoporosis. History of seizure disorder. History of hypokalemia. History of vitamin deficiency. History of UTI - treated on 03/20/17-03/27/17 with Macrobid. Plan - 04/12/17 Overall, Lyndsey appears medically stable. She continues to have episodes when she believes she is a young child, often requesting her mommy. Continue psychiatric care per Dr. Mcgrath. Continue to provide safe and supportive environment. Recent labs were unremarkable. Resuscitation Status: Do Not Resuscitate - Time spent with patient Time with patient PN: 25 minutes - Physician Narrative Physician: Jae Pool MD Narrative: Date: 04/12/17 Time: 1726 Hospital Course Summary Disclaimer: The visit summary below is not to be considered part of the above Progress Note. Hospital Course: Plan - 04/02/17 (Admission) Alzheimer's disease and dementia with behavioral disturbance. - Agree with admission to [facility] under the care of Dr. Mcgrath for psychiatric evaluation and treatment. Hospitalist service consulted for medical management. - CBC, CMP and UA obtained in ED and unremarkable. Will monitor periodically throughout admission. - Prior records indicated an unwitnessed fall on 03/28/17. Would recommend obtaining CT head given behavioral changes and unwitnessed fall. - CXR in ED revealed RLL atelectasis or pneumonia. WBC stable and patient remains afebrile without symptoms. Will hold off on antibiotic treatment at this time given patient is clinically stable without symptoms. - Monitor respiratory function closely. Notify hospitalist service if fever > 100.4, HR >100, RR > 22, systolic blood pressure <90 or >180, new cough or any symptoms that are concerning. Chronic a-fib. - EKG in ED revealed normal sinus rhythm at a rate of 67. Review of medication list does not reveal current treatment of a-fib. Monitor vital signs closely. Chronic CHF. - No current medications. Monitor closely for signs of fluid over load with increasing peripheral edema (none on admission) and daily weight. GERD. - Continue home medications - Maalox PRN. If needing Maalox frequently, consider addition of Prilosec daily for GI protection and GERD. Hypothyroidism. - TSH on admission was elevated at 8.11. Review of prior medical records indicated TSH ~18 in January 2017. Patient currently on Synthryoid 137mcg daily. Unknown if dose was increased/adjusted in 01/2017 or if elevated TSH was secondary to poor medication compliance. - Will continue home Synthroid at 137mcg daily and recommend recheck TSH in 6 weeks. Osteoarthritis and chronic pain. - Tylenol as needed for fever/pain. Home pain medications included Ibuprofen, Ultram and tylenol. May consider addition of Ibuprofen for additional pain control if needed. Depression. - To be managed by Dr. Mcgrath. Provide safe and supportive environment. Constipation. - Continue home medications for bowel motivation - miralax, MOM PRN, colace BID and dulcolax PRN. Herpes simplex. - No apparent acute lesions. Abreva as needed. Insomnia. - Elopement risk due to restlessness and insomnia. PRN Ativan and Haldol per Dr. Mcgrath as indicated. History of seizure disorder. - Monitor closely for signs of seizure. May consider neurology consult to Dr. Shah if seizure occurs. History of hypokalemia. - Continue home KCl 20 mEq daily. Will monitor electrolytes periodically throughout admission. History of vitamin deficiency. - Continue home supplements. History of UTI. - Recent UTI treated on 03/20/17-03/27/17 with Macrobid. UA in ED was unremarkable with trace ketones. Monitor for symptoms. Plan - 04/03/17 Alzheimer's disease and dementia with behavioral disturbance. - Patient remains agitated and actively striking out at staff. Continue psychiatric care per Dr. Mcgrath. - CXR in ED revealed RLL atelectasis or pneumonia. WBC stable and patient remains afebrile without symptoms. Pulse ox noted to be trending down. Will discuss treatment recommendations with Dr. Pool. Unable to clinically assess due to patient's agitation. - Monitor respiratory function closely. Notify hospitalist service if fever > 100.4, HR >100, RR > 22, systolic blood pressure <90 or >180, new cough or any symptoms that are concerning. Psych On admission: Continued Depakote 500mg PO BID. Plan to continue for time being, repeating VPA level once adherence has been ensured x 3 days. Luvox decreased from 100mg TID to 100mg BID. Geodon decreased from 80mg PO BID to 40mg PO BID. Mirtazapine decreased from 45mg PO q HS to 30mg PO q HS. 04/04/17 Psych: Decreased Luvox to 75mg PO BID. Continue to monitor symptoms - I am hesitant to make further changes as she has complained of not feeling well and may be some w/d symptoms due to changes in medications - however, I suspect polypharmacy was initially contributing to presentation, possibly akathisia. Would like to taper antidepressants, Geodon as much as possible and evaluate how patient does with Depakote. Monitor mood, behavior and response to treatment. 04/05/17 Psych: Decrease Geodon to 20mg PO BID; monitor response. Plan to check VPA level on 04/07 in AM. 04/07/17 Remains impulsive at times. Continue current care. 04/08/17 Psych: Will discuss the following with family: Switching antipsychotic from Geodon to Zyprexa (5mg at HS) as it was helpful clinically. Willl also increase Depakote DR to 250mg PO q AM and 500mg PO q HS. 04/08/17 hospitalist: Reviewed vital signs, lab, nurse's notes, and psychiatric note. Repeat vitals were 109/65 and pulse 97. Will continue to monitor. Her TSH was elevated, plan is to continue her current dosage and follow-up with repeat TSH in 4-6 weeks per previous note. 04/09/17 Psych: Decrease Luvox to 50mg PO BID, decrease mirtazapine to 15mg PO q HS as I believe some of patient's initial presentation due to polypharmacy. Seems to do well with Zyprexa, recent increase in Depakote. Plan to recheck VPA level once reaches steady state. 04/10/17 Psych: Will decrease mirtazapine to 7.5mg PO q HS in an effort to minimize polypharmacy; monitor sleep. 04/11/17 Psych: Will use PRN Zyprexa rather than PRN Haldol in case typical antipsychotic is responsible for restlessness/akathisia. Plan to check VPA level , CBC, CMP, ammonia level in AM. Increase mirtazapine back to 15mg PO q HS due to insomnia last night. 04/12/17 Psych: Will add lorazepam 1mg PO q HS; monitor insomnia. Patient does well during the day but then still is . May also consider increasing Zyprexa to 7.5mg PO q HS. Plan - 04/12/17 Overall, Lyndsey appears medically stable. She continues to have episodes when she believes she is a young child, often requesting her mommy. Continue psychiatric care per Dr. Mcgrath. Continue to provide safe and supportive environment. Recent labs were unremarkable.
[2017-04-12] MEDS: OLANZapine ODT 5 MG TABLET PO SCH (20:02)
[2017-04-12] MEDS: MIRTAZAPINE 15 MG TABLET PO SCH (20:03)
[2017-04-12] MEDS: LORazepam 1 MG TABLET PO SCH (20:03)
[2017-04-13] MEDS: LEVOTHYROXINE 137 MCG TABLET PO SCH (05:38)
[2017-04-13] MEDS: DIVALPROEX SPRINKLE 125 MG CAPSULE PO SCH ×3 (09:30→20:06)
[2017-04-13] MEDS: DOCUSATE SODIUM 100 MG CAPSULE PO SCH ×3 (09:31→20:06)
[2017-04-13] MEDS: POLYETHYL GLYCOL 3350 17gm PACKET PO SCH (09:31)
[2017-04-13] MEDS: TAMSULOSIN 0.4 MG CAPSULE PO SCH (09:31)
[2017-04-13] MEDS: FLUVOXAMINE 50 MG TABLET PO SCH ×3 (09:31→20:06)
--- NOTE | 2017-04-13 10:25 | Neuropsych Progress Note ---
Huong Subjective Date: 04/13/17 - Sujective/Severity of Illness Medications: Acetaminophen (Tylenol) 1,000 mg PO Q4H PRN PRN Reason: Pain Last Admin: 04/11/17 16:51 Dose: 1,000 mg Al Hydrox/Mg Hydrox/Simethicone (Maalox Plus "Xs") 30 ml PO Q4H PRN PRN Reason: Epigastric distress Bisacodyl (Dulcolax) 10 mg RECTALLY DAILY PRN PRN Reason: Constipation Divalproex Sodium (Depakote Sprinkle) 500 mg PO DAILY [facility] Last Admin: 04/13/17 09:30 Dose: 500 mg Divalproex Sodium (Depakote Sprinkle) 1,000 mg PO HS [facility] Last Admin: 04/12/17 20:02 Dose: 1,000 mg Docusate Sodium (Colace) 100 mg PO BID [facility] Last Admin: 04/13/17 09:31 Dose: 100 mg Fluvoxamine Maleate (Luvox) 50 mg PO BID [facility] Last Admin: 04/13/17 09:31 Dose: 50 mg Ibuprofen (Motrin) 600 mg PO Q8H PRN PRN Reason: Pain Last Admin: 04/06/17 17:33 Dose: 600 mg Levothyroxine Sodium (Synthroid) 137 mcg PO ACB [facility] Last Admin: 04/13/17 05:38 Dose: 137 mcg Lorazepam (Ativan) 0.5 mg PO Q6H PRN PRN Reason: Extreme agitation Last Admin: 04/11/17 21:15 Dose: 0.5 mg Lorazepam (Ativan Inj) 0.5 mg IM Q6H PRN PRN Reason: Extreme agitation Lorazepam (Ativan) 1 mg PO [facility] Last Admin: 04/12/17 20:03 Dose: 1 mg Magnesium Hydroxide (Mom) 30 ml PO DAILY PRN PRN Reason: Constipation Last Admin: 04/04/17 16:29 Dose: 30 ml Mirtazapine (Remeron) 15 mg PO [facility] Last Admin: 04/12/17 20:03 Dose: 15 mg Olanzapine (Zyprexa Zydis) 5 mg PO [facility] Last Admin: 04/12/17 20:02 Dose: 5 mg Olanzapine (Zyprexa Zydis) 2.5 mg PO Q6HR PRN PRN Reason: Agitation Ondansetron HCl (Zofran Po) 4 mg PO Q6H PRN PRN Reason: Nausea &/or vomiting Polyethylene Glycol (Miralax) 17 gm PO DAILY [facility] Last Admin: 04/13/17 09:31 Dose: Not Given Potassium Chloride (K-Dur 20 Meq Tablet) 20 meq PO WB [facility] Last Admin: 04/13/17 09:30 Dose: 20 meq Tamsulosin HCl (Flomax) 0.4 mg PO DAILY [facility] Last Admin: 04/13/17 09:31 Dose: 0.4 mg Subjective: Patient seen and chart reviewed. Nursing reports pt slept better with Ativan last night. Remains confused but no behaviors noted. On face to face the pt is seen resting in bed. She is only oriented to self. She denies pain and voices no concerns at this time Start Time: 10:00 Stop Time: 10:15 Mental Status Exam Vitals: Last Vital Signs Temp 98.2 F 04/12/17 19:51 Pulse 86 04/12/17 19:51 Resp 22 04/12/17 19:51 BP 116/63 04/12/17 19:51 Pulse Ox 90 04/12/17 19:51 Height: 1.63 m Weight: 77.6 kg - Mental Status Exam Muscle Strength/Tone: Normal Dressing: Casual Grooming: Poor Attitude: Cooperative Motor Activity: Restless (intermittent) Eye Contact: Poor Speech: Slowed Volume: Soft Rhythm: Mumbled, Paucity of Language Orientation: Disoriented to time, Disoriented to place, Disoriented to situation , Oriented to person Mood: Neutral (affect labile in evenings, calm during day) Rate of Thoughts: Delayed Thought Organization: Disorganized, [place], Confused Associations: Illogical Abstract Reasoning: Impaired, concrete Thought Content: Other (Poverty of thought) Perception/Psychotic: Perception Normal Language: Naming Impaired Fund of Knowledge: Poor fund of knowledge Memory: Poor-immediate, Poor-recent, Poor-remote Suicidal Ideation: None Homicidal Ideation: None Insight: Impaired Judgement: Impaired Impulse Control: Fair - Laboratory Result Diagrams: 04/12/17 10:59 04/12/17 10:59 Laboratory Results - last 24 hr 04/12/17 04/12/17 10:59 10:59 WBC 7.4 RBC 4.64 Hgb 13.1 Hct 42.2 MCV 90.9 MCH 28.2 MCHC 31.0 RDW Std Deviation 53.4 H Plt Count 238 MPV 9.6 Immature Gran % (Auto) 0.3 Neut % (Auto) 63.7 Lymph % (Auto) 24.1 [place] % (Auto) 7.7 Eos % (Auto) 3.5 Baso % (Auto) 0.7 Neut # (Auto) 4.7 Lymph # (Auto) 1.8 [place] # (Auto) 0.6 Eos # (Auto) 0.3 Baso # (Auto) 0.1 Abs Immat Gran (auto) 0.02 Turbidity < 20 Sodium 141 Potassium 4.5 Chloride 105 Carbon Dioxide 29 Anion Gap 7 BUN 22.0 H Creatinine 0.8 GFR Calculation 70 BUN/Creatinine Ratio 28 H Glucose 74 Calculated Osmolality 273 Calcium 8.6 Total Bilirubin 0.30 Conjugated Bilirubin 0.00 Unconjugated Bilirubin 0.00 Icterus Index < 2 AST 21 ALT 33 Alkaline Phosphatase 53 Ammonia 13 Total Protein 6.5 Albumin 3.3 L Globulin 3.2 Albumin/Globulin Ratio 1.0 L Specimen Hemolysis < 15 Valproic Acid 46.9 L Assessment and Plan (1) Major neurocognitive disorder Problem details: with behavioral disturbance, moderate to severe Hx of Alzheimer's Other medical conditions: Chronic a-fib. CHF. GERD. Hypothyroidism. Osteoarthritis. Chronic pain. Depression. Overweight, BMI 29.8. Constipation. Herpes simplex. Osteoporosis. History of seizure disorder. History of hypokalemia. History of vitamin deficiency. History of UTI - treated on 03/20/17-03/27/17 with Macrobid. Current visit: Yes Status: Acute Hospital Course Summary Disclaimer: The visit summary below is not to be considered part of the above Progress Note. Hospital Course: Plan - 04/02/17 (Admission) Alzheimer's disease and dementia with behavioral disturbance. - Agree with admission to [facility] under the care of Dr. Mcgrath for psychiatric evaluation and treatment. Hospitalist service consulted for medical management. - CBC, CMP and UA obtained in ED and unremarkable. Will monitor periodically throughout admission. - Prior records indicated an unwitnessed fall on 03/28/17. Would recommend obtaining CT head given behavioral changes and unwitnessed fall. - CXR in ED revealed RLL atelectasis or pneumonia. WBC stable and patient remains afebrile without symptoms. Will hold off on antibiotic treatment at this time given patient is clinically stable without symptoms. - Monitor respiratory function closely. Notify hospitalist service if fever > 100.4, HR >100, RR > 22, systolic blood pressure <90 or >180, new cough or any symptoms that are concerning. Chronic a-fib. - EKG in ED revealed normal sinus rhythm at a rate of 67. Review of medication list does not reveal current treatment of a-fib. Monitor vital signs closely. Chronic CHF. - No current medications. Monitor closely for signs of fluid over load with increasing peripheral edema (none on admission) and daily weight. GERD. - Continue home medications - Maalox PRN. If needing Maalox frequently, consider addition of Prilosec daily for GI protection and GERD. Hypothyroidism. - TSH on admission was elevated at 8.11. Review of prior medical records indicated TSH ~18 in January 2017. Patient currently on Synthryoid 137mcg daily. Unknown if dose was increased/adjusted in 01/2017 or if elevated TSH was secondary to poor medication compliance. - Will continue home Synthroid at 137mcg daily and recommend recheck TSH in 6 weeks. Osteoarthritis and chronic pain. - Tylenol as needed for fever/pain. Home pain medications included Ibuprofen, Ultram and tylenol. May consider addition of Ibuprofen for additional pain control if needed. Depression. - To be managed by Dr. Mcgrath. Provide safe and supportive environment. Constipation. - Continue home medications for bowel motivation - miralax, MOM PRN, colace BID and dulcolax PRN. Herpes simplex. - No apparent acute lesions. Abreva as needed. Insomnia. - Elopement risk due to restlessness and insomnia. PRN Ativan and Haldol per Dr. Mcgrath as indicated. History of seizure disorder. - Monitor closely for signs of seizure. May consider neurology consult to Dr. Shah if seizure occurs. History of hypokalemia. - Continue home KCl 20 mEq daily. Will monitor electrolytes periodically throughout admission. History of vitamin deficiency. - Continue home supplements. History of UTI. - Recent UTI treated on 03/20/17-03/27/17 with Macrobid. UA in ED was unremarkable with trace ketones. Monitor for symptoms. Plan - 04/03/17 Alzheimer's disease and dementia with behavioral disturbance. - Patient remains agitated and actively striking out at staff. Continue psychiatric care per Dr. Mcgrath. - CXR in ED revealed RLL atelectasis or pneumonia. WBC stable and patient remains afebrile without symptoms. Pulse ox noted to be trending down. Will discuss treatment recommendations with Dr. Pool. Unable to clinically assess due to patient's agitation. - Monitor respiratory function closely. Notify hospitalist service if fever > 100.4, HR >100, RR > 22, systolic blood pressure <90 or >180, new cough or any symptoms that are concerning. Psych On admission: Continued Depakote 500mg PO BID. Plan to continue for time being, repeating VPA level once adherence has been ensured x 3 days. Luvox decreased from 100mg TID to 100mg BID. Geodon decreased from 80mg PO BID to 40mg PO BID. Mirtazapine decreased from 45mg PO q HS to 30mg PO q HS. 04/04/17 Psych: Decreased Luvox to 75mg PO BID. Continue to monitor symptoms - I am hesitant to make further changes as she has complained of not feeling well and may be some w/d symptoms due to changes in medications - however, I suspect polypharmacy was initially contributing to presentation, possibly akathisia. Would like to taper antidepressants, Geodon as much as possible and evaluate how patient does with Depakote. Monitor mood, behavior and response to treatment. 04/05/17 Psych: Decrease Geodon to 20mg PO BID; monitor response. Plan to check VPA level on 04/07 in AM. 04/07/17 Remains impulsive at times. Continue current care. 04/08/17 Psych: Will discuss the following with family: Switching antipsychotic from Geodon to Zyprexa (5mg at HS) as it was helpful clinically. Willl also increase Depakote DR to 250mg PO q AM and 500mg PO q HS. 04/08/17 hospitalist: Reviewed vital signs, lab, nurse's notes, and psychiatric note. Repeat vitals were 109/65 and pulse 97. Will continue to monitor. Her TSH was elevated, plan is to continue her current dosage and follow-up with repeat TSH in 4-6 weeks per previous note. 04/09/17 Psych: Decrease Luvox to 50mg PO BID, decrease mirtazapine to 15mg PO q HS as I believe some of patient's initial presentation due to polypharmacy. Seems to do well with Zyprexa, recent increase in Depakote. Plan to recheck VPA level once reaches steady state. 04/10/17 Psych: Will decrease mirtazapine to 7.5mg PO q HS in an effort to minimize polypharmacy; monitor sleep. 04/11/17 Psych: Will use PRN Zyprexa rather than PRN Haldol in case typical antipsychotic is responsible for restlessness/akathisia. Plan to check VPA level , CBC, CMP, ammonia level in AM. Increase mirtazapine back to 15mg PO q HS due to insomnia last night. 04/12/17 Psych: Will add lorazepam 1mg PO q HS; monitor insomnia. Patient does well during the day but then still is . May also consider increasing Zyprexa to 7.5mg PO q HS. Plan - 04/12/17 Overall, Lyndsey appears medically stable. She continues to have episodes when she believes she is a young child, often requesting her mommy. Continue psychiatric care per Dr. Mcgrath. Continue to provide safe and supportive environment. Recent labs were unremarkable. 04/13/17 Psych- PT sleeping better. Continue current care
[2017-04-13] MEDS: IBUPROFEN 600 MG TABLET PO PRN (11:57)
[2017-04-13] MEDS: ACETAMINOPHEN 500 MG TABLET PO PRN (12:58)
[2017-04-13] MEDS: LORazepam 1 MG TABLET PO SCH ×2 (19:33→20:07)
[2017-04-13] MEDS: OLANZapine ODT 5 MG TABLET PO SCH ×2 (19:34→20:07)
[2017-04-13] MEDS: MIRTAZAPINE 15 MG TABLET PO SCH ×2 (19:34→20:07)
[2017-04-14] MEDS: LEVOTHYROXINE 137 MCG TABLET PO SCH (06:35)
[2017-04-14] MEDS: DIVALPROEX SPRINKLE 125 MG CAPSULE PO SCH ×3 (08:18→20:30)
[2017-04-14] MEDS: FLUVOXAMINE 50 MG TABLET PO SCH ×3 (08:19→20:31)
[2017-04-14] MEDS: POLYETHYL GLYCOL 3350 17gm PACKET PO SCH (08:19)
[2017-04-14] MEDS: DOCUSATE SODIUM 100 MG CAPSULE PO SCH ×3 (08:19→20:30)
[2017-04-14] MEDS: TAMSULOSIN 0.4 MG CAPSULE PO SCH (08:19)
--- NOTE | 2017-04-14 09:58 | Neuropsych Progress Note ---
[facility] Subjective Date: 04/14/17 - Sujective/Severity of Illness Medications: Acetaminophen (Tylenol) 1,000 mg PO Q4H PRN PRN Reason: Pain Last Admin: 04/13/17 12:58 Dose: 1,000 mg Al Hydrox/Mg Hydrox/Simethicone (Maalox Plus "Xs") 30 ml PO Q4H PRN PRN Reason: Epigastric distress Bisacodyl (Dulcolax) 10 mg RECTALLY DAILY PRN PRN Reason: Constipation Divalproex Sodium (Depakote Sprinkle) 500 mg PO DAILY [facility] Last Admin: 04/14/17 08:18 Dose: 500 mg Divalproex Sodium (Depakote Sprinkle) 1,000 mg PO HS [facility] Last Admin: 04/13/17 20:06 Dose: Not Given Docusate Sodium (Colace) 100 mg PO BID [facility] Last Admin: 04/14/17 08:19 Dose: 100 mg Fluvoxamine Maleate (Luvox) 50 mg PO BID [facility] Last Admin: 04/14/17 08:19 Dose: 50 mg Ibuprofen (Motrin) 600 mg PO Q8H PRN PRN Reason: Pain Last Admin: 04/13/17 11:57 Dose: 600 mg Levothyroxine Sodium (Synthroid) 137 mcg PO ACB [facility] Last Admin: 04/14/17 06:35 Dose: 137 mcg Lorazepam (Ativan) 0.5 mg PO Q6H PRN PRN Reason: Extreme agitation Last Admin: 04/11/17 21:15 Dose: 0.5 mg Lorazepam (Ativan Inj) 0.5 mg IM Q6H PRN PRN Reason: Extreme agitation Last Admin: 04/13/17 21:52 Dose: 0.5 mg Lorazepam (Ativan) 1 mg PO HS [facility] Last Admin: 04/13/17 20:07 Dose: Not Given Magnesium Hydroxide (Mom) 30 ml PO DAILY PRN PRN Reason: Constipation Last Admin: 04/04/17 16:29 Dose: 30 ml Mirtazapine (Remeron) 15 mg PO HS [facility] Last Admin: 04/13/17 20:07 Dose: Not Given Olanzapine (Zyprexa Zydis) 5 mg PO HS [facility] Last Admin: 04/13/17 20:07 Dose: Not Given Olanzapine (Zyprexa Zydis) 2.5 mg PO Q6HR PRN PRN Reason: Agitation Last Admin: 04/13/17 19:35 Dose: 2.5 mg Ondansetron HCl (Zofran Po) 4 mg PO Q6H PRN PRN Reason: Nausea &/or vomiting Polyethylene Glycol (Miralax) 17 gm PO DAILY [facility] Last Admin: 04/14/17 08:19 Dose: 17 gm Potassium Chloride (K-Dur 20 Meq Tablet) 20 meq PO WB [facility] Last Admin: 04/14/17 08:18 Dose: 20 meq Tamsulosin HCl (Flomax) 0.4 mg PO DAILY [facility] Last Admin: 04/14/17 08:19 Dose: 0.4 mg Subjective: Patient seen and chart reviewed. Nursing reports pt was agitated and combative at times last night. Pt received PRN Zyprexa and IM Ativan last night. Nursing reports pt was paranoid and stated she believed someone had a gun. Pt had a fall this AM but no injury noted. On face to face the pt is seen walking the yang. She states she is cold and does not make any other statements. Tolerating meds Start Time: 10:30 Stop Time: 10:45 Mental Status Exam Vitals: Last Vital Signs Temp 97.9 F 04/13/17 23:00 Pulse 68 04/13/17 23:00 Resp 18 04/13/17 23:00 BP 124/78 04/13/17 23:00 Pulse Ox 95 04/13/17 23:00 Height: 1.63 m Weight: 77.6 kg - Mental Status Exam Muscle Strength/Tone: Normal Dressing: Casual Grooming: Poor Attitude: Cooperative Motor Activity: Restless (intermittent) Eye Contact: Poor Speech: Slowed Volume: Soft Rhythm: Mumbled, Paucity of Language Orientation: Disoriented to time, Disoriented to place, Disoriented to situation , Oriented to person Mood: Neutral (affect labile in evenings, calm during day) Rate of Thoughts: Delayed Thought Organization: Disorganized, [place], Confused Associations: Illogical Abstract Reasoning: Impaired, concrete Thought Content: Other (Poverty of thought) Perception/Psychotic: Perception Normal Language: Naming Impaired Fund of Knowledge: Poor fund of knowledge Memory: Poor-immediate, Poor-recent, Poor-remote Suicidal Ideation: None Homicidal Ideation: None Insight: Impaired Judgement: Impaired Impulse Control: Fair - Laboratory Result Diagrams: 04/12/17 10:59 04/12/17 10:59 Assessment and Plan (1) Major neurocognitive disorder Problem details: with behavioral disturbance, moderate to severe Hx of Alzheimer's Other medical conditions: Chronic a-fib. CHF. GERD. Hypothyroidism. Osteoarthritis. Chronic pain. Depression. Overweight, BMI 29.8. Constipation. Herpes simplex. Osteoporosis. History of seizure disorder. History of hypokalemia. History of vitamin deficiency. History of UTI - treated on 03/20/17-03/27/17 with Macrobid. Current visit: Yes Status: Acute Hospital Course Summary Disclaimer: The visit summary below is not to be considered part of the above Progress Note. Hospital Course: Plan - 04/02/17 (Admission) Alzheimer's disease and dementia with behavioral disturbance. - Agree with admission to [facility] under the care of Dr. Mcgrath for psychiatric evaluation and treatment. Hospitalist service consulted for medical management. - CBC, CMP and UA obtained in ED and unremarkable. Will monitor periodically throughout admission. - Prior records indicated an unwitnessed fall on 03/28/17. Would recommend obtaining CT head given behavioral changes and unwitnessed fall. - CXR in ED revealed RLL atelectasis or pneumonia. WBC stable and patient remains afebrile without symptoms. Will hold off on antibiotic treatment at this time given patient is clinically stable without symptoms. - Monitor respiratory function closely. Notify hospitalist service if fever > 100.4, HR >100, RR > 22, systolic blood pressure <90 or >180, new cough or any symptoms that are concerning. Chronic a-fib. - EKG in ED revealed normal sinus rhythm at a rate of 67. Review of medication list does not reveal current treatment of a-fib. Monitor vital signs closely. Chronic CHF. - No current medications. Monitor closely for signs of fluid over load with increasing peripheral edema (none on admission) and daily weight. GERD. - Continue home medications - Maalox PRN. If needing Maalox frequently, consider addition of Prilosec daily for GI protection and GERD. Hypothyroidism. - TSH on admission was elevated at 8.11. Review of prior medical records indicated TSH ~18 in January 2017. Patient currently on Synthryoid 137mcg daily. Unknown if dose was increased/adjusted in 01/2017 or if elevated TSH was secondary to poor medication compliance. - Will continue home Synthroid at 137mcg daily and recommend recheck TSH in 6 weeks. Osteoarthritis and chronic pain. - Tylenol as needed for fever/pain. Home pain medications included Ibuprofen, Ultram and tylenol. May consider addition of Ibuprofen for additional pain control if needed. Depression. - To be managed by Dr. Mcgrath. Provide safe and supportive environment. Constipation. - Continue home medications for bowel motivation - miralax, MOM PRN, colace BID and dulcolax PRN. Herpes simplex. - No apparent acute lesions. Abreva as needed. Insomnia. - Elopement risk due to restlessness and insomnia. PRN Ativan and Haldol per Dr. Mcgrath as indicated. History of seizure disorder. - Monitor closely for signs of seizure. May consider neurology consult to Dr. Shah if seizure occurs. History of hypokalemia. - Continue home KCl 20 mEq daily. Will monitor electrolytes periodically throughout admission. History of vitamin deficiency. - Continue home supplements. History of UTI. - Recent UTI treated on 03/20/17-03/27/17 with Macrobid. UA in ED was unremarkable with trace ketones. Monitor for symptoms. Plan - 04/03/17 Alzheimer's disease and dementia with behavioral disturbance. - Patient remains agitated and actively striking out at staff. Continue psychiatric care per Dr. Mcgrath. - CXR in ED revealed RLL atelectasis or pneumonia. WBC stable and patient remains afebrile without symptoms. Pulse ox noted to be trending down. Will discuss treatment recommendations with Dr. Pool. Unable to clinically assess due to patient's agitation. - Monitor respiratory function closely. Notify hospitalist service if fever > 100.4, HR >100, RR > 22, systolic blood pressure <90 or >180, new cough or any symptoms that are concerning. Psych On admission: Continued Depakote 500mg PO BID. Plan to continue for time being, repeating VPA level once adherence has been ensured x 3 days. Luvox decreased from 100mg TID to 100mg BID. Geodon decreased from 80mg PO BID to 40mg PO BID. Mirtazapine decreased from 45mg PO q HS to 30mg PO q HS. 04/04/17 Psych: Decreased Luvox to 75mg PO BID. Continue to monitor symptoms - I am hesitant to make further changes as she has complained of not feeling well and may be some w/d symptoms due to changes in medications - however, I suspect polypharmacy was initially contributing to presentation, possibly akathisia. Would like to taper antidepressants, Geodon as much as possible and evaluate how patient does with Depakote. Monitor mood, behavior and response to treatment. 04/05/17 Psych: Decrease Geodon to 20mg PO BID; monitor response. Plan to check VPA level on 04/07 in AM. 04/07/17 Remains impulsive at times. Continue current care. 04/08/17 Psych: Will discuss the following with family: Switching antipsychotic from Geodon to Zyprexa (5mg at HS) as it was helpful clinically. Willl also increase Depakote DR to 250mg PO q AM and 500mg PO q HS. 04/08/17 hospitalist: Reviewed vital signs, lab, nurse's notes, and psychiatric note. Repeat vitals were 109/65 and pulse 97. Will continue to monitor. Her TSH was elevated, plan is to continue her current dosage and follow-up with repeat TSH in 4-6 weeks per previous note. 04/09/17 Psych: Decrease Luvox to 50mg PO BID, decrease mirtazapine to 15mg PO q HS as I believe some of patient's initial presentation due to polypharmacy. Seems to do well with Zyprexa, recent increase in Depakote. Plan to recheck VPA level once reaches steady state. 04/10/17 Psych: Will decrease mirtazapine to 7.5mg PO q HS in an effort to minimize polypharmacy; monitor sleep. 04/11/17 Psych: Will use PRN Zyprexa rather than PRN Haldol in case typical antipsychotic is responsible for restlessness/akathisia. Plan to check VPA level , CBC, CMP, ammonia level in AM. Increase mirtazapine back to 15mg PO q HS due to insomnia last night. 04/12/17 Psych: Will add lorazepam 1mg PO q HS; monitor insomnia. Patient does well during the day but then still is . May also consider increasing Zyprexa to 7.5mg PO q HS. Plan - 04/12/17 Overall, Lyndsey appears medically stable. She continues to have episodes when she believes she is a young child, often requesting her mommy. Continue psychiatric care per Dr. Mcgrath. Continue to provide safe and supportive environment. Recent labs were unremarkable. 04/13/17 Psych- PT sleeping better. Continue current care 04/14/17 Psych- Pt had some agitation and paranoia last night. Fall this AM. Continue current care
[2017-04-14] MEDS: LORazepam 1 MG TABLET PO SCH ×2 (19:49→20:33)
[2017-04-14] MEDS: OLANZapine ODT 5 MG TABLET PO SCH ×2 (19:50→20:33)
[2017-04-14] MEDS: MIRTAZAPINE 15 MG TABLET PO SCH ×2 (19:50→20:33)
[2017-04-14] MEDS: ACETAMINOPHEN 500 MG TABLET PO PRN (19:51)
[2017-04-15] MEDS: LEVOTHYROXINE 137 MCG TABLET PO SCH (05:42)
[2017-04-15] MEDS ORDERED: LIDOCAINE VISCOUS 2% ORAL LIQUID 15ml ONE (07:11)
[2017-04-15] MEDS: TAMSULOSIN 0.4 MG CAPSULE PO SCH (09:22)
[2017-04-15] MEDS: FLUVOXAMINE 50 MG TABLET PO SCH ×3 (09:22→21:46)
[2017-04-15] MEDS: DOCUSATE SODIUM 100 MG CAPSULE PO SCH ×2 (09:22→21:46)
[2017-04-15] MEDS: POLYETHYL GLYCOL 3350 17gm PACKET PO SCH (09:22)
[2017-04-15] MEDS: DIVALPROEX SPRINKLE 125 MG CAPSULE PO SCH ×3 (09:22→21:45)
[2017-04-15] MEDS: LORazepam 1 MG TABLET PO SCH ×2 (19:35→21:46)
[2017-04-15] MEDS: ACETAMINOPHEN 500 MG TABLET PO PRN (19:36)
[2017-04-15] MEDS: MIRTAZAPINE 15 MG TABLET PO SCH ×2 (19:37→21:46)
[2017-04-15] MEDS: OLANZapine ODT 5 MG TABLET PO SCH ×2 (19:38→21:46)
--- NOTE | 2017-04-15 21:45 | Neuropsych Progress Note ---
[facility] Subjective Date: 04/15/17 - Sujective/Severity of Illness Medications: Acetaminophen (Tylenol) 1,000 mg PO Q4H PRN PRN Reason: Pain Last Admin: 04/15/17 19:36 Dose: 1,000 mg Al Hydrox/Mg Hydrox/Simethicone (Maalox Plus "Xs") 30 ml PO Q4H PRN PRN Reason: Epigastric distress Bisacodyl (Dulcolax) 10 mg RECTALLY DAILY PRN PRN Reason: Constipation Divalproex Sodium (Depakote Sprinkle) 500 mg PO DAILY [facility] Last Admin: 04/15/17 09:22 Dose: 500 mg Divalproex Sodium (Depakote Sprinkle) 1,000 mg PO HS [facility] Last Admin: 04/15/17 19:37 Dose: 1,000 mg Docusate Sodium (Colace) 100 mg PO BID [facility] Last Admin: 04/15/17 09:22 Dose: 100 mg Fluvoxamine Maleate (Luvox) 50 mg PO BID [facility] Last Admin: 04/15/17 19:35 Dose: 50 mg Ibuprofen (Motrin) 600 mg PO Q8H PRN PRN Reason: Pain Last Admin: 04/13/17 11:57 Dose: 600 mg Levothyroxine Sodium (Synthroid) 137 mcg PO ACB [facility] Last Admin: 04/15/17 05:42 Dose: 137 mcg Lorazepam (Ativan) 0.5 mg PO Q6H PRN PRN Reason: Extreme agitation Last Admin: 04/11/17 21:15 Dose: 0.5 mg Lorazepam (Ativan Inj) 0.5 mg IM Q6H PRN PRN Reason: Extreme agitation Last Admin: 04/13/17 21:52 Dose: 0.5 mg Lorazepam (Ativan) 1 mg PO HS [facility] Last Admin: 04/15/17 19:35 Dose: 1 mg Magnesium Hydroxide (Mom) 30 ml PO DAILY PRN PRN Reason: Constipation Last Admin: 04/04/17 16:29 Dose: 30 ml Mirtazapine (Remeron) 15 mg PO HS [facility] Last Admin: 04/15/17 19:37 Dose: 15 mg Olanzapine (Zyprexa Zydis) 5 mg PO HS [facility] Last Admin: 04/15/17 19:38 Dose: 5 mg Olanzapine (Zyprexa Zydis) 2.5 mg PO Q6HR PRN PRN Reason: Agitation Last Admin: 04/13/17 19:35 Dose: 2.5 mg Ondansetron HCl (Zofran Po) 4 mg PO Q6H PRN PRN Reason: Nausea &/or vomiting Polyethylene Glycol (Miralax) 17 gm PO DAILY [facility] Last Admin: 04/15/17 09:22 Dose: 17 gm Potassium Chloride (K-Dur 20 Meq Tablet) 20 meq PO WB [facility] Last Admin: 04/15/17 09:21 Dose: 20 meq Tamsulosin HCl (Flomax) 0.4 mg PO DAILY [facility] Last Admin: 04/15/17 09:22 Dose: 0.4 mg Subjective: Patient seen and chart reviewed. Case discussed with treatment team. Patient is lying in bed at time of rounds and says she wants to get out of bed repeatedly; she does not answer my other interview questions. Nursing staff report that patient is more steady without PRNs the night prior. She can be combative with cares though it is somewhat predictable -- it is believed she is anxious about the water as she equates it with rain. Patient has been adherent with medications. Patient slept 8.5 hours overnight. VSS. Patient is eating well but requires assistance to eat. Start Time: 12:00 Stop Time: 12:20 Mental Status Exam Vitals: Last Vital Signs Temp 98.9 F 04/15/17 19:57 Pulse 90 04/15/17 19:57 Resp 20 04/15/17 19:57 BP 110/68 04/15/17 19:57 Pulse Ox 93 04/15/17 19:57 Height: 1.63 m Weight: 77.6 kg - Mental Status Exam Muscle Strength/Tone: Normal Dressing: Casual Grooming: Poor Attitude: Cooperative Motor Activity: Restless (intermittent) Eye Contact: Poor Speech: Slowed Volume: Soft Rhythm: Mumbled, Paucity of Language Orientation: Disoriented to time, Disoriented to place, Disoriented to situation , Oriented to person Mood: Neutral (more labile in evenings, can be restless at times during the day) Rate of Thoughts: Delayed Thought Organization: Disorganized, [place], Confused Associations: Illogical Abstract Reasoning: Impaired, concrete Thought Content: Other (Poverty of thought) Perception/Psychotic: Perception Normal Language: Naming Impaired Fund of Knowledge: Poor fund of knowledge Memory: Poor-immediate, Poor-recent, Poor-remote Suicidal Ideation: None Homicidal Ideation: None Insight: Impaired Judgement: Impaired Impulse Control: Poor - Laboratory Result Diagrams: 04/12/17 10:59 04/12/17 10:59 Laboratory Results - last 24 hr 04/12/17 10:59 Vitamin B12 819 Folate > 20.0 H Assessment and Plan (1) Major neurocognitive disorder Problem details: with behavioral disturbance, moderate to severe Hx of Alzheimer's Other medical conditions: Chronic a-fib. CHF. GERD. Hypothyroidism. Osteoarthritis. Chronic pain. Depression. Overweight, BMI 29.8. Constipation. Herpes simplex. Osteoporosis. History of seizure disorder. History of hypokalemia. History of vitamin deficiency. History of UTI - treated on 03/20/17-03/27/17 with Macrobid. Current visit: Yes Status: Acute 04/15/17: Will add lunchtime dose of Depakote 250mg PO to target afternoon anxiety/restlessness; monitor response. Hospital Course Summary Disclaimer: The visit summary below is not to be considered part of the above Progress Note. Hospital Course: Plan - 04/02/17 (Admission) Alzheimer's disease and dementia with behavioral disturbance. - Agree with admission to [facility] under the care of Dr. Mcgrath for psychiatric evaluation and treatment. Hospitalist service consulted for medical management. - CBC, CMP and UA obtained in ED and unremarkable. Will monitor periodically throughout admission. - Prior records indicated an unwitnessed fall on 03/28/17. Would recommend obtaining CT head given behavioral changes and unwitnessed fall. - CXR in ED revealed RLL atelectasis or pneumonia. WBC stable and patient remains afebrile without symptoms. Will hold off on antibiotic treatment at this time given patient is clinically stable without symptoms. - Monitor respiratory function closely. Notify hospitalist service if fever > 100.4, HR >100, RR > 22, systolic blood pressure <90 or >180, new cough or any symptoms that are concerning. Chronic a-fib. - EKG in ED revealed normal sinus rhythm at a rate of 67. Review of medication list does not reveal current treatment of a-fib. Monitor vital signs closely. Chronic CHF. - No current medications. Monitor closely for signs of fluid over load with increasing peripheral edema (none on admission) and daily weight. GERD. - Continue home medications - Maalox PRN. If needing Maalox frequently, consider addition of Prilosec daily for GI protection and GERD. Hypothyroidism. - TSH on admission was elevated at 8.11. Review of prior medical records indicated TSH ~18 in January 2017. Patient currently on Synthryoid 137mcg daily. Unknown if dose was increased/adjusted in 01/2017 or if elevated TSH was secondary to poor medication compliance. - Will continue home Synthroid at 137mcg daily and recommend recheck TSH in 6 weeks. Osteoarthritis and chronic pain. - Tylenol as needed for fever/pain. Home pain medications included Ibuprofen, Ultram and tylenol. May consider addition of Ibuprofen for additional pain control if needed. Depression. - To be managed by Dr. Mcgrath. Provide safe and supportive environment. Constipation. - Continue home medications for bowel motivation - miralax, MOM PRN, colace BID and dulcolax PRN. Herpes simplex. - No apparent acute lesions. Abreva as needed. Insomnia. - Elopement risk due to restlessness and insomnia. PRN Ativan and Haldol per Dr. Mcgrath as indicated. History of seizure disorder. - Monitor closely for signs of seizure. May consider neurology consult to Dr. Shah if seizure occurs. History of hypokalemia. - Continue home KCl 20 mEq daily. Will monitor electrolytes periodically throughout admission. History of vitamin deficiency. - Continue home supplements. History of UTI. - Recent UTI treated on 03/20/17-03/27/17 with Macrobid. UA in ED was unremarkable with trace ketones. Monitor for symptoms. Plan - 04/03/17 Alzheimer's disease and dementia with behavioral disturbance. - Patient remains agitated and actively striking out at staff. Continue psychiatric care per Dr. Mcgrath. - CXR in ED revealed RLL atelectasis or pneumonia. WBC stable and patient remains afebrile without symptoms. Pulse ox noted to be trending down. Will discuss treatment recommendations with Dr. Pool. Unable to clinically assess due to patient's agitation. - Monitor respiratory function closely. Notify hospitalist service if fever > 100.4, HR >100, RR > 22, systolic blood pressure <90 or >180, new cough or any symptoms that are concerning. Psych On admission: Continued Depakote 500mg PO BID. Plan to continue for time being, repeating VPA level once adherence has been ensured x 3 days. Luvox decreased from 100mg TID to 100mg BID. Geodon decreased from 80mg PO BID to 40mg PO BID. Mirtazapine decreased from 45mg PO q HS to 30mg PO q HS. 04/04/17 Psych: Decreased Luvox to 75mg PO BID. Continue to monitor symptoms - I am hesitant to make further changes as she has complained of not feeling well and may be some w/d symptoms due to changes in medications - however, I suspect polypharmacy was initially contributing to presentation, possibly akathisia. Would like to taper antidepressants, Geodon as much as possible and evaluate how patient does with Depakote. Monitor mood, behavior and response to treatment. 04/05/17 Psych: Decrease Geodon to 20mg PO BID; monitor response. Plan to check VPA level on 04/07 in AM. 04/07/17 Remains impulsive at times. Continue current care. 04/08/17 Psych: Will discuss the following with family: Switching antipsychotic from Geodon to Zyprexa (5mg at HS) as it was helpful clinically. Willl also increase Depakote DR to 250mg PO q AM and 500mg PO q HS. 04/08/17 hospitalist: Reviewed vital signs, lab, nurse's notes, and psychiatric note. Repeat vitals were 109/65 and pulse 97. Will continue to monitor. Her TSH was elevated, plan is to continue her current dosage and follow-up with repeat TSH in 4-6 weeks per previous note. 04/09/17 Psych: Decrease Luvox to 50mg PO BID, decrease mirtazapine to 15mg PO q HS as I believe some of patient's initial presentation due to polypharmacy. Seems to do well with Zyprexa, recent increase in Depakote. Plan to recheck VPA level once reaches steady state. 04/10/17 Psych: Will decrease mirtazapine to 7.5mg PO q HS in an effort to minimize polypharmacy; monitor sleep. 04/11/17 Psych: Will use PRN Zyprexa rather than PRN Haldol in case typical antipsychotic is responsible for restlessness/akathisia. Plan to check VPA level , CBC, CMP, ammonia level in AM. Increase mirtazapine back to 15mg PO q HS due to insomnia last night. 2/9/18 Psych: Will add lorazepam 1mg PO q HS; monitor insomnia. Patient does well during the day but then still is . May also consider increasing Zyprexa to 7.5mg PO q HS. Plan - 04/12/17 Overall, Lyndsey appears medically stable. She continues to have episodes when she believes she is a young child, often requesting her mommy. Continue psychiatric care per Dr. Mcgrath. Continue to provide safe and supportive environment. Recent labs were unremarkable. 04/13/17 Psych- PT sleeping better. Continue current care 04/14/17 Psych- Pt had some agitation and paranoia last night. Fall this AM. Continue current care 04/15/17 Psych: Will add lunchtime dose of Depakote 250mg PO to target afternoon anxiety/restlessness; monitor response.
[2017-04-16] MEDS: LEVOTHYROXINE 137 MCG TABLET PO SCH (06:07)
[2017-04-16] MEDS: DOCUSATE SODIUM 100 MG CAPSULE PO SCH ×2 (10:02→20:02)
[2017-04-16] MEDS: DIVALPROEX SPRINKLE 125 MG CAPSULE PO SCH ×3 (10:02→20:01)
[2017-04-16] MEDS: TAMSULOSIN 0.4 MG CAPSULE PO SCH (10:03)
[2017-04-16] MEDS: FLUVOXAMINE 50 MG TABLET PO SCH ×2 (10:03→20:02)
[2017-04-16] MEDS: POLYETHYL GLYCOL 3350 17gm PACKET PO SCH (10:03)
--- NOTE | 2017-04-16 14:09 | Progress Note ---
- Date 04/16/17 Subjective: Patient seen sitting in the TV room. She does not respond to questions. She will make eye contact. During exam, she tried to get out of her chair. Nurses have no concerns at present. She ate 100% of lunch. Objective Vital signs: Temperature 98.2 F 04/16/17 08:00 Pulse Rate 78 04/16/17 08:00 Respiratory Rate 16 04/16/17 08:00 Blood Pressure 122/79 04/16/17 08:00 Pulse Oximetry 94 04/16/17 08:00 Height/Weight/BMI: Height 1.63 m Weight 77.6 kg Body Mass Index 29.8 - Constitutional Present: no acute distress, well nourished, well developed - Routine HEENT Exam Head: Present: normocephalic, atraumatic - Routine Respiratory Exam Present: CTA bilaterally. Absent: wheezes - Routine Cardiovascular Exam Present: murmur, irregularly irregular - Routine Abdominal Exam Present: soft, non distended, non tender - Routine Extremities Exam Present: no edema, normal capillary refill - Routine Skin Exam Present: dry, warm - Routine Neurological Exam Present: alert, altered mental status - Routine Lymphatic Exam Lymphatic: Absent: adenopathy - Routine Psychiatric Exam Present: unable to assess Results - Labs CBC & Chem 7: 04/12/17 10:59 04/12/17 10:59 Assessment and Plan (1) Dementia with behavioral disturbance Current visit: Yes Status: Acute Assessment and Plan: Assessment Dementia with behavioral disturbance. Alzheimer's disease. Chronic a-fib. CHF. GERD. Hypothyroidism. Osteoarthritis. Chronic pain. Depression. Overweight, BMI 29.8. Constipation. Herpes simplex. Insomnia. Osteoporosis. History of seizure disorder. History of hypokalemia. History of vitamin deficiency. History of UTI - treated on 03/20/17-03/27/17 with Macrobid. Plan Medically stable. Vitals, labs, nurses and psych notes reviewed. - Physician Narrative Narrative: Date: 04/16/17 Time: 1406 Hospital Course Summary Disclaimer: The visit summary below is not to be considered part of the above Progress Note. Hospital Course: Plan - 04/02/17 (Admission) Alzheimer's disease and dementia with behavioral disturbance. - Agree with admission to [facility] under the care of Dr. Mcgrath for psychiatric evaluation and treatment. Hospitalist service consulted for medical management. - CBC, CMP and UA obtained in ED and unremarkable. Will monitor periodically throughout admission. - Prior records indicated an unwitnessed fall on 03/28/17. Would recommend obtaining CT head given behavioral changes and unwitnessed fall. - CXR in ED revealed RLL atelectasis or pneumonia. WBC stable and patient remains afebrile without symptoms. Will hold off on antibiotic treatment at this time given patient is clinically stable without symptoms. - Monitor respiratory function closely. Notify hospitalist service if fever > 100.4, HR >100, RR > 22, systolic blood pressure <90 or >180, new cough or any symptoms that are concerning. Chronic a-fib. - EKG in ED revealed normal sinus rhythm at a rate of 67. Review of medication list does not reveal current treatment of a-fib. Monitor vital signs closely. Chronic CHF. - No current medications. Monitor closely for signs of fluid over load with increasing peripheral edema (none on admission) and daily weight. GERD. - Continue home medications - Maalox PRN. If needing Maalox frequently, consider addition of Prilosec daily for GI protection and GERD. Hypothyroidism. - TSH on admission was elevated at 8.11. Review of prior medical records indicated TSH ~18 in January 2017. Patient currently on Synthryoid 137mcg daily. Unknown if dose was increased/adjusted in 01/2017 or if elevated TSH was secondary to poor medication compliance. - Will continue home Synthroid at 137mcg daily and recommend recheck TSH in 6 weeks. Osteoarthritis and chronic pain. - Tylenol as needed for fever/pain. Home pain medications included Ibuprofen, Ultram and tylenol. May consider addition of Ibuprofen for additional pain control if needed. Depression. - To be managed by Dr. Mcgrath. Provide safe and supportive environment. Constipation. - Continue home medications for bowel motivation - miralax, MOM PRN, colace BID and dulcolax PRN. Herpes simplex. - No apparent acute lesions. Abreva as needed. Insomnia. - Elopement risk due to restlessness and insomnia. PRN Ativan and Haldol per Dr. Mcgrath as indicated. History of seizure disorder. - Monitor closely for signs of seizure. May consider neurology consult to Dr. Shah if seizure occurs. History of hypokalemia. - Continue home KCl 20 mEq daily. Will monitor electrolytes periodically throughout admission. History of vitamin deficiency. - Continue home supplements. History of UTI. - Recent UTI treated on 03/20/17-03/27/17 with Macrobid. UA in ED was unremarkable with trace ketones. Monitor for symptoms. Plan - 04/03/17 Alzheimer's disease and dementia with behavioral disturbance. - Patient remains agitated and actively striking out at staff. Continue psychiatric care per Dr. Mcgrath. - CXR in ED revealed RLL atelectasis or pneumonia. WBC stable and patient remains afebrile without symptoms. Pulse ox noted to be trending down. Will discuss treatment recommendations with Dr. Pool. Unable to clinically assess due to patient's agitation. - Monitor respiratory function closely. Notify hospitalist service if fever > 100.4, HR >100, RR > 22, systolic blood pressure <90 or >180, new cough or any symptoms that are concerning. Psych On admission: Continued Depakote 500mg PO BID. Plan to continue for time being, repeating VPA level once adherence has been ensured x 3 days. Luvox decreased from 100mg TID to 100mg BID. Geodon decreased from 80mg PO BID to 40mg PO BID. Mirtazapine decreased from 45mg PO q HS to 30mg PO q HS. 04/04/17 Psych: Decreased Luvox to 75mg PO BID. Continue to monitor symptoms - I am hesitant to make further changes as she has complained of not feeling well and may be some w/d symptoms due to changes in medications - however, I suspect polypharmacy was initially contributing to presentation, possibly akathisia. Would like to taper antidepressants, Geodon as much as possible and evaluate how patient does with Depakote. Monitor mood, behavior and response to treatment. 04/05/17 Psych: Decrease Geodon to 20mg PO BID; monitor response. Plan to check VPA level on 04/07 in AM. 04/07/17 Remains impulsive at times. Continue current care. 04/08/17 Psych: Will discuss the following with family: Switching antipsychotic from Geodon to Zyprexa (5mg at HS) as it was helpful clinically. Willl also increase Depakote DR to 250mg PO q AM and 500mg PO q HS. 04/08/17 hospitalist: Reviewed vital signs, lab, nurse's notes, and psychiatric note. Repeat vitals were 109/65 and pulse 97. Will continue to monitor. Her TSH was elevated, plan is to continue her current dosage and follow-up with repeat TSH in 4-6 weeks per previous note. 04/09/17 Psych: Decrease Luvox to 50mg PO BID, decrease mirtazapine to 15mg PO q HS as I believe some of patient's initial presentation due to polypharmacy. Seems to do well with Zyprexa, recent increase in Depakote. Plan to recheck VPA level once reaches steady state. 04/10/17 Psych: Will decrease mirtazapine to 7.5mg PO q HS in an effort to minimize polypharmacy; monitor sleep. 04/11/17 Psych: Will use PRN Zyprexa rather than PRN Haldol in case typical antipsychotic is responsible for restlessness/akathisia. Plan to check VPA level , CBC, CMP, ammonia level in AM. Increase mirtazapine back to 15mg PO q HS due to insomnia last night. 04/12/17 Psych: Will add lorazepam 1mg PO q HS; monitor insomnia. Patient does well during the day but then still is . May also consider increasing Zyprexa to 7.5mg PO q HS. Plan - 04/12/17 Overall, Lyndsey appears medically stable. She continues to have episodes when she believes she is a young child, often requesting her mommy. Continue psychiatric care per Dr. Mcgrtah. Continue to provide safe and supportive environment. Recent labs were unremarkable. 04/13/17 Psych- PT sleeping better. Continue current care 04/14/17 Psych- Pt had some agitation and paranoia last night. Fall this AM. Continue current care
[2017-04-16] MEDS: LORazepam 1 MG TABLET PO SCH (20:02)
[2017-04-16] MEDS: MIRTAZAPINE 15 MG TABLET PO SCH (20:02)
[2017-04-16] MEDS: OLANZapine ODT 5 MG TABLET PO SCH (20:02)
--- NOTE | 2017-04-16 22:36 | Neuropsych Progress Note ---
[facility] Subjective Date: 04/17/17 - Sujective/Severity of Illness Medications: Acetaminophen (Tylenol) 1,000 mg PO Q4H PRN PRN Reason: Pain Last Admin: 04/15/17 19:36 Dose: 1,000 mg Al Hydrox/Mg Hydrox/Simethicone (Maalox Plus "Xs") 30 ml PO Q4H PRN PRN Reason: Epigastric distress Bisacodyl (Dulcolax) 10 mg RECTALLY DAILY PRN PRN Reason: Constipation Divalproex Sodium (Depakote Sprinkle) 500 mg PO DAILY [facility] Last Admin: 04/16/17 10:02 Dose: 500 mg Divalproex Sodium (Depakote Sprinkle) 1,000 mg PO HS [facility] Last Admin: 04/16/17 20:01 Dose: 1,000 mg Divalproex Sodium (Depakote Sprinkle) 250 mg PO 12 [facility] Last Admin: 04/16/17 13:40 Dose: 250 mg Docusate Sodium (Colace) 100 mg PO BID [facility] Last Admin: 04/16/17 20:02 Dose: 100 mg Fluvoxamine Maleate (Luvox) 50 mg PO BID [facility] Last Admin: 04/16/17 20:02 Dose: 50 mg Ibuprofen (Motrin) 600 mg PO Q8H PRN PRN Reason: Pain Last Admin: 04/13/17 11:57 Dose: 600 mg Levothyroxine Sodium (Synthroid) 137 mcg PO ACB [facility] Last Admin: 04/16/17 06:07 Dose: 137 mcg Lorazepam (Ativan) 0.5 mg PO Q6H PRN PRN Reason: Extreme agitation Last Admin: 04/11/17 21:15 Dose: 0.5 mg Lorazepam (Ativan Inj) 0.5 mg IM Q6H PRN PRN Reason: Extreme agitation Last Admin: 04/13/17 21:52 Dose: 0.5 mg Lorazepam (Ativan) 1 mg PO HS [facility] Last Admin: 04/16/17 20:02 Dose: 1 mg Magnesium Hydroxide (Mom) 30 ml PO DAILY PRN PRN Reason: Constipation Last Admin: 04/04/17 16:29 Dose: 30 ml Mirtazapine (Remeron) 15 mg PO HS [facility] Last Admin: 04/16/17 20:02 Dose: 15 mg Olanzapine (Zyprexa Zydis) 5 mg PO HS [facility] Last Admin: 04/16/17 20:02 Dose: 5 mg Olanzapine (Zyprexa Zydis) 2.5 mg PO Q6HR PRN PRN Reason: Agitation Last Admin: 04/13/17 19:35 Dose: 2.5 mg Ondansetron HCl (Zofran Po) 4 mg PO Q6H PRN PRN Reason: Nausea &/or vomiting Polyethylene Glycol (Miralax) 17 gm PO DAILY [facility] Last Admin: 04/16/17 10:03 Dose: 17 gm Potassium Chloride (K-Dur 20 Meq Tablet) 20 meq PO WB [facility] Last Admin: 04/16/17 10:02 Dose: 20 meq Tamsulosin HCl (Flomax) 0.4 mg PO DAILY [facility] Last Admin: 04/16/17 10:03 Dose: 0.4 mg Subjective: Patient seen and chart reviewed. Case discussed with treatment team. On interview, patient is sitting in chair with staff. I attempted to touch her hand as I was talking to her and she jerked it away but did not become combative. She repeatedly asked about her mother but did not answer any other interview questions. She then asked me to leave her alone, which I did. She appeared to be cooperative with the other staff member sitting with her. Nursing staff report patient requires assistance to eat and can still be combative with cares, but is still improved from admission. Patient has been adherent with medications. Patient slept 9 hours overnight. VSS. Patient is eating well if she has assistance. Psychotropic PRNs required in the past 24 hours: none. Start Time: 14:20 Stop Time: 14:40 Mental Status Exam Vitals: Last Vital Signs Temp 99.3 F 04/16/17 16:00 Pulse 80 04/16/17 16:00 Resp 14 04/16/17 16:00 BP 91/49 04/16/17 16:00 Pulse Ox 92 04/16/17 16:00 Height: 1.63 m Weight: 77.6 kg - Mental Status Exam Muscle Strength/Tone: Normal Dressing: Casual Grooming: Poor Attitude: Cooperative Motor Activity: Restless (intermittent) Eye Contact: Poor Speech: Slowed Volume: Soft Rhythm: Mumbled, Paucity of Language Orientation: Disoriented to time, Disoriented to place, Disoriented to situation , Oriented to person Mood: Neutral (affect irritable today) Rate of Thoughts: Delayed Thought Organization: Disorganized, [place], Confused Associations: Illogical Abstract Reasoning: Impaired, concrete Thought Content: Other (Poverty of thought, perseverates on her mother and rain) Perception/Psychotic: Perception Normal Language: Naming Impaired Fund of Knowledge: Poor fund of knowledge Memory: Poor-immediate, Poor-recent, Poor-remote Suicidal Ideation: None Homicidal Ideation: None Insight: Impaired Judgement: Impaired Impulse Control: Poor - Laboratory Result Diagrams: 04/12/17 10:59 04/12/17 10:59 Assessment and Plan (1) Major neurocognitive disorder Problem details: with behavioral disturbance, moderate to severe Hx of Alzheimer's Other medical conditions: Chronic a-fib. CHF. GERD. Hypothyroidism. Osteoarthritis. Chronic pain. Depression. Overweight, BMI 29.8. Constipation. Herpes simplex. Osteoporosis. History of seizure disorder. History of hypokalemia. History of vitamin deficiency. History of UTI - treated on 03/20/17-03/27/17 with Macrobid. Current visit: Yes Status: Acute Additional afternoon dose of Depakote given today; monitor response. Hospital Course Summary Disclaimer: The visit summary below is not to be considered part of the above Progress Note. Hospital Course: Plan - 04/02/17 (Admission) Alzheimer's disease and dementia with behavioral disturbance. - Agree with admission to [facility] under the care of Dr. Mcgrath for psychiatric evaluation and treatment. Hospitalist service consulted for medical management. - CBC, CMP and UA obtained in ED and unremarkable. Will monitor periodically throughout admission. - Prior records indicated an unwitnessed fall on 03/28/17. Would recommend obtaining CT head given behavioral changes and unwitnessed fall. - CXR in ED revealed RLL atelectasis or pneumonia. WBC stable and patient remains afebrile without symptoms. Will hold off on antibiotic treatment at this time given patient is clinically stable without symptoms. - Monitor respiratory function closely. Notify hospitalist service if fever > 100.4, HR >100, RR > 22, systolic blood pressure <90 or >180, new cough or any symptoms that are concerning. Chronic a-fib. - EKG in ED revealed normal sinus rhythm at a rate of 67. Review of medication list does not reveal current treatment of a-fib. Monitor vital signs closely. Chronic CHF. - No current medications. Monitor closely for signs of fluid over load with increasing peripheral edema (none on admission) and daily weight. GERD. - Continue home medications - Maalox PRN. If needing Maalox frequently, consider addition of Prilosec daily for GI protection and GERD. Hypothyroidism. - TSH on admission was elevated at 8.11. Review of prior medical records indicated TSH ~18 in January 2017. Patient currently on Synthryoid 137mcg daily. Unknown if dose was increased/adjusted in 01/2017 or if elevated TSH was secondary to poor medication compliance. - Will continue home Synthroid at 137mcg daily and recommend recheck TSH in 6 weeks. Osteoarthritis and chronic pain. - Tylenol as needed for fever/pain. Home pain medications included Ibuprofen, Ultram and tylenol. May consider addition of Ibuprofen for additional pain control if needed. Depression. - To be managed by Dr. Mcgrath. Provide safe and supportive environment. Constipation. - Continue home medications for bowel motivation - miralax, MOM PRN, colace BID and dulcolax PRN. Herpes simplex. - No apparent acute lesions. Abreva as needed. Insomnia. - Elopement risk due to restlessness and insomnia. PRN Ativan and Haldol per Dr. Mcgrath as indicated. History of seizure disorder. - Monitor closely for signs of seizure. May consider neurology consult to Dr. Shah if seizure occurs. History of hypokalemia. - Continue home KCl 20 mEq daily. Will monitor electrolytes periodically throughout admission. History of vitamin deficiency. - Continue home supplements. History of UTI. - Recent UTI treated on 03/20/17-03/27/17 with Macrobid. UA in ED was unremarkable with trace ketones. Monitor for symptoms. Plan - 04/03/17 Alzheimer's disease and dementia with behavioral disturbance. - Patient remains agitated and actively striking out at staff. Continue psychiatric care per Dr. Mcgrath. - CXR in ED revealed RLL atelectasis or pneumonia. WBC stable and patient remains afebrile without symptoms. Pulse ox noted to be trending down. Will discuss treatment recommendations with Dr. Pool. Unable to clinically assess due to patient's agitation. - Monitor respiratory function closely. Notify hospitalist service if fever > 100.4, HR >100, RR > 22, systolic blood pressure <90 or >180, new cough or any symptoms that are concerning. Psych On admission: Continued Depakote 500mg PO BID. Plan to continue for time being, repeating VPA level once adherence has been ensured x 3 days. Luvox decreased from 100mg TID to 100mg BID. Geodon decreased from 80mg PO BID to 40mg PO BID. Mirtazapine decreased from 45mg PO q HS to 30mg PO q HS. 04/04/17 Psych: Decreased Luvox to 75mg PO BID. Continue to monitor symptoms - I am hesitant to make further changes as she has complained of not feeling well and may be some w/d symptoms due to changes in medications - however, I suspect polypharmacy was initially contributing to presentation, possibly akathisia. Would like to taper antidepressants, Geodon as much as possible and evaluate how patient does with Depakote. Monitor mood, behavior and response to treatment. 04/05/17 Psych: Decrease Geodon to 20mg PO BID; monitor response. Plan to check VPA level on 04/07 in AM. 04/07/17 Remains impulsive at times. Continue current care. 04/08/17 Psych: Will discuss the following with family: Switching antipsychotic from Geodon to Zyprexa (5mg at HS) as it was helpful clinically. Willl also increase Depakote DR to 250mg PO q AM and 500mg PO q HS. 04/08/17 hospitalist: Reviewed vital signs, lab, nurse's notes, and psychiatric note. Repeat vitals were 109/65 and pulse 97. Will continue to monitor. Her TSH was elevated, plan is to continue her current dosage and follow-up with repeat TSH in 4-6 weeks per previous note. 04/09/17 Psych: Decrease Luvox to 50mg PO BID, decrease mirtazapine to 15mg PO q HS as I believe some of patient's initial presentation due to polypharmacy. Seems to do well with Zyprexa, recent increase in Depakote. Plan to recheck VPA level once reaches steady state. 04/10/17 Psych: Will decrease mirtazapine to 7.5mg PO q HS in an effort to minimize polypharmacy; monitor sleep. 04/11/17 Psych: Will use PRN Zyprexa rather than PRN Haldol in case typical antipsychotic is responsible for restlessness/akathisia. Plan to check VPA level , CBC, CMP, ammonia level in AM. Increase mirtazapine back to 15mg PO q HS due to insomnia last night. 04/12/17 Psych: Will add lorazepam 1mg PO q HS; monitor insomnia. Patient does well during the day but then still is . May also consider increasing Zyprexa to 7.5mg PO q HS. Plan - 04/12/17 Overall, Lyndsey appears medically stable. She continues to have episodes when she believes she is a young child, often requesting her mommy. Continue psychiatric care per Dr. Mcgrath. Continue to provide safe and supportive environment. Recent labs were unremarkable. 04/13/17 Psych- PT sleeping better. Continue current care 04/14/17 Psych- Pt had some agitation and paranoia last night. Fall this AM. Continue current care 04/15/17 Psych: Will add lunchtime dose of Depakote 250mg PO to target afternoon anxiety/restlessness; monitor response.
[2017-04-17] MEDS: DOCUSATE SODIUM 100 MG CAPSULE PO SCH ×2 (09:16→20:08)
[2017-04-17] MEDS: TAMSULOSIN 0.4 MG CAPSULE PO SCH (09:16)
[2017-04-17] MEDS: LEVOTHYROXINE 137 MCG TABLET PO SCH (09:16)
[2017-04-17] MEDS: FLUVOXAMINE 50 MG TABLET PO SCH ×2 (09:17→20:09)
[2017-04-17] MEDS: DIVALPROEX SPRINKLE 125 MG CAPSULE PO SCH ×3 (09:17→20:08)
[2017-04-17] MEDS: POLYETHYL GLYCOL 3350 17gm PACKET PO SCH (09:17)
--- NOTE | 2017-04-17 16:08 | Neuropsych Progress Note ---
Huong Subjective Date: 04/18/17 - Sujective/Severity of Illness Medications: Acetaminophen (Tylenol) 1,000 mg PO Q4H PRN PRN Reason: Pain Last Admin: 04/15/17 19:36 Dose: 1,000 mg Al Hydrox/Mg Hydrox/Simethicone (Maalox Plus "Xs") 30 ml PO Q4H PRN PRN Reason: Epigastric distress Bisacodyl (Dulcolax) 10 mg RECTALLY DAILY PRN PRN Reason: Constipation Divalproex Sodium (Depakote Sprinkle) 500 mg PO DAILY [facility] Last Admin: 04/17/17 09:17 Dose: 500 mg Divalproex Sodium (Depakote Sprinkle) 1,000 mg PO HS [facility] Last Admin: 04/16/17 20:01 Dose: 1,000 mg Divalproex Sodium (Depakote Sprinkle) 250 mg PO 12 [facility] Last Admin: 04/17/17 12:28 Dose: 250 mg Docusate Sodium (Colace) 100 mg PO BID [facility] Last Admin: 04/17/17 09:16 Dose: 100 mg Fluvoxamine Maleate (Luvox) 50 mg PO BID [facility] Last Admin: 04/17/17 09:17 Dose: 50 mg Ibuprofen (Motrin) 600 mg PO Q8H PRN PRN Reason: Pain Last Admin: 04/13/17 11:57 Dose: 600 mg Levothyroxine Sodium (Synthroid) 137 mcg PO ACB [facility] Last Admin: 04/17/17 09:16 Dose: 137 mcg Lorazepam (Ativan) 0.5 mg PO Q6H PRN PRN Reason: Extreme agitation Last Admin: 04/11/17 21:15 Dose: 0.5 mg Lorazepam (Ativan Inj) 0.5 mg IM Q6H PRN PRN Reason: Extreme agitation Last Admin: 04/13/17 21:52 Dose: 0.5 mg Lorazepam (Ativan) 1 mg PO HS [facility] Last Admin: 04/16/17 20:02 Dose: 1 mg Magnesium Hydroxide (Mom) 30 ml PO DAILY PRN PRN Reason: Constipation Last Admin: 04/04/17 16:29 Dose: 30 ml Mirtazapine (Remeron) 15 mg PO HS [facility] Last Admin: 04/16/17 20:02 Dose: 15 mg Olanzapine (Zyprexa Zydis) 5 mg PO HS [facility] Last Admin: 04/16/17 20:02 Dose: 5 mg Olanzapine (Zyprexa Zydis) 2.5 mg PO Q6HR PRN PRN Reason: Agitation Last Admin: 04/13/17 19:35 Dose: 2.5 mg Ondansetron HCl (Zofran Po) 4 mg PO Q6H PRN PRN Reason: Nausea &/or vomiting Polyethylene Glycol (Miralax) 17 gm PO DAILY [facility] Last Admin: 04/17/17 09:17 Dose: 17 gm Potassium Chloride (K-Dur 20 Meq Tablet) 20 meq PO WB [facility] Last Admin: 04/17/17 09:16 Dose: 20 meq Tamsulosin HCl (Flomax) 0.4 mg PO DAILY [facility] Last Admin: 04/17/17 09:16 Dose: 0.4 mg Subjective: Patient seen and chart reviewed. Case discussed with treatment team. On interview, patient is repetitive but doesn't answer any questions specifically. Nursing staff report patient requires assistance to eat. Physical aggression has resolved. Patient has been adherent with medications. Patient slept poorly last night but there was a lot of commotion on the unit with other patients that seemed to frighten her. VSS. Patient is eating well if she has assistance. Psychotropic PRNs required in the past 24 hours: none. Start Time: 13:00 Stop Time: 13:20 Mental Status Exam Vitals: Last Vital Signs Temp 98.0 F 04/17/17 08:00 Pulse 96 04/17/17 08:00 Resp 16 04/17/17 08:00 BP 108/65 04/17/17 08:00 Pulse Ox 92 04/17/17 08:00 Height: 1.63 m Weight: 77.6 kg - Mental Status Exam Muscle Strength/Tone: Normal Dressing: Casual Grooming: Poor Attitude: Cooperative Motor Activity: Retardation Eye Contact: Poor Speech: Slowed Volume: Soft Rhythm: Mumbled, Paucity of Language Orientation: Disoriented to time, Disoriented to place, Disoriented to situation , Oriented to person Mood: Neutral Affect: Relaxed Rate of Thoughts: Delayed Thought Organization: Disorganized, [place], Confused Associations: Illogical Abstract Reasoning: Impaired, concrete Thought Content: Other (Poverty of thought, perseverates on her mother and rain) Perception/Psychotic: Perception Normal Language: Naming Impaired Fund of Knowledge: Poor fund of knowledge Memory: Poor-immediate, Poor-recent, Poor-remote Suicidal Ideation: None Homicidal Ideation: None Insight: Impaired Judgement: Impaired Impulse Control: Fair - Laboratory Result Diagrams: 04/12/17 10:59 04/12/17 10:59 Assessment and Plan (1) Major neurocognitive disorder Problem details: with behavioral disturbance, Alzheimer's, severe Polypharmacy also likely contributed to agitation upon admission. Other medical conditions: Chronic a-fib. CHF. GERD. Hypothyroidism. Osteoarthritis. Chronic pain. Depression. Overweight, BMI 29.8. Constipation. Herpes simplex. Osteoporosis. History of seizure disorder. History of hypokalemia. History of vitamin deficiency. History of UTI - treated on 03/20/17-03/27/17 with Macrobid. Current visit: Yes Status: Acute Continue to monitor sleep and plan for discharge on 04/18/17 if all continues to go well. Hospital Course Summary Disclaimer: The visit summary below is not to be considered part of the above Progress Note. Hospital Course: Plan - 04/02/17 (Admission) Alzheimer's disease and dementia with behavioral disturbance. - Agree with admission to [facility] under the care of Dr. Mcgrath for psychiatric evaluation and treatment. Hospitalist service consulted for medical management. - CBC, CMP and UA obtained in ED and unremarkable. Will monitor periodically throughout admission. - Prior records indicated an unwitnessed fall on 03/28/17. Would recommend obtaining CT head given behavioral changes and unwitnessed fall. - CXR in ED revealed RLL atelectasis or pneumonia. WBC stable and patient remains afebrile without symptoms. Will hold off on antibiotic treatment at this time given patient is clinically stable without symptoms. - Monitor respiratory function closely. Notify hospitalist service if fever > 100.4, HR >100, RR > 22, systolic blood pressure <90 or >180, new cough or any symptoms that are concerning. Chronic a-fib. - EKG in ED revealed normal sinus rhythm at a rate of 67. Review of medication list does not reveal current treatment of a-fib. Monitor vital signs closely. Chronic CHF. - No current medications. Monitor closely for signs of fluid over load with increasing peripheral edema (none on admission) and daily weight. GERD. - Continue home medications - Maalox PRN. If needing Maalox frequently, consider addition of Prilosec daily for GI protection and GERD. Hypothyroidism. - TSH on admission was elevated at 8.11. Review of prior medical records indicated TSH ~18 in January 2017. Patient currently on Synthryoid 137mcg daily. Unknown if dose was increased/adjusted in 01/2017 or if elevated TSH was secondary to poor medication compliance. - Will continue home Synthroid at 137mcg daily and recommend recheck TSH in 6 weeks. Osteoarthritis and chronic pain. - Tylenol as needed for fever/pain. Home pain medications included Ibuprofen, Ultram and tylenol. May consider addition of Ibuprofen for additional pain control if needed. Depression. - To be managed by Dr. Mcgrath. Provide safe and supportive environment. Constipation. - Continue home medications for bowel motivation - miralax, MOM PRN, colace BID and dulcolax PRN. Herpes simplex. - No apparent acute lesions. Abreva as needed. Insomnia. - Elopement risk due to restlessness and insomnia. PRN Ativan and Haldol per Dr. Mcgrath as indicated. History of seizure disorder. - Monitor closely for signs of seizure. May consider neurology consult to Dr. Shah if seizure occurs. History of hypokalemia. - Continue home KCl 20 mEq daily. Will monitor electrolytes periodically throughout admission. History of vitamin deficiency. - Continue home supplements. History of UTI. - Recent UTI treated on 03/20/17-03/27/17 with Macrobid. UA in ED was unremarkable with trace ketones. Monitor for symptoms. Plan - 04/03/17 Alzheimer's disease and dementia with behavioral disturbance. - Patient remains agitated and actively striking out at staff. Continue psychiatric care per Dr. Mcgrath. - CXR in ED revealed RLL atelectasis or pneumonia. WBC stable and patient remains afebrile without symptoms. Pulse ox noted to be trending down. Will discuss treatment recommendations with Dr. Pool. Unable to clinically assess due to patient's agitation. - Monitor respiratory function closely. Notify hospitalist service if fever > 100.4, HR >100, RR > 22, systolic blood pressure <90 or >180, new cough or any symptoms that are concerning. Psych On admission: Continued Depakote 500mg PO BID. Plan to continue for time being, repeating VPA level once adherence has been ensured x 3 days. Luvox decreased from 100mg TID to 100mg BID. Geodon decreased from 80mg PO BID to 40mg PO BID. Mirtazapine decreased from 45mg PO q HS to 30mg PO q HS. 04/04/17 Psych: Decreased Luvox to 75mg PO BID. Continue to monitor symptoms - I am hesitant to make further changes as she has complained of not feeling well and may be some w/d symptoms due to changes in medications - however, I suspect polypharmacy was initially contributing to presentation, possibly akathisia. Would like to taper antidepressants, Geodon as much as possible and evaluate how patient does with Depakote. Monitor mood, behavior and response to treatment. 04/05/17 Psych: Decrease Geodon to 20mg PO BID; monitor response. Plan to check VPA level on 04/07 in AM. 04/07/17 Remains impulsive at times. Continue current care. 04/08/17 Psych: Will discuss the following with family: Switching antipsychotic from Geodon to Zyprexa (5mg at HS) as it was helpful clinically. Willl also increase Depakote DR to 250mg PO q AM and 500mg PO q HS. 04/08/17 hospitalist: Reviewed vital signs, lab, nurse's notes, and psychiatric note. Repeat vitals were 109/65 and pulse 97. Will continue to monitor. Her TSH was elevated, plan is to continue her current dosage and follow-up with repeat TSH in 4-6 weeks per previous note. 04/09/17 Psych: Decrease Luvox to 50mg PO BID, decrease mirtazapine to 15mg PO q HS as I believe some of patient's initial presentation due to polypharmacy. Seems to do well with Zyprexa, recent increase in Depakote. Plan to recheck VPA level once reaches steady state. 04/10/17 Psych: Will decrease mirtazapine to 7.5mg PO q HS in an effort to minimize polypharmacy; monitor sleep. 04/11/17 Psych: Will use PRN Zyprexa rather than PRN Haldol in case typical antipsychotic is responsible for restlessness/akathisia. Plan to check VPA level , CBC, CMP, ammonia level in AM. Increase mirtazapine back to 15mg PO q HS due to insomnia last night. 04/12/17 Psych: Will add lorazepam 1mg PO q HS; monitor insomnia. Patient does well during the day but then still is . May also consider increasing Zyprexa to 7.5mg PO q HS. Plan - 04/12/17 Overall, Lyndsey appears medically stable. She continues to have episodes when she believes she is a young child, often requesting her mommy. Continue psychiatric care per Dr. Mcgrath. Continue to provide safe and supportive environment. Recent labs were unremarkable. 04/13/17 Psych- PT sleeping better. Continue current care 04/14/17 Psych- Pt had some agitation and paranoia last night. Fall this AM. Continue current care 04/15/17 Psych: Will add lunchtime dose of Depakote 250mg PO to target afternoon anxiety/restlessness; monitor response.
[2017-04-17 16:21] VITALS: O2SAT 93
[2017-04-17] MEDS: LORazepam 1 MG TABLET PO SCH (20:08)
[2017-04-17] MEDS: OLANZapine ODT 5 MG TABLET PO SCH (20:08)
[2017-04-17] MEDS: MIRTAZAPINE 15 MG TABLET PO SCH (20:08)
[2017-04-17 22:29] VITALS: BP 136/75; PULSE 76; RESP 18; TEMP 98
[2017-04-18] MEDS: LEVOTHYROXINE 137 MCG TABLET PO SCH (06:13)
[2017-04-18] MEDS: DOCUSATE SODIUM 100 MG CAPSULE PO SCH (09:53)
[2017-04-18] MEDS: FLUVOXAMINE 50 MG TABLET PO SCH (09:54)
[2017-04-18] MEDS: TAMSULOSIN 0.4 MG CAPSULE PO SCH (09:54)
[2017-04-18] MEDS: POLYETHYL GLYCOL 3350 17gm PACKET PO SCH (09:55)
[2017-04-18] MEDS: DIVALPROEX SPRINKLE 125 MG CAPSULE PO SCH (09:55)
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
--- NOTE | 2017-04-18 13:04 | Extended Care Facility Orders ---
Admission Orders Admit to:: [facility] Allergies/Adverse Reactions: Allergies No Known Allergies Allergy (Verified 04/02/17 09:53) Admitting Diagnosis: Dementia with behavioral disturbances Admitting Physician: Rosenda Mcgrath MD Attending Physician: Rosenda Mcgrath MD Code Status: Do Not Resuscitate Anticiapted Length of Stay: greater than 30 days Rehab Potential: poor Rehab Prognosis: poor Diet: 04/02/17 Lunch Regular Diet [DIET] Diet Modifications: Food Consistency: MECSOF May use Facility Protocol or Standing Orders: Yes May have flu vaccine: Yes Evaluations/Treatment: Psychiatric, as needed Detention Certification: I certify that SNF services are required to be given on an Inpatient basis because of the patients need for assisted care on a continuing basis for the condition(s) for which he/she received inpatient hospital services prior to his/her transfer to the SNF. SNF inpatient care is necessary for the following reasons Indication for Detention: Not Applicable - Additional Information In Event of Arrest: Do Not Start CPR Resident is Aware of Diagnosis: No Laboratory/Radiology: Monitor CBC, LFTs while on Depakote
== END 2017-04-18 15:00 | DRG 57 ==
LOC: ED 08:47 → GEN 10:12
PROVIDERS: ADMIT Psychiatry & Neurology Psychiatry; ATTEND Psychiatry & Neurology Psychiatry